=== PATIENT | male | born 1970 | race American Indian/Alaskan Native ===

== ENCOUNTER 2021-08-12 09:21 | Inpatient (IN) ==
[2021-08-12] MEDS ORDERED: IOPAMIDOL 100 ML BOTTLE IV ONE (09:22)
--- NOTE | 2021-08-12 09:48 | Emergency Department Note ---
HPI General Chief complaint: Skin/Abscess/Rash Stated complaint: skin Time Seen by Provider: 08/12/21 09:47 Source: patient and EMS Mode of arrival: EMS Limitations: no limitations History of Present Illness HPI Narrative: 51-year-old male with past medical history of type 2 diabetes on insulin presenting with left buttock pain and chills. Patient states he was told he had cellulitis at [facility] and was prescribed antibiotics which he finished today. Patient states he does not feel improved and the pain and swelling in his left buttock area is worsening. He also endorses chills and decreased appetite. No fever, vomiting, chest pain, shortness of breath, blood in stool, melena, dysuria, or hematuria. States he had a CT scan at [facility] 10 days ago but does not know the exact results. He has been compliant with his antibiotics but has not been taking his insulin. Point-of- care blood glucose on arrival just read "high". No numbness, weakness, paresthesias, or bowel or bladder incontinence. Related Data Home Medications Medication Instructions Recorded Confirmed No Known Home Meds 08/12/21 08/12/21 Allergies Allergy/AdvReac Type Severity Reaction Status Date / Time No Known Drug Allergies Allergy Unverified 08/12/21 10:24 Review of Systems ROS ROS Narrative: Narrative: Constitutional: Reports chills; Denies fever ENT ED: Denies throat pain Cardiovascular: Denies chest pain or palpitations Respiratory: Denies shortness of breath or cough Gastrointestinal: Denies abdominal pain, nausea or vomiting Genitourinary: Denies dysuria or frequency Musculoskeletal: Denies back pain or joint swelling Integumentary: Denies rash Neurological: Denies headache, weakness or dizziness Psychiatric: Denies anxiety Endocrine: Denies fatigue Hematological/Lymphatic: Denies easy bleeding PFSH Narrative Patient History Narrative: Narrative: Medical/Surgical/Family History All Active Problems (Updated 08/12/21 @ 16:01 by Shey Erazo MD) Diabetes mellitus (Acute) Perirectal abscess (Acute) Abscess of left buttock (Acute) Social History Smoking Status: Never smoker Exam Narrative Narrative: Narrative: General Limitations: no limitations General appearance: Present alert and other (Tremulous and in mild distress) Head Head: Present atraumatic and normocephalic Eye Eye: Present normal appearance, PERRL and EOMI; Absent scleral icterus or conjunctival injection ENT ENT: Present mucous membranes moist Neck Neck: Present normal inspection, full ROM and trachea midline; Absent meningism us or lymphadenopathy Chest Chest: Present symmetric chest wall rise Respiratory Respiratory: Present normal lung sounds bilaterally; Absent respiratory distress, wheezes, stridor, accessory muscle use or prolonged expiratory phase Cardiovascular Cardiovascular: Present regular rate and normal rhythm; Absent systolic murmur or diastolic murmur Adbominal Abdominal: Present soft; Absent distention, tenderness, guarding, rebound, rigidity, organomegaly or mass Rectal Rectal: Present other (Entire left gluteal area is firm and tender to touch without erythema or warmth) Extremities Extremities: Present normal inspection; Absent pretibial edema Back Back: Absent CVA tenderness (R) or CVA tenderness (L) Neurological Neurological: Present alert and oriented X3; Absent motor sensory deficit Psychiatric Psychiatric: Present normal affect and normal mood Skin Skin: Present warm (WNL) and dry Course Consultations Consultation #1: Dr. Erazo, general surgery Time: 14:05 Consultation #2: Dr. Kelly, hospitalist Time: 14:32 Vital Signs Vital signs: Vital Signs Temperature 100.8 F H 08/12/21 09:27 Respiratory Rate 20 08/12/21 09:27 Blood Pressure 164/121 08/12/21 09:27 Pulse Oximetry (%) 99 08/12/21 09:27 Temperature 100.8 F H 08/12/21 10:16 Pulse Rate 116 H 08/12/21 18:49 Respiratory Rate 29 H 08/12/21 18:49 Blood Pressure 98/65 08/12/21 18:46 Pulse Oximetry (%) 95 08/12/21 18:49 [facility] MDM Narrative Medical decision making narrative: 51-year-old male presenting with left buttock pain and chills. He is febrile, tachycardic, and hypertensive in the ED. Normal saline bolus and IV Tylenol given. Concern for deep gluteal abscess, will obtain labs and CT imaging to evaluate. Labs notable for leukocytosis to 15.3, hyperglycemia to 386 and elevated beta hydroxybutyrate, but no anion gap which is not consistent with DKA. Lactate is 3.8 and procalcitonin is 25.06. IV vancomycin and Zosyn given. Patient was also given 4 L of normal saline given his hypotension and tachycardia, likely from sepsis. CT shows a 15cm multiloculated abscess of the entire left gluteal delma muscle belly with overlying cellulitis. I discussed these findings with Dr. Erazo of surgery who recommends admission and will evaluate the patient. I discussed the patient with hospitalist, Dr. Kelly, who will admit. Lab Data Lab results reviewed: Yes I reviewed the patient's lab results. Result diagrams: 08/12/21 09:56 08/12/21 09:56 Labs: Lab Results 08/12/21 08/12/21 08/12/21 Range/Units 09:43 09:56 09:56 WBC 15.3 H (4.5-11.0) K/mcL RBC 3.28 L (4.63-6.08) M/mcL Hgb 8.9 L (13.7-17.5) g/dL Hct 27.3 L (40.1-51.0) % MCV 83.2 (80.0-100.0) fL MCH 27.1 (26.0-34.0) pg MCHC 32.6 (31.0-36.0) g/dL RDW 14.8 H (11.5-14.5) % Plt Count 411 (140-440) K/mcL MPV 10.4 (7.4-10.4) fL Neut % (Auto) 88.3 H (38.0-78.0) % Lymph % (Auto) 6.4 L (15.5-49.0) % Richardson % (Auto) 4.8 (1.0-12.0) % Eos % (Auto) 0.2 (0.0-7.0) % Baso % (Auto) 0.3 (0.0-2.0) % Lymph # (Auto) 0.98 L (1.50-4.80) K/mcL Richardson # (Auto) 0.73 (0.10-0.90) K/mcL Eos # (Auto) 0.03 (0.00-0.70) K/mcL Baso # (Auto) 0.04 (0.00-0.30) K/mcL Absolute Neutrophils 13.54 H (1.80-8.00) K/mcL VBG Lactic Acid (0.5-2.0) mmol/L Sodium 124 L (133-145) mmol/L Potassium 4.2 (3.3-5.1) mmol/L Chloride 88 L (96-108) mmol/L Carbon Dioxide 20 L (22-30) mmol/L Anion Gap 16.0 (8.0-16.0) BUN 9 (6-20) mg/dL Creatinine 0.6 L (0.7-1.2) mg/dL GFR Calculation 118 Glucose 386 H (70-105) mg/dL Hemoglobin A1c 11.4 H (4.0-6.0) % Hgb Estim Average Glucose 280 mg/dL Calcium 7.8 L (8.6-10.4) mg/dL Total Bilirubin 1.3 H (0.1-1.0) mg/dL AST 59 H (<40) U/L ALT 38 (<40) U/L Alkaline Phosphatase 520 H (39-117) U/L Total Protein 7.0 (5.9-8.4) gm/dL Albumin 1.8 L (3.2-5.2) gm/dL Globulin 5.2 H (2.2-3.7) gm/dL Albumin/Globulin Ratio 0.3 L (1.0-2.3) Beta-Hydroxybutyrate (<0.27) mmol/L Procalcitonin (<0.10) ng/mL 08/12/21 08/12/21 08/12/21 Range/Units 09:56 09:56 09:56 WBC (4.5-11.0) K/mcL RBC (4.63-6.08) M/mcL Hgb (13.7-17.5) g/dL Hct (40.1-51.0) % MCV (80.0-100.0) fL MCH (26.0-34.0) pg MCHC (31.0-36.0) g/dL RDW (11.5-14.5) % Plt Count (140-440) K/mcL MPV (7.4-10.4) fL Neut % (Auto) (38.0-78.0) % Lymph % (Auto) (15.5-49.0) % Richardson % (Auto) (1.0-12.0) % Eos % (Auto) (0.0-7.0) % Baso % (Auto) (0.0-2.0) % Lymph # (Auto) (1.50-4.80) K/mcL Richardson # (Auto) (0.10-0.90) K/mcL Eos # (Auto) (0.00-0.70) K/mcL Baso # (Auto) (0.00-0.30) K/mcL Absolute Neutrophils (1.80-8.00) K/mcL VBG Lactic Acid 3.8 H (0.5-2.0) mmol/L Sodium (133-145) mmol/L Potassium (3.3-5.1) mmol/L Chloride (96-108) mmol/L Carbon Dioxide (22-30) mmol/L Anion Gap (8.0-16.0) BUN (6-20) mg/dL Creatinine (0.7-1.2) mg/dL GFR Calculation Glucose (70-105) mg/dL Hemoglobin A1c (4.0-6.0) % Hgb Estim Average Glucose mg/dL Calcium (8.6-10.4) mg/dL Total Bilirubin (0.1-1.0) mg/dL AST (<40) U/L ALT (<40) U/L Alkaline Phosphatase (39-117) U/L Total Protein (5.9-8.4) gm/dL Albumin (3.2-5.2) gm/dL Globulin (2.2-3.7) gm/dL Albumin/Globulin Ratio (1.0-2.3) Beta-Hydroxybutyrate 2.49 H (<0.27) mmol/L Procalcitonin 25.06 H (<0.10) ng/mL 08/12/21 Range/Units 14:27 WBC (4.5-11.0) K/mcL RBC (4.63-6.08) M/mcL Hgb (13.7-17.5) g/dL Hct (40.1-51.0) % MCV (80.0-100.0) fL MCH (26.0-34.0) pg MCHC (31.0-36.0) g/dL RDW (11.5-14.5) % Plt Count (140-440) K/mcL MPV (7.4-10.4) fL Neut % (Auto) (38.0-78.0) % Lymph % (Auto) (15.5-49.0) % Richardson % (Auto) (1.0-12.0) % Eos % (Auto) (0.0-7.0) % Baso % (Auto) (0.0-2.0) % Lymph # (Auto) (1.50-4.80) K/mcL Richardson # (Auto) (0.10-0.90) K/mcL Eos # (Auto) (0.00-0.70) K/mcL Baso # (Auto) (0.00-0.30) K/mcL Absolute Neutrophils (1.80-8.00) K/mcL VBG Lactic Acid 2.0 (0.5-2.0) mmol/L Sodium (133-145) mmol/L Potassium (3.3-5.1) mmol/L Chloride (96-108) mmol/L Carbon Dioxide (22-30) mmol/L Anion Gap (8.0-16.0) BUN (6-20) mg/dL Creatinine (0.7-1.2) mg/dL GFR Calculation Glucose (70-105) mg/dL Hemoglobin A1c (4.0-6.0) % Hgb Estim Average Glucose mg/dL Calcium (8.6-10.4) mg/dL Total Bilirubin (0.1-1.0) mg/dL AST (<40) U/L ALT (<40) U/L Alkaline Phosphatase (39-117) U/L Total Protein (5.9-8.4) gm/dL Albumin (3.2-5.2) gm/dL Globulin (2.2-3.7) gm/dL Albumin/Globulin Ratio (1.0-2.3) Beta-Hydroxybutyrate (<0.27) mmol/L Procalcitonin (<0.10) ng/mL ED POC Tests ED POC Tests: LILLI - SARS Antigen Negative Radiology Data Radiology results reviewed: Yes I reviewed the patient's radiology results. Radiology results narrative: Ordering Physician:Rainer Paredes M.D. Date of Service:08/12/21 Procedure(s):CT pelvis w con CLINICAL INFORMATION: Left buttock pain COMPARISON: None. TECHNIQUE: 0.625 mm helical slices were obtained from the mid L4 through the subtrochanteric regions. Following reconstruction, 2.5 mm sagittal, coronal and axial reformations were processed. The exam was reviewed in bone and soft tissue windows. The exam was performed using radiation dose optimization techniques including, but not limited to, automated exposure control, adjustment of mA and/or kV according to patient size and use of iterative reconstruction technique. FINDINGS: A massive multiloculated abscess dominates the left gluteus delma muscle belly spanning 15 x 14 x 5 cm. There is marked cellulitis with scattered fluid in the overlying subcutaneous fat. There is also cellulitis in the subcutaneous fat overlying the erector spinae at midline at L5-S1 and the subcutaneous fat in the right gluteal region. Osseous structures are normal-no evidence of osteomyelitis. Both hip and SI joints are normal in width and alignment. Prostate, seminal vesicles, urinary bladder, visualized small /large bowel and the inferior pole kidneys all unremarkable. Vascular structures are normal. IMPRESSION: 1. Large (15 cm) multiloculated abscess dominating the entire left gluteal delma muscle belly with severe overlying cellulitis in the subcutaneous fat. Subcutaneous fat cellulitis is also seen at midline overlying the erector spinae muscles at L5-S1 and the right gluteal region region. Interpreted and Authenticated by: Reji Acosta 08/12/21 EKG Data EKG #1: EKG attestation: Yes I reviewed and interpreted this EKG. and Yes There are no EKG findings of acute coronary syndrome EKG results narrative: Sinus tachycardia at 137 bpm. Artifact present but no significant ST elevation or depression noted. Discharge Plan Patient/Caregiver Discharge Instructions Pt seen by UNIT SECY/PA only: No Clinical Impression: Abscess of left buttock Patient Disposition: Xfer As Inpt ([facility]) Condition: Fair Discharge Date/Time: 08/12/21 16:44 Discharge Location: [facility]
[2021-08-12] MEDS ORDERED: VANCOMYCIN 1,500 MG in 0.9 % SODIUM CHLORIDE 500 ML IV ONE (10:01)
[2021-08-12] MEDS ORDERED: 0.9 % SODIUM CHLORIDE 1,000 ML IV ONE ×2 (10:01→11:10)
[2021-08-12] MEDS ORDERED: ACETAMINOPHEN 1,000 MG/100 ML BAG IV ONE (10:02)
[2021-08-12 11:01] LABS: Basophils # (Auto) 0.04 K/mcL (0.00-0.30); Basophils % (Auto) 0.3 % (0.0-2.0); Eosinophils # (Auto) 0.03 K/mcL (0.00-0.70); Eosinophils % (Auto) 0.2 % (0.0-7.0); Hematocrit 27.3 % (40.1-51.0); Hemoglobin 8.9 g/dL (13.7-17.5); Lymphocytes # (Auto) 0.98 K/mcL (1.50-4.80); Lymphocytes % (Auto) 6.4 % (15.5-49.0); Mean Cell Volume 83.2 fL (80.0-100.0); Mean Corpuscular HGB Conc 32.6 g/dL (31.0-36.0); Mean Platelet Volume 10.4 fL (7.4-10.4); Monocytes # (Auto) 0.73 K/mcL (0.10-0.90); Monocytes % (Auto) 4.8 % (1.0-12.0); Neutrophils % (Auto) 88.3 % (38.0-78.0); Platelet Count 411 K/mcL (140-440); RBC 3.28 M/mcL (4.63-6.08); Red Cell Distribution Width 14.8 % (11.5-14.5); WBC 15.3 K/mcL (4.5-11.0)
[2021-08-12 11:06] LABS: ALT/SGPT 38 U/L (<40); AST/SGOT 59 U/L (<40); Albumin 1.8 gm/dL (3.2-5.2); Albumin/Globulin Ratio 0.3 (1.0-2.3); Alkaline Phosphatase 520 U/L (39-117); Bilirubin,Total 1.3 mg/dL (0.1-1.0); Blood Urea Nitrogen 9 mg/dL (6-20); Calcium 7.8 mg/dL (8.6-10.4); Carbon Dioxide 20 mmol/L (22-30); Chloride 88 mmol/L (96-108); Globulin 5.2 gm/dL (2.2-3.7); Glomerular Filtration Rate 118; Glucose 386 mg/dL (70-105)
--- NOTE | 2021-08-12 12:19 | Cat Scan Report ---
CLINICAL INFORMATION: Left buttock pain COMPARISON: None. TECHNIQUE: 0.625 mm helical slices were obtained from the mid L4 through the subtrochanteric regions. Following reconstruction, 2.5 mm sagittal, coronal and axial reformations were processed. The exam was reviewed in bone and soft tissue windows. The exam was performed using radiation dose optimization techniques including, but not limited to, automated exposure control, adjustment of mA and/or kV according to patient size and use of iterative reconstruction technique. FINDINGS: A massive multiloculated abscess dominates the left gluteus delma muscle belly spanning 15 x 14 x 5 cm. There is marked cellulitis with scattered fluid in the overlying subcutaneous fat. There is also cellulitis in the subcutaneous fat overlying the erector spinae at midline at L5-S1 and the subcutaneous fat in the right gluteal region. Osseous structures are normal-no evidence of osteomyelitis. Both hip and SI joints are normal in width and alignment. Prostate, seminal vesicles, urinary bladder, visualized small /large bowel and the inferior pole kidneys all unremarkable. Vascular structures are normal. IMPRESSION: 1. Large (15 cm) multiloculated abscess dominating the entire left gluteal delma muscle belly with severe overlying cellulitis in the subcutaneous fat. Subcutaneous fat cellulitis is also seen at midline overlying the erector spinae muscles at L5-S1 and the right gluteal region region. Interpreted and Authenticated by: Reji Acsota 08/12/21
[2021-08-12] MEDS ORDERED: PIPERACILLIN SODIUM/TAZOBACTAM 4.5 GM in DEXTROSE 5% IN WATER 50 ML IV ONE (14:32)
[2021-08-12] MEDS ORDERED: fentaNYL 100 MCG/2 ML VIAL IV ONE (14:35)
[2021-08-12 15:27] LABS: Hemoglobin A1C 11.4 % Hgb (4.0-6.0)
--- NOTE | 2021-08-12 16:02 | General Surg History&Physical ---
HPI History of Present Illness Patient information: Note initiated : 08/12/21 at 3:43 pm Service Date, if different from initiated Date: [] Patient: Frankie Rhoades 51 y/o M admitted on for skin. Chief Complaint: [] History of present illness: Mr. Rhoades is a 51 year old M admitted from the emergency room with a very large perirectal and gluteal abscess with acute septicemia. The patient has a history of developing an abscess in the gluteal cleft and late May. He was seen in the emergency room but it was not addressed because he left AGAINST MEDICAL ADVICE. He was seen again on 31 July with worsening pain which extended into his lower back. He was felt to have worsening abscess but was only treated with oral clindamycin for 7 days. He continued to have severe discomfort and finally presented to our emergency room with severe swelling of his left buttock extending into the presacral area and up in the lumbar sacral area. CT confirms a 16 cm abscess with air pockets, necrotic tissue with extension into the subcutaneous plane up to the lower lumbar sacral area. Patient has been hypotensive and tachycardic. He is demonstrating significant signs of sepsis and will be taken emergently to the operating room for incision and drainage of the area. He probably will need to have a takeback evaluation in 2days for further debridement and placement of a wound VAC. Patient has uncontrolled diabetes and he has not been taking his insulin during this time because his p.o. intake has been poor. His serum glucose is 386 and his hemoglobin A1c is 11.4. Beta hydroxybutyrate was 2.49 and procalcitonin is 25. Review of Systems All systems: reviewed and no additional remarkable complaints except as stated Constitutional Constitutional: Present chills, excessive sweating, malaise, night sweats and w eakness Respiratory Respiratory: Present dyspnea on exertion Gastrointestinal Gastrointestinal: Present abdominal pain, early satiety and nausea PFSH PFSH All Active Problems (Updated 08/12/21 @ 16:01 by Shey Erazo MD) Diabetes mellitus (Acute) Perirectal abscess (Acute) Abscess of left buttock (Acute) MEDS/ALLERGIES Home Medications and Allergies Home Medications Medication Instructions Recorded Confirmed Type No Known Home Meds 08/12/21 08/12/21 History Allergies Allergy/AdvReac Type Severity Reaction Status Date / Time No Known Drug Allergies Allergy Unverified 08/12/21 10:24 Physical Examination Vital Signs Vital signs: Temp Pulse Resp BP Pulse Ox 100.8 F H 124 H 39 H 99/59 100 08/12/21 10:16 08/12/21 15:05 08/12/21 15:05 08/12/21 15:01 08/12/21 15:05 General physical appearance General physical exam: well developed, moderate distress and severe pain Eyes Eye exam: PERRL and normal ocular movement ENT ENT exam: normal pinna and normal mucosa Head Head exam IM: Present atraumatic, normal inspection and normocephalic Neck Neck exam: no masses, no bruits, trachea midline, no lymphadenopathy and no venous distension Cardiovascular Cardiovascular exam IM: Present +S1, +S2 and tachycardia; Absent JVD Respiratory Respiratory exam: normal expansion, normal respiratory effort, clear to auscultation and other Abdomen Abdomen: Present soft, non tender and distended (Mild diffuse distention without tenderness) Rectum Rectum: Present other (Very large abscess involving the entire left buttock extending up to the lumbosacral area on the left side; also involves left perirectal space) Neurologic Neurologic: Present normal coordination and normal sensation Musculoskeletal Musculoskeletal: Present normal gait and normal posture Psychiatric Psychiatric: Present oriented to time, oriented to person, oriented to place, speech is normal and memory intact Results Labs Result diagrams: 08/12/21 09:56 08/12/21 09:56 Labs: Abnormal lab results 08/12/21 08/12/21 08/12/21 Range/Units 09:43 09:56 09:56 WBC 15.3 H (4.5-11.0) K/mcL RBC 3.28 L (4.63-6.08) M/mcL Hgb 8.9 L (13.7-17.5) g/dL Hct 27.3 L (40.1-51.0) % RDW 14.8 H (11.5-14.5) % Neut % (Auto) 88.3 H (38.0-78.0) % Lymph % (Auto) 6.4 L (15.5-49.0) % Lymph # (Auto) 0.98 L (1.50-4.80) K/mcL Absolute Neutrophils 13.54 H (1.80-8.00) K/mcL VBG Lactic Acid (0.5-2.0) mmol/L Sodium 124 L (133-145) mmol/L Chloride 88 L (96-108) mmol/L Carbon Dioxide 20 L (22-30) mmol/L Creatinine 0.6 L (0.7-1.2) mg/dL Glucose 386 H (70-105) mg/dL Hemoglobin A1c 11.4 H (4.0-6.0) % Hgb Calcium 7.8 L (8.6-10.4) mg/dL Total Bilirubin 1.3 H (0.1-1.0) mg/dL AST 59 H (<40) U/L Alkaline Phosphatase 520 H (39-117) U/L Albumin 1.8 L (3.2-5.2) gm/dL Globulin 5.2 H (2.2-3.7) gm/dL Albumin/Globulin Ratio 0.3 L (1.0-2.3) Beta-Hydroxybutyrate (<0.27) mmol/L Procalcitonin (<0.10) ng/mL 08/12/21 08/12/21 08/12/21 Range/Units 09:56 09:56 09:56 WBC (4.5-11.0) K/mcL RBC (4.63-6.08) M/mcL Hgb (13.7-17.5) g/dL Hct (40.1-51.0) % RDW (11.5-14.5) % Neut % (Auto) (38.0-78.0) % Lymph % (Auto) (15.5-49.0) % Lymph # (Auto) (1.50-4.80) K/mcL Absolute Neutrophils (1.80-8.00) K/mcL VBG Lactic Acid 3.8 H (0.5-2.0) mmol/L Sodium (133-145) mmol/L Chloride (96-108) mmol/L Carbon Dioxide (22-30) mmol/L Creatinine (0.7-1.2) mg/dL Glucose (70-105) mg/dL Hemoglobin A1c (4.0-6.0) % Hgb Calcium (8.6-10.4) mg/dL Total Bilirubin (0.1-1.0) mg/dL AST (<40) U/L Alkaline Phosphatase (39-117) U/L Albumin (3.2-5.2) gm/dL Globulin (2.2-3.7) gm/dL Albumin/Globulin Ratio (1.0-2.3) Beta-Hydroxybutyrate 2.49 H (<0.27) mmol/L Procalcitonin 25.06 H (<0.10) ng/mL Diabetes panel 08/12/21 08/12/21 Range/Units 09:43 09:56 Sodium 124 L (133-145) mmol/L Potassium 4.2 (3.3-5.1) mmol/L Chloride 88 L (96-108) mmol/L Carbon Dioxide 20 L (22-30) mmol/L BUN 9 (6-20) mg/dL Creatinine 0.6 L (0.7-1.2) mg/dL Glucose 386 H (70-105) mg/dL Hemoglobin A1c 11.4 H (4.0-6.0) % Hgb Calcium 7.8 L (8.6-10.4) mg/dL AST 59 H (<40) U/L ALT 38 (<40) U/L Alkaline Phosphatase 520 H (39-117) U/L Total Protein 7.0 (5.9-8.4) gm/dL Albumin 1.8 L (3.2-5.2) gm/dL Calcium panel 08/12/21 Range/Units 09:56 Calcium 7.8 L (8.6-10.4) mg/dL Albumin 1.8 L (3.2-5.2) gm/dL Pituitary panel 08/12/21 Range/Units 09:56 Sodium 124 L (133-145) mmol/L Potassium 4.2 (3.3-5.1) mmol/L Chloride 88 L (96-108) mmol/L Carbon Dioxide 20 L (22-30) mmol/L BUN 9 (6-20) mg/dL Creatinine 0.6 L (0.7-1.2) mg/dL Glucose 386 H (70-105) mg/dL Calcium 7.8 L (8.6-10.4) mg/dL Adrenal panel 08/12/21 Range/Units 09:56 Sodium 124 L (133-145) mmol/L Potassium 4.2 (3.3-5.1) mmol/L Chloride 88 L (96-108) mmol/L Carbon Dioxide 20 L (22-30) mmol/L BUN 9 (6-20) mg/dL Creatinine 0.6 L (0.7-1.2) mg/dL Glucose 386 H (70-105) mg/dL Calcium 7.8 L (8.6-10.4) mg/dL Total Bilirubin 1.3 H (0.1-1.0) mg/dL AST 59 H (<40) U/L ALT 38 (<40) U/L Alkaline Phosphatase 520 H (39-117) U/L Total Protein 7.0 (5.9-8.4) gm/dL Albumin 1.8 L (3.2-5.2) gm/dL All other labs normal. A/P Assessment and plan (1) Abscess of left buttock: Status: Acute (2) Perirectal abscess: Status: Acute (3) Diabetes mellitus: Status: Acute Narrative A/P Narrative: Patient is counseled for incision and drainage of the major abscess acutely. He will then be stabilized and have follow-up evaluation under anesthesia with probable placement of wound VAC on Tuesday. Patient is severely ill with major sepsis and hypotension Time Spent With Patient Time: Total time spent is greater than 50% in coordination of care (as documented) at patient's floor/unit and/or counseling patient:
--- NOTE | 2021-08-12 16:14 | Internal Med History&Physical ---
HPI History of Present Illness Patient information: Note initiated : 08/12/21 at 3:57 pm Service Date, if different from initiated Date: [] Patient: Frankie Rhoades 51 y/o M admitted on for skin. Chief Complaint: [] Chief complaint: Left buttock pain and chills History of present illness: Mr. Rhoades is a 51 year old male with a history of type 2 diabetes presented to the emergency department for left buttock pain and chills. The patient had recently presented to [facility] for the same complaints and was discharged from the emergency department with a prescription of Keflex for 10 days. The patient took the Keflex however his symptoms worsened. In the emergency department at [facility] the patient had a fever of 100.8, tachycardia and elevated respiratory rate. Routine blood work showed a leukocytosis with left shift. Lactic acid was elevated at 3.8. Patient had a CT pelvis with contrast that showed a large left gluteal multiloculated abscess measuring 15 cm. The patient received broad-spectrum antibiotics with vancomycin and Zosyn as well as IV fluids. Repeat lactic acid was 2.0. The patient's blood pressures were low in the emergency department however he says that he usually has low blood pressures at baseline. Hospital medicine was asked to admit the patient for further management. Review of systems Constitutional: Positive for chills and fever. Eyes: no vision changes or pain Cardiovascular: no chest pain, no palpitations Respiratory: no cough or dyspnea Gastrointestinal: Positive for right upper quadrant abdominal pain, no nausea, vomiting, or diarrhea Genitourinary: no dysuria or difficulty voiding Musculoskeletal: Positive for left buttock pain. Integumentary: no skin lesion or wound Neurological: Positive for left posterior thigh pain. Psychiatric: no anxiety or depression Physical exam General: 51-year-old chronically ill-appearing male. Head: Atraumatic, normal inspection. Eyes: normal appearance, no scleral icterus. Neck: full ROM Respiratory: Respiratory rate in the mid 20s, clear lung sounds bilaterally. Cardiovascular: Regular tachycardia, S1, S2. GI/Abdominal: soft, nontender, no guarding. Extremities: Warm, firm left buttocks area, full range of motion, 2 noninfected toe wounds. Neurological: CN II-XII intact, intact motor, intact sensation. Psychiatric: normal mood. Skin: Warmth and redness over left buttocks PFSH PFSH All Active Problems (Updated 08/12/21 @ 16:01 by Shey Erazo MD) Diabetes mellitus (Acute) Perirectal abscess (Acute) Abscess of left buttock (Acute) MEDS/ALLERGIES Home Medications and Allergies Home Medications Medication Instructions Recorded Confirmed Type No Known Home Meds 08/12/21 08/12/21 History Allergies Allergy/AdvReac Type Severity Reaction Status Date / Time No Known Drug Allergies Allergy Unverified 08/12/21 10:24 EXAM Constitutional Vitals: Temp Pulse Resp BP Pulse Ox 100.8 F H 125 H 24 H 79/57 100 08/12/21 10:16 08/12/21 15:44 08/12/21 15:44 08/12/21 15:41 08/12/21 15:44 DATA Data Completed and Pending Labs: Labs from last 24 hours 08/12/21 08/12/21 08/12/21 14:27 09:56 09:56 WBC RBC Hgb Hct MCV MCH MCHC RDW Plt Count MPV Neut % (Auto) Lymph % (Auto) Curry % (Auto) Eos % (Auto) Baso % (Auto) Lymph # (Auto) Curry # (Auto) Eos # (Auto) Baso # (Auto) Absolute Neutrophils VBG Lactic Acid 2.0 Sodium Potassium Chloride Carbon Dioxide Anion Gap BUN Creatinine GFR Calculation Glucose Hemoglobin A1c Estim Average Glucose Calcium Total Bilirubin AST ALT Alkaline Phosphatase Total Protein Albumin Globulin Albumin/Globulin Ratio Beta-Hydroxybutyrate 2.49 H Procalcitonin 25.06 H 08/12/21 08/12/21 08/12/21 09:56 09:56 09:56 WBC 15.3 H RBC 3.28 L Hgb 8.9 L Hct 27.3 L MCV 83.2 MCH 27.1 MCHC 32.6 RDW 14.8 H Plt Count 411 MPV 10.4 Neut % (Auto) 88.3 H Lymph % (Auto) 6.4 L Curry % (Auto) 4.8 Eos % (Auto) 0.2 Baso % (Auto) 0.3 Lymph # (Auto) 0.98 L Curry # (Auto) 0.73 Eos # (Auto) 0.03 Baso # (Auto) 0.04 Absolute Neutrophils 13.54 H VBG Lactic Acid 3.8 H Sodium 124 L Potassium 4.2 Chloride 88 L Carbon Dioxide 20 L Anion Gap 16.0 BUN 9 Creatinine 0.6 L GFR Calculation 118 Glucose 386 H Hemoglobin A1c Estim Average Glucose Calcium 7.8 L Total Bilirubin 1.3 H AST 59 H ALT 38 Alkaline Phosphatase 520 H Total Protein 7.0 Albumin 1.8 L Globulin 5.2 H Albumin/Globulin Ratio 0.3 L Beta-Hydroxybutyrate Procalcitonin 08/12/21 09:43 WBC RBC Hgb Hct MCV MCH MCHC RDW Plt Count MPV Neut % (Auto) Lymph % (Auto) Curry % (Auto) Eos % (Auto) Baso % (Auto) Lymph # (Auto) Curry # (Auto) Eos # (Auto) Baso # (Auto) Absolute Neutrophils VBG Lactic Acid Sodium Potassium Chloride Carbon Dioxide Anion Gap BUN Creatinine GFR Calculation Glucose Hemoglobin A1c 11.4 H Estim Average Glucose 280 Calcium Total Bilirubin AST ALT Alkaline Phosphatase Total Protein Albumin Globulin Albumin/Globulin Ratio Beta-Hydroxybutyrate Procalcitonin A/P Narrative A/P Narrative: Assessment: 51 year old male with a history of type 2 diabetes admitted for sepsis secondary to a large left gluteal abscess. #Sepsis secondary to gluteal abscess #Large multiloculated gluteal abscess #Type 2 diabetes mellitus, poorly controlled #Hyponatremia #Anemia, unspecified chronicity #Right #1 and #2 toe wounds present on admission #Obesity BMI Plan -Vancomycin IV and Zosyn for now. -IV fluid with LR. -Levophed as needed to keep MAP greater than 65. -Follow blood cultures. -General surgery consulted for I&D of gluteal abscess. -Lantus 10 units at bedtime and SSImedium, will likely need higher insulin doses. -Follow CBC, inpatient panel. -Hemoglobin A1c. -Iron studies. -Hold home Metformin and lisinopril. -N.p.o. for surgery. -DVT prophylaxis: Holding for surgery. -CODE STATUS: Full -Disposition: TBD Time Spent With Patient Time: Total time spent is greater than 50% in coordination of care (as documented) at patient's floor/unit and/or counseling patient:
[2021-08-12] MEDS ORDERED: PROPOFOL 200 MG/20 ML VIAL IV ONE (17:09)
[2021-08-12] MEDS ORDERED: PHENYLephrine 1 MG/10 ML SYRINGE (ANEST) ONE (17:09)
[2021-08-12] MEDS ORDERED: LIDOCAINE HCL/PF 100 MG/5 ML SYRINGE IV ONE (17:09)
[2021-08-12] MEDS ORDERED: DEXAMETHASONE 10 MG/ML VIAL ONE (17:09)
[2021-08-12] MEDS ORDERED: KETAMINE 50 MG/ML Syringe (ANEST) IV ONE (17:09)
[2021-08-12] MEDS ORDERED: ALBUMIN HUMAN 25 GM/100 ML BAG IV ONE ×2 (17:09→17:25)
[2021-08-12] MEDS ORDERED: fentaNYL 250 MCG/5 ML VIAL IV ONE (17:09)
[2021-08-12] MEDS ORDERED: HYDROmorphone 1 MG/ML SYRINGE ONE (17:09)
[2021-08-12] MEDS ORDERED: ONDANSETRON 4 MG/2 ML VIAL ONE (17:09)
[2021-08-12] MEDS ORDERED: fentaNYL 100 MCG/2 ML VIAL IV PRN (17:34)
[2021-08-12] MEDS ORDERED: HYDROmorphone 0.5 MG/0.5 ML SYRINGE IV PRN (17:34)
[2021-08-12] MEDS ORDERED: PROMETHAZINE 25 MG/ML VIAL IV PRN (17:34)
[2021-08-12] MEDS ORDERED: MEPERIDINE 25 MG/ML VIAL IV PRN (17:34)
[2021-08-12] MEDS ORDERED: NALOXONE HCL 0.4 MG/ML VIAL IV PRN (17:34)
[2021-08-12] MEDS ORDERED: ONDANSETRON 4 MG/2 ML VIAL IV PRN ×2 (17:34→19:04)
[2021-08-12] MEDS ORDERED: LACTATED RINGERS 250 ML IV PRN (17:34)
[2021-08-12] MEDS ORDERED: IPRATROPIUM/ALBUTEROL 3 ML AMPUL.NEB NEB PRN (17:34)
[2021-08-12] MEDS ORDERED: diphenhydrAMINE 50 MG/ML VIAL IV PRN (17:34)
[2021-08-12] MEDS ORDERED: LACTATED RINGERS 1,000 ML IV SCH (17:45)
--- NOTE | 2021-08-12 18:13 | Brief Operative Note ---
Brief Operative Note Date of procedure: 08/12/21 Pre-op diagnosis: major loculated abscesses of left buttock;perianal space and lower lumbarsa Post-op diagnosis: other (loculated abscesses of left buttock;perianal and lumbarsacral areas) Procedure: INCISION DRAINAGE AND DEBRIDEMENT OF MULTIPLE ABSCESSES OF LEFT BUTTOCK;PERIANAL SPACE AND LOWER LUMBAR SACRAL AREA Grafts/Implants: No Anesthesia: GETA Findings: EXTENSIVE DEEP SUBCUTANEOUS AND DEEP GLUTEAL DANYELLE LOCULATED ABSCESSES EXTENDING TO PERIANAL SPACE AND LOWER LUMBAR REGION Complications: none Surgeon: Shey Erazo Estimated blood loss (cc): 50 Specimens Removed/Pathology: other (WOUND CULTURES) Condition: critical Disposition: ICU
[2021-08-12] MEDS ORDERED: GENTAMICIN SULFATE 800 MG/20 ML VIAL IR ONE (18:20)
[2021-08-12] MEDS ORDERED: VANCOMYCIN 1 GM VIAL TOPICAL SCH (18:30)
[2021-08-12] MEDS ORDERED: 0.9 % SODIUM CHLORIDE 250 ML IV SCH ×2 (18:30→22:15)
[2021-08-12] MEDS ORDERED: VANCOMYCIN PER PHARMACY IV ONE ×2 (18:45→19:04)
[2021-08-12] MEDS ORDERED: DEXTROSE 31 GM ORAL.SUSP PO PRN (19:04)
[2021-08-12] MEDS ORDERED: LACTULOSE 20 GM/30 ML ORAL.SOL PO PRN (19:04)
[2021-08-12] MEDS ORDERED: NOREPINEPHRINE BITARTRATE 8 MG in 0.9 % SODIUM CHLORIDE 242 ML IV PRN (19:04)
[2021-08-12] MEDS ORDERED: DEXTROSE 50% 50 ML VIAL IV PRN (19:04)
[2021-08-12] MEDS: LACTATED RINGERS 1,000 ML IV SCH (19:29)
[2021-08-12] MEDS: INSULIN LISPRO 1 UNIT/0.01 ML UNIT SQ SCH ×2 (19:39→22:48)
[2021-08-12] MEDS ORDERED: INSULIN LISPRO 1 UNIT/0.01 ML UNIT SQ ONE ×2 (19:41→22:51)
[2021-08-12] MEDS ORDERED: INSULIN GLARGINE, HUMAN 1 UNIT/0.01 ML SQ ONE (19:42)
[2021-08-12 19:45] LABS: Blood Urea Nitrogen 12 mg/dL (6-20); Calcium 7.3 mg/dL (8.6-10.4); Carbon Dioxide 17 mmol/L (22-30); Chloride 92 mmol/L (96-108); Glomerular Filtration Rate 118; Glucose 382 mg/dL (70-105)
[2021-08-12 20:09] LABS: Basophils # (Auto) 0.03 K/mcL (0.00-0.30); Basophils % (Auto) 0.2 % (0.0-2.0); Eosinophils # (Auto) 0.02 K/mcL (0.00-0.70); Eosinophils % (Auto) 0.1 % (0.0-7.0); Hematocrit 21.9 % (40.1-51.0); Hemoglobin 6.9 g/dL (13.7-17.5); Lymphocytes # (Auto) 0.86 K/mcL (1.50-4.80); Mean Cell Volume 85.2 fL (80.0-100.0); Mean Corpuscular HGB Conc 31.5 g/dL (31.0-36.0); Mean Platelet Volume 10.6 fL (7.4-10.4); Monocytes # (Auto) 0.65 K/mcL (0.10-0.90); Monocytes % (Auto) 4.5 % (1.0-12.0); Neutrophils % (Auto) 89.2 % (38.0-78.0); Platelet Count 256 K/mcL (140-440); RBC 2.57 M/mcL (4.63-6.08); Red Cell Distribution Width 15.2 % (11.5-14.5); WBC 14.4 K/mcL (4.5-11.0)
[2021-08-12] MEDS ORDERED: ACETAMINOPHEN 650 MG/65 ML BAG IV PRN (20:22)
[2021-08-12 20:33] LABS: ALT/SGPT 34 U/L (<40); AST/SGOT 49 U/L (<40); Albumin 1.9 gm/dL (3.2-5.2); Albumin/Globulin Ratio 0.5 (1.0-2.3); Alkaline Phosphatase 378 U/L (39-117); Bilirubin,Direct 0.9 mg/dL (<0.3); Bilirubin,Total 1.2 mg/dL (0.1-1.0); Blood Urea Nitrogen 12 mg/dL (6-20); Calcium 7.3 mg/dL (8.6-10.4); Carbon Dioxide 16 mmol/L (22-30); Chloride 92 mmol/L (96-108); Glomerular Filtration Rate 110; Glucose 384 mg/dL (70-105); Lactate Dehydrogenase 209 U/L (135-225); Phosphorous 3.5 mg/dL (2.5-4.5); Triglycerides 88 mg/dL (<150); Uric Acid 4.2 mg/dL (2.5-8.0)
[2021-08-12] MEDS ORDERED: INSULIN GLARGINE, HUMAN 1 UNIT/0.01 ML SQ SCH (21:00)
[2021-08-12] MEDS: 0.9 % SODIUM CHLORIDE 10 ML SYRINGE IV SCH (22:49)
[2021-08-12] MEDS: SENNOSIDES 1 TABLET PO SCH (22:49)
[2021-08-12] MEDS: PIPERACILLIN SODIUM/TAZOBACTAM 4.5 GM in DEXTROSE 5% IN WATER 50 ML IV SCH (22:53)
[2021-08-12] MEDS: 0.9 % SODIUM CHLORIDE 1,000 ML IV SCH (23:00)
[2021-08-12] MEDS: 0.9 % SODIUM CHLORIDE 250 ML IV SCH (23:03)
[2021-08-13] MEDS: HYDROmorphone 0.5 MG/0.5 ML SYRINGE IV PRN ×3 (00:10→07:19)
[2021-08-13] MEDS: 0.9 % SODIUM CHLORIDE 1,000 ML IV SCH ×2 (02:46→10:39)
[2021-08-13] MEDS: LACTATED RINGERS 1,000 ML IV SCH ×2 (02:46→09:20)
[2021-08-13] MEDS: PIPERACILLIN SODIUM/TAZOBACTAM 4.5 GM in DEXTROSE 5% IN WATER 50 ML IV SCH ×4 (03:04→23:00)
[2021-08-13] MEDS: 0.9 % SODIUM CHLORIDE 10 ML SYRINGE IV SCH ×3 (05:50→21:49)
[2021-08-13] MEDS ORDERED: VANCOMYCIN PER PHARMACY IV SCH (06:00)
[2021-08-13 07:03] LABS: Hematocrit 26.8 % (40.1-51.0); Hemoglobin 8.6 g/dL (13.7-17.5); Mean Cell Volume 85.1 fL (80.0-100.0); Mean Corpuscular HGB Conc 32.1 g/dL (31.0-36.0); Mean Platelet Volume 10.8 fL (7.4-10.4); Platelet Count 239 K/mcL (140-440); RBC 3.15 M/mcL (4.63-6.08); Red Cell Distribution Width 14.8 % (11.5-14.5); WBC 9.5 K/mcL (4.5-11.0)
[2021-08-13 07:18] LABS: Iron 10 ug/dL (61-157); TIBC Calculation 94 ug/dl (228-428); Transferrin % Saturation 11 % (20-50)
[2021-08-13] MEDS: INSULIN LISPRO 1 UNIT/0.01 ML UNIT SQ SCH ×7 (07:19→20:41)
[2021-08-13 07:21] LABS: ALT/SGPT 34 U/L (<40); AST/SGOT 41 U/L (<40); Albumin 1.8 gm/dL (3.2-5.2); Albumin/Globulin Ratio 0.4 (1.0-2.3); Alkaline Phosphatase 360 U/L (39-117); Bilirubin,Direct 0.7 mg/dL (<0.3); Bilirubin,Total 1.1 mg/dL (0.1-1.0); Blood Urea Nitrogen 12 mg/dL (6-20); Calcium 7.6 mg/dL (8.6-10.4); Carbon Dioxide 21 mmol/L (22-30); Chloride 95 mmol/L (96-108); Globulin 4.6 gm/dL (2.2-3.7); Glomerular Filtration Rate 127; Glucose 420 mg/dL (70-105); Lactate Dehydrogenase 218 U/L (135-225); Phosphorous 2.7 mg/dL (2.5-4.5); Triglycerides 67 mg/dL (<150); Uric Acid 3.3 mg/dL (2.5-8.0)
[2021-08-13] MEDS: 0.9 % SODIUM CHLORIDE 250 ML IV SCH (08:10)
[2021-08-13] MEDS: SENNOSIDES 1 TABLET PO SCH ×2 (08:36→20:40)
[2021-08-13] MEDS: VANCOMYCIN 1,500 MG in 0.9 % SODIUM CHLORIDE 500 ML IV SCH ×2 (08:36→20:42)
--- NOTE | 2021-08-13 09:18 | EKG ---
[facility] Test Date: 2021-08-12 Pat Name: Frankie Rhoades Department: ED Room: Gender: Male [employer]: SB : 1970 Requested By: Rainer Paredes Order Number: [id number] Reading MD: Shaan Carcamo Measurements Intervals Kathleen Rate: 137 P: 0 OH: 96 QRS: 98 QRSD: 135 T: -22 QT: 327 QTc: 494 Interpretive Statements Sinus tachycardia RBBB Artifact in lead(s) I,II,III,aVR,aVL,aVF,V1,V2 Electronically Signed On 08-13-2021 9:18:00 PST by Shaan Carcamo /store/M0/[id number].pdf
[2021-08-13] MEDS: oxyCODONE/APAP 5/325MG TABLET PO PRN ×3 (10:06→20:08)
[2021-08-13 11:10] LABS: Hypochromasia 1+ (None Seen); Nucleated Red Blood Cells 2 % (0-0); RBC Morphology ABNORMAL (Normal)
[2021-08-13 11:18] LABS: Anisocytosis 1+ (None Seen); Band Neutrophils % 24 % (0-10); Lymphocytes % 9 % (15-49); Monocytes % (Manual) 6 % (1-12); Platelet Estimate NORMAL (Normal); Segmented Neutrophils % 61 % (38-78)
[2021-08-13] MEDS ORDERED: INSULIN LISPRO 1 UNIT/0.01 ML UNIT SQ SCH ×3 (11:30→17:00)
--- NOTE | 2021-08-13 14:07 | Internal Med Progress Note ---
SUBJECTIVE Subjective Patient information: Note initiated : 08/13/21 at 2:07 pm Service Date, if different from initiated Date: [] Patient: Frankie Rhoades 51 y/o M admitted on 08/12/21 for skin. Chief Complaint: [] Interval history: Mr. Rhoades is a 51 year old male with a history of type 2 diabetes presented to the emergency department for left buttock pain and chills. The patient had recently presented to [facility] for the same complaints and was discharged from the emergency department with a prescription of Keflex for 10 days. The patient took the Keflex however his symptoms worsened. In the emergency department at [facility] the patient had a fever of 100.8, tachycardia and elevated respiratory rate. Routine blood work showed a leukocytosis with left shift. Lactic acid was elevated at 3.8. Patient had a CT pelvis with contrast that showed a large left gluteal multiloculated abscess measuring 15 cm. The patient received broad-spectrum antibiotics with vancomycin and Zosyn as well as IV fluids. Repeat lactic acid was 2.0. The patient's blood pressures were low in the emergency department however he says that he usually has low blood pressures at baseline. Hospital medicine was asked to admit the patient for further management. 08/13 Had an I&D of the abscess yesterday evening, multiple drains in place. Anticipate the patient will require another washout and possibly a wound VAC. 2/2 blood cultures growing gram negative bacillus, surgical cultures pending. Increased Lantus and sliding scale insulin, added prandial Humalog. Sepsis physiology has improved. Physical exam General: 51-year-old chronically ill-appearing male. Head: Atraumatic, normal inspection. Eyes: normal appearance, no scleral icterus. Neck: full ROM Respiratory: Respiratory rate in the mid 20s, clear lung sounds bilaterally. Cardiovascular: Regular tachycardia, S1, S2. GI/Abdominal: soft, nontender, no guarding. Extremities: Left buttock surgical incision covered with saturated bandage. Neurological: CN II-XII intact, intact motor, intact sensation. Psychiatric: normal mood. Skin: Warmth and redness over left buttocks Constitutional Vitals: Vital Signs Temp Pulse Resp BP Pulse Ox 98.8 F 100 H 25 H 109/75 100 08/13/21 13:00 08/13/21 13:00 08/13/21 13:00 08/13/21 13:00 08/13/21 13:00 Period Temp Pulse Resp BP Sys/Vivas Pulse Ox Last 24 Hr 97.3 F-99.3 F 86-129 0-40 55-140/37-117 81-100 Intake and Output 08/13/21 08/13/21 08/13/21 05:59 13:59 21:59 Intake Total 3306 1550 Output Total 775 650 Balance 2531 900 Intake & Output: Intake & Output 08/13/21 08/13/21 08/13/21 05:59 13:59 21:59 Intake Total 3306 1550 Output Total 775 650 Balance 2531 900 Intake: IV 1506 1550 Sodium Chloride 0.9% 250 ml @ 6 20 mls/hr IV .[id number] [facility] Rx#: [id number] Lactated Ringers 1,000 ml @ [phone] mls/hr IV .Q6H40M [facility] Rx#: [id number] Zosyn 4.5 gm In Dextrose 5% in 100 50 Water 50 ml @ 100 mls/hr IV Q8H [facility] Rx#:[id number] Vancomycin 1,500 mg In Sodium 500 500 Chloride 0.9% 500 ml @ 333.3 mls/hr IV Q12H [facility] Rx#: [id number] Oral 1200 0 Blood Product 600 Output: Void Amount 775 650 Other: Urine Appearance Clear Clear Urine Color Light Betty Light Betty Urine Odor Strong OBJ DATA Labs CBC & Chem 7: 08/13/21 05:01 08/13/21 05:00 Labs: Abnormal Lab Results 08/13/21 08/13/21 08/13/21 05:01 05:00 05:00 WBC RBC 3.15 L Hgb 8.6 L Hct 26.8 L RDW 14.8 H MPV 10.8 H Neut % (Auto) Lymph % (Auto) Lymph # (Auto) Band Neutrophils % 24 H Lymphocytes % 9 L Absolute Neutrophils Nucleated RBCs 2 H RBC Morphology Abnormal A Hypochromasia 1+ A Anisocytosis 1+ A VBG Lactic Acid Sodium 128 L Chloride 95 L Carbon Dioxide 21 L Anion Gap Creatinine 0.5 L Glucose 420 H Hemoglobin A1c Calcium 7.6 L Iron 10 L TIBC 94 L Unsat Iron Binding 84 L Transferrin % Sat 11 L Total Bilirubin 1.1 H Direct Bilirubin 0.7 H GGT 530 H AST 41 H Alkaline Phosphatase 360 H Albumin 1.8 L Globulin 4.6 H Albumin/Globulin Ratio 0.4 L Beta-Hydroxybutyrate Procalcitonin 08/12/21 08/12/21 08/12/21 19:04 18:42 18:42 WBC 14.4 H RBC 2.57 L Hgb 6.9 L* Hct 21.9 L RDW 15.2 H MPV 10.6 H Neut % (Auto) 89.2 H Lymph % (Auto) 6.0 L Lymph # (Auto) 0.86 L Band Neutrophils % Lymphocytes % Absolute Neutrophils 12.80 H Nucleated RBCs RBC Morphology Hypochromasia Anisocytosis VBG Lactic Acid Sodium 127 L 125 L Chloride 92 L 92 L Carbon Dioxide 16 L 17 L Anion Gap 19.0 H Creatinine 0.6 L Glucose 384 H 382 H Hemoglobin A1c Calcium 7.3 L 7.3 L Iron TIBC Unsat Iron Binding Transferrin % Sat Total Bilirubin 1.2 H Direct Bilirubin 0.9 H GGT 554 H AST 49 H Alkaline Phosphatase 378 H Albumin 1.9 L Globulin 4.0 H Albumin/Globulin Ratio 0.5 L Beta-Hydroxybutyrate Procalcitonin 08/12/21 08/12/21 08/12/21 09:56 09:56 09:56 WBC RBC Hgb Hct RDW MPV Neut % (Auto) Lymph % (Auto) Lymph # (Auto) Band Neutrophils % Lymphocytes % Absolute Neutrophils Nucleated RBCs RBC Morphology Hypochromasia Anisocytosis VBG Lactic Acid 3.8 H Sodium Chloride Carbon Dioxide Anion Gap Creatinine Glucose Hemoglobin A1c Calcium Iron TIBC Unsat Iron Binding Transferrin % Sat Total Bilirubin Direct Bilirubin GGT AST Alkaline Phosphatase Albumin Globulin Albumin/Globulin Ratio Beta-Hydroxybutyrate 2.49 H Procalcitonin 25.06 H 08/12/21 08/12/21 08/12/21 09:56 09:56 09:43 WBC 15.3 H RBC 3.28 L Hgb 8.9 L Hct 27.3 L RDW 14.8 H MPV Neut % (Auto) 88.3 H Lymph % (Auto) 6.4 L Lymph # (Auto) 0.98 L Band Neutrophils % Lymphocytes % Absolute Neutrophils 13.54 H Nucleated RBCs RBC Morphology Hypochromasia Anisocytosis VBG Lactic Acid Sodium 124 L Chloride 88 L Carbon Dioxide 20 L Anion Gap Creatinine 0.6 L Glucose 386 H Hemoglobin A1c 11.4 H Calcium 7.8 L Iron TIBC Unsat Iron Binding Transferrin % Sat Total Bilirubin 1.3 H Direct Bilirubin GGT AST 59 H Alkaline Phosphatase 520 H Albumin 1.8 L Globulin 5.2 H Albumin/Globulin Ratio 0.3 L Beta-Hydroxybutyrate Procalcitonin Meds: Medications Acetaminophen (Acetaminophen 325 Mg Tablet) 650 mg PO Q6HP PRN; Protocol PRN Reason: Per Pain Protocol/Fever > 101 Dextrose (Dextrose 50% 50 Ml Vial) 0 ml IV UD PRN PRN Reason: Hypoglycemia Diagnostic Test (Pha) (Accu-Chek 1 Each Strip) 1 each FS ACHS [facility] Last Admin: 08/13/21 13:42 Dose: 1 each Documented by: Glucose (Dextrose 31 Gm Oral.Susp) 15 gm PO PRN PRN PRN Reason: Hypoglycemia Hydromorphone HCl (Hydromorphone 0.5 Mg/0.5 Ml Syringe) 0.5 mg IV Q2HP PRN; Protocol PRN Reason: Per Pain Protocol Last Admin: 08/13/21 07:19 Dose: 0.5 mg Documented by: Piperacillin Sod/Tazobactam (Sod 4.5 gm/ Dextrose) 50 mls @ 100 mls/hr IV Q8H [facility]; Protocol Last Infusion: 08/13/21 07:20 Dose: Infused Documented by: Norepinephrine Bitartrate 8 mg (/ Sodium Chloride) 250 mls @ 18.75 mls/hr IV Q14H PRN; Protocol PRN Reason: Blood Pressure - Low Acetaminophen (Ofirmev) 650 mg in 65 mls @ 130 mls/hr IV Q6HP PRN; Protocol PRN Reason: PAIN/FEVER > 101 Vancomycin HCl 1,500 mg/ (Sodium Chloride) 500 mls @ 333.3 mls/hr IV Q12H [facility] Last Infusion: 08/13/21 10:39 Dose: Infused Documented by: Sodium Chloride (Sodium Chloride 0.9%) 1,000 mls @ 75 mls/hr IV .[id number] [facility] Last Admin: 08/13/21 10:39 Dose: 75 mls/hr Documented by: Insulin Glargine (Insulin Glargine, Human 1 Unit/0.01 Ml) 20 unit SQ [facility] Insulin Human Lispro (Insulin Lispro 1 Unit/0.01 Ml Unit) 0 unit SQ ACHS [facility]; Protocol Last Admin: 08/13/21 13:42 Dose: 18 units Documented by: Insulin Human Lispro (Insulin Lispro 1 Unit/0.01 Ml Unit) 10 unit SQ AC [facility] Last Admin: 08/13/21 11:26 Dose: 10 units Documented by: Lactulose (Lactulose 20 Gm/30 Ml Oral.Carmen) 10 gm PO DAILYP PRN PRN Reason: Constipation Ondansetron HCl (Ondansetron 4 Mg/2 Ml Vial) 4 mg IV Q4HP PRN; Protocol PRN Reason: Nausea And Vomiting Oxycodone/Acetaminophen (Oxycodone/Apap 5/325mg Tablet) 1 tab PO Q4HP PRN; Protocol PRN Reason: Per Pain Protocol Last Admin: 08/13/21 10:06 Dose: 1 tab Documented by: Senna (Sennosides 1 Tablet) 2 tab PO BID [facility] Last Admin: 08/13/21 08:36 Dose: 2 tab Documented by: Sodium Chloride (0.9 % Sodium Chloride 10 Ml Syringe) 10 ml IV Q8 [facility] Last Admin: 08/13/21 13:45 Dose: 10 ml Documented by: Vancomycin HCl (Vancomycin Per Pharmacy) 1 order IV UD [facility]; Protocol A/P Narrative A/P Narrative: Assessment: 51 year old male with a history of type 2 diabetes admitted for sepsis secondary to a large left gluteal abscess. #Sepsis secondary to gluteal abscess #Large multiloculated gluteal abscess s/p I&D 08/12/21 #Gram negative bacteremia #Type 2 diabetes mellitus, poorly controlled #Hyponatremia #Anemia, unspecified chronicity #Right #1 and #2 toe wounds present on admission #Obesity BMI Plan -Vancomycin IV and Zosyn for now. -IV fluid. -Levophed as needed to keep MAP greater than 65. -Follow blood cultures. -General surgery following for gluteal abscess. -If surgical cultures do now grow gram negative organisms consider additional workup for source. -Lantus 30 units at bedtime, prandial Humalog 10 units AC and SSI-high. -Follow CBC, inpatient panel. -Hold home Metformin and lisinopril. -Diabetic diet. -DVT prophylaxis: Holding for surgery. -CODE STATUS: Full -Disposition: TBD Time Spent With Patient Time: Total time spent is greater than 50% in coordination of care (as documented) at patient's floor/unit and/or counseling patient: QUALITY VTE Deep Vein Thrombosis/Pulmonary Embolism Present on Admission: No
--- NOTE | 2021-08-13 17:19 | General Surgery Progress Note ---
SUBJECTIVE Subjective Patient information: Note initiated : 08/13/21 at 5:13 pm Service Date, if different from initiated Date: [] Patient: Frankie Rhoades 51 y/o M admitted on 08/12/21 for skin. Chief Complaint: [] Interval history: Patient is clinically improved. Afebrile since surgery. His tachycardia is improved and his blood pressure has remained relatively stable. White blood count has decreased to 9.5, hemoglobin 26.8 blood cultures are growing out gram- negative bacillus. Patient has significant purulent drainage still and may need to have repeat washout tomorrow. He will be made n.p.o. after midnight and incision concerning for reexploration will be made tomorrow. Constitutional Vitals: Vital Signs Temp Pulse Resp BP Pulse Ox 98.1 F 88 20 101/77 98 08/13/21 17:00 08/13/21 17:00 08/13/21 17:00 08/13/21 17:00 08/13/21 17:00 Period Temp Pulse Resp BP Sys/Vivas Pulse Ox Last 24 Hr 97.3 F-99.3 F 86-117 0-32 82-124/47-83 81-100 Intake and Output 08/13/21 08/13/21 08/13/21 05:59 13:59 21:59 Intake Total 3306 1550 850 Output Total 775 650 600 Balance 2531 900 250 Weight 223 lb 2 oz Patient Weight 08/14/21 05:59 Weight 223 lb 2 oz Intake & Output: Intake & Output 08/13/21 08/13/21 08/13/21 05:59 13:59 21:59 Intake Total 3306 1550 850 Output Total 775 650 600 Balance 2531 900 250 Weight 223 lb 2 oz Intake: IV 1506 1550 50 Sodium Chloride 0.9% 250 ml @ 6 20 mls/hr IV .[id number] [facility] Rx#: [id number] Lactated Ringers 1,000 ml @ 102 990 6669 mls/hr IV .Q6H40M [facility] Rx#: [id number] Zosyn 4.5 gm In Dextrose 5% in 100 50 50 Water 50 ml @ 100 mls/hr IV Q8H [facility] Rx#:[id number] Vancomycin 1,500 mg In Sodium 500 500 Chloride 0.9% 500 ml @ 333.3 mls/hr IV Q12H [facility] Rx#: [id number] Oral 1200 0 800 Blood Product 600 Output: Void Amount 775 650 600 Other: Meal Lunch Percent of Meal Consumed 75% Feeding Ability Independent Urine Appearance Clear Clear Clear Urine Color Light Betty Light Ebtty Dark Yellow Urine Odor Strong Strong Head Head exam: Present atraumatic, normal inspection and normocephalic Eye Eye exam: Present EOMI Pupils: Present normal accommodation and PERRL ENT ENT exam: Present mucous membranes moist and normal exam Neck Neck exam: Present full ROM and normal inspection; Absent lymphadenopathy Respiratory Respiratory exam: Present normal respiratory exam and CTAB; Absent rales, respiratory distress or rhonchi Cardiovascular Cardiovascular exam: Present normal rate and rhythm, RRR, +S1 and +S2; Absent JVD GI/Abdominal GI/Abdominal exam: Present soft; Absent distended, guarding or hernia Rectal Additional comments: Extensive induration with purulent drainage of the entire left buttock and lower lumbar region; improved from yesterday Extremities Exam Extremities exam: Present full ROM, normal inspection and neurovascular intact; Absent pedal edema Back Exam Additional comments: Moderate induration without cellulitis of lower lumbar region Neurological Exam Neurological exam: Present alert; Absent motor sensory deficit Psychiatric Psychiatric exam: Present normal affect and normal mood A/P Assessment and plan (1) Abscess of left buttock: Status: Acute (2) Diabetes mellitus: Status: Acute (3) Perirectal abscess: Status: Acute Narrative A/P Narrative: Continue on present therapy Follow-up: Culture of abscess drainage tomorrow May need to have reexploration and irrigation of wound under anesthesia Time Spent With Patient Time: Total time spent is greater than 50% in coordination of care (as documented) at patient's floor/unit and/or counseling patient:
[2021-08-13] MEDS ORDERED: INSULIN GLARGINE, HUMAN 1 UNIT/0.01 ML SQ SCH ×2 (21:00)
[2021-08-14] MEDS: 0.9 % SODIUM CHLORIDE 1,000 ML IV SCH ×3 (00:33→21:05)
[2021-08-14] MEDS: oxyCODONE/APAP 5/325MG TABLET PO PRN ×6 (01:38→23:31)
[2021-08-14] MEDS: PIPERACILLIN SODIUM/TAZOBACTAM 4.5 GM in DEXTROSE 5% IN WATER 50 ML IV SCH ×3 (05:49→21:22)
[2021-08-14] MEDS: 0.9 % SODIUM CHLORIDE 10 ML SYRINGE IV SCH ×3 (05:53→22:41)
[2021-08-14 07:24] LABS: Hematocrit 25.4 % (40.1-51.0); Hemoglobin 8.1 g/dL (13.7-17.5); Mean Corpuscular HGB Conc 31.9 g/dL (31.0-36.0); Mean Platelet Volume 11.3 fL (7.4-10.4); Platelet Count 239 K/mcL (140-440); RBC 3.06 M/mcL (4.63-6.08); Red Cell Distribution Width 14.9 % (11.5-14.5); WBC 7.6 K/mcL (4.5-11.0)
[2021-08-14] MEDS: INSULIN LISPRO 1 UNIT/0.01 ML UNIT SQ SCH ×7 (07:35→21:05)
[2021-08-14 08:09] LABS: ALT/SGPT 117 U/L (<40); AST/SGOT 191 U/L (<40); Albumin 1.8 gm/dL (3.2-5.2); Albumin/Globulin Ratio 0.4 (1.0-2.3); Alkaline Phosphatase 394 U/L (39-117); Bilirubin,Direct 0.4 mg/dL (<0.3); Bilirubin,Total 0.7 mg/dL (0.1-1.0); Blood Urea Nitrogen 12 mg/dL (6-20); Calcium 7.5 mg/dL (8.6-10.4); Carbon Dioxide 23 mmol/L (22-30); Chloride 97 mmol/L (96-108); Globulin 4.2 gm/dL (2.2-3.7); Glomerular Filtration Rate 139; Glucose 335 mg/dL (70-105); Lactate Dehydrogenase 199 U/L (135-225); Phosphorous 2.7 mg/dL (2.5-4.5); Triglycerides 91 mg/dL (<150); Uric Acid 2.4 mg/dL (2.5-8.0)
[2021-08-14] MEDS: VANCOMYCIN 1,500 MG in 0.9 % SODIUM CHLORIDE 500 ML IV SCH (11:00)
[2021-08-14 11:34] LABS: Anisocytosis 1+ (None Seen); Band Neutrophils % 5 % (0-10); Lymphocytes % 5 % (15-49); Monocytes % (Manual) 6 % (1-12); Platelet Estimate NORMAL (Normal); RBC Morphology ABNORMAL (Normal); Segmented Neutrophils % 84 % (38-78)
[2021-08-14] MEDS: SENNOSIDES 1 TABLET PO SCH ×2 (12:12→21:05)
--- NOTE | 2021-08-14 14:43 | Internal Med Progress Note ---
SUBJECTIVE Subjective Patient information: Note initiated : 08/14/21 at 2:40 pm Service Date, if different from initiated Date: [] Patient: Frankie Rhoades 51 y/o M admitted on 08/12/21 for skin. Chief Complaint: [] Interval history: Mr. Rhoades is a 51 year old male with a history of type 2 diabetes presented to the emergency department for left buttock pain and chills. The patient had recently presented to [facility] for the same complaints and was discharged from the emergency department with a prescription of Keflex for 10 days. The patient took the Keflex however his symptoms worsened. In the emergency department at [facility] the patient had a fever of 100.8, tachycardia and elevated respiratory rate. Routine blood work showed a leukocytosis with left shift. Lactic acid was elevated at 3.8. Patient had a CT pelvis with contrast that showed a large left gluteal multiloculated abscess measuring 15 cm. The patient received broad-spectrum antibiotics with vancomycin and Zosyn as well as IV fluids. Repeat lactic acid was 2.0. The patient's blood pressures were low in the emergency department however he says that he usually has low blood pressures at baseline. Hospital medicine was asked to admit the patient for further management. 08/13 Had an I&D of the abscess yesterday evening, multiple drains in place. Anticipate the patient will require another washout and possibly a wound VAC. 2 blood cultures growing gram negative bacillus, surgical cultures pending. Increased Lantus and sliding scale insulin, added prandial Humalog. Sepsis physiology has improved. 08/14 Blood cultures grew bacteroides fragilis, awaiting final surgical cultures. Discontinues Vancomycin, continued Zosyn. Glucose continues to be elevated, increased Lantus to 40 units HS, prandial Humalog to 15 units AC TID and continued high dose sliding scale insulin. Surgery planning for reexploration. Constitutional Vitals: Vital Signs Temp Pulse Resp BP Pulse Ox 96.9 F L 84 20 95/70 99 08/14/21 08:02 08/14/21 12:01 08/13/21 17:00 08/14/21 12:01 08/14/21 12:01 Period Temp Pulse Resp BP Sys/Vivas Pulse Ox Last 24 Hr 96.8 F-98.8 F 73-92 95-119/70-88 95-100 Intake and Output 08/14/21 08/14/21 08/14/21 05:59 13:59 21:59 Intake Total 1910 550 420 Output Total 950 1425 Balance 960 -875 420 Intake & Output: Intake & Output 08/14/21 08/14/21 08/14/21 05:59 13:59 21:59 Intake Total 1910 550 420 Output Total 950 1425 Balance 960 -875 420 Intake: IV 1550 550 Sodium Chloride 0.9% 1,000 ml @ 1000 75 mls/hr IV .[id number] [facility] Rx#: [id number] Zosyn 4.5 gm In Dextrose 5% in 50 50 Water 50 ml @ 100 mls/hr IV Q8H [facility] Rx#:[id number] Vancomycin 1,500 mg In Sodium 500 500 Chloride 0.9% 500 ml @ 333.3 mls/hr IV Q12H [facility] Rx#: [id number] Oral 360 420 Output: Void Amount 950 1425 Other: Meal Lunch Percent of Meal Consumed 100% Feeding Ability Independent Urine Appearance Clear Clear Urine Color Light Betty Light Betty Urine Odor Normal OBJ DATA Labs CBC & Chem 7: 08/14/21 04:00 08/14/21 07:13 Labs: Abnormal Lab Results 08/14/21 08/14/21 08/13/21 07:13 04:00 05:01 WBC RBC 3.06 L 3.15 L Hgb 8.1 L 8.6 L Hct 25.4 L 26.8 L RDW 14.9 H 14.8 H MPV 11.3 H 10.8 H Neut % (Auto) Lymph % (Auto) Lymph # (Auto) Seg Neutrophils % 84 H Band Neutrophils % 24 H Lymphocytes % 5 L 9 L Absolute Neutrophils Nucleated RBCs 2 H RBC Morphology Abnormal A Abnormal A Hypochromasia 1+ A Anisocytosis 1+ A 1+ A VBG Lactic Acid Sodium 129 L Chloride Carbon Dioxide Anion Gap Creatinine 0.4 L Glucose 335 H Hemoglobin A1c Uric Acid 2.4 L Calcium 7.5 L Iron TIBC Unsat Iron Binding Transferrin % Sat Total Bilirubin Direct Bilirubin 0.4 H GGT 499 H AST 191 H ALT 117 H Alkaline Phosphatase 394 H Albumin 1.8 L Globulin 4.2 H Albumin/Globulin Ratio 0.4 L Beta-Hydroxybutyrate Procalcitonin 08/13/21 08/13/21 08/12/21 05:00 05:00 19:04 WBC RBC Hgb Hct RDW MPV Neut % (Auto) Lymph % (Auto) Lymph # (Auto) Seg Neutrophils % Band Neutrophils % Lymphocytes % Absolute Neutrophils Nucleated RBCs RBC Morphology Hypochromasia Anisocytosis VBG Lactic Acid Sodium 128 L 127 L Chloride 95 L 92 L Carbon Dioxide 21 L 16 L Anion Gap 19.0 H Creatinine 0.5 L Glucose 420 H 384 H Hemoglobin A1c Uric Acid Calcium 7.6 L 7.3 L Iron 10 L TIBC 94 L Unsat Iron Binding 84 L Transferrin % Sat 11 L Total Bilirubin 1.1 H 1.2 H Direct Bilirubin 0.7 H 0.9 H GGT 530 H 554 H AST 41 H 49 H ALT Alkaline Phosphatase 360 H 378 H Albumin 1.8 L 1.9 L Globulin 4.6 H 4.0 H Albumin/Globulin Ratio 0.4 L 0.5 L Beta-Hydroxybutyrate Procalcitonin 08/12/21 08/12/21 08/12/21 18:42 18:42 09:56 WBC 14.4 H RBC 2.57 L Hgb 6.9 L* Hct 21.9 L RDW 15.2 H MPV 10.6 H Neut % (Auto) 89.2 H Lymph % (Auto) 6.0 L Lymph # (Auto) 0.86 L Seg Neutrophils % Band Neutrophils % Lymphocytes % Absolute Neutrophils 12.80 H Nucleated RBCs RBC Morphology Hypochromasia Anisocytosis VBG Lactic Acid Sodium 125 L Chloride 92 L Carbon Dioxide 17 L Anion Gap Creatinine 0.6 L Glucose 382 H Hemoglobin A1c Uric Acid Calcium 7.3 L Iron TIBC Unsat Iron Binding Transferrin % Sat Total Bilirubin Direct Bilirubin GGT AST ALT Alkaline Phosphatase Albumin Globulin Albumin/Globulin Ratio Beta-Hydroxybutyrate 2.49 H Procalcitonin 08/12/21 08/12/21 08/12/21 09:56 09:56 09:56 WBC RBC Hgb Hct RDW MPV Neut % (Auto) Lymph % (Auto) Lymph # (Auto) Seg Neutrophils % Band Neutrophils % Lymphocytes % Absolute Neutrophils Nucleated RBCs RBC Morphology Hypochromasia Anisocytosis VBG Lactic Acid 3.8 H Sodium 124 L Chloride 88 L Carbon Dioxide 20 L Anion Gap Creatinine 0.6 L Glucose 386 H Hemoglobin A1c Uric Acid Calcium 7.8 L Iron TIBC Unsat Iron Binding Transferrin % Sat Total Bilirubin 1.3 H Direct Bilirubin GGT AST 59 H ALT Alkaline Phosphatase 520 H Albumin 1.8 L Globulin 5.2 H Albumin/Globulin Ratio 0.3 L Beta-Hydroxybutyrate Procalcitonin 25.06 H 08/12/21 08/12/21 09:56 09:43 WBC 15.3 H RBC 3.28 L Hgb 8.9 L Hct 27.3 L RDW 14.8 H MPV Neut % (Auto) 88.3 H Lymph % (Auto) 6.4 L Lymph # (Auto) 0.98 L Seg Neutrophils % Band Neutrophils % Lymphocytes % Absolute Neutrophils 13.54 H Nucleated RBCs RBC Morphology Hypochromasia Anisocytosis VBG Lactic Acid Sodium Chloride Carbon Dioxide Anion Gap Creatinine Glucose Hemoglobin A1c 11.4 H Uric Acid Calcium Iron TIBC Unsat Iron Binding Transferrin % Sat Total Bilirubin Direct Bilirubin GGT AST ALT Alkaline Phosphatase Albumin Globulin Albumin/Globulin Ratio Beta-Hydroxybutyrate Procalcitonin Meds: Medications Acetaminophen (Acetaminophen 325 Mg Tablet) 650 mg PO Q6HP PRN; Protocol PRN Reason: Per Pain Protocol/Fever > 101 Dextrose (Dextrose 50% 50 Ml Vial) 0 ml IV UD PRN PRN Reason: Hypoglycemia Diagnostic Test (Pha) (Accu-Chek 1 Each Strip) 1 each FS ACHS [facility] Last Admin: 08/14/21 12:11 Dose: 1 each Documented by: Glucose (Dextrose 31 Gm Oral.Susp) 15 gm PO PRN PRN PRN Reason: Hypoglycemia Hydromorphone HCl (Hydromorphone 0.5 Mg/0.5 Ml Syringe) 0.5 mg IV Q2HP PRN; Protocol PRN Reason: Per Pain Protocol Last Admin: 08/13/21 07:19 Dose: 0.5 mg Documented by: Piperacillin Sod/Tazobactam (Sod 4.5 gm/ Dextrose) 50 mls @ 100 mls/hr IV Q8H [facility]; Protocol Last Admin: 08/14/21 14:16 Dose: 100 mls/hr Documented by: Acetaminophen (Ofirmev) 650 mg in 65 mls @ 130 mls/hr IV Q6HP PRN; Protocol PRN Reason: PAIN/FEVER > 101 Vancomycin HCl 1,500 mg/ (Sodium Chloride) 500 mls @ 333.3 mls/hr IV Q12H [facility] Last Infusion: 08/14/21 12:52 Dose: Infused Documented by: Sodium Chloride (Sodium Chloride 0.9%) 1,000 mls @ 75 mls/hr IV .[id number] [facility] Last Admin: 08/14/21 03:52 Dose: 75 mls/hr Documented by: Insulin Glargine (Insulin Glargine, Human 1 Unit/0.01 Ml) 40 unit SQ HS [facility] Insulin Human Lispro (Insulin Lispro 1 Unit/0.01 Ml Unit) 0 unit SQ ACHS [facility]; Protocol Last Admin: 08/14/21 12:11 Dose: 9 units Documented by: Insulin Human Lispro (Insulin Lispro 1 Unit/0.01 Ml Unit) 15 unit SQ AC [facility] Last Admin: 08/14/21 12:11 Dose: 15 units Documented by: Lactulose (Lactulose 20 Gm/30 Ml Oral.Carmen) 10 gm PO DAILYP PRN PRN Reason: Constipation Methocarbamol (Methocarbamol 750 Mg Tablet) 750 mg PO Q6HP PRN PRN Reason: Muscle Spasm Ondansetron HCl (Ondansetron 4 Mg/2 Ml Vial) 4 mg IV Q4HP PRN; Protocol PRN Reason: Nausea And Vomiting Oxycodone/Acetaminophen (Oxycodone/Apap 5/325mg Tablet) 1 tab PO Q4HP PRN; Protocol PRN Reason: Per Pain Protocol Last Admin: 08/14/21 11:20 Dose: 1 tab Documented by: Senna (Sennosides 1 Tablet) 2 tab PO BID [facility] Last Admin: 08/14/21 12:12 Dose: 2 tab Documented by: Sodium Chloride (0.9 % Sodium Chloride 10 Ml Syringe) 10 ml IV Q8 [facility] Last Admin: 08/14/21 05:53 Dose: 10 ml Documented by: Vancomycin HCl (Vancomycin Per Pharmacy) 1 order IV UD [facility]; Protocol A/P Narrative A/P Narrative: Assessment: 51 year old male with a history of type 2 diabetes admitted for sepsis secondary to a large left gluteal abscess complicated by Bacteroides fragilis bacteremia. #Sepsis secondary to gluteal abscess #Large multiloculated gluteal abscess s/p I&D 08/12/21 #Bacteroides fragilis bacteremia #Type 2 diabetes mellitus, poorly controlled #Hyponatremia #Anemia, unspecified chronicity #Right #1 and #2 toe wounds present on admission Plan -Continue Zosyn for now. -Discontinued Vancomycin. -IV fluid. -Follow pending surgical cultures. -TTE ordered to evaluate for endocarditis. -Analgesics prn. -Wound care. -General surgery following for gluteal abscess. -Lantus 40 units at bedtime, prandial Humalog 15 units AC and SSI-high. -Follow CBC, inpatient panel. -Hold home Metformin and lisinopril. -Diabetic diet. -DVT prophylaxis: Holding for surgery. -CODE STATUS: Full -Disposition: Probably SNF vs LTAC depending on care needs. Time Spent With Patient Time: Total time spent is greater than 50% in coordination of care (as documented) at patient's floor/unit and/or counseling patient: QUALITY VTE Deep Vein Thrombosis/Pulmonary Embolism Present on Admission: No
[2021-08-14] MEDS: METHOCARBAMOL 750 MG TABLET PO PRN ×2 (14:50→21:05)
--- NOTE | 2021-08-14 14:55 | Internal Med Progress Note ---
SUBJECTIVE Subjective Patient information: Note initiated : 08/14/21 at 2:47 pm Service Date, if different from initiated Date: Patient: Frankie Rhoades 51 y/o M admitted on 08/12/21 for skin. Chief Complaint: Perirectal abscess, uncontrolled diabetes Interval history: Blood cultures speciated Bacteroides fragilis General surgery has seen the patient and does not feel he needs reexploration today. Continue to monitor. Patient's pain is well managed with Dilaudid Patient's blood sugars still remain greater than 300 with up titration of his Lantus and short acting insulin over the last 24 hours. Pertinent ROS: No N/V/D Good appetite Constitutional Vitals: Vital Signs Temp Pulse Resp BP Pulse Ox 96.9 F L 84 20 95/70 99 08/14/21 08:02 08/14/21 12:01 08/13/21 17:00 08/14/21 12:01 08/14/21 12:01 Period Temp Pulse Resp BP Sys/Vivas Pulse Ox Last 24 Hr 96.8 F-98.8 F 73-92 - 95-119/70-88 95-100 Intake and Output 08/14/21 08/14/21 08/14/21 05:59 13:59 21:59 Intake Total 1910 550 420 Output Total 950 1425 Balance 960 -875 420 Intake & Output: Intake & Output 08/14/21 08/14/21 08/14/21 05:59 13:59 21:59 Intake Total 1910 550 420 Output Total 950 1425 Balance 960 -875 420 Intake: IV 1550 550 Sodium Chloride 0.9% 1,000 ml @ 1000 75 mls/hr IV .[id number] [facility] Rx#: [id number] Zosyn 4.5 gm In Dextrose 5% in 50 50 Water 50 ml @ 100 mls/hr IV Q8H [facility] Rx#:[id number] Vancomycin 1,500 mg In Sodium 500 500 Chloride 0.9% 500 ml @ 333.3 mls/hr IV Q12H [facility] Rx#: [id number] Oral 360 420 Output: Void Amount 950 1425 Other: Meal Lunch Percent of Meal Consumed 100% Feeding Ability Independent Urine Appearance Clear Clear Urine Color Light Betty Light Betty Urine Odor Normal General appearance: cooperative, disheveled, no acute distress and thin Head Head exam: Present atraumatic and normal inspection Eye Eye exam: Present EOMI and PERRL; Absent conjunctival injection ENT ENT exam: Present mucous membranes moist Respiratory Respiratory exam: Present normal respiratory exam and CTAB Cardiovascular Cardiovascular exam: Present normal rate and rhythm and RRR; Absent clicks, diastolic murmur, rubs or systolic murmur GI/Abdominal GI/Abdominal exam: Present soft; Absent tenderness Expanded Lower Extremity Exam Hip exam: Present swelling and tenderness (Left lower extremity with open wounds x3 and [place] drains in place. Purulent drainage from each open wound. Induration extending just below the gluteal fold up to the level of L3-L4 left side) Neurological Exam Neurological exam: Present alert, CN II-XII intact, motor sensory deficit and o riented X3 Psychiatric Psychiatric exam: Present normal affect and normal mood Skin Skin exam: Present dry, normal color and warm; Absent rash OBJ DATA Labs CBC & Chem 7: 08/14/21 04:00 08/14/21 07:13 Labs: Abnormal Lab Results 08/14/21 08/14/21 08/13/21 07:13 04:00 05:01 WBC RBC 3.06 L 3.15 L Hgb 8.1 L 8.6 L Hct 25.4 L 26.8 L RDW 14.9 H 14.8 H MPV 11.3 H 10.8 H Neut % (Auto) Lymph % (Auto) Lymph # (Auto) Seg Neutrophils % 84 H Band Neutrophils % 24 H Lymphocytes % 5 L 9 L Absolute Neutrophils Nucleated RBCs 2 H RBC Morphology Abnormal A Abnormal A Hypochromasia 1+ A Anisocytosis 1+ A 1+ A VBG Lactic Acid Sodium 129 L Chloride Carbon Dioxide Anion Gap Creatinine 0.4 L Glucose 335 H Hemoglobin A1c Uric Acid 2.4 L Calcium 7.5 L Iron TIBC Unsat Iron Binding Transferrin % Sat Total Bilirubin Direct Bilirubin 0.4 H GGT 499 H AST 191 H ALT 117 H Alkaline Phosphatase 394 H Albumin 1.8 L Globulin 4.2 H Albumin/Globulin Ratio 0.4 L Beta-Hydroxybutyrate Procalcitonin 08/13/21 08/13/21 08/12/21 05:00 05:00 19:04 WBC RBC Hgb Hct RDW MPV Neut % (Auto) Lymph % (Auto) Lymph # (Auto) Seg Neutrophils % Band Neutrophils % Lymphocytes % Absolute Neutrophils Nucleated RBCs RBC Morphology Hypochromasia Anisocytosis VBG Lactic Acid Sodium 128 L 127 L Chloride 95 L 92 L Carbon Dioxide 21 L 16 L Anion Gap 19.0 H Creatinine 0.5 L Glucose 420 H 384 H Hemoglobin A1c Uric Acid Calcium 7.6 L 7.3 L Iron 10 L TIBC 94 L Unsat Iron Binding 84 L Transferrin % Sat 11 L Total Bilirubin 1.1 H 1.2 H Direct Bilirubin 0.7 H 0.9 H GGT 530 H 554 H AST 41 H 49 H ALT Alkaline Phosphatase 360 H 378 H Albumin 1.8 L 1.9 L Globulin 4.6 H 4.0 H Albumin/Globulin Ratio 0.4 L 0.5 L Beta-Hydroxybutyrate Procalcitonin 08/12/21 08/12/21 08/12/21 18:42 18:42 09:56 WBC 14.4 H RBC 2.57 L Hgb 6.9 L* Hct 21.9 L RDW 15.2 H MPV 10.6 H Neut % (Auto) 89.2 H Lymph % (Auto) 6.0 L Lymph # (Auto) 0.86 L Seg Neutrophils % Band Neutrophils % Lymphocytes % Absolute Neutrophils 12.80 H Nucleated RBCs RBC Morphology Hypochromasia Anisocytosis VBG Lactic Acid Sodium 125 L Chloride 92 L Carbon Dioxide 17 L Anion Gap Creatinine 0.6 L Glucose 382 H Hemoglobin A1c Uric Acid Calcium 7.3 L Iron TIBC Unsat Iron Binding Transferrin % Sat Total Bilirubin Direct Bilirubin GGT AST ALT Alkaline Phosphatase Albumin Globulin Albumin/Globulin Ratio Beta-Hydroxybutyrate 2.49 H Procalcitonin 08/12/21 08/12/21 08/12/21 09:56 09:56 09:56 WBC RBC Hgb Hct RDW MPV Neut % (Auto) Lymph % (Auto) Lymph # (Auto) Seg Neutrophils % Band Neutrophils % Lymphocytes % Absolute Neutrophils Nucleated RBCs RBC Morphology Hypochromasia Anisocytosis VBG Lactic Acid 3.8 H Sodium 124 L Chloride 88 L Carbon Dioxide 20 L Anion Gap Creatinine 0.6 L Glucose 386 H Hemoglobin A1c Uric Acid Calcium 7.8 L Iron TIBC Unsat Iron Binding Transferrin % Sat Total Bilirubin 1.3 H Direct Bilirubin GGT AST 59 H ALT Alkaline Phosphatase 520 H Albumin 1.8 L Globulin 5.2 H Albumin/Globulin Ratio 0.3 L Beta-Hydroxybutyrate Procalcitonin 25.06 H 08/12/21 08/12/21 09:56 09:43 WBC 15.3 H RBC 3.28 L Hgb 8.9 L Hct 27.3 L RDW 14.8 H MPV Neut % (Auto) 88.3 H Lymph % (Auto) 6.4 L Lymph # (Auto) 0.98 L Seg Neutrophils % Band Neutrophils % Lymphocytes % Absolute Neutrophils 13.54 H Nucleated RBCs RBC Morphology Hypochromasia Anisocytosis VBG Lactic Acid Sodium Chloride Carbon Dioxide Anion Gap Creatinine Glucose Hemoglobin A1c 11.4 H Uric Acid Calcium Iron TIBC Unsat Iron Binding Transferrin % Sat Total Bilirubin Direct Bilirubin GGT AST ALT Alkaline Phosphatase Albumin Globulin Albumin/Globulin Ratio Beta-Hydroxybutyrate Procalcitonin Meds: Medications Acetaminophen (Acetaminophen 325 Mg Tablet) 650 mg PO Q6HP PRN; Protocol PRN Reason: Per Pain Protocol/Fever > 101 Dextrose (Dextrose 50% 50 Ml Vial) 0 ml IV UD PRN PRN Reason: Hypoglycemia Diagnostic Test (Pha) (Accu-Chek 1 Each Strip) 1 each FS ACHS [facility] Last Admin: 08/14/21 12:11 Dose: 1 each Documented by: Glucose (Dextrose 31 Gm Oral.Susp) 15 gm PO PRN PRN PRN Reason: Hypoglycemia Hydromorphone HCl (Hydromorphone 0.5 Mg/0.5 Ml Syringe) 0.5 mg IV Q2HP PRN; Protocol PRN Reason: Per Pain Protocol Last Admin: 08/13/21 07:19 Dose: 0.5 mg Documented by: Piperacillin Sod/Tazobactam (Sod 4.5 gm/ Dextrose) 50 mls @ 100 mls/hr IV Q8H [facility]; Protocol Last Admin: 08/14/21 14:16 Dose: 100 mls/hr Documented by: Acetaminophen (Ofirmev) 650 mg in 65 mls @ 130 mls/hr IV Q6HP PRN; Protocol PRN Reason: PAIN/FEVER > 101 Vancomycin HCl 1,500 mg/ (Sodium Chloride) 500 mls @ 333.3 mls/hr IV Q12H [facility] Last Infusion: 08/14/21 12:52 Dose: Infused Documented by: Sodium Chloride (Sodium Chloride 0.9%) 1,000 mls @ 75 mls/hr IV .[id number] [facility] Last Admin: 08/14/21 03:52 Dose: 75 mls/hr Documented by: Insulin Glargine (Insulin Glargine, Human 1 Unit/0.01 Ml) 40 unit SQ HS [facility] Insulin Human Lispro (Insulin Lispro 1 Unit/0.01 Ml Unit) 0 unit SQ ACHS [facility]; Protocol Last Admin: 08/14/21 12:11 Dose: 9 units Documented by: Insulin Human Lispro (Insulin Lispro 1 Unit/0.01 Ml Unit) 15 unit SQ AC [facility] Last Admin: 08/14/21 12:11 Dose: 15 units Documented by: Lactulose (Lactulose 20 Gm/30 Ml Oral.Carmen) 10 gm PO DAILYP PRN PRN Reason: Constipation Methocarbamol (Methocarbamol 750 Mg Tablet) 750 mg PO Q6HP PRN PRN Reason: Muscle Spasm Ondansetron HCl (Ondansetron 4 Mg/2 Ml Vial) 4 mg IV Q4HP PRN; Protocol PRN Reason: Nausea And Vomiting Oxycodone/Acetaminophen (Oxycodone/Apap 5/325mg Tablet) 1 tab PO Q4HP PRN; Protocol PRN Reason: Per Pain Protocol Last Admin: 08/14/21 11:20 Dose: 1 tab Documented by: Senna (Sennosides 1 Tablet) 2 tab PO BID [facility] Last Admin: 08/14/21 12:12 Dose: 2 tab Documented by: Sodium Chloride (0.9 % Sodium Chloride 10 Ml Syringe) 10 ml IV Q8 [facility] Last Admin: 08/14/21 05:53 Dose: 10 ml Documented by: Vancomycin HCl (Vancomycin Per Pharmacy) 1 order IV UD [facility]; Protocol A/P Narrative A/P Narrative: Perirectal abscess complicated by uncontrolled diabetes Uncontrolled DM2 Bacteroides fragilis bacteremia General surgery is following. No further I&D today. Stop vancomycin and continue Zosyn only as blood cultures resulted Bacteroides fragilis. Cultures from his abscess are still pending. Consider insulin drip if his blood sugars remain elevated Patient was discussed with Dr. Kelly via telephone. Please see his note for further details and plan of care. Time Spent With Patient Time: Total time spent is greater than 50% in coordination of care (as documented) at patient's floor/unit and/or counseling patient: QUALITY VTE Deep Vein Thrombosis/Pulmonary Embolism Present on Admission: No
--- NOTE | 2021-08-14 15:25 | General Surgery Progress Note ---
SUBJECTIVE Subjective Patient information: Note initiated : 08/14/21 at 3:23 pm Service Date, if different from initiated Date: [] Patient: Frankie Rhoades 51 y/o M admitted on 08/12/21 for skin. Chief Complaint: [] Principal diagnosis: perirectal and buttock abscesses Interval history: Patient continues to do well. His pain is improved. He still has moderate amount of purulent drainage with induration of the medial buttocks bilaterally. There appears to be some extension into the presacral area. White blood count 7.6, hemoglobin 8.1, hematocrit 25.4, potassium 4.1, BUN 12, creatinine 0.4, glucose 335, liver panel shows elevated transaminases and bilirubin. He does not have any biliary symptoms. Constitutional Vitals: Vital Signs Temp Pulse Resp BP Pulse Ox 96.9 F L 84 20 95/70 99 08/14/21 08:02 08/14/21 12:01 08/13/21 17:00 08/14/21 12:01 08/14/21 12:01 Period Temp Pulse Resp BP Sys/Vivas Pulse Ox Last 24 Hr 96.8 F-98.8 F 73-92 - 95-119/70-88 95-100 Intake and Output 08/14/21 08/14/21 08/14/21 05:59 13:59 21:59 Intake Total 1910 550 420 Output Total 950 1425 Balance 960 -875 420 Intake & Output: Intake & Output 08/14/21 08/14/21 08/14/21 05:59 13:59 21:59 Intake Total 1910 550 420 Output Total 950 1425 Balance 960 -875 420 Intake: IV 1550 550 Sodium Chloride 0.9% 1,000 ml @ 1000 75 mls/hr IV .[id number] [facility] Rx#: [id number] Zosyn 4.5 gm In Dextrose 5% in 50 50 Water 50 ml @ 100 mls/hr IV Q8H [facility] Rx#:[id number] Vancomycin 1,500 mg In Sodium 500 500 Chloride 0.9% 500 ml @ 333.3 mls/hr IV Q12H [facility] Rx#: [id number] Oral 360 420 Output: Void Amount 950 1425 Other: Meal Lunch Percent of Meal Consumed 100% Feeding Ability Independent Urine Appearance Clear Clear Urine Color Light Betty Light Betty Urine Odor Normal Head Head exam: Present atraumatic, normal inspection and normocephalic Eye Eye exam: Present EOMI Pupils: Present normal accommodation and PERRL ENT ENT exam: Present mucous membranes moist, normal exam, normal external ear exam and normal oropharynx Neck Neck exam: Present full ROM and normal inspection; Absent lymphadenopathy or tenderness Respiratory Respiratory exam: Present normal respiratory exam and CTAB; Absent wheezes Cardiovascular Cardiovascular exam: Present normal rate and rhythm, RRR, +S1 and +S2; Absent gallop or JVD GI/Abdominal GI/Abdominal exam: Present normal bowel sounds and soft; Absent distended, guarding or tenderness Rectal Additional comments: Extensive inflammation of both buttocks with purulent drainage; inflammation appears to have drifted upward in the presacral area Extremities Exam Extremities exam: Present full ROM, normal capillary refill, normal inspection and neurovascular intact Back Exam Additional comments: Moderate tenderness in the presacral area and over the right ischial area into the right flank A/P Assessment and plan (1) Right lower quadrant abdominal abscess: Status: Acute (2) Abscess of lower back: Status: Acute (3) Perirectal abscess: Status: Acute (4) Diabetes mellitus: Status: Acute (5) Abscess of left buttock: Status: Acute Narrative A/P Narrative: Will continue antibiotics Dressing changes will be carried out daily discussed with case reviewer that he will need to have reoperation and decision cannot be made at this time as to transfer or discharge Time Spent With Patient Time: Total time spent is greater than 50% in coordination of care (as documented) at patient's floor/unit and/or counseling patient:
[2021-08-14] MEDS: INSULIN GLARGINE, HUMAN 1 UNIT/0.01 ML SQ SCH (21:06)
[2021-08-15] MEDS: 0.9 % SODIUM CHLORIDE 1,000 ML IV SCH ×4 (03:35→18:06)
[2021-08-15] MEDS: oxyCODONE/APAP 5/325MG TABLET PO PRN ×5 (03:36→20:14)
[2021-08-15] MEDS: METHOCARBAMOL 750 MG TABLET PO PRN (03:37)
[2021-08-15] MEDS: PIPERACILLIN SODIUM/TAZOBACTAM 4.5 GM in DEXTROSE 5% IN WATER 50 ML IV SCH ×3 (05:16→21:07)
[2021-08-15] MEDS: 0.9 % SODIUM CHLORIDE 10 ML SYRINGE IV SCH ×3 (05:17→22:54)
[2021-08-15] MEDS: INSULIN LISPRO 1 UNIT/0.01 ML UNIT SQ SCH ×7 (07:53→21:07)
[2021-08-15 08:04] LABS: Hematocrit 29.9 % (40.1-51.0); Mean Cell Volume 88.5 fL (80.0-100.0); Mean Corpuscular HGB Conc 30.1 g/dL (31.0-36.0); Mean Platelet Volume 11.6 fL (7.4-10.4); Platelet Count 185 K/mcL (140-440); RBC 3.38 M/mcL (4.63-6.08); Red Cell Distribution Width 15.3 % (11.5-14.5); WBC 6.2 K/mcL (4.5-11.0)
[2021-08-15 09:06] LABS: Lymphocytes % 10 % (15-49); Monocytes % (Manual) 4 % (1-12); Platelet Estimate NORMAL (Normal); RBC Morphology NORMAL (Normal); Segmented Neutrophils % 86 % (38-78)
--- NOTE | 2021-08-15 11:43 | Internal Med Progress Note ---
SUBJECTIVE Subjective Patient information: Note initiated : 08/15/21 at 11:40 am Service Date, if different from initiated Date: [] Patient: Frankie Rhoades 51 y/o M admitted on 08/12/21 for skin. Chief Complaint: [] Interval history: Mr. Rhoades is a 51 year old male with a history of type 2 diabetes presented to the emergency department for left buttock pain and chills. The patient had recently presented to [facility] for the same complaints and was discharged from the emergency department with a prescription of Keflex for 10 days. The patient took the Keflex however his symptoms worsened. In the emergency department at [facility] the patient had a fever of 100.8, tachycardia and elevated respiratory rate. Routine blood work showed a leukocytosis with left shift. Lactic acid was elevated at 3.8. Patient had a CT pelvis with contrast that showed a large left gluteal multiloculated abscess measuring 15 cm. The patient received broad-spectrum antibiotics with vancomycin and Zosyn as well as IV fluids. Repeat lactic acid was 2.0. The patient's blood pressures were low in the emergency department however he says that he usually has low blood pressures at baseline. Hospital medicine was asked to admit the patient for further management. 08/13 Had an I&D of the abscess yesterday evening, multiple drains in place. Anticipate the patient will require another washout and possibly a wound VAC. 08/19 blood cultures growing gram negative bacillus, surgical cultures pending. Increased Lantus and sliding scale insulin, added prandial Humalog. Sepsis physiology has improved. 08/14 Blood cultures grew bacteroides fragilis, awaiting final surgical cultures. Discontinues Vancomycin, continued Zosyn. Glucose continues to be elevated, increased Lantus to 40 units HS, prandial Humalog to 15 units AC TID and continued high dose sliding scale insulin. Surgery planning for reexploration. 08/15 Patient seen examined, still has pain but managable Blood culutres are growing bacteroides and stre p agalactiae , pt remains on zosy Glucose level in 90's today, cut down on prandial humalog to 10 TID Await surgery evaluation with regards to plan for reexploration. Pertinent ROS: Denies headache, dizziness Denies chest pain, palpitations Denies cough or shortness of breath Denies abdominal pain, nausea or vomiting. Constitutional Vitals: Vital Signs Temp Pulse Resp BP Pulse Ox 98 F 102 H 16 94/61 98 08/15/21 08:00 08/15/21 07:56 08/15/21 08:00 08/15/21 08:00 08/15/21 08:00 Period Temp Pulse Resp BP Sys/Vivas Pulse Ox Last 24 Hr 97.1 F-98.9 F 78-104 16-20 87-115/57-82 95-100 Intake and Output 08/14/21 08/15/21 08/15/21 21:59 05:59 13:59 Intake Total 2470 1900 800 Output Total 700 1170 550 Balance 1770 730 250 Weight 100.868 kg Intake & Output: Intake & Output 08/14/21 08/15/21 08/15/21 21:59 05:59 13:59 Intake Total 2470 1900 800 Output Total 700 1170 550 Balance 1770 730 250 Weight 100.868 kg Intake: IV 1050 100 Sodium Chloride 0.9% 1,000 ml @ 1000 75 mls/hr IV .[id number] [facility] Rx#: [id number] Zosyn 4.5 gm In Dextrose 5% in 50 100 Water 50 ml @ 100 mls/hr IV Q8H [facility] Rx#:[id number] Oral 1420 1800 800 Output: Void Amount 700 1170 550 Other: Meal Dinner Breakfast Percent of Meal Consumed 100% 75% Feeding Ability Assist with Tray Set Up Independent Urine Appearance Clear Clear Clear Urine Color Light Betty Dark Yellow Bright Yellow Additional findings Additional findings: Physicial Exam Constitutional; Afebrile, cooperative, alert, not in distress. Eyes- No icterus, , No periorbital swelling Ears- Ext ear normal, hearing normal to conversation. Neck- Midline trachea, supple Respiratory system: Air Entry equal on both sides, No crackles or wheezing, no rhonchi. CVS- Rate rhythm regular, S1,S2 heard, no gallop, no rub. Abdomen- Soft nontender abdomen, no organomegaly, no tenderness, no guarding or rigidity, Buttock has multiple drains, dressing soaked in purulent fluids [employer]- AOOx3, moving all extremities, no gross focal deficit noted. OBJ DATA Labs CBC & Chem 7: 08/15/21 04:00 08/14/21 07:13 Labs: Abnormal Lab Results 08/15/21 08/14/21 08/14/21 04:00 07:13 04:00 WBC RBC 3.38 L 3.06 L Hgb 9.0 L 8.1 L Hct 29.9 L 25.4 L MCHC 30.1 L RDW 15.3 H 14.9 H MPV 11.6 H 11.3 H Neut % (Auto) Lymph % (Auto) Lymph # (Auto) Seg Neutrophils % 86 H 84 H Band Neutrophils % Lymphocytes % 10 L 5 L Absolute Neutrophils Nucleated RBCs RBC Morphology Abnormal A Hypochromasia Anisocytosis 1+ A Sodium 129 L Chloride Carbon Dioxide Anion Gap Creatinine 0.4 L Glucose 335 H Hemoglobin A1c Uric Acid 2.4 L Calcium 7.5 L Iron TIBC Unsat Iron Binding Transferrin % Sat Total Bilirubin Direct Bilirubin 0.4 H GGT 499 H AST 191 H ALT 117 H Alkaline Phosphatase 394 H Albumin 1.8 L Globulin 4.2 H Albumin/Globulin Ratio 0.4 L 08/13/21 08/13/21 08/13/21 05:01 05:00 05:00 WBC RBC 3.15 L Hgb 8.6 L Hct 26.8 L MCHC RDW 14.8 H MPV 10.8 H Neut % (Auto) Lymph % (Auto) Lymph # (Auto) Seg Neutrophils % Band Neutrophils % 24 H Lymphocytes % 9 L Absolute Neutrophils Nucleated RBCs 2 H RBC Morphology Abnormal A Hypochromasia 1+ A Anisocytosis 1+ A Sodium 128 L Chloride 95 L Carbon Dioxide 21 L Anion Gap Creatinine 0.5 L Glucose 420 H Hemoglobin A1c Uric Acid Calcium 7.6 L Iron 10 L TIBC 94 L Unsat Iron Binding 84 L Transferrin % Sat 11 L Total Bilirubin 1.1 H Direct Bilirubin 0.7 H GGT 530 H AST 41 H ALT Alkaline Phosphatase 360 H Albumin 1.8 L Globulin 4.6 H Albumin/Globulin Ratio 0.4 L 08/12/21 08/12/21 08/12/21 19:04 18:42 18:42 WBC 14.4 H RBC 2.57 L Hgb 6.9 L* Hct 21.9 L MCHC RDW 15.2 H MPV 10.6 H Neut % (Auto) 89.2 H Lymph % (Auto) 6.0 L Lymph # (Auto) 0.86 L Seg Neutrophils % Band Neutrophils % Lymphocytes % Absolute Neutrophils 12.80 H Nucleated RBCs RBC Morphology Hypochromasia Anisocytosis Sodium 127 L 125 L Chloride 92 L 92 L Carbon Dioxide 16 L 17 L Anion Gap 19.0 H Creatinine 0.6 L Glucose 384 H 382 H Hemoglobin A1c Uric Acid Calcium 7.3 L 7.3 L Iron TIBC Unsat Iron Binding Transferrin % Sat Total Bilirubin 1.2 H Direct Bilirubin 0.9 H GGT 554 H AST 49 H ALT Alkaline Phosphatase 378 H Albumin 1.9 L Globulin 4.0 H Albumin/Globulin Ratio 0.5 L 08/12/21 09:43 WBC RBC Hgb Hct MCHC RDW MPV Neut % (Auto) Lymph % (Auto) Lymph # (Auto) Seg Neutrophils % Band Neutrophils % Lymphocytes % Absolute Neutrophils Nucleated RBCs RBC Morphology Hypochromasia Anisocytosis Sodium Chloride Carbon Dioxide Anion Gap Creatinine Glucose Hemoglobin A1c 11.4 H Uric Acid Calcium Iron TIBC Unsat Iron Binding Transferrin % Sat Total Bilirubin Direct Bilirubin GGT AST ALT Alkaline Phosphatase Albumin Globulin Albumin/Globulin Ratio Meds: Medications Acetaminophen (Acetaminophen 325 Mg Tablet) 650 mg PO Q6HP PRN; Protocol PRN Reason: Per Pain Protocol/Fever > 101 Dextrose (Dextrose 50% 50 Ml Vial) 0 ml IV UD PRN PRN Reason: Hypoglycemia Diagnostic Test (Pha) (Accu-Chek 1 Each Strip) 1 each FS ACHS [facility] Last Admin: 08/15/21 11:04 Dose: 1 each Documented by: Glucose (Dextrose 31 Gm Oral.Susp) 15 gm PO PRN PRN PRN Reason: Hypoglycemia Hydromorphone HCl (Hydromorphone 0.5 Mg/0.5 Ml Syringe) 0.5 mg IV Q2HP PRN; Protocol PRN Reason: Per Pain Protocol Last Admin: 08/13/21 07:19 Dose: 0.5 mg Documented by: Piperacillin Sod/Tazobactam (Sod 4.5 gm/ Dextrose) 50 mls @ 100 mls/hr IV Q8H [facility]; Protocol Last Infusion: 08/15/21 05:46 Dose: Infused Documented by: Acetaminophen (Ofirmev) 650 mg in 65 mls @ 130 mls/hr IV Q6HP PRN; Protocol PRN Reason: PAIN/FEVER > 101 Sodium Chloride (Sodium Chloride 0.9%) 1,000 mls @ 75 mls/hr IV .[id number] [facility] Last Admin: 08/15/21 03:35 Dose: Not Given Documented by: Insulin Glargine (Insulin Glargine, Human 1 Unit/0.01 Ml) 40 unit SQ HS [facility] Last Admin: 08/14/21 21:06 Dose: 40 unit Documented by: Insulin Human Lispro (Insulin Lispro 1 Unit/0.01 Ml Unit) 0 unit SQ ACHS [facility]; Protocol Last Admin: 08/15/21 07:53 Dose: 3 units Documented by: Insulin Human Lispro (Insulin Lispro 1 Unit/0.01 Ml Unit) 10 unit SQ AC [facility] Lactulose (Lactulose 20 Gm/30 Ml Oral.Carmen) 10 gm PO DAILYP PRN PRN Reason: Constipation Methocarbamol (Methocarbamol 750 Mg Tablet) 750 mg PO Q6HP PRN PRN Reason: Muscle Spasm Last Admin: 08/15/21 03:37 Dose: 750 mg Documented by: Ondansetron HCl (Ondansetron 4 Mg/2 Ml Vial) 4 mg IV Q4HP PRN; Protocol PRN Reason: Nausea And Vomiting Oxycodone/Acetaminophen (Oxycodone/Apap 5/325mg Tablet) 1 tab PO Q4HP PRN; Protocol PRN Reason: Per Pain Protocol Last Admin: 08/15/21 07:19 Dose: 1 tab Documented by: Senna (Sennosides 1 Tablet) 2 tab PO BID [facility] Last Admin: 08/14/21 21:05 Dose: 2 tab Documented by: Sodium Chloride (0.9 % Sodium Chloride 10 Ml Syringe) 10 ml IV Q8 [facility] Last Admin: 08/15/21 05:17 Dose: 10 ml Documented by: A/P Narrative A/P Narrative: Assessment: 51 year old male with a history of type 2 diabetes admitted for sepsis secondary to a large left gluteal abscess complicated by Bacteroides fragilis bacteremia. #Sepsis secondary to gluteal abscess #Large multiloculated gluteal abscess s/p I&D 08/12/21 #Bacteroides fragilis bacteremia #STrep agalactiae bactermia #Type 2 diabetes mellitus, poorly controlled, with hyperglycemia #Hyponatremia #Anemia, unspecified chronicity #Right #1 and #2 toe wounds present on admission #Hypotension (asymptomatic, likely from patient bp being mearued in lateral decub) Plan -Continue Zosyn for now. 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 -Discontinued Vancomycin. -IV fluids to continue -Follow pending surgical cultures. -TTE ordered to evaluate for endocarditis, results pending -Analgesics prn. -Wound care. -General surgery following for gluteal abscess. -Lantus 40 units at bedtime, prandial Humalog 10 units AC and SSI-high. -Follow CBC, inpatient panel. -Hold home Metformin and lisinopril. -Diabetic diet. -DVT prophylaxis: Holding for surgery. -CODE STATUS: Full -Disposition: Probably SNF vs LTAC depending on care needs. Time Spent With Patient Time: Total time spent is greater than 50% in coordination of care (as documented) at patient's floor/unit and/or counseling patient: Total time spent with greater than 50% in coordination of care (as documented) at patient's floor/unit and/or counseling patient:: Greater than 35 minutes QUALITY VTE Deep Vein Thrombosis/Pulmonary Embolism Present on Admission: No
[2021-08-15] MEDS ORDERED: 0.9 % SODIUM CHLORIDE 1,000 ML IV ONE (11:58)
[2021-08-15] MEDS: SENNOSIDES 1 TABLET PO SCH ×2 (12:13→20:15)
--- NOTE | 2021-08-15 14:19 | General Surgery Progress Note ---
SUBJECTIVE Subjective Patient information: Note initiated : 08/15/21 at 2:11 pm Service Date, if different from initiated Date: [] Patient: Frankie Rhoades 51 y/o M admitted on 08/12/21 for skin. Chief Complaint: [] Principal diagnosis: Buttock and lower back abscesses Interval history: Patient has had mild drop in blood pressure though he does not have significant tachycardia. He has had temperatures in the 99 degree range. His white blood count is 6.2 and hemoglobin is 9. He noted some swelling extending from his right flank into the right lower quadrant of his lower abdomen. There is slight induration and redness in that area. Findings are suspicious for expanding infection. Urine output is good. Patient is counseled for follow-up CT of the abdomen and pelvis for evaluation of the abscess. He is informed that he may need to have reoperation for drainage of more developing abscesses. He has not had any fever chills Constitutional Vitals: Vital Signs Temp Pulse Resp BP Pulse Ox 99.1 F H 104 H 16 89/42 97 08/15/21 12:02 08/15/21 12:02 08/15/21 08:00 08/15/21 12:02 08/15/21 12:02 Period Temp Pulse Resp BP Sys/Vivas Pulse Ox Last 24 Hr 97.1 F-99.1 F 78-104 16-20 87-115/42-82 93-100 Intake and Output 08/15/21 08/15/21 08/15/21 05:59 13:59 21:59 Intake Total 1900 1907 Output Total 1170 1200 Balance 730 707 Intake & Output: Intake & Output 08/15/21 08/15/21 08/15/21 05:59 13:59 21:59 Intake Total 1900 1907 Output Total 1170 1200 Balance 730 707 Intake: IV 100 1107 Sodium Chloride 0.9% 1,000 ml @ 1107 75 mls/hr IV .[id number] [facility] Rx#: [id number] Zosyn 4.5 gm In Dextrose 5% in 100 Water 50 ml @ 100 mls/hr IV Q8H [facility] Rx#:[id number] Oral 1800 800 Output: Void Amount 1170 1200 Other: Meal Breakfast Percent of Meal Consumed 75% Feeding Ability Independent Urine Appearance Clear Clear Urine Color Dark Yellow Bright Yellow Eye Eye exam: Present EOMI Pupils: Present normal accommodation and PERRL ENT ENT exam: Present normal exam and normal oropharynx Neck Neck exam: Present full ROM; Absent lymphadenopathy or tenderness Respiratory Respiratory exam: Present normal respiratory exam and CTAB Cardiovascular Cardiovascular exam: Present normal rate and rhythm, RRR, +S1 and +S2; Absent gallop or JVD GI/Abdominal GI/Abdominal exam: Present normal bowel sounds, soft and tenderness (Moderate superficial tenderness along the lower abdominal stripe on the right side extending from the right lower quadrant over the iliac crest posteriorly) Rectal Additional comments: Significant decrease in induration of the left buttock and perirectal space Extremities Exam Extremities exam: Present full ROM, normal inspection and neurovascular intact Back Exam Additional comments: Moderate tenderness of the lower lumbar region extending anteriorly on the right side Neurological Exam Neurological exam: Present alert and normal gait; Absent motor sensory deficit Psychiatric Psychiatric exam: Present normal affect and normal mood A/P Assessment and plan (1) Abscess of left buttock: Status: Acute (2) Perirectal abscess: Status: Acute (3) Diabetes mellitus: Status: Acute Narrative A/P Narrative: Patient will have CT of abdomen pelvis to evaluate for extension of infection. He is informed that he may need to have further operation either today or tomorrow Time Spent With Patient Time: Total time spent is greater than 50% in coordination of care (as documented) at patient's floor/unit and/or counseling patient:
[2021-08-15] MEDS: ALBUMIN HUMAN 25 GM/100 ML BAG IV SCH ×2 (14:48→19:41)
[2021-08-15] MEDS ORDERED: IOPAMIDOL 100 ML BOTTLE IV ONE (16:36)
--- NOTE | 2021-08-15 16:58 | Cat Scan Report ---
CLINICAL INFORMATION: Abdomen pain. Follow-up gluteal and lower lumbar abscess surgical drainage COMPARISON: Preoperative pelvic CT 08/12/2021 TECHNIQUE: Following enteric contrast, 80 cc of Isovue-[id number] were injected intravenously, and 60 seconds later, 0.625 mm helical slices were obtained from the mid heart through the subtrochanteric regions. Following reconstruction, 2.5 mm sagittal, coronal and axial reformatted images were processed and reviewed at bone, lung and soft tissue windows. Five minutes later, 0.625 mm helical slices were obtained from the mid heart through the kidneys and viewed at soft tissue windows.The exam was performed using radiation dose optimization techniques including, but not limited to, automated exposure control, adjustment of the mA and/or kV according to patient size and use of iterative reconstruction technique. FINDINGS: The lung bases shows scattered atelectasis. No effusions. The visualized heart is grossly normal. Abdominal images show 21 mm cholesterol stone in the gallbladder neck. The gallbladder and bile ducts are, otherwise, normal: CBD is 5 mm. The liver, both kidneys, adrenal glands, spleen, pancreas and aorta, including aortic branches, are normal in size, configuration and attenuation without focal lesion. Small/moderate simple ascites is seen in the perihepatic, perisplenic and the pelvic region. There is no free air or adenopathy. Pelvic images show normal urinary bladder, prostate and seminal vesicles.. The stomach, small bowel, appendix and large bowel are grossly normal. Bone windows show no osseous abnormality. The left gluteal abscess is almost completely resolved: there is now mild phlegmon and very small amount of scattered fluid and gas within the gluteal muscle. A drain is seen in the cutaneous fat overlying the gluteal region. There is a small amount of fluid and gas is seen in the deep subcutaneous fat adjacent to the lower erector spinae muscle. This is decreased. A 9.2 cm gas containing developing abscess is seen in the subcutaneous fat of the right supragluteal region. This region was not included on the previous exam. There is moderate phlegmon seen throughout the remainder of the subcutaneous fat in the right gluteal region. IMPRESSION: 1. Developing 9.2 cm abscess in the subcutaneous fat in the right supragluteal region with moderate surrounding phlegmon. 2. Following surgical debridement of left gluteal abscess, there is only minimal residual scattered fluid and gas. In addition, multiple smaller abscesses, in the subcutaneous fat overlying this region also been successfully drained. 3. Small/moderate simple ascites-etiology uncertain. 4. Solitary 2 cm cholesterol noted in the gallbladder neck. Gallbladder and bile ducts are, otherwise, normal. Interpreted and Authenticated by: Reji Acosta 08/15/21
[2021-08-15] MEDS: INSULIN GLARGINE, HUMAN 1 UNIT/0.01 ML SQ SCH (21:07)
[2021-08-16] MEDS: oxyCODONE/APAP 5/325MG TABLET PO PRN (01:01)
[2021-08-16] MEDS: ALBUMIN HUMAN 25 GM/100 ML BAG IV SCH ×4 (01:36→20:13)
[2021-08-16] MEDS: 0.9 % SODIUM CHLORIDE 1,000 ML IV SCH ×2 (05:42→10:48)
[2021-08-16] MEDS: PIPERACILLIN SODIUM/TAZOBACTAM 4.5 GM in DEXTROSE 5% IN WATER 50 ML IV SCH ×3 (06:00→21:27)
[2021-08-16] MEDS: 0.9 % SODIUM CHLORIDE 10 ML SYRINGE IV SCH ×3 (06:00→21:28)
[2021-08-16] MEDS ORDERED: oxyCODONE/APAP 5/325MG TABLET PO PRN (06:47)
--- NOTE | 2021-08-16 06:50 | Internal Med Progress Note ---
SUBJECTIVE Subjective Patient information: Note initiated : 08/16/21 at 6:47 am Service Date, if different from initiated Date: [] Patient: Frankie Rhoades 51 y/o M admitted on 08/12/21 for skin. Chief Complaint: [] Principal diagnosis: Buttock and lower back abscesses Interval history: Interval history: Mr. Rhoades is a 51 year old male with a history of type 2 diabetes presented to the emergency department for left buttock pain and chills. The patient had recently presented to [facility] for the same complaints and was discharged from the emergency department with a prescription of Keflex for 10 days. The patient took the Keflex however his symptoms worsened. In the emergency department at [facility] the patient had a fever of 100.8, tachycardia and elevated respiratory rate. Routine blood work showed a leukocytosis with left shift. Lactic acid was elevated at 3.8. Patient had a CT pelvis with contrast that showed a large left gluteal multiloculated abscess measuring 15 cm. The patient received broad-spectrum antibiotics with vancomycin and Zosyn as well as IV fluids. Repeat lactic acid was 2.0. The patient's blood pressures were low in the emergency department however he says that he usually has low blood pressures at baseline. Hospital medicine was asked to admit the patient for further management. 08/13 Had an I&D of the abscess yesterday evening, multiple drains in place. Anticipate the patient will require another washout and possibly a wound VAC. 2/2 blood cultures growing gram negative bacillus, surgical cultures pending. Increased Lantus and sliding scale insulin, added prandial Humalog. Sepsis physiology has improved. 08/14 Blood cultures grew bacteroides fragilis, awaiting final surgical cultures. Discontinues Vancomycin, continued Zosyn. Glucose continues to be elevated, increased Lantus to 40 units HS, prandial Humalog to 15 units AC TID and continued high dose sliding scale insulin. Surgery planning for reexploration. 08/15 Patient seen examined, still has pain but managable Blood culutres are growing bacteroides and stre p agalactiae , pt remains on zosy Glucose level in 90's today, cut down on prandial humalog to 10 TID Await surgery evaluation with regards to plan for reexploration. 08/16 Patient seen examined, had low bp yesterday, elevated lactic acid, IV fluids given, IV albumin given Repeat CT done which shows nrew developing abscees on the [facility] buttoc Surgery planning to take patient to OR this AM Patient notes of significant pain, Will increase dose of dilaudid and oxycocond (d/c percoset as would limit the amount of apap given) keep shani apap now Pertinent ROS: Denies headache, dizziness Denies chest pain, palpitations Denies cough or shortness of breath Denies abdominal pain, nausea or vomiting. Has significant pain in back, buttock region. Constitutional Vitals: Vital Signs Temp Pulse Resp BP Pulse Ox 97.9 F 95 H 18 100/54 90 08/16/21 04:51 08/16/21 04:51 08/16/21 04:51 08/16/21 04:51 08/16/21 04:51 Period Temp Pulse Resp BP Sys/Vivas Pulse Ox Last 24 Hr 97.1 F-99.1 F 87-104 16-33 83-104/42-70 89-99 Intake and Output 08/15/21 08/16/21 08/16/21 21:59 05:59 13:59 Intake Total 850 2446 50 Output Total 2045 1600 Balance -1195 846 50 Weight 100.868 kg Intake & Output: Intake & Output 08/15/21 08/16/21 08/16/21 21:59 05:59 13:59 Intake Total 850 2446 50 Output Total 2045 1600 Balance -1195 846 50 Weight 100.868 kg Intake: IV 250 1209 50 Sodium Chloride 0.9% 1,000 ml @ 994 75 mls/hr IV .[id number] [facility] Rx#: [id number] Zosyn 4.5 gm In Dextrose 5% in 50 50 50 Water 50 ml @ 100 mls/hr IV Q8H [facility] Rx#:[id number] Oral 600 1237 Output: Void Amount 2045 1600 Other: Meal Dinner Percent of Meal Consumed 75% Urine Appearance Clear Urine Color Bright Yellow Bright Yellow Urine Odor Normal Normal Additional findings Additional findings: Physical Exam Constitutional; Afebrile, cooperative, alert, not in distress. Eyes- No icterus, No periorbital swelling Ears- Ext ear normal, hearing normal to conversation. Neck- Midline trachea, supple Respiratory system: Air Entry equal on both sides, No crackles or wheezing, no rhonchi. CVS- Rate rhythm regular, S1,S2 heard, no gallop, no rub. Abdomen- Soft nontender abdomen, no organomegaly, no tenderness, no guarding or rigidity, TRACK OILER- AOOx3, moving all extremities, no gross focal deficit noted. Back in dressing, did not open as patient will go to ER. OBJ DATA Labs CBC & Chem 7: 08/15/21 04:00 08/14/21 07:13 Labs: Abnormal Lab Results 08/15/21 08/15/21 08/14/21 12:10 04:00 07:13 RBC 3.38 L Hgb 9.0 L Hct 29.9 L MCHC 30.1 L RDW 15.3 H MPV 11.6 H Seg Neutrophils % 86 H Band Neutrophils % Lymphocytes % 10 L Nucleated RBCs RBC Morphology Hypochromasia Anisocytosis VBG Lactic Acid 2.5 H Sodium 129 L Chloride Carbon Dioxide Creatinine 0.4 L Glucose 335 H Uric Acid 2.4 L Calcium 7.5 L Iron TIBC Unsat Iron Binding Transferrin % Sat Total Bilirubin Direct Bilirubin 0.4 H GGT 499 H AST 191 H ALT 117 H Alkaline Phosphatase 394 H Albumin 1.8 L Globulin 4.2 H Albumin/Globulin Ratio 0.4 L 08/14/21 08/13/21 08/13/21 04:00 05:01 05:00 RBC 3.06 L 3.15 L Hgb 8.1 L 8.6 L Hct 25.4 L 26.8 L MCHC RDW 14.9 H 14.8 H MPV 11.3 H 10.8 H Seg Neutrophils % 84 H Band Neutrophils % 24 H Lymphocytes % 5 L 9 L Nucleated RBCs 2 H RBC Morphology Abnormal A Abnormal A Hypochromasia 1+ A Anisocytosis 1+ A 1+ A VBG Lactic Acid Sodium 128 L Chloride 95 L Carbon Dioxide 21 L Creatinine 0.5 L Glucose 420 H Uric Acid Calcium 7.6 L Iron TIBC Unsat Iron Binding Transferrin % Sat Total Bilirubin 1.1 H Direct Bilirubin 0.7 H GGT 530 H AST 41 H ALT Alkaline Phosphatase 360 H Albumin 1.8 L Globulin 4.6 H Albumin/Globulin Ratio 0.4 L 08/13/21 05:00 RBC Hgb Hct MCHC RDW MPV Seg Neutrophils % Band Neutrophils % Lymphocytes % Nucleated RBCs RBC Morphology Hypochromasia Anisocytosis VBG Lactic Acid Sodium Chloride Carbon Dioxide Creatinine Glucose Uric Acid Calcium Iron 10 L TIBC 94 L Unsat Iron Binding 84 L Transferrin % Sat 11 L Total Bilirubin Direct Bilirubin GGT AST ALT Alkaline Phosphatase Albumin Globulin Albumin/Globulin Ratio Meds: Medications Acetaminophen (Acetaminophen 325 Mg Tablet) 650 mg PO Q6HP PRN; Protocol PRN Reason: Per Pain Protocol/Fever > 101 Dextrose (Dextrose 50% 50 Ml Vial) 0 ml IV UD PRN PRN Reason: Hypoglycemia Diagnostic Test (Pha) (Accu-Chek 1 Each Strip) 1 each FS [facility] Last Admin: 08/16/21 06:46 Dose: 1 each Documented by: Glucose (Dextrose 31 Gm Oral.Susp) 15 gm PO PRN PRN PRN Reason: Hypoglycemia Hydromorphone HCl (Hydromorphone 0.5 Mg/0.5 Ml Syringe) 1 mg IV Q2HP PRN; Protocol PRN Reason: Per Pain Protocol Piperacillin Sod/Tazobactam (Sod 4.5 gm/ Dextrose) 50 mls @ 100 mls/hr IV Q8H [facility]; Protocol Last Infusion: 08/16/21 06:31 Dose: Infused Documented by: Sodium Chloride (Sodium Chloride 0.9%) 1,000 mls @ 75 mls/hr IV .[id number] [facility] Last Admin: 08/16/21 05:42 Dose: 75 mls/hr Documented by: Albumin Human (Buminate) 25 gm in 100 mls @ 200 mls/hr IV Q6H [facility] Stop: 08/16/21 20:59 Last Infusion: 08/16/21 02:15 Dose: Infused Documented by: Acetaminophen (Ofirmev) 650 mg in 65 mls @ 130 mls/hr IV Q8 [facility]; Protocol Insulin Glargine (Insulin Glargine, Human 1 Unit/0.01 Ml) 40 unit SQ [facility] Last Admin: 08/15/21 21:07 Dose: 40 unit Documented by: Insulin Human Lispro (Insulin Lispro 1 Unit/0.01 Ml Unit) 0 unit SQ [facility]; Protocol Last Admin: 08/15/21 21:07 Dose: Not Given Documented by: Insulin Human Lispro (Insulin Lispro 1 Unit/0.01 Ml Unit) 10 unit SQ [facility] Last Admin: 08/15/21 17:21 Dose: 10 units Documented by: Lactulose (Lactulose 20 Gm/30 Ml Oral.Carmen) 10 gm PO DAILYP PRN PRN Reason: Constipation Methocarbamol (Methocarbamol 750 Mg Tablet) 750 mg PO Q6HP PRN PRN Reason: Muscle Spasm Last Admin: 08/15/21 03:37 Dose: 750 mg Documented by: Ondansetron HCl (Ondansetron 4 Mg/2 Ml Vial) 4 mg IV Q4HP PRN; Protocol PRN Reason: Nausea And Vomiting Oxycodone/Acetaminophen (Oxycodone/Apap 5/325mg Tablet) 2 tab PO Q4HP PRN; Protocol PRN Reason: Per Pain Protocol Senna (Sennosides 1 Tablet) 2 tab PO BID [facility] Last Admin: 08/15/21 20:15 Dose: 2 tab Documented by: Sodium Chloride (0.9 % Sodium Chloride 10 Ml Syringe) 10 ml IV Q8 [facility] Last Admin: 08/16/21 06:00 Dose: 10 ml Documented by: A/P Narrative A/P Narrative: A/P Narrative: Assessment: 51 year old male with a history of type 2 diabetes admitted for sepsis secondary to a large left, and now right gluteal abscess complicated by Bacteroides fragilis and strep agalactae bacteremia. #Sepsis secondary to gluteal abscess #Large multiloculated gluteal abscess s/p I&D 08/12/21 #Bacteroides fragilis bacteremia #STrep agalactiae bactermia #Type 2 diabetes mellitus, poorly controlled, with hyperglycemia #Hyponatremia #Anemia, unspecified chronicity #Right #1 and #2 toe wounds present on admission #Severe Sepsis Plan -Continue Zosyn for now.care home can consider rocephin with flagyl -IV fluids to continue, IV albumi givne for bp support -Plan for OR today for Right gluteal abscess debridement -Follow pending surgical cultures. -TTE ordered to evaluate for endocarditis, normal lvef, no endocardis reporrted -Analgesics prn, increase dilaudid to 1mg q2, oxycodone now at 10 q4, and shani apap IV -Wound care. -General surgery following for gluteal abscess,. or today -Lantus 40 units at bedtime, prandial Humalog 10 units AC and SSI-high. -Follow CBC, inpatient panel. -Hold home Metformin and lisinopril. -Diabetic diet. -DVT prophylaxis: Holding for surgery. -CODE STATUS: Full -Disposition: Probably SNF vs LTAC depending on care needs. Time Spent With Patient Time: Total time spent is greater than 50% in coordination of care (as documented) at patient's floor/unit and/or counseling patient: Total time spent with greater than 50% in coordination of care (as documented) at patient's floor/unit and/or counseling patient:: Greater than 35 minutes QUALITY VTE Deep Vein Thrombosis/Pulmonary Embolism Present on Admission: No
[2021-08-16 07:14] LABS: Hematocrit 26.2 % (40.1-51.0); Hemoglobin 8.1 g/dL (13.7-17.5); Mean Cell Volume 87.9 fL (80.0-100.0); Mean Corpuscular HGB Conc 30.9 g/dL (31.0-36.0); Mean Platelet Volume 11.7 fL (7.4-10.4); Platelet Count 176 K/mcL (140-440); RBC 2.98 M/mcL (4.63-6.08); Red Cell Distribution Width 15.4 % (11.5-14.5); WBC 6.3 K/mcL (4.5-11.0)
[2021-08-16] MEDS: oxyCODONE HCL 5 MG TABLET PO PRN ×3 (07:17→17:16)
[2021-08-16] MEDS ORDERED: oxyCODONE HCL 5 MG TABLET PO ONE (07:19)
[2021-08-16 07:43] LABS: ALT/SGPT 59 U/L (<40); AST/SGOT 44 U/L (<40); Albumin 2.4 gm/dL (3.2-5.2); Albumin/Globulin Ratio 0.7 (1.0-2.3); Alkaline Phosphatase 320 U/L (39-117); Bilirubin,Direct 0.4 mg/dL (<0.3); Bilirubin,Total 0.8 mg/dL (0.1-1.0); Blood Urea Nitrogen 9 mg/dL (6-20); Calcium 7.6 mg/dL (8.6-10.4); Carbon Dioxide 23 mmol/L (22-30); Chloride 102 mmol/L (96-108); Globulin 3.3 gm/dL (2.2-3.7); Glomerular Filtration Rate 118; Glucose 147 mg/dL (70-105); Lactate Dehydrogenase 156 U/L (135-225); Phosphorous 2.5 mg/dL (2.5-4.5); Triglycerides 116 mg/dL (<150); Uric Acid 2.1 mg/dL (2.5-8.0)
[2021-08-16] MEDS ORDERED: MIDAZOLAM 2 MG/2 ML VIAL ONE (09:00)
[2021-08-16] MEDS ORDERED: MAGNESIUM SULFATE 2 GM/50 ML BAG IV ONE (09:00)
[2021-08-16] MEDS ORDERED: fentaNYL 100 MCG/2 ML VIAL IV ONE (09:00)
[2021-08-16] MEDS ORDERED: KETAMINE 50 MG/ML Syringe (ANEST) IV ONE (09:00)
[2021-08-16] MEDS ORDERED: HYDROmorphone 1 MG/ML SYRINGE ONE (09:00)
[2021-08-16] MEDS ORDERED: LIDOCAINE HCL/PF 100 MG/5 ML SYRINGE IV ONE (09:00)
[2021-08-16] MEDS ORDERED: DEXAMETHASONE 10 MG/ML VIAL ONE (09:00)
[2021-08-16] MEDS ORDERED: PROPOFOL 200 MG/20 ML VIAL IV ONE (09:00)
[2021-08-16] MEDS ORDERED: ONDANSETRON 4 MG/2 ML VIAL ONE (09:00)
[2021-08-16] MEDS ORDERED: GLYCOPYRROLATE 0.2 MG/ML VIAL IV ONE (09:00)
[2021-08-16] MEDS ORDERED: PHENYLephrine 1 MG/10 ML SYRINGE (ANEST) ONE (09:00)
[2021-08-16] MEDS ORDERED: ALBUMIN HUMAN 25 GM/100 ML BAG IV ONE ×3 (09:00→09:32)
[2021-08-16 09:15] LABS: Anisocytosis 1+ (None Seen); Band Neutrophils % 5 % (0-10); Hypochromasia 1+ (None Seen); Lymphocytes % 11 % (15-49); Monocytes % (Manual) 4 % (1-12); Platelet Estimate NORMAL (Normal); RBC Morphology ABNORMAL (Normal); Segmented Neutrophils % 80 % (38-78)
[2021-08-16] MEDS: INSULIN LISPRO 1 UNIT/0.01 ML UNIT SQ SCH ×7 (09:35→21:02)
[2021-08-16] MEDS ORDERED: FLUMAZENIL 0.1 MG/ML ML IV PRN (09:44)
[2021-08-16] MEDS ORDERED: LACTATED RINGERS 250 ML IV PRN (09:44)
[2021-08-16] MEDS ORDERED: fentaNYL 100 MCG/2 ML VIAL IV PRN (09:44)
[2021-08-16] MEDS ORDERED: ACETAMINOPHEN 1,000 MG/100 ML BAG IV ONE (09:44)
[2021-08-16] MEDS ORDERED: BENZOCAINE/MENTHOL 1 LOZENGE PO PRN (09:44)
[2021-08-16] MEDS ORDERED: METOPROLOL TARTRATE 5 MG/5 ML VIAL IV PRN (09:44)
[2021-08-16] MEDS ORDERED: IPRATROPIUM/ALBUTEROL 3 ML AMPUL.NEB NEB PRN (09:44)
[2021-08-16] MEDS ORDERED: NALOXONE HCL 0.4 MG/ML VIAL IV PRN (09:44)
[2021-08-16] MEDS ORDERED: METHOCARBAMOL 1,000 MG/10 ML VIAL IV PRN (09:44)
[2021-08-16] MEDS ORDERED: LABETALOL 5 MG/ML ML IV PRN (09:44)
[2021-08-16] MEDS ORDERED: LACTATED RINGERS 1,000 ML IV SCH (09:45)
[2021-08-16] MEDS: ACETAMINOPHEN 650 MG/65 ML BAG IV SCH ×3 (10:30→21:39)
--- NOTE | 2021-08-16 10:34 | Brief Operative Note ---
Brief Operative Note Date of procedure: 08/16/21 Pre-op diagnosis: right flank ,buttock and rlq abscess;progressive Post-op diagnosis: other (right flank,buttock and RLQ ABSCESSEXTENDING 53CM) Procedure: 1NCISISION ,DRAINAGE AND DEBRIDEMENT OF EXTENSIVE ABSCESS OF RIGHT BUTTOCK,FLANK AND RLQ LOWER ABDOMINAL WALL--53CM X 5-7CM THROUGHOUT TRACTS Grafts/Implants: No (1" PATRICIA X 7) Anesthesia: GLMA Findings: NOTED ABOVE Complications: none Surgeon: Shey Erazo Estimated blood loss (cc): 0 Specimens Removed/Pathology: none sent Condition: stable Disposition: PACU
[2021-08-16] MEDS: SENNOSIDES 1 TABLET PO SCH ×2 (12:05→21:03)
--- NOTE | 2021-08-16 12:41 | Internal Med Progress Note ---
SUBJECTIVE Subjective Patient information: Note initiated : 08/16/21 at 12:35 pm Service Date, if different from initiated Date: [] Patient: Frankie Rhoades 51 y/o M admitted on 08/12/21 for skin. Chief Complaint: [] Principal diagnosis: Buttock and lower back abscesses Interval history: Interval history: Mr. Rhoades is a 51 year old male with a history of type 2 diabetes presented to the emergency department for left buttock pain and chills. The patient had recently presented to [facility] for the same complaints and was discharged from the emergency department with a prescription of Keflex for 10 days. The patient took the Keflex however his symptoms worsened. In the emergency department at [facility] the patient had a fever of 100.8, tachycardia and elevated respiratory rate. Routine blood work showed a leukocytosis with left shift. Lactic acid was elevated at 3.8. Patient had a CT pelvis with contrast that showed a large left gluteal multiloculated abscess measuring 15 cm. The patient received broad-spectrum antibiotics with vancomycin and Zosyn as well as IV fluids. Repeat lactic acid was 2.0. The patient's blood pressures were low in the emergency department however he says that he usually has low blood pressures at baseline. Hospital medicine was asked to admit the patient for further management. 08/13 Had an I&D of the abscess yesterday evening, multiple drains in place. Anticipate the patient will require another washout and possibly a wound VAC. 2/2 blood cultures growing gram negative bacillus, surgical cultures pending. Increased Lantus and sliding scale insulin, added prandial Humalog. Sepsis physiology has improved. 08/14 Blood cultures grew bacteroides fragilis, awaiting final surgical cultures. Discontinues Vancomycin, continued Zosyn. Glucose continues to be elevated, increased Lantus to 40 units HS, prandial Humalog to 15 units AC TID and continued high dose sliding scale insulin. Surgery planning for reexploration. 08/15 Patient seen examined, still has pain but managable Blood culutres are growing bacteroides and stre p agalactiae , pt remains on zosy Glucose level in 90's today, cut down on prandial humalog to 10 TID Await surgery evaluation with regards to plan for reexploration. 08/16 Patient seen examined, had low bp yesterday, elevated lactic acid, IV fluids given, IV albumin given Repeat CT done which shows nrew developing abscees on the [facility] buttoc Surgery planning to take patient to OR this AM Patient notes of significant pain, Will increase dose of dilaudid and oxycocond (d/c percoset as would limit the amount of apap given) keep shani apap now Constitutional Vitals: Vital Signs Temp Pulse Resp BP Pulse Ox 97.9 F 98 H 16 109/65 92 08/16/21 11:13 08/16/21 11:13 08/16/21 11:13 08/16/21 11:10 08/16/21 11:13 Period Temp Pulse Resp BP Sys/Vivas Pulse Ox Last 24 Hr 97.1 F-98.6 F 87-104 13-33 83-119/42-74 85-100 Intake and Output 08/15/21 08/16/21 08/16/21 21:59 05:59 13:59 Intake Total 850 2446 2633 Output Total 5 1600 625 Balance -8245 615 1330 Weight 100.868 kg Intake & Output: Intake & Output 08/15/21 08/16/21 08/16/21 21:59 05:59 13:59 Intake Total 850 2446 2633 Output Total 2045 1600 625 Balance -4955 975 9435 Weight 100.868 kg Intake: IV 250 1209 733 Sodium Chloride 0.9% 1,000 ml @ 994 383 75 mls/hr IV .[id number] [facility] Rx#: [id number] Zosyn 4.5 gm In Dextrose 5% in 50 50 50 Water 50 ml @ 100 mls/hr IV Q8H [facility] Rx#:[id number] Oral 600 1237 IV - Manual Only 1900 Output: Void Amount 2044 1600 575 Estimated Blood Loss 50 Other: Meal Dinner Percent of Meal Consumed 75% Urine Appearance Clear Clear Urine Color Bright Yellow Bright Yellow Bright Yellow Urine Odor Normal Normal Exam: General: Alert, Awake, No acute Distress Eyes/N/T: EOMI, Head/Neck: neck supple, CV: RRR, No murmurs, Pulm: Clear b/l, no wheezing/rhonchi/rales Abd: soft, nontender, +BS x4 Ext: no clubbing/cyanosis/edema Neuro: Alert, no focal deficits, moves all extremities, Skin: warm/dry OBJ DATA Labs CBC & Chem 7: 08/16/21 04:00 08/16/21 04:00 Labs: Abnormal Lab Results 08/16/21 08/16/21 08/15/21 04:00 04:00 12:10 RBC 2.98 L Hgb 8.1 L Hct 26.2 L MCHC 30.9 L RDW 15.4 H MPV 11.7 H Seg Neutrophils % 80 H Lymphocytes % 11 L RBC Morphology Abnormal A Hypochromasia 1+ A Anisocytosis 1+ A VBG Lactic Acid 2.5 H Sodium Creatinine 0.6 L Glucose 147 H Uric Acid 2.1 L Calcium 7.6 L Direct Bilirubin 0.4 H GGT 407 H AST 44 H ALT 59 H Alkaline Phosphatase 320 H Total Protein 5.7 L Albumin 2.4 L Globulin Albumin/Globulin Ratio 0.7 L 08/15/21 08/14/21 08/14/21 04:00 07:13 04:00 RBC 3.38 L 3.06 L Hgb 9.0 L 8.1 L Hct 29.9 L 25.4 L MCHC 30.1 L RDW 15.3 H 14.9 H MPV 11.6 H 11.3 H Seg Neutrophils % 86 H 84 H Lymphocytes % 10 L 5 L RBC Morphology Abnormal A Hypochromasia Anisocytosis 1+ A VBG Lactic Acid Sodium 129 L Creatinine 0.4 L Glucose 335 H Uric Acid 2.4 L Calcium 7.5 L Direct Bilirubin 0.4 H GGT 499 H AST 191 H ALT 117 H Alkaline Phosphatase 394 H Total Protein Albumin 1.8 L Globulin 4.2 H Albumin/Globulin Ratio 0.4 L Meds: Medications Acetaminophen (Acetaminophen 325 Mg Tablet) 650 mg PO Q6HP PRN; Protocol PRN Reason: Per Pain Protocol/Fever > 101 Dextrose (Dextrose 50% 50 Ml Vial) 0 ml IV UD PRN PRN Reason: Hypoglycemia Diagnostic Test (Pha) (Accu-Chek 1 Each Strip) 1 each FS [facility] Last Admin: 08/16/21 12:13 Dose: 1 each Documented by: Glucose (Dextrose 31 Gm Oral.Susp) 15 gm PO PRN PRN PRN Reason: Hypoglycemia Hydromorphone HCl (Hydromorphone 1 Mg/Ml Syringe) 1 mg IV Q2HP PRN; Protocol PRN Reason: Per Pain Protocol Piperacillin Sod/Tazobactam (Sod 4.5 gm/ Dextrose) 50 mls @ 100 mls/hr IV Q8H [facility]; Protocol Last Infusion: 08/16/21 06:31 Dose: Infused Documented by: Sodium Chloride (Sodium Chloride 0.9%) 1,000 mls @ 75 mls/hr IV .[id number] [facility] Last Admin: 08/16/21 10:48 Dose: 75 mls/hr Documented by: Albumin Human (Buminate) 25 gm in 100 mls @ 200 mls/hr IV Q6H [facility] Stop: 08/16/21 20:59 Last Admin: 08/16/21 12:02 Dose: Not Given Documented by: Acetaminophen (Ofirmev) 650 mg in 65 mls @ 130 mls/hr IV Q8 [facility]; Protocol Last Admin: 08/16/21 10:30 Dose: Not Given Documented by: Insulin Glargine (Insulin Glargine, Human 1 Unit/0.01 Ml) 40 unit SQ HS [facility] Last Admin: 08/15/21 21:07 Dose: 40 unit Documented by: Insulin Human Lispro (Insulin Lispro 1 Unit/0.01 Ml Unit) 0 unit SQ [facility]; Protocol Last Admin: 08/16/21 12:16 Dose: 9 units Documented by: Insulin Human Lispro (Insulin Lispro 1 Unit/0.01 Ml Unit) 10 unit SQ AC [facility] Last Admin: 08/16/21 12:16 Dose: 10 units Documented by: Lactulose (Lactulose 20 Gm/30 Ml Oral.Carmen) 10 gm PO DAILYP PRN PRN Reason: Constipation Methocarbamol (Methocarbamol 750 Mg Tablet) 750 mg PO Q6HP PRN PRN Reason: Muscle Spasm Last Admin: 08/15/21 03:37 Dose: 750 mg Documented by: Ondansetron HCl (Ondansetron 4 Mg/2 Ml Vial) 4 mg IV Q4HP PRN; Protocol PRN Reason: Nausea And Vomiting Oxycodone HCl (Oxycodone Hcl 5 Mg Tablet) 10 mg PO Q4HP PRN; Protocol PRN Reason: Per Pain Protocol Last Admin: 08/16/21 07:17 Dose: 10 mg Documented by: Senna (Sennosides 1 Tablet) 2 tab PO BID [facility] Last Admin: 08/16/21 12:05 Dose: Not Given Documented by: Sodium Chloride (0.9 % Sodium Chloride 10 Ml Syringe) 10 ml IV Q8 [facility] Last Admin: 08/16/21 06:00 Dose: 10 ml Documented by: A/P Narrative A/P Narrative: A: #Severe Sepsis: 2/2 gluteal abscess #Large multiloculated gluteal abscess s/p I&D (08/12 & 08/16) #Bacteremia(Bacteroides fragilis/Strep agalactiae): #DM2: poorly controlled, with hyperglycemia #Hyponatremia: #Anemia, unspecified chronicity: #Right #1 and #2 toe wounds present on admission Plan: -Continue Zosyn for now, wine consultant can consider rocephin with flagyl -IV albumi givne for bp support -Gen Surg following -Plan for OR today for Right gluteal abscess debridement -Follow pending surgical cultures -TTE ordered to evaluate for endocarditis, normal lvef, no endocardis reporrted -Analgesics prn, increase dilaudid to 1mg q2, oxycodone now at 10 q4, and shani apap IV -Wound care -Lantus 40 units at bedtime, prandial Humalog 10 units AC and SSI-high. 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
[2021-08-16] MEDS: HYDROmorphone 1 MG/ML SYRINGE IV PRN (15:14)
[2021-08-16] MEDS: INSULIN GLARGINE, HUMAN 1 UNIT/0.01 ML SQ SCH (21:02)
[2021-08-17] MEDS: oxyCODONE HCL 5 MG TABLET PO PRN ×4 (02:10→21:47)
[2021-08-17] MEDS: ACETAMINOPHEN 650 MG/65 ML BAG IV SCH ×3 (05:45→21:48)
[2021-08-17] MEDS: 0.9 % SODIUM CHLORIDE 10 ML SYRINGE IV SCH ×3 (05:45→21:48)
[2021-08-17] MEDS: PIPERACILLIN SODIUM/TAZOBACTAM 4.5 GM in DEXTROSE 5% IN WATER 50 ML IV SCH ×3 (05:47→21:46)
[2021-08-17 07:12] LABS: Hematocrit 24.9 % (40.1-51.0); Hemoglobin 7.6 g/dL (13.7-17.5); Mean Cell Volume 88.6 fL (80.0-100.0); Mean Corpuscular HGB Conc 30.5 g/dL (31.0-36.0); Platelet Count 146 K/mcL (140-440); RBC 2.81 M/mcL (4.63-6.08); Red Cell Distribution Width 15.4 % (11.5-14.5); WBC 5.5 K/mcL (4.5-11.0)
--- NOTE | 2021-08-17 07:20 | Internal Med Progress Note ---
SUBJECTIVE Subjective Patient information: Note initiated : 08/17/21 at 7:20 am Service Date, if different from initiated Date: [] Patient: Frankie Rhoades 51 y/o M admitted on 08/12/21 for skin. Chief Complaint: [] Principal diagnosis: Buttock and lower back abscesses Interval history: Interval history: Mr. Rhoades is a 51 year old male with a history of type 2 diabetes presented to the emergency department for left buttock pain and chills. The patient had recently presented to [facility] for the same complaints and was discharged from the emergency department with a prescription of Keflex for 10 days. The patient took the Keflex however his symptoms worsened. In the emergency department at [facility] the patient had a fever of 100.8, tachycardia and elevated respiratory rate. Routine blood work showed a leukocytosis with left shift. Lactic acid was elevated at 3.8. Patient had a CT pelvis with contrast that showed a large left gluteal multiloculated abscess measuring 15 cm. The patient received broad-spectrum antibiotics with vancomycin and Zosyn as well as IV fluids. Repeat lactic acid was 2.0. The patient's blood pressures were low in the emergency department however he says that he usually has low blood pressures at baseline. Hospital medicine was asked to admit the patient for further management. 08/13 Had an I&D of the abscess yesterday evening, multiple drains in place. Anticipate the patient will require another washout and possibly a wound VAC. 2/2 blood cultures growing gram negative bacillus, surgical cultures pending. Increased Lantus and sliding scale insulin, added prandial Humalog. Sepsis physiology has improved. 08/14 Blood cultures grew bacteroides fragilis, awaiting final surgical cultures. Discontinues Vancomycin, continued Zosyn. Glucose continues to be elevated, increased Lantus to 40 units HS, prandial Humalog to 15 units AC TID and continued high dose sliding scale insulin. Surgery planning for reexploration. 08/15 Patient seen examined, still has pain but managable Blood culutres are growing bacteroides and stre p agalactiae , pt remains on zosy Glucose level in 90's today, cut down on prandial humalog to 10 TID Await surgery evaluation with regards to plan for reexploration. 08/16 Patient seen examined, had low bp yesterday, elevated lactic acid, IV fluids given, IV albumin given Repeat CT done which shows nrew developing abscees on the [facility] buttoc Surgery planning to take patient to OR this AM Patient notes of significant pain, Will increase dose of dilaudid and oxycocond (d/c percoset as would limit the amount of apap given) keep shani apap now 08/17 Patient feeling better after I&D of right gluteal abscess yesterday. No overnight event or new complaints. Review of Systems: denies headache/fever/chills/nausea/vomiting/chest or abdominal pain/cough/dyspnea/diarrhea. Otherwise see above. Constitutional Vitals: Vital Signs Temp Pulse Resp BP Pulse Ox 97.0 F 83 16 113/53 94 08/17/21 04:01 08/17/21 06:38 08/17/21 06:38 08/17/21 06:01 08/17/21 06:38 Period Temp Pulse Resp BP Sys/Vivas Pulse Ox Last 24 Hr 97.0 F-98.6 F 69-102 11-28 86-124/42-77 85-100 Intake and Output 08/16/21 08/17/21 08/17/21 21:59 05:59 13:59 Intake Total 2371 1115 215 Output Total 950 1650 Balance 1421 -535 215 Intake & Output: Intake & Output 08/16/21 08/17/21 08/17/21 21:59 05:59 13:59 Intake Total 2371 1115 215 Output Total 950 1650 Balance 1421 -535 215 Intake: IV 471 115 215 Sodium Chloride 0.9% 1,000 ml @ 321 75 mls/hr IV .[id number] [facility] Rx#: [id number] Zosyn 4.5 gm In Dextrose 5% in 50 50 50 Water 50 ml @ 100 mls/hr IV Q8H [facility] Rx#:[id number] Oral 1900 1000 Output: Void Amount 950 1650 Other: Meal Dinner Percent of Meal Consumed 100% Feeding Ability Independent Urine Appearance Clear Clear Urine Color Dark Yellow Dark Yellow Urine Odor Normal Strong Exam: General: Alert, Awake, No acute Distress, obese Eyes/N/T: EOMI, Head/Neck: neck supple, CV: RRR, No murmurs, Pulm: Clear b/l, no wheezing/rhonchi/rales Abd: soft, nontender, +BS x4 Ext: no clubbing/cyanosis/edema Neuro: Alert, no focal deficits, moves all extremities, Skin: warm/dry OBJ DATA Labs CBC & Chem 7: 08/17/21 04:54 08/16/21 04:00 Labs: Abnormal Lab Results 08/17/21 08/16/21 08/16/21 04:54 04:00 04:00 RBC 2.81 L 2.98 L Hgb 7.6 L 8.1 L Hct 24.9 L 26.2 L MCHC 30.5 L 30.9 L RDW 15.4 H 15.4 H MPV 11.0 H 11.7 H Seg Neutrophils % 80 H Lymphocytes % 11 L RBC Morphology Abnormal A Hypochromasia 1+ A Anisocytosis 1+ A VBG Lactic Acid Sodium Creatinine 0.6 L Glucose 147 H Uric Acid 2.1 L Calcium 7.6 L Direct Bilirubin 0.4 H GGT 407 H AST 44 H ALT 59 H Alkaline Phosphatase 320 H Total Protein 5.7 L Albumin 2.4 L Globulin Albumin/Globulin Ratio 0.7 L 08/15/21 08/15/21 08/14/21 12:10 04:00 07:13 RBC 3.38 L Hgb 9.0 L Hct 29.9 L MCHC 30.1 L RDW 15.3 H MPV 11.6 H Seg Neutrophils % 86 H Lymphocytes % 10 L RBC Morphology Hypochromasia Anisocytosis VBG Lactic Acid 2.5 H Sodium 129 L Creatinine 0.4 L Glucose 335 H Uric Acid 2.4 L Calcium 7.5 L Direct Bilirubin 0.4 H GGT 499 H AST 191 H ALT 117 H Alkaline Phosphatase 394 H Total Protein Albumin 1.8 L Globulin 4.2 H Albumin/Globulin Ratio 0.4 L 08/14/21 04:00 RBC 3.06 L Hgb 8.1 L Hct 25.4 L MCHC RDW 14.9 H MPV 11.3 H Seg Neutrophils % 84 H Lymphocytes % 5 L RBC Morphology Abnormal A Hypochromasia Anisocytosis 1+ A VBG Lactic Acid Sodium Creatinine Glucose Uric Acid Calcium Direct Bilirubin GGT AST ALT Alkaline Phosphatase Total Protein Albumin Globulin Albumin/Globulin Ratio Meds: Medications Acetaminophen (Acetaminophen 325 Mg Tablet) 650 mg PO Q6HP PRN; Protocol PRN Reason: Per Pain Protocol/Fever > 101 Dextrose (Dextrose 50% 50 Ml Vial) 0 ml IV UD PRN PRN Reason: Hypoglycemia Diagnostic Test (Pha) (Accu-Chek 1 Each Strip) 1 each FS [facility] Last Admin: 08/16/21 21:01 Dose: 1 each Documented by: Glucose (Dextrose 31 Gm Oral.Susp) 15 gm PO PRN PRN PRN Reason: Hypoglycemia Hydromorphone HCl (Hydromorphone 1 Mg/Ml Syringe) 1 mg IV Q2HP PRN; Protocol PRN Reason: Per Pain Protocol Last Admin: 08/16/21 15:14 Dose: 1 mg Documented by: Piperacillin Sod/Tazobactam (Sod 4.5 gm/ Dextrose) 50 mls @ 100 mls/hr IV Q8H [facility]; Protocol Last Infusion: 08/17/21 06:40 Dose: Infused Documented by: Acetaminophen (irmev) 650 mg in 65 mls @ 130 mls/hr IV Q8 [facility]; Protocol Last Infusion: 08/17/21 06:40 Dose: Infused Documented by: Insulin Glargine (Insulin Glargine, Human 1 Unit/0.01 Ml) 40 unit SQ [facility] Last Admin: 08/16/21 21:02 Dose: 40 unit Documented by: Insulin Human Lispro (Insulin Lispro 1 Unit/0.01 Ml Unit) 0 unit SQ [facility]; Protocol Last Admin: 08/16/21 21:02 Dose: 12 units Documented by: Insulin Human Lispro (Insulin Lispro 1 Unit/0.01 Ml Unit) 10 unit SQ [facility] Last Admin: 08/16/21 17:00 Dose: 10 units Documented by: Lactulose (Lactulose 20 Gm/30 Ml Oral.Carmen) 10 gm PO DAILYP PRN PRN Reason: Constipation Methocarbamol (Methocarbamol 750 Mg Tablet) 750 mg PO Q6HP PRN PRN Reason: Muscle Spasm Last Admin: 08/15/21 03:37 Dose: 750 mg Documented by: Ondansetron HCl (Ondansetron 4 Mg/2 Ml Vial) 4 mg IV Q4HP PRN; Protocol PRN Reason: Nausea And Vomiting Oxycodone HCl (Oxycodone Hcl 5 Mg Tablet) 10 mg PO Q4HP PRN; Protocol PRN Reason: Per Pain Protocol Last Admin: 08/17/21 02:10 Dose: 10 mg Documented by: Senna (Sennosides 1 Tablet) 2 tab PO BID [facility] Last Admin: 08/16/21 21:03 Dose: Not Given Documented by: Sodium Chloride (0.9 % Sodium Chloride 10 Ml Syringe) 10 ml IV Q8 [facility] Last Admin: 08/17/21 05:45 Dose: 10 ml Documented by: A/P Frankie A/P Narrative: A: #Severe Sepsis: 2/2 gluteal abscess. Improved #Large multiloculated gluteal abscess s/p I&D (08/12 on Left & 08/16 on Right) #Bacteremia(Bacteroides fragilis/Strep agalactiae): -TTE ordered to evaluate for endocarditis, normal lvef, no endocardis r eporrted #DM2: poorly controlled, with hyperglycemia. A1c 11.4 #Hyponatremia: improved #Anemia, unspecified chronicity: #Right #1 and #2 toe wounds present on admission #Obese: Plan: -Continue Zosyn for now, senior care can consider rocephin with flagyl -Gen Surg following -Follow pending surgical cultures -Analgesics prn, dilaudid to 1mg q2, oxycodone now at 10 q4, and shani apap IV -Wound care -Lantus 40 units at bedtime, prandial Humalog 10 units AC and SSI-high. 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
[2021-08-17] MEDS: INSULIN LISPRO 1 UNIT/0.01 ML UNIT SQ SCH ×7 (08:08→21:47)
[2021-08-17] MEDS: SENNOSIDES 1 TABLET PO SCH ×3 (08:08→21:47)
[2021-08-17 09:05] LABS: Anisocytosis 1+ (None Seen); Band Neutrophils % 4 % (0-10); Lymphocytes % 11 % (15-49); Monocytes % (Manual) 6 % (1-12); Platelet Estimate NORMAL (Normal); RBC Morphology ABNORMAL (Normal); Segmented Neutrophils % 79 % (38-78)
[2021-08-17] MEDS: HYDROmorphone 1 MG/ML SYRINGE IV PRN (11:30)
--- NOTE | 2021-08-17 14:22 | General Surgery Progress Note ---
SUBJECTIVE Subjective Patient information: Note initiated : 08/17/21 at 2:16 pm Service Date, if different from initiated Date: [] Patient: Frankie Rhoades 51 y/o M admitted on 08/12/21 for skin. Chief Complaint: [] Principal diagnosis: Buttock and lower back abscesses Interval history: Patient is doing well. He is afebrile and his blood pressure has been stable with systolic in the 110-1 15 range. He is not tachycardic. The area of drainage from yesterday is softer with significant decrease in induration. There is no visible cellulitis. Cultures shows beta strep. White blood count 5.5, hemoglobin 7.6, hematocrit 24.9. Constitutional Vitals: Vital Signs Temp Pulse Resp BP Pulse Ox 98.2 F 84 23 H 113/91 98 08/17/21 12:08 08/17/21 14:10 08/17/21 14:10 08/17/21 14:01 08/17/21 14:10 Period Temp Pulse Resp BP Sys/Vivas Pulse Ox Last 24 Hr 97 F-98.2 F 69-90 11-23 94-124/53-104 91-100 Intake and Output 08/17/21 08/17/21 08/17/21 05:59 13:59 21:59 Intake Total 1115 520 Output Total 1650 400 Balance -535 120 Intake & Output: Intake & Output 08/17/21 08/17/21 08/17/21 05:59 13:59 21:59 Intake Total 1115 520 Output Total 1650 400 Balance -535 120 Intake: IV 115 280 Zosyn 4.5 gm In Dextrose 5% in 50 50 Water 50 ml @ 100 mls/hr IV Q8H [facility] Rx#:[id number] Oral 1000 240 Output: Void Amount 1650 400 Other: Meal Breakfast Percent of Meal Consumed 100% Urine Appearance Clear Urine Color Dark Yellow Urine Odor Strong Stool Size Large Stool Color Brown Stool Consistency Dry and Hard Formed # Bowel Movements 1 Eye Eye exam: Present PERRL Pupils: Present normal accommodation and PERRL ENT ENT exam: Present normal exam and normal oropharynx Neck Neck exam: Present full ROM; Absent tenderness Respiratory Respiratory exam: Present normal respiratory exam and CTAB; Absent wheezes Cardiovascular Cardiovascular exam: Present normal rate and rhythm, RRR, +S1 and +S2; Absent gallop or JVD GI/Abdominal GI/Abdominal exam: Present normal bowel sounds, soft and tenderness (Mild tenderness around I&D sites;); Absent distended Rectal Rectal exam: Present tenderness (Left buttock tissue is soft without induration; there is less drainage) Extremities Exam Extremities exam: Present full ROM, normal inspection and neurovascular intact Back Exam Back exam: Present tenderness (Mild tenderness in the lower lumbar region but no induration noted) Neurological Exam Neurological exam: Present oriented X3; Absent motor sensory deficit Psychiatric Psychiatric exam: Present normal affect and normal mood A/P Assessment and plan (1) Perirectal abscess: Status: Acute (2) Abscess of left buttock: Status: Acute (3) Left lower quadrant abdominal abscess: Status: Acute (4) Diabetes mellitus: Status: Acute Narrative A/P Narrative: Continue on present therapy; follow-up cultures from incision and drainage on yesterday Time Spent With Patient Time: Total time spent is greater than 50% in coordination of care (as documented) at patient's floor/unit and/or counseling patient:
[2021-08-17] MEDS: INSULIN GLARGINE, HUMAN 1 UNIT/0.01 ML SQ SCH (21:46)
[2021-08-17] MEDS: HEPARIN 5,000 UNIT/ML VIAL SQ SCH (21:46)
[2021-08-18] MEDS: oxyCODONE HCL 5 MG TABLET PO PRN ×4 (04:21→20:25)
[2021-08-18] MEDS: METHOCARBAMOL 750 MG TABLET PO PRN (04:30)
[2021-08-18] MEDS: ACETAMINOPHEN 650 MG/65 ML BAG IV SCH (06:12)
[2021-08-18] MEDS: PIPERACILLIN SODIUM/TAZOBACTAM 4.5 GM in DEXTROSE 5% IN WATER 50 ML IV SCH ×3 (06:12→21:33)
[2021-08-18] MEDS: 0.9 % SODIUM CHLORIDE 10 ML SYRINGE IV SCH ×3 (06:13→21:34)
[2021-08-18 06:50] LABS: Hematocrit 27.2 % (40.1-51.0); Hemoglobin 8.4 g/dL (13.7-17.5)
[2021-08-18 07:09] LABS: ALT/SGPT 34 U/L (<40); AST/SGOT 28 U/L (<40); Albumin 2.8 gm/dL (3.2-5.2); Albumin/Globulin Ratio 0.8 (1.0-2.3); Alkaline Phosphatase 339 U/L (39-117); Bilirubin,Direct 0.2 mg/dL (<0.3); Bilirubin,Total 0.4 mg/dL (0.1-1.0); Blood Urea Nitrogen 12 mg/dL (6-20); Calcium 8.1 mg/dL (8.6-10.4); Carbon Dioxide 25 mmol/L (22-30); Chloride 99 mmol/L (96-108); Globulin 3.5 gm/dL (2.2-3.7); Glomerular Filtration Rate 127; Glucose 232 mg/dL (70-105); Lactate Dehydrogenase 204 U/L (135-225); Phosphorous 2.6 mg/dL (2.5-4.5); Triglycerides 143 mg/dL (<150); Uric Acid 2.2 mg/dL (2.5-8.0)
--- NOTE | 2021-08-18 07:50 | Internal Med Progress Note ---
SUBJECTIVE Subjective Patient information: Note initiated : 08/18/21 at 7:44 am Service Date, if different from initiated Date: [] Patient: Frankie Rhoades 51 y/o M admitted on 08/12/21 for skin. Chief Complaint: [] Principal diagnosis: Buttock and lower back abscesses Interval history: Interval history: Mr. Rhoades is a 51 year old male with a history of type 2 diabetes presented to the emergency department for left buttock pain and chills. The patient had recently presented to [facility] for the same complaints and was discharged from the emergency department with a prescription of Keflex for 10 days. The patient took the Keflex however his symptoms worsened. In the emergency department at [facility] the patient had a fever of 100.8, tachycardia and elevated respiratory rate. Routine blood work showed a leukocytosis with left shift. Lactic acid was elevated at 3.8. Patient had a CT pelvis with contrast that showed a large left gluteal multiloculated abscess measuring 15 cm. The patient received broad-spectrum antibiotics with vancomycin and Zosyn as well as IV fluids. Repeat lactic acid was 2.0. The patient's blood pressures were low in the emergency department however he says that he usually has low blood pressures at baseline. Hospital medicine was asked to admit the patient for further management. 08/13 Had an I&D of the abscess yesterday evening, multiple drains in place. Anticipate the patient will require another washout and possibly a wound VAC. 2/2 blood cultures growing gram negative bacillus, surgical cultures pending. Increased Lantus and sliding scale insulin, added prandial Humalog. Sepsis physiology has improved. 08/14 Blood cultures grew bacteroides fragilis, awaiting final surgical cultures. Discontinues Vancomycin, continued Zosyn. Glucose continues to be elevated, increased Lantus to 40 units HS, prandial Humalog to 15 units AC TID and continued high dose sliding scale insulin. Surgery planning for reexploration. 08/15 Patient seen examined, still has pain but managable Blood culutres are growing bacteroides and stre p agalactiae , pt remains on zosy Glucose level in 90's today, cut down on prandial humalog to 10 TID Await surgery evaluation with regards to plan for reexploration. 08/16 Patient seen examined, had low bp yesterday, elevated lactic acid, IV fluids given, IV albumin given Repeat CT done which shows nrew developing abscees on the [facility] buttoc Surgery planning to take patient to OR this AM Patient notes of significant pain, Will increase dose of dilaudid and oxycocond (d/c percoset as would limit the amount of apap given) keep shani apap now 08/17 Patient feeling better after I&D of right gluteal abscess yesterday. No overnight event or new complaints. 08/18 Feeling well. No overnight event or new complaints. Good appetite. Awaiting final cultures. Possible wound VAC per surgery. Review of Systems: denies headache/fever/chills/nausea/vomiting/chest or abdominal pain/cough/dyspnea/diarrhea. Otherwise see above. Constitutional Vitals: Vital Signs Temp Pulse Resp BP Pulse Ox 98.8 F 79 17 121/102 99 08/18/21 04:00 08/18/21 07:35 08/18/21 07:35 08/18/21 07:35 08/18/21 07:35 Period Temp Pulse Resp BP Sys/Vivas Pulse Ox Last 24 Hr 97 F-98.8 F 67-86 7-26 89-121/39-102 91-100 Intake and Output 08/17/21 08/18/21 08/18/21 21:59 05:59 13:59 Intake Total 1600 1405 Output Total 1550 1999 Balance 50 -595 Weight 111.669 kg Intake & Output: Intake & Output 08/17/21 08/18/21 08/18/21 21:59 05:59 13:59 Intake Total 1600 1405 Output Total 1550 1999 Balance 50 -595 Weight 111.669 kg Intake: IV 50 115 Zosyn 4.5 gm In Dextrose 5% in 50 50 Water 50 ml @ 100 mls/hr IV Q8H [facility] Rx#:[id number] Oral 1550 1290 Output: Void Amount 1550 1999 Other: Meal Dinner Percent of Meal Consumed 100% Feeding Ability Independent Urine Appearance Clear Clear Urine Color Dark Yellow Straw Exam: General: Alert, Awake, No acute Distress, obese Eyes/N/T: EOMI, Head/Neck: neck supple, CV: RRR, No murmurs, Pulm: Clear b/l, no wheezing/rhonchi/rales Abd: soft, nontender, +BS x4 Ext: no clubbing/cyanosis/edema Neuro: Alert, no focal deficits, moves all extremities, Skin: warm/dry OBJ DATA Labs CBC & Chem 7: 08/18/21 05:10 08/18/21 05:10 Labs: Abnormal Lab Results 08/18/21 08/18/21 08/17/21 05:10 05:10 04:54 RBC 2.81 L Hgb 8.4 L 7.6 L Hct 27.2 L 24.9 L MCHC 30.5 L RDW 15.4 H MPV 11.0 H Seg Neutrophils % 79 H Lymphocytes % 11 L RBC Morphology Abnormal A Hypochromasia Anisocytosis 1+ A VBG Lactic Acid Creatinine 0.5 L Glucose 232 H Uric Acid 2.2 L Calcium 8.1 L Direct Bilirubin GGT 343 H AST ALT Alkaline Phosphatase 339 H Total Protein Albumin 2.8 L Albumin/Globulin Ratio 0.8 L 08/16/21 08/16/21 08/15/21 04:00 04:00 12:10 RBC 2.98 L Hgb 8.1 L Hct 26.2 L MCHC 30.9 L RDW 15.4 H MPV 11.7 H Seg Neutrophils % 80 H Lymphocytes % 11 L RBC Morphology Abnormal A Hypochromasia 1+ A Anisocytosis 1+ A VBG Lactic Acid 2.5 H Creatinine 0.6 L Glucose 147 H Uric Acid 2.1 L Calcium 7.6 L Direct Bilirubin 0.4 H GGT 407 H AST 44 H ALT 59 H Alkaline Phosphatase 320 H Total Protein 5.7 L Albumin 2.4 L Albumin/Globulin Ratio 0.7 L 08/15/21 04:00 RBC 3.38 L Hgb 9.0 L Hct 29.9 L MCHC 30.1 L RDW 15.3 H MPV 11.6 H Seg Neutrophils % 86 H Lymphocytes % 10 L RBC Morphology Hypochromasia Anisocytosis VBG Lactic Acid Creatinine Glucose Uric Acid Calcium Direct Bilirubin GGT AST ALT Alkaline Phosphatase Total Protein Albumin Albumin/Globulin Ratio Meds: Medications Acetaminophen (Acetaminophen 325 Mg Tablet) 650 mg PO Q6HP PRN; Protocol PRN Reason: Per Pain Protocol/Fever > 101 Dextrose (Dextrose 50% 50 Ml Vial) 0 ml IV UD PRN PRN Reason: Hypoglycemia Diagnostic Test (Pha) (Accu-Chek 1 Each Strip) 1 each FS [facility] Last Admin: 08/17/21 21:47 Dose: 1 each Documented by: Glucose (Dextrose 31 Gm Oral.Susp) 15 gm PO PRN PRN PRN Reason: Hypoglycemia Heparin Sodium (Porcine) (Heparin 5,000 Unit/Ml Vial) 5,000 unit SQ Q12 [facility] Last Admin: 08/17/21 21:46 Dose: 5,000 unit Documented by: Hydromorphone HCl (Hydromorphone 1 Mg/Ml Syringe) 1 mg IV Q2HP PRN; Protocol PRN Reason: Per Pain Protocol Last Admin: 08/17/21 11:30 Dose: 1 mg Documented by: Piperacillin Sod/Tazobactam (Sod 4.5 gm/ Dextrose) 50 mls @ 100 mls/hr IV Q8H [facility]; Protocol Last Admin: 08/18/21 06:12 Dose: 100 mls/hr Documented by: Acetaminophen (Ofirmev) 650 mg in 65 mls @ 130 mls/hr IV Q8 [facility]; Protocol Last Admin: 08/18/21 06:12 Dose: 130 mls/hr Documented by: Insulin Glargine (Insulin Glargine, Human 1 Unit/0.01 Ml) 40 unit SQ [facility] Last Admin: 08/17/21 21:46 Dose: 40 unit Documented by: Insulin Human Lispro (Insulin Lispro 1 Unit/0.01 Ml Unit) 0 unit SQ [facility]; Protocol Last Admin: 08/17/21 21:47 Dose: 12 units Documented by: Insulin Human Lispro (Insulin Lispro 1 Unit/0.01 Ml Unit) 10 unit SQ [facility] Last Admin: 08/17/21 17:43 Dose: 10 units Documented by: Lactulose (Lactulose 20 Gm/30 Ml Oral.Carmen) 10 gm PO DAILYP PRN PRN Reason: Constipation Methocarbamol (Methocarbamol 750 Mg Tablet) 750 mg PO Q6HP PRN PRN Reason: Muscle Spasm Last Admin: 08/18/21 04:30 Dose: 750 mg Documented by: Ondansetron HCl (Ondansetron 4 Mg/2 Ml Vial) 4 mg IV Q4HP PRN; Protocol PRN Reason: Nausea And Vomiting Oxycodone HCl (Oxycodone Hcl 5 Mg Tablet) 10 mg PO Q4HP PRN; Protocol PRN Reason: Per Pain Protocol Last Admin: 08/18/21 04:21 Dose: 10 mg Documented by: Senna (Sennosides 1 Tablet) 2 tab PO BID [facility] Last Admin: 08/17/21 21:47 Dose: 2 tab Documented by: Sodium Chloride (0.9 % Sodium Chloride 10 Ml Syringe) 10 ml IV Q8 [facility] Last Admin: 08/18/21 06:13 Dose: 10 ml Documented by: A/P Narrative A/P Narrative: A: #Severe Sepsis: 2/2 gluteal abscess. Improved #Large multiloculated gluteal abscess s/p I&D Left side (08/12) & Right side (08/16) -cx with bacteroides/Strep #Bacteremia(Bacteroides fragilis): #DM2: poorly controlled, with hyperglycemia. A1c 11.4 #Hyponatremia: improved #Anemia, unspecified chronicity: #Right #1 and #2 toe wounds present on admission #Obese: Plan: -Continue Zosyn for now, Likely Augmentin outpt -Gen Surg following -Follow pending final surgical cultures -Wound care -Analgesics prn -Lantus 40 units at bedtime, prandial Humalog 10 units AC and SSI-high. 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
[2021-08-18] MEDS: INSULIN LISPRO 1 UNIT/0.01 ML UNIT SQ SCH ×7 (08:41→20:23)
[2021-08-18] MEDS: INSULIN GLARGINE, HUMAN 1 UNIT/0.01 ML SQ SCH ×2 (08:42→20:24)
[2021-08-18] MEDS: HEPARIN 5,000 UNIT/ML VIAL SQ SCH ×2 (08:45→20:23)
[2021-08-18] MEDS: SENNOSIDES 1 TABLET PO SCH ×2 (08:45→20:24)
--- NOTE | 2021-08-18 15:03 | General Surgery Progress Note ---
SUBJECTIVE Subjective Patient information: Note initiated : 08/18/21 at 3:03 pm Service Date, if different from initiated Date: [] Patient: Frankie Rhoades 51 y/o M admitted on 08/12/21 for skin. Chief Complaint: [] Principal diagnosis: Buttock and lower back abscesses Interval history: Patient is continuing to improve. He still has more drainage than would be anticipated. Discussed situation with radiology and they will localized the deeper pockets of purulence by CT and I will do a more extensive drainage and debridement under anesthesia tomorrow. White blood count 6.5, hemoglobin 8.6, hematocrit 20. Constitutional Vitals: Vital Signs Temp Pulse Resp BP Pulse Ox 98 F 77 16 102/74 100 08/18/21 12:51 08/18/21 12:51 08/18/21 12:51 08/18/21 12:51 08/18/21 12:51 Period Temp Pulse Resp BP Sys/Vivas Pulse Ox Last 24 Hr 97.0 F-98.8 F 67-86 7-26 93-121/39-102 97-100 Intake and Output 08/18/21 08/18/21 08/18/21 05:59 13:59 21:59 Intake Total 1405 1195 Output Total 1999 Balance -595 1195 Intake & Output: Intake & Output 08/18/21 08/18/21 08/18/21 05:59 13:59 21:59 Intake Total 1405 1195 Output Total 1999 Balance -595 1195 Intake: IV 115 115 Zosyn 4.5 gm In Dextrose 5% in 50 50 Water 50 ml @ 100 mls/hr IV Q8H [facility] Rx#:[id number] Oral 1290 1080 Output: Void Amount 1999 Other: Meal Breakfast Percent of Meal Consumed 100% Feeding Ability Independent Urine Appearance Clear Urine Color Straw ENT ENT exam: Present mucous membranes moist, normal external ear exam and normal oropharynx Neck Neck exam: Present full ROM and normal inspection Respiratory Respiratory exam: Present normal respiratory exam and CTAB; Absent rales or wheezes Cardiovascular Cardiovascular exam: Present normal rate and rhythm, RRR, +S1 and +S2; Absent gallop or JVD GI/Abdominal GI/Abdominal exam: Present normal bowel sounds, soft and tenderness (Moderate tenderness around drains in the right lower quadrant with significant swelling of the right lower flank region); Absent distended Extremities Exam Extremities exam: Present full ROM, normal capillary refill, normal inspection and neurovascular intact Back Exam Additional comments: Major tenderness in the mid lower lumbosacral region which is more prominent than was noted on yesterday Neurological Exam Neurological exam: Present alert, CN II-XII intact and oriented X3; Absent motor sensory deficit Psychiatric Psychiatric exam: Present normal affect and normal mood A/P Assessment and plan (1) Right lower quadrant abdominal abscess: Status: Acute (2) Left lower quadrant abdominal abscess: Status: Acute (3) Diabetes mellitus: Status: Acute (4) Perirectal abscess: Status: Acute (5) Abscess of left buttock: Status: Acute Narrative A/P Narrative: Patient is counseled for repeat exploration and debridement of his wounds under anesthesia. This will be performed after radiology has given the more definitive position of the abscess pockets after confirmed by CT. Surgery is anticipated to be performed tomorrow. Time Spent With Patient Time: Total time spent is greater than 50% in coordination of care (as documented) at patient's floor/unit and/or counseling patient:
[2021-08-18] MEDS: ACETAMINOPHEN 650 MG/65 ML BAG IV PRN (22:11)
[2021-08-19] MEDS: oxyCODONE HCL 5 MG TABLET PO PRN ×5 (04:08→20:07)
[2021-08-19] MEDS: 0.9 % SODIUM CHLORIDE 10 ML SYRINGE IV SCH ×3 (05:26→22:32)
[2021-08-19] MEDS: PIPERACILLIN SODIUM/TAZOBACTAM 4.5 GM in DEXTROSE 5% IN WATER 50 ML IV SCH ×3 (05:26→22:32)
[2021-08-19 06:39] LABS: Basophils # (Auto) 0.01 K/mcL (0.00-0.30); Basophils % (Auto) 0.2 % (0.0-2.0); Eosinophils % (Auto) 1.7 % (0.0-7.0); Hematocrit 29.8 % (40.1-51.0); Hemoglobin 9.3 g/dL (13.7-17.5); Lymphocytes # (Auto) 0.78 K/mcL (1.50-4.80); Lymphocytes % (Auto) 13.5 % (15.5-49.0); Mean Cell Volume 86.6 fL (80.0-100.0); Mean Corpuscular HGB Conc 31.2 g/dL (31.0-36.0); Mean Platelet Volume 10.7 fL (7.4-10.4); Monocytes # (Auto) 0.38 K/mcL (0.10-0.90); Monocytes % (Auto) 6.6 % (1.0-12.0); Platelet Count 178 K/mcL (140-440); RBC 3.44 M/mcL (4.63-6.08); Red Cell Distribution Width 15.8 % (11.5-14.5); WBC 5.8 K/mcL (4.5-11.0)
[2021-08-19] MEDS: ACETAMINOPHEN 650 MG/65 ML BAG IV PRN ×2 (07:04→13:37)
[2021-08-19] MEDS: INSULIN LISPRO 1 UNIT/0.01 ML UNIT SQ SCH ×7 (07:06→20:44)
--- NOTE | 2021-08-19 07:25 | Internal Med Progress Note ---
SUBJECTIVE Subjective Patient information: Note initiated : 08/19/21 at 7:23 am Service Date, if different from initiated Date: [] Patient: Frankie Rhoades 51 y/o M admitted on 08/12/21 for skin. Chief Complaint: [] Principal diagnosis: Buttock and lower back abscesses Interval history: Interval history: Mr. Rhoades is a 51 year old male with a history of type 2 diabetes presented to the emergency department for left buttock pain and chills. The patient had recently presented to [facility] for the same complaints and was discharged from the emergency department with a prescription of Keflex for 10 days. The patient took the Keflex however his symptoms worsened. In the emergency department at [facility] the patient had a fever of 100.8, tachycardia and elevated respiratory rate. Routine blood work showed a leukocytosis with left shift. Lactic acid was elevated at 3.8. Patient had a CT pelvis with contrast that showed a large left gluteal multiloculated abscess measuring 15 cm. The patient received broad-spectrum antibiotics with vancomycin and Zosyn as well as IV fluids. Repeat lactic acid was 2.0. The patient's blood pressures were low in the emergency department however he says that he usually has low blood pressures at baseline. Hospital medicine was asked to admit the patient for further management. 08/13 Had an I&D of the abscess yesterday evening, multiple drains in place. Anticipate the patient will require another washout and possibly a wound VAC. 2/2 blood cultures growing gram negative bacillus, surgical cultures pending. Increased Lantus and sliding scale insulin, added prandial Humalog. Sepsis physiology has improved. 08/14 Blood cultures grew bacteroides fragilis, awaiting final surgical cultures. Discontinues Vancomycin, continued Zosyn. Glucose continues to be elevated, increased Lantus to 40 units HS, prandial Humalog to 15 units AC TID and continued high dose sliding scale insulin. Surgery planning for reexploration. 08/15 Patient seen examined, still has pain but managable Blood culutres are growing bacteroides and stre p agalactiae , pt remains on zosy Glucose level in 90's today, cut down on prandial humalog to 10 TID Await surgery evaluation with regards to plan for reexploration. 08/16 Patient seen examined, had low bp yesterday, elevated lactic acid, IV fluids given, IV albumin given Repeat CT done which shows nrew developing abscees on the [facility] Surgery planning to take patient to [place] this AM Patient notes of significant pain, Will increase dose of dilaudid and oxycocond (d/c percoset as would limit the amount of apap given) keep shani apap now 08/17 Patient feeling better after I&D of right gluteal abscess yesterday. No overnight event or new complaints. 08/18 Feeling well. No overnight event or new complaints. Good appetite. Awaiting final cultures. Possible wound VAC per surgery. 08/19 No changes overnight. Final cultures completed. Await final surgical rec commendations. Review of Systems: denies headache/fever/chills/nausea/vomiting/chest or abdominal pain/cough/dyspnea/diarrhea. Otherwise see above. Constitutional Vitals: Vital Signs Temp Pulse Resp BP Pulse Ox 97.4 F 88 16 123/80 98 08/19/21 02:00 08/19/21 02:00 08/19/21 02:00 08/19/21 02:00 08/19/21 02:00 Period Temp Pulse Resp BP Sys/Vivas Pulse Ox Last 24 Hr 97.1 F-98 F 67-88 11-18 92-123/52-102 95-100 Intake and Output 08/18/21 08/19/21 08/19/21 21:59 05:59 13:59 Intake Total 2715 50 Output Total 1974 4099 Balance -1045 -1385 50 Weight 110.365 kg Intake & Output: Intake & Output 08/18/21 08/19/21 08/19/21 21:59 05:59 13:59 Intake Total 930 2715 50 Output Total 19740 Balance -1045 -1385 50 Weight 110.365 kg Intake: IV 50 115 50 Zosyn 4.5 gm In Dextrose 5% in 50 50 50 Water 50 ml @ 100 mls/hr IV Q8H [facility] Rx#:[id number] Oral 880 2600 Output: Urine Catheter Amount 425 Void Amount 1550 4100 Other: Meal Dinner snack Percent of Meal Consumed 100% 100% Feeding Ability Independent Independent Urine Appearance Clear Clear Urine Color Bright Yellow Bright Yellow Urine Odor Normal Normal Stool Size Large Stool Color Brown Yellow Stool Consistency Soft # Bowel Movements 1 # of times incontinent of 0 Bowels Exam: General: Alert, Awake, No acute Distress, obese Eyes/N/T: EOMI, Head/Neck: neck supple, CV: RRR, No murmurs, Pulm: Clear b/l, no wheezing/rhonchi/rales Abd: soft, nontender, +BS x4 Ext: no clubbing/cyanosis/edema Neuro: Alert, no focal deficits, moves all extremities, Skin: warm/dry OBJ DATA Labs CBC & Chem 7: 08/19/21 05:18 08/18/21 05:10 Labs: Abnormal Lab Results 08/19/21 08/18/21 08/18/21 05:18 05:10 05:10 RBC 3.44 L Hgb 9.3 L 8.4 L Hct 29.8 L 27.2 L MCHC RDW 15.8 H MPV 10.7 H Lymph % (Auto) 13.5 L Lymph # (Auto) 0.78 L Seg Neutrophils % Lymphocytes % RBC Morphology Hypochromasia Anisocytosis Creatinine 0.5 L Glucose 232 H Uric Acid 2.2 L Calcium 8.1 L Direct Bilirubin GGT 343 H AST ALT Alkaline Phosphatase 339 H Total Protein Albumin 2.8 L Albumin/Globulin Ratio 0.8 L 08/17/21 08/16/21 08/16/21 04:54 04:00 04:00 RBC 2.81 L Hgb 7.6 L Hct 24.9 L MCHC 30.5 L RDW 15.4 H MPV 11.0 H Lymph % (Auto) Lymph # (Auto) Seg Neutrophils % 79 H 80 H Lymphocytes % 11 L 11 L RBC Morphology Abnormal A Abnormal A Hypochromasia 1+ A Anisocytosis 1+ A 1+ A Creatinine 0.6 L Glucose 147 H Uric Acid 2.1 L Calcium 7.6 L Direct Bilirubin 0.4 H GGT 407 H AST 44 H ALT 59 H Alkaline Phosphatase 320 H Total Protein 5.7 L Albumin 2.4 L Albumin/Globulin Ratio 0.7 L Meds: Medications Acetaminophen (Acetaminophen 325 Mg Tablet) 650 mg PO Q6HP PRN; Protocol PRN Reason: Per Pain Protocol/Fever > 101 Dextrose (Dextrose 50% 50 Ml Vial) 0 ml IV UD PRN PRN Reason: Hypoglycemia Diagnostic Test (Pha) (Accu-Chek 1 Each Strip) 1 each FS ACHS SHANI Last Admin: 08/19/21 07:05 Dose: 1 each Documented by: Glucose (Dextrose 31 Gm Oral.Susp) 15 gm PO PRN PRN PRN Reason: Hypoglycemia Heparin Sodium (Porcine) (Heparin 5,000 Unit/Ml Vial) 5,000 unit SQ Q12 [facility] Last Admin: 08/18/21 20:23 Dose: 5,000 unit Documented by: Hydromorphone HCl (Hydromorphone 1 Mg/Ml Syringe) 1 mg IV Q2HP PRN; Protocol PRN Reason: Per Pain Protocol Last Admin: 08/17/21 11:30 Dose: 1 mg Documented by: Piperacillin Sod/Tazobactam (Sod 4.5 gm/ Dextrose) 50 mls @ 100 mls/hr IV Q8H [facility]; Protocol Last Infusion: 08/19/21 06:48 Dose: Infused Documented by: Acetaminophen ([facility]) 650 mg in 65 mls @ 130 mls/hr IV Q8 PRN; Protocol PRN Reason: pain Last Admin: 08/19/21 07:04 Dose: 130 mls/hr Documented by: Insulin Glargine (Insulin Glargine, Human 1 Unit/0.01 Ml) 40 unit SQ [facility] Last Admin: 08/18/21 20:24 Dose: 40 unit Documented by: Insulin Glargine (Insulin Glargine, Human 1 Unit/0.01 Ml) 10 unit SQ DAILY [facility] Last Admin: 08/18/21 08:42 Dose: 10 unit Documented by: Insulin Human Lispro (Insulin Lispro 1 Unit/0.01 Ml Unit) 0 unit SQ [facility]; Protocol Last Admin: 08/19/21 07:06 Dose: Not Given Documented by: Insulin Human Lispro (Insulin Lispro 1 Unit/0.01 Ml Unit) 10 unit SQ [facility] Last Admin: 08/18/21 17:19 Dose: Not Given Documented by: Lactulose (Lactulose 20 Gm/30 Ml Oral.Carmen) 10 gm PO DAILYP PRN PRN Reason: Constipation Methocarbamol (Methocarbamol 750 Mg Tablet) 750 mg PO Q6HP PRN PRN Reason: Muscle Spasm Last Admin: 08/18/21 04:30 Dose: 750 mg Documented by: Ondansetron HCl (Ondansetron 4 Mg/2 Ml Vial) 4 mg IV Q4HP PRN; Protocol PRN Reason: Nausea And Vomiting Oxycodone HCl (Oxycodone Hcl 5 Mg Tablet) 10 mg PO Q4HP PRN; Protocol PRN Reason: Per Pain Protocol Last Admin: 08/19/21 04:08 Dose: 10 mg Documented by: Senna (Sennosides 1 Tablet) 2 tab PO BID [facility] Last Admin: 08/18/21 20:24 Dose: 2 tab Documented by: Sodium Chloride (0.9 % Sodium Chloride 10 Ml Syringe) 10 ml IV Q8 [facility] Last Admin: 08/19/21 05:26 Dose: 10 ml Documented by: A/P Narrative A/P Narrative: A: #Severe Sepsis: 2/2 gluteal abscess. Improved #Large multiloculated gluteal abscess s/p I&D Left side (08/12) & Right side (08/16) -cx with bacteroides/Strep #Bacteremia(Bacteroides fragilis): #DM2: poorly controlled, with hyperglycemia. A1c 11.4 #Hyponatremia: improved #Anemia, unspecified chronicity: #Right #1 and #2 toe wounds present on admission #Obese: Plan: -IV abx, transition to Augmentin outpt to finish up 2 wk course -Gen Surg following -Wound care -Analgesics prn -Lantus 40 units at bedtime, prandial Humalog 10 units AC and SSI-high. -Hold home Metformin and lisinopril -DVT prophylaxis: heparin CODE STATUS: Equipment Service Lead Spent With Patient Time: Total time spent is greater than 50% in coordination of care (as documented) at patient's floor/unit and/or counseling patient: QUALITY VTE Deep Vein Thrombosis/Pulmonary Embolism Present on Admission: No
[2021-08-19] MEDS: HEPARIN 5,000 UNIT/ML VIAL SQ SCH ×2 (08:11→20:43)
[2021-08-19] MEDS: SENNOSIDES 1 TABLET PO SCH ×2 (08:12→20:27)
[2021-08-19] MEDS: INSULIN GLARGINE, HUMAN 1 UNIT/0.01 ML SQ SCH ×3 (08:12→20:43)
--- NOTE | 2021-08-19 10:16 | Discharge Summary ---
Discharge Provider Provider Patient information: Note initiated : 08/19/21 at 10:13 am Service Date, if different from initiated Date: [] Patient: Frankie Rhoades 51 y/o M admitted on 08/12/21 for skin. Chief Complaint: [] Date of admission: 08/12/21 19:00 Primary care physician: Gunjan Martin Consults: 08/12/21 Consult to Physician [CONS] Stat Comment: Consulting Provider: Adrian Kelly Reason For Exam: Physician to Consult Consult to Physician [CONS] Stat Comment: Consulting Provider: Shey Erazo Reason For Exam: Physician to Consult 08/12/21 19:04 Consult to Physician [CONS] Stat Comment: Consulting Provider: Shey Erazo Reason For Exam: Physician to Consult Discharge Meds Discharge Medications Home Medications Humalog U-100 Insulin See Rx Instructions .ROUTE .COMPLEX 08/14/21 [History Confirmed 08/17/21 Last Taken Unknown] insulin lispro 18 units SUBCUT HS 08/14/21 [History Confirmed 08/14/21 Last Taken Unknown] lisinopril 2.5 mg tablet 0.25 mg PO DAILY 08/14/21 [History Confirmed 08/14/21 Last Taken Unknown] metformin 500 mg tablet 500 mg PO BID 08/14/21 [History Confirmed 08/14/21 Last Taken Unknown] blood sugar diagnostic #100 each 08/19/21 [Rx Last Taken Unknown] insulin aspart U-100 100 unit/mL (3 mL) subcutaneous pen (Novolog Flexpen U-100 Insulin aspart) 10 unit SUBCUT AC #3 ml 08/19/21 [Rx Last Taken Unknown] insulin glargine 100 unit/mL (3 mL) subcutaneous pen (Lantus Solostar U-100 Insulin) 40 unit (0.4 mL) SUB-Q QHS #15 ml 08/19/21 [Rx Last Taken Unknown] lancets #100 each 08/19/21 [Rx Last Taken Unknown] COURSE Hospital Course Hospital course: Interval history: Mr. Rhoades is a 51 year old male with a history of type 2 diabetes presented to the emergency department for left buttock pain and chills. The patient had recently presented to [facility] for the same complaints and was discharged from the emergency department with a prescription of Keflex for 10 days. The patient took the Keflex however his symptoms worsened. In the emergency department at [facility] the patient had a fever of 100.8, tachycardia and elevated respiratory rate. Routine blood work showed a leukocytosis with left shift. Lactic acid was elevated at 3.8. Patient had a CT pelvis with contrast that showed a large left gluteal multiloculated abscess measuring 15 cm. The patient received broad-spectrum antibiotics with vancomycin and Zosyn as well as IV fluids. Repeat lactic acid was 2.0. The patient's blood pressures were low in the emergency department however he says that he usually has low blood pressures at baseline. Hospital medicine was asked to admit the patient for further management. 08/13 Had an I&D of the abscess yesterday evening, multiple drains in place. Anticipate the patient will require another washout and possibly a wound VAC. 08/19 blood cultures growing gram negative bacillus, surgical cultures pending. Increased Lantus and sliding scale insulin, added prandial Humalog. Sepsis physiology has improved. 08/14 Blood cultures grew bacteroides fragilis, awaiting final surgical cultures. Discontinues Vancomycin, continued Zosyn. Glucose continues to be elevated, increased Lantus to 40 units HS, prandial Humalog to 15 units AC TID and continued high dose sliding scale insulin. Surgery planning for reexploration. 08/15 Patient seen examined, still has pain but managable Blood culutres are growing bacteroides and stre p agalactiae , pt remains on zosy Glucose level in 90's today, cut down on prandial humalog to 10 TID Await surgery evaluation with regards to plan for reexploration. 08/16 Patient seen examined, had low bp yesterday, elevated lactic acid, IV fluids given, IV albumin given Repeat CT done which shows nrew developing abscees on the [facility] Surgery planning to take patient to [place] this AM Patient notes of significant pain, Will increase dose of dilaudid and oxycocond (d/c percoset as would limit the amount of apap given) keep shani apap now 08/17 Patient feeling better after I&D of right gluteal abscess yesterday. No overnight event or new complaints. 2/ Feeling well. No overnight event or new complaints. Good appetite. Awaiting final cultures. Possible wound VAC per surgery. 2 No changes overnight. Final cultures completed. Await final surgical rec commendations. A: #Severe Sepsis: 2/2 gluteal abscess. Improved #Large multiloculated gluteal abscess s/p I&D Left side (08/12) & Right side (08/16) -cx with bacteroides/Strep #Bacteremia(Bacteroides fragilis): #DM2: poorly controlled, with hyperglycemia. A1c 11.4 #Hyponatremia: improved #Anemia, unspecified chronicity: #Right #1 and #2 toe wounds present on admission #Obese: Plan: -IV abx, transition to Augmentin outpt to finish up 2 wk course from last I&D -Gen Surg following -Wound care -Analgesics prn -Lantus 40 units at bedtime, prandial Humalog 10 units AC and SSI-high. -Hold home Metformin and lisinopril -DVT prophylaxis: heparin Discharge diagnosis: Multiloculated gluteal abscess sepsis severe bacteremia Secondary discharge diagnosis: Diabetes obesity anemia chronic toe wounds Time Spent with Patient Time attestation: Total time spent providing and/or coordinating discharge services: Time spent: Greater than 30 minutes EXAM Constitutional Vitals: Temp Pulse Resp BP Pulse Ox 98.1 F 94 H 18 110/24 95 08/19/21 08:00 08/19/21 08:00 08/19/21 08:00 08/19/21 08:00 08/19/21 08:00 Discharge Data Data Completed and Pending Labs on day of discharge: Labs from last 24 hours 08/19/21 05:18 WBC 5.8 RBC 3.44 L Hgb 9.3 L Hct 29.8 L MCV 86.6 MCH 27.0 MCHC 31.2 RDW 15.8 H Plt Count 178 MPV 10.7 H Neut % (Auto) 78.0 Lymph % (Auto) 13.5 L [place] % (Auto) 6.6 Eos % (Auto) 1.7 Baso % (Auto) 0.2 Lymph # (Auto) 0.78 L [place] # (Auto) 0.38 Eos # (Auto) 0.10 Baso # (Auto) 0.01 Absolute Neutrophils 4.51 Preliminary micro results at discharge 08/16/21 10:46 Gram Stain - Preliminary Abscess - Other Anaerobic Culture - Preliminary Bacteroides fragilis Discharge Plan Patient/Caregiver Discharge Instructions Activity: increase activity as tolerated Diet: Consistent Carbohydrate Prescriptions: New (DME) blood sugar diagnostic Strip See Rx Instructions .ROUTE .MEDSUPPLY Qty: 100 0RF Rx Instructions: As directed (DME) lancets Misc See Rx Instructions .ROUTE .MEDSUPPLY Qty: 100 0RF Rx Instructions: As directed Lantus Solostar U-100 Insulin 100 unit/mL (3 mL) insulin pen 40 unit SUB-Q QHS Qty: 15 0RF insulin aspart U-100 [Novolog Flexpen U-100 Insulin] 100 unit/mL (3 mL) insulin pen 10 unit subcut AC Qty: 3 0RF Protocol: Insulin Sliding Scale, Med Condition: HUMALOG/NOVALOG SC SLIDING Dose/Route: SCALE Condition: FSBS < 70 Dose/Route: Give 4 Oz juice, or 15gm oral Instruction: Glucose, or 25ml D50W IV if Dose/Route: unable to take PO. Recheck in Instruction: 15 min and repeat if FSBS < 70 Condition: FSBS 71-140 Dose/Route: NO COVERAGE Condition: FSBS 141-170 Dose/Route: 2 UNITS Condition: FSBS 171-200 Dose/Route: 4 UNITS Condition: FSBS 201-250 Dose/Route: 6 UNITS Condition: FSBS 251-300 Dose/Route: 8 UNITS Condition: FSBS 301-350 Dose/Route: 10 UNITS Condition: FSBS 351-400 Dose/Route: 12 UNITS Condition: FSBS > 400 Dose/Route: 14 UNITS; REPEAT Q2H X2 Instruction: CONTINUE FOLLOWING SLIDING Condition: SCALE; IF STILL > 400; CALL Dose/Route: PHYSICIAN Continued metformin 500 mg Tablet 500 mg PO BID 0RF lisinopril 2.5 mg Tablet 0.25 mg PO DAILY 0RF Humalog U-100 Insulin See Rx Instructions .ROUTE .COMPLEX 0RF Protocol: Insulin Sliding Scale, Med Condition: HUMALOG/NOVALOG SC SLIDING Dose/Route: SCALE Condition: FSBS < 70 Dose/Route: Give 4 Oz juice, or 15gm oral Instruction: Glucose, or 25ml D50W IV if Dose/Route: unable to take PO. Recheck in Instruction: 15 min and repeat if FSBS < 70 Condition: FSBS 71-140 Dose/Route: NO COVERAGE Condition: FSBS 141-170 Dose/Route: 2 UNITS Condition: FSBS 171-200 Dose/Route: 4 UNITS Condition: FSBS 201-250 Dose/Route: 6 UNITS Condition: FSBS 251-300 Dose/Route: 8 UNITS Condition: FSBS 301-350 Dose/Route: 10 UNITS Condition: FSBS 351-400 Dose/Route: 12 UNITS Condition: FSBS > 400 Dose/Route: 14 UNITS; REPEAT Q2H X2 Instruction: CONTINUE FOLLOWING SLIDING Condition: SCALE; IF STILL > 400; CALL Dose/Route: PHYSICIAN Rx Instructions: per ssi protocol insulin lispro 18 units subcut HS 0RF Follow Up Plan Follow up with: Gunjan Martin [Primary Care Provider] - Shey Erazo MD [Physician] - Patient Disposition: Xfer SNF Prognosis: Fair Rehab Potential: Fair I certify that the patient requires SNF services: Yes Overall status at discharge: patient is progressing back to baseline QUALITY VTE Deep Vein Thrombosis/Pulmonary Embolism Present on Admission: No
[2021-08-19] MEDS: METHOCARBAMOL 750 MG TABLET PO PRN ×2 (13:38→20:06)
--- NOTE | 2021-08-19 14:44 | General Surgery Progress Note ---
SUBJECTIVE Subjective Patient information: Note initiated : 08/19/21 at 2:41 pm Service Date, if different from initiated Date: [] Patient: Frankie Rhoades 51 y/o M admitted on 08/12/21 for skin. Chief Complaint: [] Principal diagnosis: Buttock and lower back abscesses Interval history: Patient continues to improve. His pain is less. He is afebrile. Blood sugars are improving daily and are now consistently less than 200. White blood count 5.8, hemoglobin 11.3, hematocrit 29.8 Constitutional Vitals: Vital Signs Temp Pulse Resp BP Pulse Ox 98.6 F 84 16 124/70 95 08/19/21 12:00 08/19/21 12:00 08/19/21 12:00 08/19/21 12:00 08/19/21 12:00 Period Temp Pulse Resp BP Sys/Vivas Pulse Ox Last 24 Hr 97.1 F-98.6 F 81-94 14-18 92-124/24-80 95-100 Intake and Output 08/19/21 08/19/21 08/19/21 05:59 13:59 21:59 Intake Total 2715 1795 115 Output Total 4100 1400 Balance -1385 395 115 Intake & Output: Intake & Output 08/19/21 08/19/21 08/19/21 05:59 13:59 21:59 Intake Total 2715 1795 115 Output Total 4100 1400 Balance -1385 395 115 Intake: IV 115 115 115 Zosyn 4.5 gm In Dextrose 5% in 50 50 50 Water 50 ml @ 100 mls/hr IV Q8H [facility] Rx#:[id number] Oral 2600 1680 Output: Void Amount 4100 1400 Other: Meal snack Lunch Percent of Meal Consumed 100% 100% Feeding Ability Independent Independent Urine Appearance Clear Urine Color Bright Yellow Urine Odor Normal Stool Size Large Moderate Stool Color Brown Brown Yellow Stool Consistency Soft Soft Formed # Bowel Movements 1 1 # of times incontinent of 0 Bowels Eye Eye exam: Present EOMI Pupils: Present normal accommodation and PERRL ENT ENT exam: Present mucous membranes moist and normal oropharynx Neck Neck exam: Present full ROM; Absent lymphadenopathy or tenderness Respiratory Respiratory exam: Present normal respiratory exam and CTAB; Absent rales or wheezes Cardiovascular Cardiovascular exam: Present normal rate and rhythm, RRR, +S1 and +S2; Absent JVD GI/Abdominal GI/Abdominal exam: Present normal bowel sounds; Absent distended, mass or tenderness Additional comments: Drainage (decreasing significantly; drainage from right lower quadrant abdominal is also decreasing but still copious Extremities Exam Extremities exam: Present full ROM, normal inspection and neurovascular intact; Absent calf tenderness Neurological Exam Neurological exam: Present oriented X3; Absent motor sensory deficit Psychiatric Psychiatric exam: Present depressed; Absent anxious A/P Assessment and plan (1) Right lower quadrant abdominal abscess: Status: Acute (2) Left lower quadrant abdominal abscess: Status: Acute (3) Abscess of left buttock: Status: Acute (4) Perirectal abscess: Status: Acute (5) Diabetes mellitus: Status: Acute Narrative A/P Narrative: Continue present therapy. Follow-up CT abdomen and pelvis tomorrow for evaluation of the abscess cavities Time Spent With Patient Time: Total time spent is greater than 50% in coordination of care (as documented) at patient's floor/unit and/or counseling patient:
[2021-08-20] MEDS: oxyCODONE HCL 5 MG TABLET PO PRN ×5 (01:18→23:25)
[2021-08-20] MEDS: ACETAMINOPHEN 650 MG/65 ML BAG IV PRN ×3 (04:03→18:08)
[2021-08-20] MEDS: PIPERACILLIN SODIUM/TAZOBACTAM 4.5 GM in DEXTROSE 5% IN WATER 50 ML IV SCH ×3 (05:15→22:09)
[2021-08-20] MEDS: 0.9 % SODIUM CHLORIDE 10 ML SYRINGE IV SCH ×3 (05:15→22:09)
[2021-08-20 07:10] LABS: Basophils # (Auto) 0.02 K/mcL (0.00-0.30); Basophils % (Auto) 0.2 % (0.0-2.0); Eosinophils # (Auto) 0.22 K/mcL (0.00-0.70); Eosinophils % (Auto) 2.3 % (0.0-7.0); Hemoglobin 8.7 g/dL (13.7-17.5); Lymphocytes # (Auto) 1.31 K/mcL (1.50-4.80); Lymphocytes % (Auto) 13.8 % (15.5-49.0); Mean Cell Volume 88.1 fL (80.0-100.0); Monocytes # (Auto) 0.56 K/mcL (0.10-0.90); Monocytes % (Auto) 5.9 % (1.0-12.0); Neutrophils % (Auto) 77.8 % (38.0-78.0); Platelet Count 182 K/mcL (140-440); RBC 3.29 M/mcL (4.63-6.08); Red Cell Distribution Width 16.1 % (11.5-14.5); WBC 9.5 K/mcL (4.5-11.0)
[2021-08-20] MEDS: INSULIN LISPRO 1 UNIT/0.01 ML UNIT SQ SCH ×7 (07:15→20:38)
--- NOTE | 2021-08-20 07:21 | Internal Med Progress Note ---
SUBJECTIVE Subjective Patient information: Note initiated : 08/20/21 at 7:19 am Service Date, if different from initiated Date: [] Patient: Frankie Rhoades 51 y/o M admitted on 08/12/21 for skin. Chief Complaint: [] Principal diagnosis: Buttock and lower back abscesses Interval history: Interval history: Mr. Rhoades is a 51 year old male with a history of type 2 diabetes presented to the emergency department for left buttock pain and chills. The patient had recently presented to [facility] for the same complaints and was discharged from the emergency department with a prescription of Keflex for 10 days. The patient took the Keflex however his symptoms worsened. In the emergency department at [facility] the patient had a fever of 100.8, tachycardia and elevated respiratory rate. Routine blood work showed a leukocytosis with left shift. Lactic acid was elevated at 3.8. Patient had a CT pelvis with contrast that showed a large left gluteal multiloculated abscess measuring 15 cm. The patient received broad-spectrum antibiotics with vancomycin and Zosyn as well as IV fluids. Repeat lactic acid was 2.0. The patient's blood pressures were low in the emergency department however he says that he usually has low blood pressures at baseline. Hospital medicine was asked to admit the patient for further management. 08/13 Had an I&D of the abscess yesterday evening, multiple drains in place. Anticipate the patient will require another washout and possibly a wound VAC. 2/2 blood cultures growing gram negative bacillus, surgical cultures pending. Increased Lantus and sliding scale insulin, added prandial Humalog. Sepsis physiology has improved. 08/14 Blood cultures grew bacteroides fragilis, awaiting final surgical cultures. Discontinues Vancomycin, continued Zosyn. Glucose continues to be elevated, increased Lantus to 40 units HS, prandial Humalog to 15 units AC TID and continued high dose sliding scale insulin. Surgery planning for reexploration. 08/15 Patient seen examined, still has pain but managable Blood culutres are growing bacteroides and stre p agalactiae , pt remains on zosy Glucose level in 90's today, cut down on prandial humalog to 10 TID Await surgery evaluation with regards to plan for reexploration. 08/16 Patient seen examined, had low bp yesterday, elevated lactic acid, IV fluids given, IV albumin given Repeat CT done which shows nrew developing abscees on the [facility] buttoc Surgery planning to take patient to OR this AM Patient notes of significant pain, Will increase dose of dilaudid and oxycocond (d/c percoset as would limit the amount of apap given) keep shani apap now 08/17 Patient feeling better after I&D of right gluteal abscess yesterday. No overnight event or new complaints. 08/18 Feeling well. No overnight event or new complaints. Good appetite. Awaiting final cultures. Possible wound VAC per surgery. 08/19 No changes overnight. Final cultures completed. Await final surgical rec commendations. 08/20 Feeling okay. No new complaints. Wound cultures with strep and Bacteroides. Review of Systems: denies headache/fever/chills/nausea/vomiting/chest or abdominal pain/cough/dyspnea/diarrhea. Otherwise see above. Constitutional Vitals: Vital Signs Temp Pulse Resp BP Pulse Ox 97.8 F 84 18 109/64 94 08/20/21 07:05 08/20/21 07:05 08/20/21 07:05 08/20/21 07:05 08/20/21 07:05 Period Temp Pulse Resp BP Sys/Vivas Pulse Ox Last 24 Hr 97.2 F-98.6 F 84-94 14-18 100-124/24-78 94-98 Intake and Output 08/19/21 08/20/21 08/20/21 21:59 05:59 13:59 Intake Total 2175 1065 360 Output Total 1625 2550 550 Balance 550 -1485 -190 Weight 111.754 kg Intake & Output: Intake & Output 08/19/21 08/20/21 08/20/21 21:59 05:59 13:59 Intake Total 2175 1065 360 Output Total 1625 2550 550 Balance 550 -1485 -190 Weight 111.754 kg Intake: IV 115 165 Zosyn 4.5 gm In Dextrose 5% in 50 100 Water 50 ml @ 100 mls/hr IV Q8H [facility] Rx#:[id number] Oral 2060 900 360 Output: Void Amount 1625 2550 550 Other: Meal Dinner Percent of Meal Consumed 100% Feeding Ability Independent Urine Appearance Clear Clear Urine Color Bright Yellow Dark Yellow Dark Yellow Urine Odor Normal Normal Exam: General: Alert, Awake, No acute Distress, obese Eyes/N/T: EOMI, Head/Neck: neck supple, CV: RRR, No murmurs, Pulm: Clear b/l, no wheezing/rhonchi/rales Abd: soft, nontender, +BS x4 Ext: no clubbing/cyanosis/edema Neuro: Alert, no focal deficits, moves all extremities, Skin: warm/dry OBJ DATA Labs CBC & Chem 7: 08/20/21 05:56 08/20/21 05:56 Labs: Abnormal Lab Results 08/20/21 08/19/21 08/18/21 05:56 05:18 05:10 RBC 3.29 L 3.44 L Hgb 8.7 L 9.3 L Hct 29.0 L 29.8 L MCHC 30.0 L RDW 16.1 H 15.8 H MPV 11.0 H 10.7 H Lymph % (Auto) 13.8 L 13.5 L Lymph # (Auto) 1.31 L 0.78 L Seg Neutrophils % Lymphocytes % RBC Morphology Anisocytosis Creatinine 0.5 L Glucose 232 H Uric Acid 2.2 L Calcium 8.1 L GGT 343 H Alkaline Phosphatase 339 H Albumin 2.8 L Albumin/Globulin Ratio 0.8 L 08/18/21 08/17/21 05:10 04:54 RBC Hgb 8.4 L Hct 27.2 L MCHC RDW MPV Lymph % (Auto) Lymph # (Auto) Seg Neutrophils % 79 H Lymphocytes % 11 L RBC Morphology Abnormal A Anisocytosis 1+ A Creatinine Glucose Uric Acid Calcium GGT Alkaline Phosphatase Albumin Albumin/Globulin Ratio Meds: Medications Acetaminophen (Acetaminophen 325 Mg Tablet) 650 mg PO Q6HP PRN; Protocol PRN Reason: Per Pain Protocol/Fever > 101 Dextrose (Dextrose 50% 50 Ml Vial) 0 ml IV UD PRN PRN Reason: Hypoglycemia Diagnostic Test (Pha) (Accu-Chek 1 Each Strip) 1 each FS ACHS [facility] Last Admin: 08/20/21 07:14 Dose: 1 each Documented by: Glucose (Dextrose 31 Gm Oral.Susp) 15 gm PO PRN PRN PRN Reason: Hypoglycemia Heparin Sodium (Porcine) (Heparin 5,000 Unit/Ml Vial) 5,000 unit SQ Q12 [facility] Last Admin: 08/19/21 20:43 Dose: 5,000 unit Documented by: Hydromorphone HCl (Hydromorphone 1 Mg/Ml Syringe) 1 mg IV Q2HP PRN; Protocol PRN Reason: Per Pain Protocol Last Admin: 08/17/21 11:30 Dose: 1 mg Documented by: Piperacillin Sod/Tazobactam (Sod 4.5 gm/ Dextrose) 50 mls @ 100 mls/hr IV Q8H [facility]; Protocol Last Infusion: 08/20/21 05:51 Dose: Infused Documented by: Acetaminophen (Ofirmev) 650 mg in 65 mls @ 130 mls/hr IV Q8 PRN; Protocol PRN Reason: pain Last Infusion: 08/20/21 05:14 Dose: Infused Documented by: Insulin Glargine (Insulin Glargine, Human 1 Unit/0.01 Ml) 40 unit SQ HS [facility] Last Admin: 08/19/21 20:43 Dose: 40 unit Documented by: Insulin Glargine (Insulin Glargine, Human 1 Unit/0.01 Ml) 5 unit SQ DAILY [facility] Last Admin: 08/19/21 11:49 Dose: Not Given Documented by: Insulin Human Lispro (Insulin Lispro 1 Unit/0.01 Ml Unit) 0 unit SQ [facility]; Protocol Last Admin: 08/20/21 07:15 Dose: Not Given Documented by: Insulin Human Lispro (Insulin Lispro 1 Unit/0.01 Ml Unit) 10 unit SQ AC [facility] Last Admin: 08/19/21 16:55 Dose: Not Given Documented by: Lactulose (Lactulose 20 Gm/30 Ml Oral.Carmen) 10 gm PO DAILYP PRN PRN Reason: Constipation Methocarbamol (Methocarbamol 750 Mg Tablet) 750 mg PO Q6HP PRN PRN Reason: Muscle Spasm Last Admin: 08/19/21 20:06 Dose: 750 mg Documented by: Ondansetron HCl (Ondansetron 4 Mg/2 Ml Vial) 4 mg IV Q4HP PRN; Protocol PRN Reason: Nausea And Vomiting Oxycodone HCl (Oxycodone Hcl 5 Mg Tablet) 10 mg PO Q4HP PRN; Protocol PRN Reason: Per Pain Protocol Last Admin: 08/20/21 01:18 Dose: 10 mg Documented by: Senna (Sennosides 1 Tablet) 2 tab PO BID [facility] Last Admin: 08/19/21 20:27 Dose: Not Given Documented by: Sodium Chloride (0.9 % Sodium Chloride 10 Ml Syringe) 10 ml IV Q8 [facility] Last Admin: 08/20/21 05:15 Dose: 10 ml Documented by: A/P Narrative A/P Narrative: A: #Severe Sepsis: 2/2 gluteal abscess. Improved #Large multiloculated gluteal abscess s/p I&D Left side (08/12) & Right side (08/16) -cx with bacteroides/Strep #Bacteremia(Bacteroides fragilis): #DM2: poorly controlled, with hyperglycemia. A1c 11.4 #Hyponatremia: improved #Anemia, unspecified chronicity: #Right #1 and #2 toe wounds present on admission #Obese: Plan: -Wound care, abscess s/p I&D per surgeon -IV abx, transition to Augmentin outpt to finish up 2 wk course from last I&D -Analgesics prn -Lantus 40 units at bedtime, prandial Humalog 10 units AC and SSI-high. 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
[2021-08-20 07:50] LABS: ALT/SGPT 23 U/L (<40); AST/SGOT 18 U/L (<40); Albumin 2.5 gm/dL (3.2-5.2); Albumin/Globulin Ratio 0.8 (1.0-2.3); Alkaline Phosphatase 282 U/L (39-117); Bilirubin,Direct 0.2 mg/dL (<0.3); Bilirubin,Total 0.5 mg/dL (0.1-1.0); Blood Urea Nitrogen 11 mg/dL (6-20); Calcium 8.1 mg/dL (8.6-10.4); Carbon Dioxide 26 mmol/L (22-30); Chloride 100 mmol/L (96-108); Globulin 3.3 gm/dL (2.2-3.7); Glomerular Filtration Rate 118; Glucose 122 mg/dL (70-105); Lactate Dehydrogenase 188 U/L (135-225); Triglycerides 126 mg/dL (<150); Uric Acid 2.2 mg/dL (2.5-8.0)
[2021-08-20] MEDS: HEPARIN 5,000 UNIT/ML VIAL SQ SCH ×2 (09:07→20:46)
[2021-08-20] MEDS: SENNOSIDES 1 TABLET PO SCH ×2 (09:07→20:30)
[2021-08-20] MEDS: INSULIN GLARGINE, HUMAN 1 UNIT/0.01 ML SQ SCH ×2 (09:08→20:46)
--- NOTE | 2021-08-20 11:48 | General Surgery Progress Note ---
SUBJECTIVE Subjective Patient information: Note initiated : 08/20/21 at 11:47 am Service Date, if different from initiated Date: [] Patient: Frankie Rhoades 51 y/o M admitted on 08/12/21 for skin. Chief Complaint: [] Principal diagnosis: Buttock and lower back abscesses Interval history: Patient is doing well. He has much less pain. Drainage in the buttock region is significantly resolved. He still has moderate drainage from the right flank to the right lower quadrant of his abdominal wall. There is there are no areas of major induration. White blood count 9.5, hemoglobin 8.7, hematocrit 29, potassium 3.9, BUN 11, creatinine 0.6, glucose 122. Constitutional Vitals: Vital Signs Temp Pulse Resp BP Pulse Ox 97.8 F 84 18 109/64 94 08/20/21 07:05 08/20/21 07:05 08/20/21 07:05 08/20/21 07:05 08/20/21 07:05 Period Temp Pulse Resp BP Sys/Vivas Pulse Ox Last 24 Hr 97.2 F-98.6 F 84-92 14-18 100-124/59-78 94-98 Intake and Output 08/19/21 08/20/21 08/20/21 21:59 05:59 13:59 Intake Total 2175 1065 360 Output Total 1625 2550 1000 Balance 550 -1485 -640 Weight 246 lb 6 oz Intake & Output: Intake & Output 08/19/21 08/20/21 08/20/21 21:59 05:59 13:59 Intake Total 2175 1065 360 Output Total 1625 2550 1000 Balance 550 -1485 -640 Weight 246 lb 6 oz Intake: IV 115 165 Zosyn 4.5 gm In Dextrose 5% in 50 100 Water 50 ml @ 100 mls/hr IV Q8H [facility] Rx#:[id number] Oral 2060 900 360 Output: Void Amount 1625 2550 1000 Other: Meal Dinner Breakfast Percent of Meal Consumed 100% 100% Feeding Ability Independent Urine Appearance Clear Clear Clear Urine Color Bright Yellow Dark Yellow Light Betty Urine Odor Normal Normal Normal ENT ENT exam: Present mucous membranes moist, normal exam and normal oropharynx Neck Neck exam: Present full ROM; Absent tenderness Respiratory Respiratory exam: Present normal respiratory exam and CTAB Cardiovascular Cardiovascular exam: Present normal rate and rhythm, RRR, +S1 and +S2; Absent JVD GI/Abdominal GI/Abdominal exam: Present normal bowel sounds and tenderness (Mild tenderness in right lower quadrant of abdominal wall with moderate drainage); Absent distended Extremities Exam Extremities exam: Present normal inspection and neurovascular intact Back Exam Additional comments: Midline sacral area and right iliac area with decreased induration moderate drainage Neurological Exam Neurological exam: Present oriented X3; Absent motor sensory deficit Psychiatric Psychiatric exam: Present normal affect and normal mood Skin Additional comments: Left buttock incisions are healing nicely with minimal drainage A/P Assessment and plan (1) Right lower quadrant abdominal abscess: Status: Acute (2) Left lower quadrant abdominal abscess: Status: Acute (3) Diabetes mellitus: Status: Acute (4) Perirectal abscess: Status: Acute (5) Abscess of left buttock: Status: Acute Narrative A/P Narrative: Continue present therapy and antibiotics Continue to control blood sugars Downgrade to MedSurg Time Spent With Patient Time: Total time spent is greater than 50% in coordination of care (as documented) at patient's floor/unit and/or counseling patient:
[2021-08-20] MEDS: METHOCARBAMOL 750 MG TABLET PO PRN ×3 (11:53→23:25)
[2021-08-21] MEDS: oxyCODONE HCL 5 MG TABLET PO PRN ×3 (03:54→19:00)
[2021-08-21] MEDS: PIPERACILLIN SODIUM/TAZOBACTAM 4.5 GM in DEXTROSE 5% IN WATER 50 ML IV SCH ×3 (05:30→22:12)
[2021-08-21] MEDS: ACETAMINOPHEN 325 MG TABLET PO PRN ×3 (05:30→22:10)
[2021-08-21] MEDS: METHOCARBAMOL 750 MG TABLET PO PRN ×3 (05:30→22:10)
[2021-08-21] MEDS: INSULIN LISPRO 1 UNIT/0.01 ML UNIT SQ SCH ×6 (06:59→22:11)
[2021-08-21] MEDS: 0.9 % SODIUM CHLORIDE 10 ML SYRINGE IV SCH ×3 (06:59→22:13)
--- NOTE | 2021-08-21 07:21 | Internal Med Progress Note ---
SUBJECTIVE Subjective Patient information: Note initiated : 08/21/21 at 7:21 am Service Date, if different from initiated Date: [] Patient: Frankie Rhoades 51 y/o M admitted on 08/12/21 for skin. Chief Complaint: [] Principal diagnosis: Buttock and lower back abscesses Interval history: Interval history: Mr. Rhoades is a 51 year old male with a history of type 2 diabetes presented to the emergency department for left buttock pain and chills. The patient had recently presented to [facility] for the same complaints and was discharged from the emergency department with a prescription of Keflex for 10 days. The patient took the Keflex however his symptoms worsened. In the emergency department at [facility] the patient had a fever of 100.8, tachycardia and elevated respiratory rate. Routine blood work showed a leukocytosis with left shift. Lactic acid was elevated at 3.8. Patient had a CT pelvis with contrast that showed a large left gluteal multiloculated abscess measuring 15 cm. The patient received broad-spectrum antibiotics with vancomycin and Zosyn as well as IV fluids. Repeat lactic acid was 2.0. The patient's blood pressures were low in the emergency department however he says that he usually has low blood pressures at baseline. Hospital medicine was asked to admit the patient for further management. 08/13 Had an I&D of the abscess yesterday evening, multiple drains in place. Anticipate the patient will require another washout and possibly a wound VAC. 2/2 blood cultures growing gram negative bacillus, surgical cultures pending. Increased Lantus and sliding scale insulin, added prandial Humalog. Sepsis physiology has improved. 08/14 Blood cultures grew bacteroides fragilis, awaiting final surgical cultures. Discontinues Vancomycin, continued Zosyn. Glucose continues to be elevated, increased Lantus to 40 units HS, prandial Humalog to 15 units AC TID and continued high dose sliding scale insulin. Surgery planning for reexploration. 08/15 Patient seen examined, still has pain but managable Blood culutres are growing bacteroides and stre p agalactiae , pt remains on zosy Glucose level in 90's today, cut down on prandial humalog to 10 TID Await surgery evaluation with regards to plan for reexploration. 08/16 Patient seen examined, had low bp yesterday, elevated lactic acid, IV fluids given, IV albumin given Repeat CT done which shows nrew developing abscees on the [facility] buttoc Surgery planning to take patient to [place] this AM Patient notes of significant pain, Will increase dose of dilaudid and oxycocond (d/c percoset as would limit the amount of apap given) keep shani apap now 08/17 Patient feeling better after I&D of right gluteal abscess yesterday. No overnight event or new complaints. 08/18 Feeling well. No overnight event or new complaints. Good appetite. Awaiting final cultures. Possible wound VAC per surgery. 08/19 No changes overnight. Final cultures completed. Await final surgical rec commendations. 08/20 Feeling okay. No new complaints. Wound cultures with strep and Bacteroides. 08/21 No changes overnight. No new complaints. Encouraged ambulation. Continue per surgery. Review of Systems: denies headache/fever/chills/nausea/vomiting/chest or abdominal pain/cough/dyspnea/diarrhea. Otherwise see above. Constitutional Vitals: Vital Signs Temp Pulse Resp BP Pulse Ox 97.9 F 83 20 110/68 96 08/21/21 04:02 08/20/21 23:30 08/21/21 04:02 08/21/21 04:02 08/21/21 04:02 Period Temp Pulse Resp BP Sys/Vivas Pulse Ox Last 24 Hr 97.1 F-97.9 F 83-94 16-20 92-111/45-68 93-96 Intake and Output 08/20/21 08/21/21 08/21/21 21:59 05:59 13:59 Intake Total 2405 2320 350 Output Total 2350 2300 575 Balance 55 20 -225 Weight 113.081 kg Intake & Output: Intake & Output 08/20/21 08/21/21 08/21/21 21:59 05:59 13:59 Intake Total 2405 2320 350 Output Total 2350 2300 575 Balance 55 20 -225 Weight 113.081 kg Intake: IV 115 50 50 Zosyn 4.5 gm In Dextrose 5% in 50 50 50 Water 50 ml @ 100 mls/hr IV Q8H [facility] Rx#:[id number] Oral 2290 2270 300 Output: Void Amount 2350 2300 575 Other: Meal Dinner Nourishment/Supplement Percent of Meal Consumed 100% 100% Feeding Ability Independent Independent Nourishment/Supplement name Jackson 240 Urine Appearance Clear Clear Clear Urine Color Bright Yellow Pale Bright Yellow Urine Odor Normal Stool Size Large Stool Color Brown Stool Consistency Soft # Bowel Movements 2 Exam: General: Alert, Awake, No acute Distress, obese Eyes/N/T: EOMI, Head/Neck: neck supple, CV: RRR, No murmurs, Pulm: Clear b/l, no wheezing/rhonchi/rales Abd: soft, nontender, +BS x4 Ext: no clubbing/cyanosis/edema Neuro: Alert, no focal deficits, moves all extremities, Skin: warm/dry OBJ DATA Labs CBC & Chem 7: 08/21/21 06:27 08/21/21 06:27 Labs: Abnormal Lab Results 08/20/21 08/20/21 08/19/21 05:56 05:56 05:18 RBC 3.29 L 3.44 L Hgb 8.7 L 9.3 L Hct 29.0 L 29.8 L MCHC 30.0 L RDW 16.1 H 15.8 H MPV 11.0 H 10.7 H Lymph % (Auto) 13.8 L 13.5 L Lymph # (Auto) 1.31 L 0.78 L Creatinine 0.6 L Glucose 122 H Uric Acid 2.2 L Calcium 8.1 L GGT 308 H Alkaline Phosphatase 282 H Total Protein 5.8 L Albumin 2.5 L Albumin/Globulin Ratio 0.8 L Meds: Medications Acetaminophen (Acetaminophen 325 Mg Tablet) 650 mg PO Q6HP PRN; Protocol PRN Reason: Per Pain Protocol/Fever > 101 Last Admin: 08/21/21 05:30 Dose: 650 mg Documented by: Dextrose (Dextrose 50% 50 Ml Vial) 0 ml IV UD PRN PRN Reason: Hypoglycemia Diagnostic Test (Pha) (Accu-Chek 1 Each Strip) 1 each FS ACHS [facility] Last Admin: 08/21/21 06:58 Dose: 1 each Documented by: Glucose (Dextrose 31 Gm Oral.Susp) 15 gm PO PRN PRN PRN Reason: Hypoglycemia Heparin Sodium (Porcine) (Heparin 5,000 Unit/Ml Vial) 5,000 unit SQ Q12 [facility] Last Admin: 08/20/21 20:46 Dose: 5,000 unit Documented by: Hydromorphone HCl (Hydromorphone 1 Mg/Ml Syringe) 1 mg IV Q2HP PRN; Protocol PRN Reason: Per Pain Protocol Last Admin: 08/17/21 11:30 Dose: 1 mg Documented by: Piperacillin Sod/Tazobactam (Sod 4.5 gm/ Dextrose) 50 mls @ 100 mls/hr IV Q8H [facility]; Protocol Last Infusion: 08/21/21 06:00 Dose: Infused Documented by: Acetaminophen (Ofirmev) 650 mg in 65 mls @ 130 mls/hr IV Q8 PRN; Protocol PRN Reason: pain Last Infusion: 08/20/21 18:40 Dose: Infused Documented by: Insulin Glargine (Insulin Glargine, Human 1 Unit/0.01 Ml) 40 unit SQ HS [facility] Last Admin: 08/20/21 20:46 Dose: 40 unit Documented by: Insulin Glargine (Insulin Glargine, Human 1 Unit/0.01 Ml) 5 unit SQ DAILY [facility] Last Admin: 08/20/21 09:08 Dose: 5 units Documented by: Insulin Human Lispro (Insulin Lispro 1 Unit/0.01 Ml Unit) 0 unit SQ ACHS [facility]; Protocol Last Admin: 08/21/21 06:59 Dose: Not Given Documented by: Insulin Human Lispro (Insulin Lispro 1 Unit/0.01 Ml Unit) 10 unit SQ AC [facility] Last Admin: 08/20/21 17:38 Dose: 10 units Documented by: Lactulose (Lactulose 20 Gm/30 Ml Oral.Carmen) 10 gm PO DAILYP PRN PRN Reason: Constipation Methocarbamol (Methocarbamol 750 Mg Tablet) 750 mg PO Q6HP PRN PRN Reason: Muscle Spasm Last Admin: 08/21/21 05:30 Dose: 750 mg Documented by: Ondansetron HCl (Ondansetron 4 Mg/2 Ml Vial) 4 mg IV Q4HP PRN; Protocol PRN Reason: Nausea And Vomiting Oxycodone HCl (Oxycodone Hcl 5 Mg Tablet) 10 mg PO Q4HP PRN; Protocol PRN Reason: Per Pain Protocol Last Admin: 08/21/21 03:54 Dose: 10 mg Documented by: Senna (Sennosides 1 Tablet) 2 tab PO BID [facility] Last Admin: 08/20/21 20:30 Dose: Not Given Documented by: Sodium Chloride (0.9 % Sodium Chloride 10 Ml Syringe) 10 ml IV Q8 [facility] Last Admin: 08/21/21 06:59 Dose: 10 ml Documented by: A/P Narrative A/P Narrative: A: #Severe Sepsis: 2/2 gluteal abscess. Resolved #Large multiloculated gluteal abscess s/p I&D Left side (08/12) & Right side (08/16) -cx with bacteroides/Strep #Bacteremia(Bacteroides fragilis): #DM2: poorly controlled, with hyperglycemia on admit. A1c 11.4 #Hyponatremia: resolved #Anemia, unspecified chronicity: #Right #1 and #2 toe wounds present on admission #Obese: Plan: -Wound care, abscess s/p I&D per surgeon -IV abx, transition to Augmentin outpt to finish up 2 wk course from last I&D -Analgesics prn -Lantus 40 units at bedtime, prandial Humalog 10 units AC and SSI-high. 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
[2021-08-21 07:39] LABS: Basophils # (Auto) 0.02 K/mcL (0.00-0.30); Basophils % (Auto) 0.2 % (0.0-2.0); Eosinophils # (Auto) 0.24 K/mcL (0.00-0.70); Eosinophils % (Auto) 2.4 % (0.0-7.0); Hematocrit 27.9 % (40.1-51.0); Hemoglobin 8.6 g/dL (13.7-17.5); Lymphocytes # (Auto) 1.18 K/mcL (1.50-4.80); Lymphocytes % (Auto) 11.8 % (15.5-49.0); Mean Cell Volume 87.2 fL (80.0-100.0); Mean Corpuscular HGB Conc 30.8 g/dL (31.0-36.0); Monocytes # (Auto) 0.44 K/mcL (0.10-0.90); Monocytes % (Auto) 4.4 % (1.0-12.0); Neutrophils % (Auto) 81.2 % (38.0-78.0); Platelet Count 183 K/mcL (140-440); Red Cell Distribution Width 15.9 % (11.5-14.5)
[2021-08-21 08:20] LABS: ALT/SGPT 20 U/L (<40); AST/SGOT 17 U/L (<40); Albumin 2.5 gm/dL (3.2-5.2); Albumin/Globulin Ratio 0.8 (1.0-2.3); Alkaline Phosphatase 282 U/L (39-117); Bilirubin,Direct < 0.2 mg/dL (0-0.3); Bilirubin,Total 0.5 mg/dL (0.1-1.0); Blood Urea Nitrogen 11 mg/dL (6-20); Calcium 7.8 mg/dL (8.6-10.4); Carbon Dioxide 27 mmol/L (22-30); Chloride 98 mmol/L (96-108); Globulin 3.3 gm/dL (2.2-3.7); Glomerular Filtration Rate 127; Glucose 142 mg/dL (70-105); Lactate Dehydrogenase 167 U/L (135-225); Phosphorous 3.3 mg/dL (2.5-4.5); Triglycerides 132 mg/dL (<150)
[2021-08-21] MEDS: INSULIN GLARGINE, HUMAN 1 UNIT/0.01 ML SQ SCH ×2 (08:40→22:11)
[2021-08-21] MEDS: HEPARIN 5,000 UNIT/ML VIAL SQ SCH ×2 (08:41→22:12)
[2021-08-21] MEDS: SENNOSIDES 1 TABLET PO SCH ×2 (08:44→19:01)
--- NOTE | 2021-08-21 11:33 | General Surgery Progress Note ---
SUBJECTIVE Subjective Patient information: Note initiated : 08/21/21 at 11:25 am Service Date, if different from initiated Date: [] Patient: Frankie Rhoades 51 y/o M admitted on 08/12/21 for skin. Chief Complaint: [] Principal diagnosis: Buttock and lower back abscesses Interval history: Patient is stable and gradually improving. He is afebrile. His pain is improved. There are still moderate amount of purulent drainage on all of his drains. The drainage is less from the left buttock. There are no new areas of induration or cellulitis noted Constitutional Vitals: Vital Signs Temp Pulse Resp BP Pulse Ox 98.1 F 83 20 101/61 94 08/21/21 07:00 08/20/21 23:30 08/21/21 07:00 08/21/21 07:00 08/21/21 07:00 Period Temp Pulse Resp BP Sys/Vivas Pulse Ox Last 24 Hr 97.1 F-98.1 F 83-94 16-20 92-111/45-68 93-96 Intake and Output 08/20/21 08/21/21 08/21/21 21:59 05:59 13:59 Intake Total 2405 2320 350 Output Total 2350 2300 975 Balance 55 20 -625 Weight 249 lb 4.8 oz Intake & Output: Intake & Output 08/20/21 08/21/21 08/21/21 21:59 05:59 13:59 Intake Total 2405 2320 350 Output Total 2350 2300 975 Balance 55 20 -625 Weight 249 lb 4.8 oz Intake: IV 115 50 50 Zosyn 4.5 gm In Dextrose 5% in 50 50 50 Water 50 ml @ 100 mls/hr IV Q8H [facility] Rx#:[id number] Oral 2290 2270 300 Output: Void Amount 2350 2300 975 Other: Meal Dinner Nourishment/Supplement Percent of Meal Consumed 100% 100% Feeding Ability Independent Independent Nourishment/Supplement name Jackson 240 Urine Appearance Clear Clear Clear Urine Color Bright Yellow Pale Light Betty Urine Odor Normal Stool Size Large Stool Color Brown Stool Consistency Soft # Bowel Movements 2 ENT ENT exam: Present normal exam, normal external ear exam and normal oropharynx Neck Neck exam: Present full ROM and normal inspection; Absent tenderness or thyromegaly Respiratory Respiratory exam: Present normal respiratory exam and CTAB; Absent rales, rhonchi or wheezes Cardiovascular Cardiovascular exam: Present normal rate and rhythm, RRR, +S1 and +S2; Absent JVD GI/Abdominal GI/Abdominal exam: Present normal bowel sounds, soft and tenderness (Moderate tenderness around drain sites right lower quadrant); Absent distended Extremities Exam Extremities exam: Present normal inspection and neurovascular intact Back Exam Additional comments: Areas of induration lower lumbar area and right postero- lateral flank is improved Neurological Exam Neurological exam: Present normal gait and oriented X3; Absent motor sensory deficit Psychiatric Psychiatric exam: Present flat affect and normal mood Skin Additional comments: All areas of drainage of subcutaneous abscess are improved. There is no induration or cellulitis. A/P Assessment and plan (1) Right lower quadrant abdominal abscess: Status: Acute (2) Left lower quadrant abdominal abscess: Status: Acute (3) Diabetes mellitus: Status: Acute (4) Perirectal abscess: Status: Acute (5) Abscess of left buttock: Status: Acute Narrative A/P Narrative: Continue present medications Schedule for CT abdomen, pelvis, bilateral buttocks with IV contrast in a.m. CBC and IP to be performed in the morning Time Spent With Patient Time: Total time spent is greater than 50% in coordination of care (as documented) at patient's floor/unit and/or counseling patient:
[2021-08-22] MEDS: oxyCODONE HCL 5 MG TABLET PO PRN ×5 (02:15→22:52)
[2021-08-22] MEDS: 0.9 % SODIUM CHLORIDE 10 ML SYRINGE IV SCH ×4 (04:23→21:09)
[2021-08-22] MEDS: PIPERACILLIN SODIUM/TAZOBACTAM 4.5 GM in DEXTROSE 5% IN WATER 50 ML IV SCH ×3 (05:43→21:09)
[2021-08-22 06:46] LABS: Basophils # (Auto) 0.01 K/mcL (0.00-0.30); Basophils % (Auto) 0.2 % (0.0-2.0); Eosinophils # (Auto) 0.21 K/mcL (0.00-0.70); Eosinophils % (Auto) 3.4 % (0.0-7.0); Hematocrit 28.6 % (40.1-51.0); Hemoglobin 8.7 g/dL (13.7-17.5); Lymphocytes # (Auto) 0.92 K/mcL (1.50-4.80); Lymphocytes % (Auto) 15.1 % (15.5-49.0); Mean Cell Volume 87.2 fL (80.0-100.0); Mean Corpuscular HGB Conc 30.4 g/dL (31.0-36.0); Mean Platelet Volume 10.8 fL (7.4-10.4); Monocytes # (Auto) 0.33 K/mcL (0.10-0.90); Monocytes % (Auto) 5.4 % (1.0-12.0); Neutrophils % (Auto) 75.9 % (38.0-78.0); Platelet Count 170 K/mcL (140-440); RBC 3.28 M/mcL (4.63-6.08); Red Cell Distribution Width 15.9 % (11.5-14.5); WBC 6.1 K/mcL (4.5-11.0)
[2021-08-22] MEDS: INSULIN LISPRO 1 UNIT/0.01 ML UNIT SQ SCH ×4 (07:08→20:16)
[2021-08-22 07:12] LABS: ALT/SGPT 17 U/L (<40); AST/SGOT 16 U/L (<40); Albumin 2.5 gm/dL (3.2-5.2); Albumin/Globulin Ratio 0.7 (1.0-2.3); Alkaline Phosphatase 285 U/L (39-117); Bilirubin,Direct < 0.2 mg/dL (0-0.3); Bilirubin,Total 0.5 mg/dL (0.1-1.0); Blood Urea Nitrogen 10 mg/dL (6-20); Calcium 8.1 mg/dL (8.6-10.4); Carbon Dioxide 26 mmol/L (22-30); Chloride 101 mmol/L (96-108); Globulin 3.7 gm/dL (2.2-3.7); Glomerular Filtration Rate 127; Glucose 109 mg/dL (70-105); Lactate Dehydrogenase 175 U/L (135-225); Phosphorous 3.6 mg/dL (2.5-4.5); Triglycerides 104 mg/dL (<150); Uric Acid 2.4 mg/dL (2.5-8.0)
--- NOTE | 2021-08-22 08:34 | Internal Med Progress Note ---
SUBJECTIVE Subjective Patient information: Note initiated : 08/22/21 at 8:33 am Service Date, if different from initiated Date: [] Patient: Frankie Rhoades 51 y/o M admitted on 08/12/21 for skin. Chief Complaint: [] Principal diagnosis: Buttock and lower back abscesses Interval history: Interval history: Mr. Rhoades is a 51 year old male with a history of type 2 diabetes presented to the emergency department for left buttock pain and chills. The patient had recently presented to [facility] for the same complaints and was discharged from the emergency department with a prescription of Keflex for 10 days. The patient took the Keflex however his symptoms worsened. In the emergency department at [facility] the patient had a fever of 100.8, tachycardia and elevated respiratory rate. Routine blood work showed a leukocytosis with left shift. Lactic acid was elevated at 3.8. Patient had a CT pelvis with contrast that showed a large left gluteal multiloculated abscess measuring 15 cm. The patient received broad-spectrum antibiotics with vancomycin and Zosyn as well as IV fluids. Repeat lactic acid was 2.0. The patient's blood pressures were low in the emergency department however he says that he usually has low blood pressures at baseline. Hospital medicine was asked to admit the patient for further management. 08/13 Had an I&D of the abscess yesterday evening, multiple drains in place. Anticipate the patient will require another washout and possibly a wound VAC. 2/2 blood cultures growing gram negative bacillus, surgical cultures pending. Increased Lantus and sliding scale insulin, added prandial Humalog. Sepsis physiology has improved. 08/14 Blood cultures grew bacteroides fragilis, awaiting final surgical cultures. Discontinues Vancomycin, continued Zosyn. Glucose continues to be elevated, increased Lantus to 40 units HS, prandial Humalog to 15 units AC TID and continued high dose sliding scale insulin. Surgery planning for reexploration. 08/15 Patient seen examined, still has pain but managable Blood culutres are growing bacteroides and stre p agalactiae , pt remains on zosy Glucose level in 90's today, cut down on prandial humalog to 10 TID Await surgery evaluation with regards to plan for reexploration. 08/16 Patient seen examined, had low bp yesterday, elevated lactic acid, IV fluids given, IV albumin given Repeat CT done which shows nrew developing abscees on the [facility] buttoc Surgery planning to take patient to OR this AM Patient notes of significant pain, Will increase dose of dilaudid and oxycocond (d/c percoset as would limit the amount of apap given) keep shani apap now 08/17 Patient feeling better after I&D of right gluteal abscess yesterday. No overnight event or new complaints. 08/18 Feeling well. No overnight event or new complaints. Good appetite. Awaiting final cultures. Possible wound VAC per surgery. 08/19 No changes overnight. Final cultures completed. Await final surgical rec commendations. 08/20 Feeling okay. No new complaints. Wound cultures with strep and Bacteroides. 08/21 No changes overnight. No new complaints. Encouraged ambulation. Continue per surgery. 08/22 No new complaints or changes overnight. To need to encourage ambulation. Wound care per surgery. Review of Systems: denies headache/fever/chills/nausea/vomiting/chest or abdominal pain/cough/dyspnea/diarrhea. Otherwise see above. Constitutional Vitals: Vital Signs Temp Pulse Resp BP Pulse Ox 97.8 F 75 16 116/71 95 08/22/21 07:25 08/22/21 07:25 08/22/21 07:25 08/22/21 07:25 08/22/21 07:25 Period Temp Pulse Resp BP Sys/Vivas Pulse Ox Last 24 Hr 97.8 F-99 F 69-89 14-18 105-127/65-79 94-97 Intake and Output 08/21/21 08/22/21 08/22/21 21:59 05:59 13:59 Intake Total 1610 1010 50 Output Total 1425 2100 Balance 185 -1090 50 Intake & Output: Intake & Output 08/21/21 08/22/21 08/22/21 21:59 05:59 13:59 Intake Total 1610 1010 50 Output Total 1425 2100 Balance 185 -1090 50 Intake: IV 50 50 50 Zosyn 4.5 gm In Dextrose 5% in 50 50 50 Water 50 ml @ 100 mls/hr IV Q8H [facility] Rx#:[id number] Oral 1560 960 Output: Void Amount 1425 2100 Other: Meal Dinner Percent of Meal Consumed 100% Urine Appearance Clear Clear Clear Urine Color Pale Pale Pale Straw Straw Urine Odor Normal Normal Exam: General: Alert, Awake, No acute Distress, obese Eyes/N/T: EOMI, Head/Neck: neck supple, CV: RRR, No murmurs, Pulm: Clear b/l, no wheezing/rhonchi/rales Abd: soft, nontender, +BS x4 Ext: no clubbing/cyanosis/edema Neuro: Alert, no focal deficits, moves all extremities, Skin: warm/dry OBJ DATA Labs CBC & Chem 7: 08/22/21 05:17 08/22/21 05:17 Labs: Abnormal Lab Results 08/22/21 08/22/21 08/21/21 05:17 05:17 06:27 RBC 3.28 L Hgb 8.7 L Hct 28.6 L MCHC 30.4 L RDW 15.9 H MPV 10.8 H Neut % (Auto) Lymph % (Auto) 15.1 L Lymph # (Auto) 0.92 L Absolute Neutrophils Creatinine 0.5 L 0.5 L Glucose 109 H 142 H Uric Acid 2.4 L 2.0 L Calcium 8.1 L 7.8 L GGT 255 H 273 H Alkaline Phosphatase 285 H 282 H Total Protein 5.8 L Albumin 2.5 L 2.5 L Albumin/Globulin Ratio 0.7 L 0.8 L 08/21/21 08/20/21 08/20/21 06:27 05:56 05:56 RBC 3.20 L 3.29 L Hgb 8.6 L 8.7 L Hct 27.9 L 29.0 L MCHC 30.8 L 30.0 L RDW 15.9 H 16.1 H MPV 11.0 H 11.0 H Neut % (Auto) 81.2 H Lymph % (Auto) 11.8 L 13.8 L Lymph # (Auto) 1.18 L 1.31 L Absolute Neutrophils 8.09 H Creatinine 0.6 L Glucose 122 H Uric Acid 2.2 L Calcium 8.1 L GGT 308 H Alkaline Phosphatase 282 H Total Protein 5.8 L Albumin 2.5 L Albumin/Globulin Ratio 0.8 L Meds: Medications Acetaminophen (Acetaminophen 325 Mg Tablet) 650 mg PO Q6HP PRN; Protocol PRN Reason: Per Pain Protocol/Fever > 101 Last Admin: 08/21/21 22:10 Dose: 650 mg Documented by: Dextrose (Dextrose 50% 50 Ml Vial) 0 ml IV UD PRN PRN Reason: Hypoglycemia Diagnostic Test (Pha) (Accu-Chek 1 Each Strip) 1 each FS [facility] Last Admin: 08/22/21 07:08 Dose: 1 each Documented by: Glucose (Dextrose 31 Gm Oral.Susp) 15 gm PO PRN PRN PRN Reason: Hypoglycemia Heparin Sodium (Porcine) (Heparin 5,000 Unit/Ml Vial) 5,000 unit SQ Q12 [facility] Last Admin: 08/21/21 22:12 Dose: 5,000 unit Documented by: Hydromorphone HCl (Hydromorphone 1 Mg/Ml Syringe) 1 mg IV Q2HP PRN; Protocol PRN Reason: Per Pain Protocol Last Admin: 08/17/21 11:30 Dose: 1 mg Documented by: Piperacillin Sod/Tazobactam (Sod 4.5 gm/ Dextrose) 50 mls @ 100 mls/hr IV Q8H [facility]; Protocol Last Infusion: 08/22/21 06:27 Dose: Infused Documented by: Acetaminophen (Ofirmev) 650 mg in 65 mls @ 130 mls/hr IV Q8 PRN; Protocol PRN Reason: pain Last Infusion: 08/20/21 18:40 Dose: Infused Documented by: Insulin Glargine (Insulin Glargine, Human 1 Unit/0.01 Ml) 40 unit SQ [facility] Last Admin: 08/21/21 22:11 Dose: 40 unit Documented by: Insulin Glargine (Insulin Glargine, Human 1 Unit/0.01 Ml) 5 unit SQ DAILY [facility] Last Admin: 08/21/21 08:40 Dose: 5 units Documented by: Insulin Human Lispro (Insulin Lispro 1 Unit/0.01 Ml Unit) 0 unit SQ [facility]; Protocol Last Admin: 08/22/21 07:08 Dose: Not Given Documented by: Lactulose (Lactulose 20 Gm/30 Ml Oral.Carmen) 10 gm PO DAILYP PRN PRN Reason: Constipation Methocarbamol (Methocarbamol 750 Mg Tablet) 750 mg PO Q6HP PRN PRN Reason: Muscle Spasm Last Admin: 08/21/21 22:10 Dose: 750 mg Documented by: Ondansetron HCl (Ondansetron 4 Mg/2 Ml Vial) 4 mg IV Q4HP PRN; Protocol PRN Reason: Nausea And Vomiting Oxycodone HCl (Oxycodone Hcl 5 Mg Tablet) 10 mg PO Q4HP PRN; Protocol PRN Reason: Per Pain Protocol Last Admin: 08/22/21 06:31 Dose: 10 mg Documented by: Senna (Sennosides 1 Tablet) 2 tab PO BID [facility] Last Admin: 08/21/21 19:01 Dose: Not Given Documented by: Sodium Chloride (0.9 % Sodium Chloride 10 Ml Syringe) 10 ml IV Q8 [facility] Last Admin: 08/22/21 05:43 Dose: 10 ml Documented by: A/P Narrative A/P Narrative: A: #Severe Sepsis: 2/2 gluteal abscess. Resolved #Large multiloculated gluteal abscess s/p I&D Left side (08/12) & Right side (08/16) -cx with bacteroides/Strep #Bacteremia(Bacteroides fragilis): #DM2: poorly controlled, with hyperglycemia on admit. A1c 11.4 #Hyponatremia: resolved #Anemia, unspecified chronicity: #Right #1 and #2 toe wounds present on admission #Obese: Plan: -Wound care, abscess s/p I&D per surgeon -IV abx, transition to Augmentin outpt to finish up 2 wk course from last I&D -Analgesics prn -Lantus 40 units at bedtime, prandial Humalog 10 units AC and SSI-high. 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
[2021-08-22] MEDS: SENNOSIDES 1 TABLET PO SCH ×2 (08:38→20:17)
[2021-08-22] MEDS: INSULIN GLARGINE, HUMAN 1 UNIT/0.01 ML SQ SCH ×2 (08:38→20:16)
[2021-08-22] MEDS: HEPARIN 5,000 UNIT/ML VIAL SQ SCH ×2 (08:38→20:16)
[2021-08-22] MEDS ORDERED: IOPAMIDOL 100 ML BOTTLE IV ONE (09:10)
[2021-08-22] MEDS: METHOCARBAMOL 750 MG TABLET PO PRN ×2 (11:14→22:52)
--- NOTE | 2021-08-22 12:41 | General Surgery Progress Note ---
SUBJECTIVE Subjective Patient information: Note initiated : 08/22/21 at 12:37 pm Service Date, if different from initiated Date: [] Patient: Frankie Rhoades 51 y/o M admitted on 08/12/21 for skin. Chief Complaint: [] Principal diagnosis: Buttock and lower back abscesses Interval history: Patient had been complaining of pain in the lower lumbar area as well as in his. Right flank repeat CT shows some progression of the penetration beneath the level of the drains. He is counseled for excision and debridement of the areas under anesthesia. This will be scheduled for Tuesday. He needs to have more days of acute care to get better control of the progression of the infectious process. I will discuss this with the corrections caseworker on Tuesday. Constitutional Vitals: Vital Signs Temp Pulse Resp BP Pulse Ox 97.1 F 74 18 124/75 95 08/22/21 11:59 08/22/21 11:59 08/22/21 11:59 08/22/21 11:59 08/22/21 11:59 Period Temp Pulse Resp BP Sys/Vivas Pulse Ox Last 24 Hr 97.1 F-99 F 69-85 14-18 105-127/65-75 94-97 Intake and Output 08/21/21 08/22/21 08/22/21 21:59 05:59 13:59 Intake Total 1610 1010 50 Output Total 1425 2100 Balance 185 -1090 50 Intake & Output: Intake & Output 08/21/21 08/22/21 08/22/21 21:59 05:59 13:59 Intake Total 1610 1010 50 Output Total 1425 2100 Balance 185 -1090 50 Intake: IV 50 50 50 Zosyn 4.5 gm In Dextrose 5% in 50 50 50 Water 50 ml @ 100 mls/hr IV Q8H [facility] Rx#:[id number] Oral 1560 960 0 Output: Void Amount 1425 2100 Other: Meal Dinner Percent of Meal Consumed 100% Urine Appearance Clear Clear Clear Urine Color Pale Pale Pale Straw Straw Urine Odor Normal Normal Eye Eye exam: Present EOMI and PERRL Pupils: Present normal accommodation and PERRL ENT ENT exam: Present mucous membranes moist and normal oropharynx Neck Neck exam: Present full ROM; Absent tenderness Respiratory Respiratory exam: Present normal respiratory exam and CTAB; Absent rales, rhonchi or wheezes Cardiovascular Cardiovascular exam: Present normal rate and rhythm, RRR, +S1 and +S2; Absent JVD GI/Abdominal GI/Abdominal exam: Present normal bowel sounds and tenderness; Absent distended Additional comments: Prominent tenderness over right flank and right lower quadrant of anterior abdominal wall Extremities Exam Extremities exam: Present normal capillary refill and neurovascular intact Neurological Exam Neurological exam: Present alert, normal gait and oriented X3; Absent motor sensory deficit Psychiatric Psychiatric exam: Present normal affect and normal mood A/P Assessment and plan (1) Right lower quadrant abdominal abscess: Status: Acute (2) Left lower quadrant abdominal abscess: Status: Acute (3) Diabetes mellitus: Status: Acute (4) Perirectal abscess: Status: Acute (5) Abscess of left buttock: Status: Acute Narrative A/P Narrative: Schedule for exploration and repeat drainage of lumbosacral pocket and right flank pocket of purulence under anesthesia after confirmation of depth and position by radiology using CT or ultrasound. This will be performed tomorrow. Time Spent With Patient Time: Total time spent is greater than 50% in coordination of care (as documented) at patient's floor/unit and/or counseling patient:
--- NOTE | 2021-08-22 14:17 | Cat Scan Report ---
CLINICAL INFORMATION: Abdomen pain. Follow-up gluteal and lower lumbar abscess surgical drainage COMPARISON: Preoperative pelvic CT 08/12/2021 and 08/15/2021 TECHNIQUE: Following enteric contrast, 80 cc of Isovue-370 were injected intravenously, and 60 seconds later, 0.625 mm helical slices were obtained from the mid heart through the subtrochanteric regions. Following reconstruction, 2.5 mm sagittal, coronal and axial reformatted images were processed and reviewed at bone, lung and soft tissue windows. Five minutes later, 0.625 mm helical slices were obtained from the mid heart through the kidneys and viewed at soft tissue windows.The exam was performed using radiation dose optimization techniques including, but not limited to, automated exposure control, adjustment of the mA and/or kV according to patient size and use of iterative reconstruction technique. FINDINGS: The lung bases shows scattered atelectasis. No effusions. The visualized heart is grossly normal. Abdominal images show 21 mm cholesterol stone in the gallbladder neck. The gallbladder and bile ducts are, otherwise, normal: CBD is 5 mm. The liver, both kidneys, adrenal glands, spleen, pancreas and aorta, including aortic branches, are normal in size, configuration and attenuation without focal lesion. Mild simple ascites has decreased from previous exam. There is no free air or adenopathy. Pelvic images show normal urinary bladder, prostate and seminal vesicles.. The stomach, small bowel, appendix and large bowel are grossly normal. Bone windows show no osseous abnormality. The left gluteal abscess continues to decrease with less fluid and inflammation in the gluteal muscle. Drain in the subcutaneous fat and gluteal muscles may in stable position. Inflammation of the overlying subcutaneous fat is also decreased. Very small amounts of aspiration inflammation overlying the lower erector spinae muscle continues to decrease. The abscess within the subcutaneous fat of the right gluteal region has been surgically debrided and there are drains in this region. The amount of inflammation as diminished considerably from the previous study with only patchy regions of of phlegmon and gas. IMPRESSION: 1. Following surgical debridement, the abscess in the subcutaneous fat over the the right supragluteal region has decreased considerably with modest residual phlegmon and inflammation. 2. The left gluteal muscle abscess with inflammation in the overlying fat is also improved with only modest residual inflammation. Drain remains in satisfactory stable position. 3. Mild simple ascites-improving 4. Solitary 2 cm cholesterol noted in the gallbladder neck. Gallbladder and bile ducts are, otherwise, normal. Interpreted and Authenticated by: Reji Acosta 08/22/21
[2021-08-23] MEDS: 0.9 % SODIUM CHLORIDE 10 ML SYRINGE IV SCH ×3 (06:34→21:21)
[2021-08-23] MEDS: METHOCARBAMOL 750 MG TABLET PO PRN ×2 (06:34→21:33)
[2021-08-23] MEDS: oxyCODONE HCL 5 MG TABLET PO PRN ×3 (06:34→21:18)
[2021-08-23] MEDS: PIPERACILLIN SODIUM/TAZOBACTAM 4.5 GM in DEXTROSE 5% IN WATER 50 ML IV SCH ×3 (06:34→21:33)
[2021-08-23] MEDS: INSULIN LISPRO 1 UNIT/0.01 ML UNIT SQ SCH ×4 (07:06→21:32)
[2021-08-23 07:56] LABS: Basophils # (Auto) 0.02 K/mcL (0.00-0.30); Basophils % (Auto) 0.3 % (0.0-2.0); Eosinophils # (Auto) 0.23 K/mcL (0.00-0.70); Eosinophils % (Auto) 3.5 % (0.0-7.0); Hemoglobin 8.6 g/dL (13.7-17.5); Lymphocytes # (Auto) 1.11 K/mcL (1.50-4.80); Mean Cell Volume 86.4 fL (80.0-100.0); Mean Corpuscular HGB Conc 30.7 g/dL (31.0-36.0); Mean Platelet Volume 10.5 fL (7.4-10.4); Monocytes # (Auto) 0.39 K/mcL (0.10-0.90); Neutrophils % (Auto) 73.2 % (38.0-78.0); Platelet Count 173 K/mcL (140-440); RBC 3.24 M/mcL (4.63-6.08); Red Cell Distribution Width 16.1 % (11.5-14.5); WBC 6.5 K/mcL (4.5-11.0)
--- NOTE | 2021-08-23 08:32 | Internal Med Progress Note ---
SUBJECTIVE Subjective Patient information: Note initiated : 08/23/21 at 8:29 am Service Date, if different from initiated Date: [] Patient: Frankie Rhoades 51 y/o M admitted on 08/12/21 for skin. Chief Complaint: [] Principal diagnosis: Buttock and lower back abscesses Interval history: Interval history: Mr. Rhoades is a 51 year old male with a history of type 2 diabetes presented to the emergency department for left buttock pain and chills. The patient had recently presented to [facility] for the same complaints and was discharged from the emergency department with a prescription of Keflex for 10 days. The patient took the Keflex however his symptoms worsened. In the emergency department at [facility] the patient had a fever of 100.8, tachycardia and elevated respiratory rate. Routine blood work showed a leukocytosis with left shift. Lactic acid was elevated at 3.8. Patient had a CT pelvis with contrast that showed a large left gluteal multiloculated abscess measuring 15 cm. The patient received broad-spectrum antibiotics with vancomycin and Zosyn as well as IV fluids. Repeat lactic acid was 2.0. The patient's blood pressures were low in the emergency department however he says that he usually has low blood pressures at baseline. Hospital medicine was asked to admit the patient for further management. 08/13 Had an I&D of the abscess yesterday evening, multiple drains in place. Anticipate the patient will require another washout and possibly a wound VAC. 2/2 blood cultures growing gram negative bacillus, surgical cultures pending. Increased Lantus and sliding scale insulin, added prandial Humalog. Sepsis physiology has improved. 08/14 Blood cultures grew bacteroides fragilis, awaiting final surgical cultures. Discontinues Vancomycin, continued Zosyn. Glucose continues to be elevated, increased Lantus to 40 units HS, prandial Humalog to 15 units AC TID and continued high dose sliding scale insulin. Surgery planning for reexploration. 08/15 Patient seen examined, still has pain but managable Blood culutres are growing bacteroides and stre p agalactiae , pt remains on zosy Glucose level in 90's today, cut down on prandial humalog to 10 TID Await surgery evaluation with regards to plan for reexploration. 08/16 Patient seen examined, had low bp yesterday, elevated lactic acid, IV fluids given, IV albumin given Repeat CT done which shows nrew developing abscees on the [facility] buttoc Surgery planning to take patient to [place] this AM Patient notes of significant pain, Will increase dose of dilaudid and oxycocond (d/c percoset as would limit the amount of apap given) keep shani apap now 08/17 Patient feeling better after I&D of right gluteal abscess yesterday. No overnight event or new complaints. 08/18 Feeling well. No overnight event or new complaints. Good appetite. Awaiting final cultures. Possible wound VAC per surgery. 08/19 No changes overnight. Final cultures completed. Await final surgical rec commendations. 08/20 Feeling okay. No new complaints. Wound cultures with strep and Bacteroides. 08/21 No changes overnight. No new complaints. Encouraged ambulation. Continue per surgery. 08/22 No new complaints or changes overnight. To need to encourage ambulation. Wound care per surgery. 08/23 Doing well. No new complaints overnight events. Likely discharge to [facility] facility tomorrow. Review of Systems: denies headache/fever/chills/nausea/vomiting/chest or abdominal pain/cough/dyspnea/diarrhea. Otherwise see above. Constitutional Vitals: Vital Signs Temp Pulse Resp BP Pulse Ox 97.4 F 80 16 130/81 95 08/23/21 07:20 08/23/21 07:20 08/23/21 07:20 08/23/21 07:20 08/23/21 07:20 Period Temp Pulse Resp BP Sys/Vivas Pulse Ox Last 24 Hr 97.1 F-98.2 F 74-88 16-20 105-130/68-87 95-98 Intake and Output 08/22/21 08/23/21 08/23/21 21:59 05:59 13:59 Intake Total 450 50 50 Output Total 2575 1000 1100 Balance -6 -950 1050 Weight 106.095 kg Intake & Output: Intake & Output 08/22/21 08/23/21 08/23/21 21:59 05:59 13:59 Intake Total 450 50 50 Output Total 2575 1000 1100 Balance -2125 950 -1050 Weight 106.095 kg Intake: IV 50 50 50 Zosyn 4.5 gm In Dextrose 5% in 50 50 50 Water 50 ml @ 100 mls/hr IV Q8H [facility] Rx#:[id number] Oral 400 Output: Void Amount 2575 1000 1100 Other: Urine Appearance Clear Clear Urine Color Pale Straw Straw Urine Odor Normal Normal Exam: General: Alert, Awake, No acute Distress, obese Eyes/N/T: EOMI, Head/Neck: neck supple, CV: RRR, No murmurs, Pulm: Clear b/l, no wheezing/rhonchi/rales Abd: soft, nontender, +BS x4 Ext: no clubbing/cyanosis/edema Neuro: Alert, no focal deficits, moves all extremities, Skin: warm/dry OBJ DATA Labs CBC & Chem 7: 08/23/21 05:34 08/22/21 05:17 Labs: Abnormal Lab Results 08/23/21 08/22/21 08/22/21 05:34 05:17 05:17 RBC 3.24 L 3.28 L Hgb 8.6 L 8.7 L Hct 28.0 L 28.6 L MCHC 30.7 L 30.4 L RDW 16.1 H 15.9 H MPV 10.5 H 10.8 H Neut % (Auto) Lymph % (Auto) 15.1 L Lymph # (Auto) 1.11 L 0.92 L Absolute Neutrophils Creatinine 0.5 L Glucose 109 H Uric Acid 2.4 L Calcium 8.1 L GGT 255 H Alkaline Phosphatase 285 H Total Protein Albumin 2.5 L Albumin/Globulin Ratio 0.7 L 08/21/21 08/21/21 06:27 06:27 RBC 3.20 L Hgb 8.6 L Hct 27.9 L MCHC 30.8 L RDW 15.9 H MPV 11.0 H Neut % (Auto) 81.2 H Lymph % (Auto) 11.8 L Lymph # (Auto) 1.18 L Absolute Neutrophils 8.09 H Creatinine 0.5 L Glucose 142 H Uric Acid 2.0 L Calcium 7.8 L GGT 273 H Alkaline Phosphatase 282 H Total Protein 5.8 L Albumin 2.5 L Albumin/Globulin Ratio 0.8 L Meds: Medications Acetaminophen (Acetaminophen 325 Mg Tablet) 650 mg PO Q6HP PRN; Protocol PRN Reason: Per Pain Protocol/Fever > 101 Last Admin: 08/21/21 22:10 Dose: 650 mg Documented by: Dextrose (Dextrose 50% 50 Ml Vial) 0 ml IV UD PRN PRN Reason: Hypoglycemia Diagnostic Test (Pha) (Accu-Chek 1 Each Strip) 1 each FS [facility] Last Admin: 08/23/21 07:06 Dose: 1 each Documented by: Glucose (Dextrose 31 Gm Oral.Susp) 15 gm PO PRN PRN PRN Reason: Hypoglycemia Heparin Sodium (Porcine) (Heparin 5,000 Unit/Ml Vial) 5,000 unit SQ Q12 [facility] Last Admin: 08/22/21 20:16 Dose: 5,000 unit Documented by: Hydromorphone HCl (Hydromorphone 1 Mg/Ml Syringe) 1 mg IV Q2HP PRN; Protocol PRN Reason: Per Pain Protocol Last Admin: 08/17/21 11:30 Dose: 1 mg Documented by: Piperacillin Sod/Tazobactam (Sod 4.5 gm/ Dextrose) 50 mls @ 100 mls/hr IV Q8H [facility]; Protocol Last Infusion: 08/23/21 07:05 Dose: Infused Documented by: Acetaminophen (Ofirmev) 650 mg in 65 mls @ 130 mls/hr IV Q8 PRN; Protocol PRN Reason: pain Last Infusion: 08/20/21 18:40 Dose: Infused Documented by: Insulin Glargine (Insulin Glargine, Human 1 Unit/0.01 Ml) 40 unit SQ [facility] Last Admin: 08/22/21 20:16 Dose: 40 unit Documented by: Insulin Glargine (Insulin Glargine, Human 1 Unit/0.01 Ml) 5 unit SQ DAILY [facility] Last Admin: 08/22/21 08:38 Dose: 5 units Documented by: Insulin Human Lispro (Insulin Lispro 1 Unit/0.01 Ml Unit) 0 unit SQ [facility]; Protocol Last Admin: 08/23/21 07:06 Dose: 3 units Documented by: Lactulose (Lactulose 20 Gm/30 Ml Oral.Carmen) 10 gm PO DAILYP PRN PRN Reason: Constipation Methocarbamol (Methocarbamol 750 Mg Tablet) 750 mg PO Q6HP PRN PRN Reason: Muscle Spasm Last Admin: 08/23/21 06:34 Dose: 750 mg Documented by: Ondansetron HCl (Ondansetron 4 Mg/2 Ml Vial) 4 mg IV Q4HP PRN; Protocol PRN Reason: Nausea And Vomiting Oxycodone HCl (Oxycodone Hcl 5 Mg Tablet) 10 mg PO Q4HP PRN; Protocol PRN Reason: Per Pain Protocol Last Admin: 08/23/21 06:34 Dose: 10 mg Documented by: Senna (Sennosides 1 Tablet) 2 tab PO BID [facility] Last Admin: 08/22/21 20:17 Dose: Not Given Documented by: Sodium Chloride (0.9 % Sodium Chloride 10 Ml Syringe) 10 ml IV Q8 [facility] Last Admin: 08/23/21 06:34 Dose: 10 ml Documented by: A/P Narrative A/P Narrative: A: #Severe Sepsis: 2/2 gluteal abscess. Resolved #Large multiloculated gluteal abscess s/p I&D Left side (08/12) & Right side (08/16) -cx with bacteroides/Strep #Bacteremia(Bacteroides fragilis): #DM2: poorly controlled, with hyperglycemia on admit. A1c 11.4 #Hyponatremia: resolved #Anemia, unspecified chronicity: #Right #1 and #2 toe wounds present on admission #Obese: Plan: -Wound care, abscess s/p I&D per surgeon -IV abx, transition to Augmentin outpt to finish up 2 wk course from last I&D -Analgesics prn -Lantus 40 units at bedtime, SSI-high. 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
[2021-08-23] MEDS: HEPARIN 5,000 UNIT/ML VIAL SQ SCH ×2 (09:24→21:33)
[2021-08-23] MEDS: SENNOSIDES 1 TABLET PO SCH ×2 (09:24→21:21)
[2021-08-23] MEDS: INSULIN GLARGINE, HUMAN 1 UNIT/0.01 ML SQ SCH ×2 (09:24→21:32)
--- NOTE | 2021-08-23 11:31 | Discharge Summary ---
Discharge Provider Provider Patient information: Note initiated : 08/23/21 at 11:28 am Service Date, if different from initiated Date: [] Patient: Frankie Rhoades 51 y/o M admitted on 08/12/21 for skin. Chief Complaint: [] Date of admission: 08/12/21 19:00 Primary care physician: Gunjan Martin Consults: 08/12/21 Consult to Physician [CONS] Stat Comment: Consulting Provider: Adrian Kelly Reason For Exam: Physician to Consult Consult to Physician [CONS] Stat Comment: Consulting Provider: Shey Erazo Reason For Exam: Physician to Consult 08/12/21 19:04 Consult to Physician [CONS] Stat Comment: Consulting Provider: Shey Erazo Reason For Exam: Physician to Consult Discharge Meds Discharge Medications Home Medications Humalog U-100 Insulin See Rx Instructions .ROUTE .COMPLEX 08/14/21 [History Confirmed 08/17/21 Last Taken Unknown] lisinopril 2.5 mg tablet 0.25 mg PO DAILY 08/14/21 [History Confirmed 08/14/21 Last Taken Unknown] metformin 500 mg tablet 500 mg PO BID 08/14/21 [History Confirmed 08/14/21 Last Taken Unknown] blood sugar diagnostic #100 each 08/19/21 [Rx Last Taken Unknown] insulin glargine 100 unit/mL (3 mL) subcutaneous pen (Lantus Solostar U-100 Insulin) 40 unit (0.4 mL) SUB-Q QHS #15 ml 08/19/21 [Rx Last Taken Unknown] lancets #100 each 08/19/21 [Rx Last Taken Unknown] COURSE Hospital Course Hospital course: Interval history: Mr. Rhoades is a 51 year old male with a history of type 2 diabetes presented to the emergency department for left buttock pain and chills. The patient had recently presented to [facility] for the same complaints and was discharged from the emergency department with a prescription of Keflex for 10 days. The patient took the Keflex however his symptoms worsened. In the emergency department at [facility] the patient had a fever of 100.8, tachycardia and elevated respiratory rate. Routine blood work showed a leukocytosis with left shift. Lactic acid was elevated at 3.8. Patient had a CT pelvis with contrast that showed a large left gluteal multiloculated abscess measuring 15 cm. The patient received broad-spectrum antibiotics with vancomycin and Zosyn as well as IV fluids. Repeat lactic acid was 2.0. The patient's blood pressures were low in the emergency department however he says that he usually has low blood pressures at baseline. Hospital medicine was asked to admit the patient for further management. 08/13 Had an I&D of the abscess yesterday evening, multiple drains in place. Anticipate the patient will require another washout and possibly a wound VAC. / blood cultures growing gram negative bacillus, surgical cultures pending. Increased Lantus and sliding scale insulin, added prandial Humalog. Sepsis physiology has improved. 08/14 Blood cultures grew bacteroides fragilis, awaiting final surgical cultures. Discontinues Vancomycin, continued Zosyn. Glucose continues to be elevated, increased Lantus to 40 units HS, prandial Humalog to 15 units AC TID and continued high dose sliding scale insulin. Surgery planning for reexploration. 08/15 Patient seen examined, still has pain but managable Blood culutres are growing bacteroides and stre p agalactiae , pt remains on zosy Glucose level in 90's today, cut down on prandial humalog to 10 TID Await surgery evaluation with regards to plan for reexploration. 08/16 Patient seen examined, had low bp yesterday, elevated lactic acid, IV fluids given, IV albumin given Repeat CT done which shows nrew developing abscees on the [facility] buttoc Surgery planning to take patient to OR this AM Patient notes of significant pain, Will increase dose of dilaudid and oxycocond (d/c percoset as would limit the amount of apap given) keep shani apap now 08/17 Patient feeling better after I&D of right gluteal abscess yesterday. No overnight event or new complaints. 2 Feeling well. No overnight event or new complaints. Good appetite. Awaiting final cultures. Possible wound VAC per surgery. 2 No changes overnight. Final cultures completed. Await final surgical rec commendations. 08/20 Feeling okay. No new complaints. Wound cultures with strep and Bacteroides. 08/21 No changes overnight. No new complaints. Encouraged ambulation. Continue per surgery. 08/22 No new complaints or changes overnight. To need to encourage ambulation. Wound care per surgery. 08/23 Doing well. No new complaints overnight events. Likely discharge to [facility] facility tomorrow. A: #Severe Sepsis: 2/2 gluteal abscess. Resolved #Large multiloculated gluteal abscess s/p I&D Left side (08/12) & Right side (08/16) -cx withbacteroides/Strep #Bacteremia(Bacteroides fragilis): #DM2: poorly controlled, with hyperglycemia on admit. A1c 11.4 #Hyponatremia: resolved #Anemia, unspecified chronicity: #Right #1 and #2 toe wounds present on admission #Obese: Plan: -Wound care, abscess s/p I&D per surgeon -IV abx, transition to Augmentin outpt to finish up 2 wk course from last I&D -Analgesics prn -Lantus 40 units at bedtime, Discharge diagnosis: Severe sepsis multiloculated gluteal abscess bacteremia poorly controlled d Secondary discharge diagnosis: Poorly controlled diabetes anemia foot wounds obesity Time Spent with Patient Time attestation: Total time spent providing and/or coordinating discharge services: Time spent: Greater than 30 minutes EXAM Constitutional Vitals: Temp Pulse Resp BP Pulse Ox 97.4 F 80 16 130/81 95 08/23/21 07:20 08/23/21 07:20 08/23/21 07:20 08/23/21 07:20 08/23/21 07:20 Discharge Data Data Completed and Pending Labs on day of discharge: Labs from last 24 hours 08/23/21 05:34 WBC 6.5 RBC 3.24 L Hgb 8.6 L Hct 28.0 L MCV 86.4 MCH 26.5 MCHC 30.7 L RDW 16.1 H Plt Count 173 MPV 10.5 H Neut % (Auto) 73.2 Lymph % (Auto) 17.0 Divide % (Auto) 6.0 Eos % (Auto) 3.5 Baso % (Auto) 0.3 Lymph # (Auto) 1.11 L Divide # (Auto) 0.39 Eos # (Auto) 0.23 Baso # (Auto) 0.02 Absolute Neutrophils 4.79 Preliminary micro results at discharge 08/16/21 10:46 Gram Stain - Preliminary Abscess - Other Anaerobic Culture - Preliminary Bacteroides fragilis Discharge Plan Patient/Caregiver Discharge Instructions Activity: increase activity as tolerated Diet: Consistent Carbohydrate Activity Restrictions/Additional Instructions: Keep log of blood glucose and bring readings to PCP. Prescriptions: New (DME) blood sugar diagnostic Strip See Rx Instructions .ROUTE .MEDSUPPLY Qty: 100 0RF Rx Instructions: As directed (DME) lancets Misc See Rx Instructions .ROUTE .MEDSUPPLY Qty: 100 0RF Rx Instructions: As directed Lantus Solostar U-100 Insulin 100 unit/mL (3 mL) insulin pen 40 unit SUB-Q QHS Qty: 15 0RF Continued metformin 500 mg Tablet 500 mg PO BID 0RF lisinopril 2.5 mg Tablet 0.25 mg PO DAILY 0RF Humalog U-100 Insulin See Rx Instructions .ROUTE .COMPLEX 0RF Protocol: Insulin Sliding Scale, Med Condition: HUMALOG/NOVALOG SC SLIDING Dose/Route: SCALE Condition: FSBS < 70 Dose/Route: Give 4 Oz juice, or 15gm oral Instruction: Glucose, or 25ml D50W IV if Dose/Route: unable to take PO. Recheck in Instruction: 15 min and repeat if FSBS < 70 Condition: FSBS 71-140 Dose/Route: NO COVERAGE Condition: FSBS 141-170 Dose/Route: 2 UNITS Condition: FSBS 171-200 Dose/Route: 4 UNITS Condition: FSBS 201-250 Dose/Route: 6 UNITS Condition: FSBS 251-300 Dose/Route: 8 UNITS Condition: FSBS 301-350 Dose/Route: 10 UNITS Condition: FSBS 351-400 Dose/Route: 12 UNITS Condition: FSBS > 400 Dose/Route: 14 UNITS; REPEAT Q2H X2 Instruction: CONTINUE FOLLOWING SLIDING Condition: SCALE; IF STILL > 400; CALL Dose/Route: PHYSICIAN Rx Instructions: per ssi protocol Discontinued insulin lispro 18 units subcut HS 0RF Follow Up Plan Follow up with: Gunjan Martin [Primary Care Provider] - Shey Erazo MD [Physician] - Patient Disposition: Xfer SNF Prognosis: Fair Rehab Potential: Fair I certify that the patient requires SNF services: Yes Overall status at discharge: patient is progressing back to baseline QUALITY VTE Deep Vein Thrombosis/Pulmonary Embolism Present on Admission: No
[2021-08-23] MEDS: HYDROmorphone 1 MG/ML SYRINGE IV PRN (14:00)
[2021-08-24] MEDS: oxyCODONE HCL 5 MG TABLET PO PRN ×5 (02:41→22:49)
[2021-08-24] MEDS: 0.9 % SODIUM CHLORIDE 10 ML SYRINGE IV SCH ×3 (05:29→22:59)
--- NOTE | 2021-08-24 08:06 | Internal Med Progress Note ---
SUBJECTIVE Subjective Patient information: Note initiated : 08/24/21 at 8:04 am Service Date, if different from initiated Date: [] Patient: Frankie Rhoades 51 y/o M admitted on 08/12/21 for skin. Chief Complaint: [] Principal diagnosis: Buttock and lower back abscesses Interval history: Interval history: Mr. Rhoades is a 51 year old male with a history of type 2 diabetes presented to the emergency department for left buttock pain and chills. The patient had recently presented to [facility] for the same complaints and was discharged from the emergency department with a prescription of Keflex for 10 days. The patient took the Keflex however his symptoms worsened. In the emergency department at [facility] the patient had a fever of 100.8, tachycardia and elevated respiratory rate. Routine blood work showed a leukocytosis with left shift. Lactic acid was elevated at 3.8. Patient had a CT pelvis with contrast that showed a large left gluteal multiloculated abscess measuring 15 cm. The patient received broad-spectrum antibiotics with vancomycin and Zosyn as well as IV fluids. Repeat lactic acid was 2.0. The patient's blood pressures were low in the emergency department however he says that he usually has low blood pressures at baseline. Hospital medicine was asked to admit the patient for further management. 08/13 Had an I&D of the abscess yesterday evening, multiple drains in place. Anticipate the patient will require another washout and possibly a wound VAC. 2/2 blood cultures growing gram negative bacillus, surgical cultures pending. Increased Lantus and sliding scale insulin, added prandial Humalog. Sepsis physiology has improved. 08/14 Blood cultures grew bacteroides fragilis, awaiting final surgical cultures. Discontinues Vancomycin, continued Zosyn. Glucose continues to be elevated, increased Lantus to 40 units HS, prandial Humalog to 15 units AC TID and continued high dose sliding scale insulin. Surgery planning for reexploration. 08/15 Patient seen examined, still has pain but managable Blood culutres are growing bacteroides and stre p agalactiae , pt remains on zosy Glucose level in 90's today, cut down on prandial humalog to 10 TID Await surgery evaluation with regards to plan for reexploration. 08/16 Patient seen examined, had low bp yesterday, elevated lactic acid, IV fluids given, IV albumin given Repeat CT done which shows nrew developing abscees on the [facility] buttoc Surgery planning to take patient to OR this AM Patient notes of significant pain, Will increase dose of dilaudid and oxycocond (d/c percoset as would limit the amount of apap given) keep shani apap now 08/17 Patient feeling better after I&D of right gluteal abscess yesterday. No overnight event or new complaints. 08/18 Feeling well. No overnight event or new complaints. Good appetite. Awaiting final cultures. Possible wound VAC per surgery. 08/19 No changes overnight. Final cultures completed. Await final surgical rec commendations. 08/20 Feeling okay. No new complaints. Wound cultures with strep and Bacteroides. 08/21 No changes overnight. No new complaints. Encouraged ambulation. Continue per surgery. 08/22 No new complaints or changes overnight. To need to encourage ambulation. Wound care per surgery. 08/23 Doing well. No new complaints overnight events. Likely discharge [facility] tomorrow. 08/24 Doing well. No new changes overnight. Going back to the OR for further washout. Review of Systems: denies headache/fever/chills/nausea/vomiting/chest or abdominal pain/cough/dyspnea/diarrhea. Otherwise see above. Constitutional Vitals: Vital Signs Temp Pulse Resp BP Pulse Ox 99.4 F H 80 12 92/55 96 08/24/21 06:55 08/24/21 06:55 08/24/21 06:55 08/24/21 06:55 08/24/21 06:55 Period Temp Pulse Resp BP Sys/Vivas Pulse Ox Last 24 Hr 97.0 F-99.4 F 73-88 12-18 92-110/55-68 95-98 Intake and Output 08/23/21 08/24/21 08/24/21 21:59 05:59 13:59 Intake Total 530 1250 Output Total 900 1750 450 Balance -370 -500 -450 Weight 106.095 kg Intake & Output: Intake & Output 08/23/21 08/24/21 08/24/21 21:59 05:59 13:59 Intake Total 530 1250 Output Total 900 1750 450 Balance -370 -500 -450 Weight 106.095 kg Intake: IV 50 50 Zosyn 4.5 gm In Dextrose 5% in 50 50 Water 50 ml @ 100 mls/hr IV Q8H [facility] Rx#:[id number] Oral 480 1200 Output: Void Amount 900 1750 450 Other: Urine Appearance Clear Clear Urine Color Bright Yellow Bright Yellow Urine Odor Normal Exam: General: Alert, Awake, No acute Distress, obese Eyes/N/T: EOMI, Head/Neck: neck supple, CV: RRR, No murmurs, Pulm: Clear b/l, no wheezing/rhonchi/rales Abd: soft, nontender, +BS x4 Ext: no clubbing/cyanosis/edema Neuro: Alert, no focal deficits, moves all extremities, Skin: warm/dry OBJ DATA Labs CBC & Chem 7: 08/23/21 05:34 08/22/21 05:17 Labs: Abnormal Lab Results 08/23/21 08/22/21 08/22/21 05:34 05:17 05:17 RBC 3.24 L 3.28 L Hgb 8.6 L 8.7 L Hct 28.0 L 28.6 L MCHC 30.7 L 30.4 L RDW 16.1 H 15.9 H MPV 10.5 H 10.8 H Lymph % (Auto) 15.1 L Lymph # (Auto) 1.11 L 0.92 L Creatinine 0.5 L Glucose 109 H Uric Acid 2.4 L Calcium 8.1 L GGT 255 H Alkaline Phosphatase 285 H Total Protein Albumin 2.5 L Albumin/Globulin Ratio 0.7 L 08/21/21 06:27 RBC Hgb Hct MCHC RDW MPV Lymph % (Auto) Lymph # (Auto) Creatinine 0.5 L Glucose 142 H Uric Acid 2.0 L Calcium 7.8 L GGT 273 H Alkaline Phosphatase 282 H Total Protein 5.8 L Albumin 2.5 L Albumin/Globulin Ratio 0.8 L Meds: Medications Acetaminophen (Acetaminophen 325 Mg Tablet) 650 mg PO Q6HP PRN; Protocol PRN Reason: Per Pain Protocol/Fever > 101 Last Admin: 08/21/21 22:10 Dose: 650 mg Documented by: Dextrose (Dextrose 50% 50 Ml Vial) 0 ml IV UD PRN PRN Reason: Hypoglycemia Diagnostic Test (Pha) (Accu-Chek 1 Each Strip) 1 each FS ACHS [facility] Last Admin: 08/23/21 21:20 Dose: 1 each Documented by: Glucose (Dextrose 31 Gm Oral.Susp) 15 gm PO PRN PRN PRN Reason: Hypoglycemia Heparin Sodium (Porcine) (Heparin 5,000 Unit/Ml Vial) 5,000 unit SQ Q12 SHANI Last Admin: 08/23/21 21:33 Dose: 5,000 unit Documented by: Hydromorphone HCl (Hydromorphone 1 Mg/Ml Syringe) 1 mg IV Q2HP PRN; Protocol PRN Reason: Per Pain Protocol Last Admin: 08/23/21 14:00 Dose: 1 mg Documented by: Acetaminophen ([facility]) 650 mg in 65 mls @ 130 mls/hr IV Q8 PRN; Protocol PRN Reason: pain Last Infusion: 08/20/21 18:40 Dose: Infused Documented by: Ceftriaxone Sodium 2 gm/ (Dextrose) 50 mls @ 100 mls/hr IV Q24H [facility]; Protocol Insulin Glargine (Insulin Glargine, Human 1 Unit/0.01 Ml) 40 unit SQ HS [facility] Last Admin: 08/23/21 21:32 Dose: 40 unit Documented by: Insulin Glargine (Insulin Glargine, Human 1 Unit/0.01 Ml) 5 unit SQ DAILY [facility] Last Admin: 08/23/21 09:24 Dose: 5 units Documented by: Insulin Human Lispro (Insulin Lispro 1 Unit/0.01 Ml Unit) 0 unit SQ ACHS [facility]; Protocol Last Admin: 08/23/21 21:32 Dose: 9 units Documented by: Lactulose (Lactulose 20 Gm/30 Ml Oral.Carmen) 10 gm PO DAILYP PRN PRN Reason: Constipation Methocarbamol (Methocarbamol 750 Mg Tablet) 750 mg PO Q6HP PRN PRN Reason: Muscle Spasm Last Admin: 08/23/21 21:33 Dose: 750 mg Documented by: Metronidazole (Metronidazole 500 Mg Tablet) 500 mg PO Q8 [facility]ANI; Protocol Ondansetron HCl (Ondansetron 4 Mg/2 Ml Vial) 4 mg IV Q4HP PRN; Protocol PRN Reason: Nausea And Vomiting Oxycodone HCl (Oxycodone Hcl 5 Mg Tablet) 10 mg PO Q4HP PRN; Protocol PRN Reason: Per Pain Protocol Last Admin: 08/24/21 06:52 Dose: 10 mg Documented by: Senna (Sennosides 1 Tablet) 2 tab PO BID [facility] Last Admin: 08/23/21 21:21 Dose: Not Given Documented by: Sodium Chloride (0.9 % Sodium Chloride 10 Ml Syringe) 10 ml IV Q8 [facility] Last Admin: 08/24/21 05:29 Dose: Not Given Documented by: A/P Narrative A/P Narrative: A: #Severe Sepsis: 2/2 gluteal abscess. Resolved #Large multiloculated gluteal abscess s/p I&D Left side (08/12) & Right side (08/16) -cx with bacteroides/Strep #Bacteremia(Bacteroides fragilis): #DM2: poorly controlled, with hyperglycemia on admit. A1c 11.4 #Hyponatremia: resolved #Anemia, unspecified chronicity: #Right #1 and #2 toe wounds present on admission #Obese: Plan: -Wound care, abscess s/p I&D per surgeon, back to OR today for further washout -IV abx -Analgesics prn -Lantus 40 units at bedtime, SSI-high. -Hold home Metformin and lisinopril -DVT prophylaxis: heparin CODE STATUS: [employer] Spent With Patient Time: Total time spent is greater than 50% in coordination of care (as documented) at patient's floor/unit and/or counseling patient: QUALITY VTE Deep Vein Thrombosis/Pulmonary Embolism Present on Admission: No
[2021-08-24] MEDS: INSULIN LISPRO 1 UNIT/0.01 ML UNIT SQ SCH ×4 (08:12→22:58)
[2021-08-24] MEDS: INSULIN GLARGINE, HUMAN 1 UNIT/0.01 ML SQ SCH ×2 (08:13→22:57)
--- NOTE | 2021-08-24 08:13 | Ultrasound Report ---
INDICATION: US GUIDED LOC OF ABSCESS IN SACRAL /RT FLANK AREA TECHNIQUE: Portable ultrasound of the right gluteal and inguinal region is performed at the bedside COMPARISON: Previous CT scans dated 08/22/2021, 08/15/2021 FINDINGS: There is a surgical drain in the right gluteal and inguinal regions. There is irregular subcutaneous and muscular abnormality consistent with phlegmon or abscess. Attempted cutaneous delineation of this abnormality was performed prior to scheduled surgical debridement. IMPRESSION: 1. Right gluteal and inguinal abscess or phlegmon. 2. Preoperative percutaneous delineation of abnormality performed. Interpreted and Authenticated by: Reji Vallejo 08/24/21
[2021-08-24] MEDS: metroNIDAZOLE 500 MG TABLET PO SCH ×3 (08:15→22:50)
[2021-08-24] MEDS: SENNOSIDES 1 TABLET PO SCH ×2 (08:17→23:01)
[2021-08-24] MEDS: ACETAMINOPHEN 325 MG TABLET PO PRN (08:22)
[2021-08-24] MEDS: METHOCARBAMOL 750 MG TABLET PO PRN ×2 (08:22→18:55)
[2021-08-24] MEDS: HYDROmorphone 1 MG/ML SYRINGE IV PRN (08:23)
[2021-08-24] MEDS: cefTRIAXone 2 GM in DEXTROSE 5% IN WATER 50 ML IV SCH (08:25)
[2021-08-24] MEDS: HEPARIN 5,000 UNIT/ML VIAL SQ SCH ×2 (08:59→22:48)
[2021-08-24] MEDS ORDERED: SCOPOLAMINE 1 PATCH PATCH TOPICAL PRN (09:44)
--- NOTE | 2021-08-24 12:57 | Internal Med Progress Note ---
SUBJECTIVE Subjective Patient information: Note initiated : 08/25/21 at 12:53 pm Service Date, if different from initiated Date: [] Patient: Frankie Rhoades 51 y/o M admitted on 08/12/21 for skin. Chief Complaint: [] Principal diagnosis: Buttock and lower back abscesses Interval history: Interval history: Mr. Rhoades is a 51 year old male with a history of type 2 diabetes presented to the emergency department for left buttock pain and chills. The patient had recently presented to [facility] for the same complaints and was discharged from the emergency department with a prescription of Keflex for 10 days. The patient took the Keflex however his symptoms worsened. In the emergency department at [facility] the patient had a fever of 100.8, tachycardia and elevated respiratory rate. Routine blood work showed a leukocytosis with left shift. Lactic acid was elevated at 3.8. Patient had a CT pelvis with contrast that showed a large left gluteal multiloculated abscess measuring 15 cm. The patient received broad-spectrum antibiotics with vancomycin and Zosyn as well as IV fluids. Repeat lactic acid was 2.0. The patient's blood pressures were low in the emergency department however he says that he usually has low blood pressures at baseline. Hospital medicine was asked to admit the patient for further management. 08/13 Had an I&D of the abscess yesterday evening, multiple drains in place. Anticipate the patient will require another washout and possibly a wound VAC. 2/2 blood cultures growing gram negative bacillus, surgical cultures pending. Increased Lantus and sliding scale insulin, added prandial Humalog. Sepsis physiology has improved. 08/14 Blood cultures grew bacteroides fragilis, awaiting final surgical cultures. Discontinues Vancomycin, continued Zosyn. Glucose continues to be elevated, increased Lantus to 40 units HS, prandial Humalog to 15 units AC TID and continued high dose sliding scale insulin. Surgery planning for reexploration. 08/15 Patient seen examined, still has pain but managable Blood culutres are growing bacteroides and stre p agalactiae , pt remains on zosy Glucose level in 90's today, cut down on prandial humalog to 10 TID Await surgery evaluation with regards to plan for reexploration. 08/16 Patient seen examined, had low bp yesterday, elevated lactic acid, IV fluids given, IV albumin given Repeat CT done which shows nrew developing abscees on the [facility] buttoc Surgery planning to take patient to OR this AM Patient notes of significant pain, Will increase dose of dilaudid and oxycocond (d/c percoset as would limit the amount of apap given) keep shani apap now 08/17 Patient feeling better after I&D of right gluteal abscess yesterday. No overnight event or new complaints. 08/18 Feeling well. No overnight event or new complaints. Good appetite. Awaiting final cultures. Possible wound VAC per surgery. 08/19 No changes overnight. Final cultures completed. Await final surgical rec commendations. 08/20 Feeling okay. No new complaints. Wound cultures with strep and Bacteroides. 08/21 No changes overnight. No new complaints. Encouraged ambulation. Continue per surgery. 08/22 No new complaints or changes overnight. To need to encourage ambulation. Wound care per surgery. 08/23 Doing well. No new complaints overnight events. Likely discharge to shelter facility tomorrow. 08/24 Doing well. No new changes overnight. Going back to the OR for further washout. 08/25 Doing ok, reviewed case with surgery. Social work looking into option of possibly swing bed at [facility]. Physical exam Head: Atraumatic, normal inspection. Eyes: normal appearance, no scleral icterus. Neck: full ROM Respiratory: no respiratory distress. Cardiovascular: normal rate and rhythm, S1, S2. GI/Abdominal: soft, nontender, no guarding. Extremities: full range of motion, nontender. Neurological: CN II-XII intact, intact motor, intact sensation. Psychiatric: normal mood. Skin: warm, normal color Constitutional Vitals: Vital Signs Temp Pulse Resp BP Pulse Ox 98.4 F 77 16 88/54 94 08/24/21 11:38 08/24/21 11:38 08/24/21 11:38 08/24/21 11:38 08/24/21 11:38 Period Temp Pulse Resp BP Sys/Vivas Pulse Ox Last 24 Hr 97.0 F-99.4 F 73-86 12-18 88-110/54-68 94-98 Intake and Output 08/23/21 08/24/21 08/24/21 21:59 05:59 13:59 Intake Total 530 1250 50 Output Total 900 1750 930 Balance -370 500 -880 Weight 106.095 kg Intake & Output: Intake & Output 08/23/21 08/24/21 08/24/21 21:59 05:59 13:59 Intake Total 530 1250 50 Output Total 900 1750 930 Balance -370 500 880 Weight 106.095 kg Intake: IV 50 50 50 Zosyn 4.5 gm In Dextrose 5% in 50 50 Water 50 ml @ 100 mls/hr IV Q8H [facility] Rx#:[id number] Rocephin 2 gm In Dextrose 5% in 50 Water 50 ml @ 100 mls/hr IV Q24H [facility] Rx#:[id number] Oral 480 1200 Output: Void Amount 900 1750 930 Other: Urine Appearance Clear Clear Clear Urine Color Bright Yellow Bright Yellow Dark Yellow Urine Odor Normal Normal OBJ DATA Labs CBC & Chem 7: 08/23/21 05:34 08/22/21 05:17 Labs: Abnormal Lab Results 08/23/21 08/22/21 08/22/21 05:34 05:17 05:17 RBC 3.24 L 3.28 L Hgb 8.6 L 8.7 L Hct 28.0 L 28.6 L MCHC 30.7 L 30.4 L RDW 16.1 H 15.9 H MPV 10.5 H 10.8 H Lymph % (Auto) 15.1 L Lymph # (Auto) 1.11 L 0.92 L Creatinine 0.5 L Glucose 109 H Uric Acid 2.4 L Calcium 8.1 L GGT 255 H Alkaline Phosphatase 285 H Albumin 2.5 L Albumin/Globulin Ratio 0.7 L Meds: Medications Acetaminophen (Acetaminophen 325 Mg Tablet) 650 mg PO Q6HP PRN; Protocol PRN Reason: Per Pain Protocol/Fever > 101 Last Admin: 08/24/21 08:22 Dose: 650 mg Documented by: Dextrose (Dextrose 50% 50 Ml Vial) 0 ml IV UD PRN PRN Reason: Hypoglycemia Diagnostic Test (Pha) (Accu-Chek 1 Each Strip) 1 each FS ACHS [facility] Last Admin: 08/24/21 11:10 Dose: 1 each Documented by: Glucose (Dextrose 31 Gm Oral.Susp) 15 gm PO PRN PRN PRN Reason: Hypoglycemia Heparin Sodium (Porcine) (Heparin 5,000 Unit/Ml Vial) 5,000 unit SQ Q12 [facility] Last Admin: 08/24/21 08:59 Dose: Not Given Documented by: Hydromorphone HCl (Hydromorphone 1 Mg/Ml Syringe) 1 mg IV Q2HP PRN; Protocol PRN Reason: Per Pain Protocol Last Admin: 08/24/21 08:23 Dose: 1 mg Documented by: Acetaminophen (Ofirmev) 650 mg in 65 mls @ 130 mls/hr IV Q8 PRN; Protocol PRN Reason: pain Last Infusion: 08/20/21 18:40 Dose: Infused Documented by: Ceftriaxone Sodium 2 gm/ (Dextrose) 50 mls @ 100 mls/hr IV Q24H [facility]; Protocol Last Infusion: 08/24/21 09:00 Dose: Infused Documented by: Insulin Glargine (Insulin Glargine, Human 1 Unit/0.01 Ml) 40 unit SQ HS [facility] Last Admin: 08/23/21 21:32 Dose: 40 unit Documented by: Insulin Glargine (Insulin Glargine, Human 1 Unit/0.01 Ml) 5 unit SQ DAILY [facility] Last Admin: 08/24/21 08:13 Dose: 2 units Documented by: Insulin Human Lispro (Insulin Lispro 1 Unit/0.01 Ml Unit) 0 unit SQ ACHS [facility]; Protocol Last Admin: 08/24/21 11:08 Dose: Not Given Documented by: Lactulose (Lactulose 20 Gm/30 Ml Oral.Carmen) 10 gm PO DAILYP PRN PRN Reason: Constipation Methocarbamol (Methocarbamol 750 Mg Tablet) 750 mg PO Q6HP PRN PRN Reason: Muscle Spasm Last Admin: 08/24/21 08:22 Dose: 750 mg Documented by: Metronidazole (Metronidazole 500 Mg Tablet) 500 mg PO Q8 [facility]; Protocol Last Admin: 08/24/21 08:15 Dose: 500 mg Documented by: Ondansetron HCl (Ondansetron 4 Mg/2 Ml Vial) 4 mg IV Q4HP PRN; Protocol PRN Reason: Nausea And Vomiting Oxycodone HCl (Oxycodone Hcl 5 Mg Tablet) 10 mg PO Q4HP PRN; Protocol PRN Reason: Per Pain Protocol Last Admin: 08/24/21 11:08 Dose: 10 mg Documented by: Scopolamine (Scopolamine 1 Patch Patch) 1 patch TOPICAL PREOP PRN PRN Reason: Nausea And Vomiting Senna (Sennosides 1 Tablet) 2 tab PO BID [facility] Last Admin: 08/24/21 08:17 Dose: Not Given Documented by: Sodium Chloride (0.9 % Sodium Chloride 10 Ml Syringe) 10 ml IV Q8 [facility] Last Admin: 08/24/21 05:29 Dose: Not Given Documented by: A/P Narrative A/P Narrative: Assessment: 51 year old male with a history of type 2 diabetes admitted for sepsis secondary to a large multiloculated left gluteal abscess. Patient has had multiple I&D's, surgical cultures grew Streptococcus agalactiae and Bacteroides fragilis. Blood cultures grew Bacteroides fragilis. #Severe Sepsis: 2/2 gluteal abscess. Resolved #Large multiloculated gluteal abscess s/p I&D Left side (08/12) & Right side (08/16) -cx with bacteroides/Strep #Bacteremia(Bacteroides fragilis): #DM2: poorly controlled, with hyperglycemia on admit. A1c 11.4 #Hyponatremia: resolved #Anemia, unspecified chronicity: #Right #1 and #2 toe wounds present on admission #Obese: Plan: -Wound care, abscess s/p I&D per surgeon, back to OR today for further washout -IV abx -Analgesics prn -Lantus 40 units at bedtime, SSI-high. -Hold home Metformin and lisinopril -DVT prophylaxis: heparin CODE STATUS: Rag Sorter Spent With Patient Time: Total time spent is greater than 50% in coordination of care (as documented) at patient's floor/unit and/or counseling patient: QUALITY VTE Deep Vein Thrombosis/Pulmonary Embolism Present on Admission: No
[2021-08-24] MEDS ORDERED: DEXAMETHASONE 10 MG/ML VIAL ONE (13:34)
[2021-08-24] MEDS ORDERED: PROPOFOL 200 MG/20 ML VIAL IV ONE (13:34)
[2021-08-24] MEDS ORDERED: PHENYLephrine 1 MG/10 ML SYRINGE (ANEST) ONE (13:34)
[2021-08-24] MEDS ORDERED: MIDAZOLAM 2 MG/2 ML VIAL ONE (13:34)
[2021-08-24] MEDS ORDERED: ePHEDrine 50 MG/5 ML SYRINGE (ANEST) IV ONE (13:34)
[2021-08-24] MEDS ORDERED: ONDANSETRON 4 MG/2 ML VIAL ONE (13:34)
[2021-08-24] MEDS ORDERED: GLYCOPYRROLATE 0.2 MG/ML VIAL IV ONE (13:34)
[2021-08-24] MEDS ORDERED: LIDOCAINE HCL/PF 100 MG/5 ML SYRINGE IV ONE (13:34)
[2021-08-24] MEDS ORDERED: KETAMINE 50 MG/ML Syringe (ANEST) IV ONE (13:34)
[2021-08-24] MEDS ORDERED: fentaNYL 100 MCG/2 ML VIAL IV ONE (13:34)
[2021-08-24] MEDS ORDERED: METOCLOPRAMIDE 10 MG/2 ML VIAL IV PRN (15:24)
[2021-08-24] MEDS ORDERED: BENZOCAINE/MENTHOL 1 LOZENGE PO PRN (15:24)
[2021-08-24] MEDS ORDERED: MEPERIDINE 25 MG/ML VIAL IV PRN (15:24)
[2021-08-24] MEDS ORDERED: IPRATROPIUM/ALBUTEROL 3 ML AMPUL.NEB NEB PRN (15:24)
[2021-08-24] MEDS ORDERED: ePHEDrine 50 MG/ML AMPUL IV PRN (15:24)
--- NOTE | 2021-08-24 15:25 | Brief Operative Note ---
Brief Operative Note Date of procedure: 08/24/21 Pre-op diagnosis: necrotizing abscess of lower back (L2-3)EXTENDING TO RIGHT ANT ILIAC SPINE Procedure: DRAINAGE OF MULTIPLE ABSCESSES OF LOWER BACK AND RIGHT LATERAL FLANK AND RIGHT BUTTOCK 55CM X 20 CM ACROSS LOWER BACK TO RIGHT FLANK 40CM LOWER BACK TO RIGHT BUTTOCK 22CM ILIAC SPINE TO BASE OF RIGHT BUTTOCK Grafts/Implants: No (PATRICIA DRAINS X8) Anesthesia: GLMA Findings: PROGRESSIVE EXTENSUIN OF NECROSIS AND ABSCESS HIGHER UP LOWER BACK AND MORE LATERAL INTO RIGHT BUTTOCK Complications: none Surgeon: Shey Erazo Estimated blood loss (cc): 100 Condition: stable Disposition: PACU
[2021-08-24] MEDS: fentaNYL 100 MCG/2 ML VIAL IV PRN ×2 (15:45→15:50)
[2021-08-25] MEDS: METHOCARBAMOL 750 MG TABLET PO PRN ×3 (03:03→19:02)
[2021-08-25] MEDS: oxyCODONE HCL 5 MG TABLET PO PRN ×6 (03:03→23:27)
[2021-08-25] MEDS: metroNIDAZOLE 500 MG TABLET PO SCH ×3 (05:05→21:31)
[2021-08-25] MEDS: 0.9 % SODIUM CHLORIDE 10 ML SYRINGE IV SCH ×3 (05:06→21:31)
[2021-08-25] MEDS: ACETAMINOPHEN 325 MG TABLET PO PRN ×3 (05:11→19:01)
[2021-08-25] MEDS: cefTRIAXone 2 GM in DEXTROSE 5% IN WATER 50 ML IV SCH (07:24)
[2021-08-25] MEDS: SENNOSIDES 1 TABLET PO SCH ×2 (07:35→21:31)
[2021-08-25] MEDS: HEPARIN 5,000 UNIT/ML VIAL SQ SCH ×2 (08:26→21:30)
[2021-08-25] MEDS: INSULIN GLARGINE, HUMAN 1 UNIT/0.01 ML SQ SCH ×2 (08:26→21:31)
[2021-08-25] MEDS: INSULIN LISPRO 1 UNIT/0.01 ML UNIT SQ SCH ×4 (08:26→21:30)
--- NOTE | 2021-08-25 16:20 | General Surgery Progress Note ---
SUBJECTIVE Subjective Patient information: Note initiated : 08/25/21 at 4:15 pm Service Date, if different from initiated Date: [] Patient: Frankie Rhoades 51 y/o M admitted on 08/12/21 for skin. Chief Complaint: [] Principal diagnosis: Buttock and lower back abscesses Interval history: Patient is doing well. He feels much better today. There is still moderate drainage in the areas that were drained yesterday however there is only a small amount of drainage in the left buttock. Blood sugars are controlled. Labs will be checkED tomorro. W Constitutional Vitals: Vital Signs Temp Pulse Resp BP Pulse Ox 98.3 F 77 20 93/56 97 08/25/21 13:00 08/25/21 13:00 08/25/21 13:00 08/25/21 13:00 08/25/21 13:00 Period Temp Pulse Resp BP Sys/Vivas Pulse Ox Last 24 Hr 96.3 F-98.7 F 77-97 12-20 93-116/56-81 92-100 Intake and Output 08/25/21 08/25/21 08/25/21 05:59 13:59 21:59 Intake Total 800 850 Output Total 2150 1400 320 Balance -1350 -550 -320 Intake & Output: Intake & Output 08/25/21 08/25/21 08/25/21 05:59 13:59 21:59 Intake Total 800 850 Output Total 2150 1400 320 Balance -1350 -550 -320 Intake: IV 50 Rocephin 2 gm In Dextrose 5% in 50 Water 50 ml @ 100 mls/hr IV Q24H [facility] Rx#:[id number] Oral 800 800 Output: Void Amount 2150 1400 320 Other: Meal Jello (2) Percent of Meal Consumed 100% Feeding Ability Independent Urine Appearance Clear Clear Urine Color Bright Yellow Bright Yellow ENT ENT exam: Present mucous membranes moist and normal oropharynx Neck Neck exam: Present full ROM; Absent tenderness Respiratory Respiratory exam: Present normal respiratory exam and CTAB Cardiovascular Cardiovascular exam: Present normal rate and rhythm, RRR, +S1 and +S2; Absent JVD GI/Abdominal GI/Abdominal exam: Present normal bowel sounds; Absent distended or tenderness Extremities Exam Extremities exam: Present full ROM and neurovascular intact Back Exam Additional comments: Significant decrease in swelling in the areas of the lower lumbar region without evidence of cellulitis Neurological Exam Additional comments: No deficit except for neuropathy of the Psychiatric Additional comments: Patient is much more cooperative and peers to be willing to cooperate with his care A/P Assessment and plan (1) Left lower quadrant abdominal abscess: Status: Acute (2) Right lower quadrant abdominal abscess: Status: Acute (3) Diabetes mellitus: Status: Acute (4) Abscess of left buttock: Status: Acute Narrative A/P Narrative: Continue present therapy and acute care for about a week and then transition to [facility] weeks and then with home health Time Spent With Patient Time: Total time spent is greater than 50% in coordination of care (as documented) at patient's floor/unit and/or counseling patient:
[2021-08-26] MEDS: oxyCODONE HCL 5 MG TABLET PO PRN ×5 (04:02→21:14)
[2021-08-26] MEDS: METHOCARBAMOL 750 MG TABLET PO PRN ×4 (04:02→23:13)
[2021-08-26] MEDS: metroNIDAZOLE 500 MG TABLET PO SCH ×3 (05:08→23:13)
[2021-08-26] MEDS: 0.9 % SODIUM CHLORIDE 10 ML SYRINGE IV SCH ×3 (05:08→23:13)
[2021-08-26 07:15] LABS: Basophils # (Auto) 0.03 K/mcL (0.00-0.30); Basophils % (Auto) 0.4 % (0.0-2.0); Eosinophils # (Auto) 0.12 K/mcL (0.00-0.70); Eosinophils % (Auto) 1.7 % (0.0-7.0); Hematocrit 30.3 % (40.1-51.0); Hemoglobin 8.8 g/dL (13.7-17.5); Lymphocytes # (Auto) 1.13 K/mcL (1.50-4.80); Mean Cell Volume 93.2 fL (80.0-100.0); Mean Platelet Volume 10.4 fL (7.4-10.4); Monocytes # (Auto) 0.42 K/mcL (0.10-0.90); Monocytes % (Auto) 5.9 % (1.0-12.0); Platelet Count 171 K/mcL (140-440); RBC 3.25 M/mcL (4.63-6.08); Red Cell Distribution Width 16.6 % (11.5-14.5); WBC 7.1 K/mcL (4.5-11.0)
[2021-08-26] MEDS: INSULIN LISPRO 1 UNIT/0.01 ML UNIT SQ SCH ×4 (07:28→21:18)
[2021-08-26] MEDS: ACETAMINOPHEN 325 MG TABLET PO PRN ×2 (07:41→15:02)
[2021-08-26 07:53] LABS: ALT/SGPT 13 U/L (<40); AST/SGOT 16 U/L (<40); Albumin 2.6 gm/dL (3.2-5.2); Albumin/Globulin Ratio 0.7 (1.0-2.3); Alkaline Phosphatase 264 U/L (39-117); Bilirubin,Direct < 0.2 mg/dL (0-0.3); Bilirubin,Total 0.3 mg/dL (0.1-1.0); Blood Urea Nitrogen 14 mg/dL (6-20); Calcium 8.2 mg/dL (8.6-10.4); Carbon Dioxide 22 mmol/L (22-30); Chloride 106 mmol/L (96-108); Globulin 3.8 gm/dL (2.2-3.7); Glomerular Filtration Rate 127; Glucose 143 mg/dL (70-105); Lactate Dehydrogenase 185 U/L (135-225); Phosphorous 3.6 mg/dL (2.5-4.5); Triglycerides 92 mg/dL (<150); Uric Acid 4.1 mg/dL (2.5-8.0)
[2021-08-26] MEDS: SENNOSIDES 1 TABLET PO SCH ×2 (10:07→21:15)
[2021-08-26] MEDS: HEPARIN 5,000 UNIT/ML VIAL SQ SCH ×2 (10:09→21:14)
[2021-08-26] MEDS: INSULIN GLARGINE, HUMAN 1 UNIT/0.01 ML SQ SCH ×2 (10:09→21:18)
[2021-08-26] MEDS: cefTRIAXone 2 GM in DEXTROSE 5% IN WATER 50 ML IV SCH (10:10)
--- NOTE | 2021-08-26 13:12 | Internal Med Progress Note ---
SUBJECTIVE Subjective Patient information: Note initiated : 08/26/21 at 1:10 pm Service Date, if different from initiated Date: [] Patient: Frankie Rhoades 51 y/o M admitted on 08/12/21 for skin. Chief Complaint: [] Principal diagnosis: Buttock and lower back abscesses Interval history: Interval history: Mr. Rhoades is a 51 year old male with a history of type 2 diabetes presented to the emergency department for left buttock pain and chills. The patient had recently presented to [facility] for the same complaints and was discharged from the emergency department with a prescription of Keflex for 10 days. The patient took the Keflex however his symptoms worsened. In the emergency department at [facility] the patient had a fever of 100.8, tachycardia and elevated respiratory rate. Routine blood work showed a leukocytosis with left shift. Lactic acid was elevated at 3.8. Patient had a CT pelvis with contrast that showed a large left gluteal multiloculated abscess measuring 15 cm. The patient received broad-spectrum antibiotics with vancomycin and Zosyn as well as IV fluids. Repeat lactic acid was 2.0. The patient's blood pressures were low in the emergency department however he says that he usually has low blood pressures at baseline. Hospital medicine was asked to admit the patient for further management. 08/13 Had an I&D of the abscess yesterday evening, multiple drains in place. Anticipate the patient will require another washout and possibly a wound VAC. 2/2 blood cultures growing gram negative bacillus, surgical cultures pending. Increased Lantus and sliding scale insulin, added prandial Humalog. Sepsis physiology has improved. 08/14 Blood cultures grew bacteroides fragilis, awaiting final surgical cultures. Discontinues Vancomycin, continued Zosyn. Glucose continues to be elevated, increased Lantus to 40 units HS, prandial Humalog to 15 units AC TID and continued high dose sliding scale insulin. Surgery planning for reexploration. 08/15 Patient seen examined, still has pain but managable Blood culutres are growing bacteroides and stre p agalactiae , pt remains on zosy Glucose level in 90's today, cut down on prandial humalog to 10 TID Await surgery evaluation with regards to plan for reexploration. 08/16 Patient seen examined, had low bp yesterday, elevated lactic acid, IV fluids given, IV albumin given Repeat CT done which shows nrew developing abscees on the [facility] buttoc Surgery planning to take patient to OR this AM Patient notes of significant pain, Will increase dose of dilaudid and oxycocond (d/c percoset as would limit the amount of apap given) keep shani apap now 08/17 Patient feeling better after I&D of right gluteal abscess yesterday. No overnight event or new complaints. 08/18 Feeling well. No overnight event or new complaints. Good appetite. Awaiting final cultures. Possible wound VAC per surgery. 08/19 No changes overnight. Final cultures completed. Await final surgical rec commendations. 08/20 Feeling okay. No new complaints. Wound cultures with strep and Bacteroides. 08/21 No changes overnight. No new complaints. Encouraged ambulation. Continue per surgery. 08/22 No new complaints or changes overnight. To need to encourage ambulation. Wound care per surgery. 08/23 Doing well. No new complaints overnight events. Likely discharge to [facility] tomorrow. 08/24 Doing well. No new changes overnight. Going back to the OR for further washout. 08/25 Doing ok, reviewed case with surgery. Social work looking into option of possibly swing bed at [facility]. 08/26 Swing bed is not an options, most likely disposition from acute care will be [facility]. Discussed antibiotics with ID at [facility] in [place], ID agreed with Ceftriaxone and Flagyl for now and could discharge on oral Amoxicillin and oral Flagyl for about 10 days after last I&D. Physical exam Head: Atraumatic, normal inspection. Eyes: normal appearance, no scleral icterus. Neck: full ROM Respiratory: no respiratory distress. Cardiovascular: normal rate and rhythm, S1, S2. GI/Abdominal: soft, nontender, no guarding. Extremities: large surgical incisions for gluteal abscess, multiple surgical drains Neurological: CN II-XII intact, intact motor, intact sensation. Psychiatric: normal mood. Skin: warm, normal color Constitutional Vitals: Vital Signs Temp Pulse Resp BP Pulse Ox 97.1 F 89 18 92/57 97 08/26/21 12:42 08/26/21 12:42 08/26/21 12:42 08/26/21 12:42 08/26/21 12:42 Period Temp Pulse Resp BP Sys/Vivas Pulse Ox Last 24 Hr 97.1 F-97.9 F 77-100 16-20 90-102/55-67 96-99 Intake and Output 08/25/21 08/26/21 08/26/21 21:59 05:59 13:59 Intake Total 400 400 850 Output Total 2420 1350 1275 Balance -2019950 -137 Weight 104.417 kg Intake & Output: Intake & Output 08/25/21 08/26/21 08/26/21 21:59 05:59 13:59 Intake Total 400 400 850 Output Total 2420 1350 1275 Balance -2019950 -146 Weight 104.417 kg Intake: IV 50 Rocephin 2 gm In Dextrose 5% in 50 Water 50 ml @ 100 mls/hr IV Q24H [facility] Rx#:[id number] Oral 400 400 800 Output: Void Amount 2420 1350 1275 Other: Meal Dinner Breakfast Percent of Meal Consumed 100% 100% Feeding Ability Independent Independent Urine Appearance Clear Clear Clear Urine Color Bright Yellow Bright Yellow Bright Yellow Urine Odor Normal OBJ DATA Labs CBC & Chem 7: 08/26/21 05:33 08/26/21 05:33 Labs: Abnormal Lab Results 08/26/21 08/26/21 05:33 05:33 RBC 3.25 L Hgb 8.8 L Hct 30.3 L MCHC 29.0 L RDW 16.6 H Lymph # (Auto) 1.13 L Creatinine 0.5 L Glucose 143 H Calcium 8.2 L GGT 210 H Alkaline Phosphatase 264 H Albumin 2.6 L Globulin 3.8 H Albumin/Globulin Ratio 0.7 L Meds: Medications Acetaminophen (Acetaminophen 325 Mg Tablet) 650 mg PO Q6HP PRN; Protocol PRN Reason: Per Pain Protocol/Fever > 101 Last Admin: 08/26/21 07:41 Dose: 650 mg Documented by: Dextrose (Dextrose 50% 50 Ml Vial) 0 ml IV UD PRN PRN Reason: Hypoglycemia Diagnostic Test (Pha) (Accu-Chek 1 Each Strip) 1 each FS ACHS [facility] Last Admin: 08/26/21 11:47 Dose: 1 each Documented by: Glucose (Dextrose 31 Gm Oral.Susp) 15 gm PO PRN PRN PRN Reason: Hypoglycemia Heparin Sodium (Porcine) (Heparin 5,000 Unit/Ml Vial) 5,000 unit SQ Q12 [facility] Last Admin: 08/26/21 10:09 Dose: 5,000 unit Documented by: Hydromorphone HCl (Hydromorphone 1 Mg/Ml Syringe) 1 mg IV Q2HP PRN; Protocol PRN Reason: Per Pain Protocol Last Admin: 08/24/21 08:23 Dose: 1 mg Documented by: Acetaminophen (Ofirmev) 650 mg in 65 mls @ 130 mls/hr IV Q8 PRN; Protocol PRN Reason: pain Last Infusion: 08/20/21 18:40 Dose: Infused Documented by: Ceftriaxone Sodium 2 gm/ (Dextrose) 50 mls @ 100 mls/hr IV Q24H [facility]; Protocol Last Infusion: 08/26/21 10:40 Dose: Infused Documented by: Insulin Glargine (Insulin Glargine, Human 1 Unit/0.01 Ml) 40 unit SQ HS [facility] Last Admin: 08/25/21 21:31 Dose: 40 unit Documented by: Insulin Glargine (Insulin Glargine, Human 1 Unit/0.01 Ml) 5 unit SQ DAILY [facility] Last Admin: 08/26/21 10:09 Dose: 5 units Documented by: Insulin Human Lispro (Insulin Lispro 1 Unit/0.01 Ml Unit) 0 unit SQ ACHS [facility]; Protocol Last Admin: 08/26/21 11:57 Dose: 6 units Documented by: Lactulose (Lactulose 20 Gm/30 Ml Oral.Carmen) 10 gm PO DAILYP PRN PRN Reason: Constipation Methocarbamol (Methocarbamol 750 Mg Tablet) 750 mg PO Q6HP PRN PRN Reason: Muscle Spasm Last Admin: 08/26/21 10:07 Dose: 750 mg Documented by: Metronidazole (Metronidazole 500 Mg Tablet) 500 mg PO Q8 [facility]; Protocol Last Admin: 08/26/21 05:08 Dose: 500 mg Documented by: Ondansetron HCl (Ondansetron 4 Mg/2 Ml Vial) 4 mg IV Q4HP PRN; Protocol PRN Reason: Nausea And Vomiting Oxycodone HCl (Oxycodone Hcl 5 Mg Tablet) 10 mg PO Q4HP PRN; Protocol PRN Reason: Per Pain Protocol Last Admin: 08/26/21 11:45 Dose: 10 mg Documented by: Scopolamine (Scopolamine 1 Patch Patch) 1 patch TOPICAL PREOP PRN PRN Reason: Nausea And Vomiting Senna (Sennosides 1 Tablet) 2 tab PO BID [facility] Last Admin: 08/26/21 10:07 Dose: 2 tab Documented by: Sodium Chloride (0.9 % Sodium Chloride 10 Ml Syringe) 10 ml IV Q8 [facility] Last Admin: 08/26/21 05:08 Dose: 10 ml Documented by: A/P Narrative A/P Narrative: Assessment: 51 year old male with a history of type 2 diabetes admitted for sepsis secondary to a large multiloculated left gluteal abscess. Patient has had multiple I&D's, surgical cultures grew Streptococcus agalactiae and Bacteroides fragilis. Blood cultures grew Bacteroides fragilis. #Resolved severe sepsis: 2/2 gluteal abscess. #Large multiloculated gluteal abscess s/p multiple I&D -cx with bacteroides/Strep #Bacteremia(Bacteroides fragilis): #DM2: poorly controlled, with hyperglycemia on admit. A1c 11.4 #Hyponatremia: resolved #Anemia, unspecified chronicity: #Right #1 and #2 toe wounds present on admission #Obese: Plan: -Wound care, abscess s/p I&D per surgeon, back to OR today for further washout -Ceftriaxone and Flagyl for now, could discharge on Amoxicillin and Flagyl. -Analgesics prn -Lantus 40 units at bedtime, SSI-high. -Hold home Metformin and lisinopril -DVT prophylaxis: heparin -CODE STATUS: Full -Disposition: Possibly LTAC. Time Spent With Patient Time: Total time spent is greater than 50% in coordination of care (as documented) at patient's floor/unit and/or counseling patient: QUALITY VTE Deep Vein Thrombosis/Pulmonary Embolism Present on Admission: No
--- NOTE | 2021-08-26 14:54 | General Surgery Progress Note ---
SUBJECTIVE Subjective Patient information: Note initiated : 08/26/21 at 2:51 pm Service Date, if different from initiated Date: [] Patient: Frankie Rhoades 51 y/o M admitted on 08/12/21 for skin. Chief Complaint: [] Principal diagnosis: Buttock and lower back abscesses Interval history: Patient continues to improve daily. He is afebrile and his white blood count is normal. The volume of drainage is decreasing yesterday. He does not have any cellulitis. We will continue on present therapy for the time being. The best option for him would be [facility] with once daily dressing changes. This can be followed up with home health and I am willing to follow him in the office as needed Constitutional Vitals: Vital Signs Temp Pulse Resp BP Pulse Ox 97.1 F 89 18 92/57 97 08/26/21 12:42 08/26/21 12:42 08/26/21 12:42 08/26/21 12:42 08/26/21 12:42 Period Temp Pulse Resp BP Sys/Vivas Pulse Ox Last 24 Hr 97.1 F-97.9 F 77-100 16-20 90-102/55-67 96-99 Intake and Output 08/26/21 08/26/21 08/26/21 05:59 13:59 21:59 Intake Total 400 850 Output Total 1350 1275 Balance -950 -425 Weight 230 lb 3.2 oz Patient Weight 08/27/21 05:59 Weight 230 lb 3.2 oz Intake & Output: Intake & Output 08/26/21 08/26/21 08/26/21 05:59 13:59 21:59 Intake Total 400 850 Output Total 1350 1275 Balance -950 -425 Weight 230 lb 3.2 oz Intake: IV 50 Rocephin 2 gm In Dextrose 5% in 50 Water 50 ml @ 100 mls/hr IV Q24H [facility] Rx#:[id number] Oral 400 800 Output: Void Amount 1350 1275 Other: Meal Breakfast Percent of Meal Consumed 100% Feeding Ability Independent Urine Appearance Clear Clear Urine Color Bright Yellow Bright Yellow Urine Odor Normal A/P Assessment and plan (1) Right lower quadrant abdominal abscess: Status: Acute (2) Left lower quadrant abdominal abscess: Status: Acute (3) Diabetes mellitus: Status: Acute (4) Abscess of left buttock: Status: Acute Narrative A/P Narrative: Continue present therapy Time Spent With Patient Time: Total time spent is greater than 50% in coordination of care (as documented) at patient's floor/unit and/or counseling patient:
[2021-08-27] MEDS: oxyCODONE HCL 5 MG TABLET PO PRN ×5 (02:53→20:23)
[2021-08-27] MEDS: 0.9 % SODIUM CHLORIDE 10 ML SYRINGE IV SCH ×4 (05:08→22:46)
[2021-08-27] MEDS: metroNIDAZOLE 500 MG TABLET PO SCH ×3 (05:27→22:40)
[2021-08-27] MEDS: METHOCARBAMOL 750 MG TABLET PO PRN ×2 (05:30→18:45)
[2021-08-27] MEDS: ACETAMINOPHEN 325 MG TABLET PO PRN ×3 (05:30→18:45)
[2021-08-27] MEDS: INSULIN LISPRO 1 UNIT/0.01 ML UNIT SQ SCH ×4 (07:04→20:33)
[2021-08-27] MEDS: INSULIN GLARGINE, HUMAN 1 UNIT/0.01 ML SQ SCH ×2 (08:45→20:32)
[2021-08-27] MEDS: cefTRIAXone 2 GM in DEXTROSE 5% IN WATER 50 ML IV SCH ×2 (08:46→10:10)
[2021-08-27] MEDS: HEPARIN 5,000 UNIT/ML VIAL SQ SCH ×2 (08:46→20:31)
[2021-08-27] MEDS: SENNOSIDES 1 TABLET PO SCH ×2 (10:05→20:38)
[2021-08-27 10:06] LABS: Basophils # (Auto) 0.04 K/mcL (0.00-0.30); Basophils % (Auto) 0.5 % (0.0-2.0); Eosinophils # (Auto) 0.09 K/mcL (0.00-0.70); Hematocrit 29.1 % (40.1-51.0); Hemoglobin 8.8 g/dL (13.7-17.5); Lymphocytes # (Auto) 1.02 K/mcL (1.50-4.80); Lymphocytes % (Auto) 11.8 % (15.5-49.0); Mean Cell Volume 88.2 fL (80.0-100.0); Mean Corpuscular HGB Conc 30.2 g/dL (31.0-36.0); Monocytes # (Auto) 0.48 K/mcL (0.10-0.90); Monocytes % (Auto) 5.5 % (1.0-12.0); Neutrophils % (Auto) 81.2 % (38.0-78.0); Platelet Count 193 K/mcL (140-440); Red Cell Distribution Width 16.7 % (11.5-14.5); WBC 8.7 K/mcL (4.5-11.0)
[2021-08-27 10:38] LABS: ALT/SGPT 12 U/L (<40); AST/SGOT 14 U/L (<40); Albumin 2.8 gm/dL (3.2-5.2); Albumin/Globulin Ratio 0.7 (1.0-2.3); Alkaline Phosphatase 259 U/L (39-117); Bilirubin,Direct < 0.2 mg/dL (0-0.3); Bilirubin,Total 0.4 mg/dL (0.1-1.0); Blood Urea Nitrogen 12 mg/dL (6-20); Calcium 8.3 mg/dL (8.6-10.4); Carbon Dioxide 26 mmol/L (22-30); Chloride 99 mmol/L (96-108); Globulin 4.1 gm/dL (2.2-3.7); Glomerular Filtration Rate 127; Glucose 98 mg/dL (70-105); Lactate Dehydrogenase 198 U/L (135-225); Phosphorous 3.5 mg/dL (2.5-4.5); Triglycerides 87 mg/dL (<150); Uric Acid 3.8 mg/dL (2.5-8.0)
[2021-08-27] MEDS: HYDROmorphone 1 MG/ML SYRINGE IV PRN (12:02)
--- NOTE | 2021-08-27 15:04 | Internal Med Progress Note ---
SUBJECTIVE Subjective Patient information: Note initiated : 08/27/21 at 2:59 pm Service Date, if different from initiated Date: [] Patient: Frankie Rhoades 51 y/o M admitted on 08/12/21 for skin. Chief Complaint: [] Principal diagnosis: Buttock and lower back abscesses Interval history: Interval history: Mr. Rhoades is a 51 year old male with a history of type 2 diabetes presented to the emergency department for left buttock pain and chills. The patient had recently presented to [facility] for the same complaints and was discharged from the emergency department with a prescription of Keflex for 10 days. The patient took the Keflex however his symptoms worsened. In the emergency department at [facility] the patient had a fever of 100.8, tachycardia and elevated respiratory rate. Routine blood work showed a leukocytosis with left shift. Lactic acid was elevated at 3.8. Patient had a CT pelvis with contrast that showed a large left gluteal multiloculated abscess measuring 15 cm. The patient received broad-spectrum antibiotics with vancomycin and Zosyn as well as IV fluids. Repeat lactic acid was 2.0. The patient's blood pressures were low in the emergency department however he says that he usually has low blood pressures at baseline. Hospital medicine was asked to admit the patient for further management. 08/13 Had an I&D of the abscess yesterday evening, multiple drains in place. Anticipate the patient will require another washout and possibly a wound VAC. 2/2 blood cultures growing gram negative bacillus, surgical cultures pending. Increased Lantus and sliding scale insulin, added prandial Humalog. Sepsis physiology has improved. 08/14 Blood cultures grew bacteroides fragilis, awaiting final surgical cultures. Discontinues Vancomycin, continued Zosyn. Glucose continues to be elevated, increased Lantus to 40 units HS, prandial Humalog to 15 units AC TID and continued high dose sliding scale insulin. Surgery planning for reexploration. 08/15 Patient seen examined, still has pain but managable Blood culutres are growing bacteroides and stre p agalactiae , pt remains on zosy Glucose level in 90's today, cut down on prandial humalog to 10 TID Await surgery evaluation with regards to plan for reexploration. 08/16 Patient seen examined, had low bp yesterday, elevated lactic acid, IV fluids given, IV albumin given Repeat CT done which shows nrew developing abscees on the [facility] buttoc Surgery planning to take patient to OR this AM Patient notes of significant pain, Will increase dose of dilaudid and oxycocond (d/c percoset as would limit the amount of apap given) keep shani apap now 08/17 Patient feeling better after I&D of right gluteal abscess yesterday. No overnight event or new complaints. 08/18 Feeling well. No overnight event or new complaints. Good appetite. Awaiting final cultures. Possible wound VAC per surgery. 08/19 No changes overnight. Final cultures completed. Await final surgical rec commendations. 08/20 Feeling okay. No new complaints. Wound cultures with strep and Bacteroides. 08/21 No changes overnight. No new complaints. Encouraged ambulation. Continue per surgery. 08/22 No new complaints or changes overnight. To need to encourage ambulation. Wound care per surgery. 08/23 Doing well. No new complaints overnight events. Likely discharge to [facility] facility tomorrow. 08/24 Doing well. No new changes overnight. Going back to the OR for further washout. 08/25 Doing ok, reviewed case with surgery. Social work looking into option of possibly swing bed at [facility]. 08/26 Swing bed is not an option, most likely disposition from acute care will be NIA. Discussed antibiotics with ID at [facility] in [place], ID agreed with Ceftriaxone and Flagyl for now and could discharge on oral Amoxicillin and oral Flagyl for about 10 days after last I&D. 08/27 Afebrile, continues to have significant saturation of wound dressings. Awaiting general surgery's final recommendations. Best discharge option appears to be [facility], SNF and Swing Bed not an options at this time. Physical exam Head: Atraumatic, normal inspection. Eyes: normal appearance, no scleral icterus. Neck: full ROM Respiratory: no respiratory distress. Cardiovascular: normal rate and rhythm, S1, S2. GI/Abdominal: soft, nontender, no guarding. Extremities: large surgical incisions for gluteal abscess, multiple Durga zaheer ins Neurological: CN II-XII intact, intact motor, intact sensation. Psychiatric: normal mood. Skin: warm, normal color Constitutional Vitals: Vital Signs Temp Pulse Resp BP Pulse Ox 97.3 F 85 20 97/62 97 02/10/22 13:00 08/27/21 13:00 08/27/21 13:00 08/27/21 13:00 08/27/21 13:00 Period Temp Pulse Resp BP Sys/Vivas Pulse Ox Last 24 Hr 97.1 F-98.3 F 85-97 96-107/59-65 96-98 Intake and Output 08/27/21 08/27/21 08/27/21 05:59 13:59 21:59 Intake Total 750 410 Output Total 1100 450 Balance -350 -40 Intake & Output: Intake & Output 08/27/21 08/27/21 08/27/21 05:59 13:59 21:59 Intake Total 750 410 Output Total 1100 450 Balance -350 -40 Intake: IV 50 Rocephin 2 gm In Dextrose 5% in 50 Water 50 ml @ 100 mls/hr IV Q24H [facility] Rx#:[id number] Oral 750 360 Output: Urine Catheter Amount 450 Void Amount 1100 Other: Meal Breakfast Percent of Meal Consumed 100% Urine Appearance Clear Urine Color Dark Yellow OBJ DATA Labs CBC & Chem 7: 08/27/21 05:36 08/27/21 05:36 Labs: Abnormal Lab Results 08/27/21 08/27/21 08/26/21 05:36 05:36 05:33 RBC 3.30 L Hgb 8.8 L Hct 29.1 L MCHC 30.2 L RDW 16.7 H MPV 11.0 H Neut % (Auto) 81.2 H Lymph % (Auto) 11.8 L Lymph # (Auto) 1.02 L Creatinine 0.5 L 0.5 L Glucose 143 H Calcium 8.3 L 8.2 L GGT 279 H 210 H Alkaline Phosphatase 259 H 264 H Albumin 2.8 L 2.6 L Globulin 4.1 H 3.8 H Albumin/Globulin Ratio 0.7 L 0.7 L 08/26/21 05:33 RBC 3.25 L Hgb 8.8 L Hct 30.3 L MCHC 29.0 L RDW 16.6 H MPV Neut % (Auto) Lymph % (Auto) Lymph # (Auto) 1.13 L Creatinine Glucose Calcium GGT Alkaline Phosphatase Albumin Globulin Albumin/Globulin Ratio Meds: Medications Acetaminophen (Acetaminophen 325 Mg Tablet) 650 mg PO Q6HP PRN; Protocol PRN Reason: Per Pain Protocol/Fever > 101 Last Admin: 08/27/21 10:57 Dose: 650 mg Documented by: Dextrose (Dextrose 50% 50 Ml Vial) 0 ml IV UD PRN PRN Reason: Hypoglycemia Diagnostic Test (Pha) (Accu-Chek 1 Each Strip) 1 each FS ACHS [facility] Last Admin: 08/27/21 12:55 Dose: 1 each Documented by: Glucose (Dextrose 31 Gm Oral.Susp) 15 gm PO PRN PRN PRN Reason: Hypoglycemia Heparin Sodium (Porcine) (Heparin 5,000 Unit/Ml Vial) 5,000 unit SQ Q12 [facility] Last Admin: 08/27/21 08:46 Dose: 5,000 unit Documented by: Hydromorphone HCl (Hydromorphone 1 Mg/Ml Syringe) 1 mg IV Q2HP PRN; Protocol PRN Reason: Per Pain Protocol Last Admin: 08/27/21 12:02 Dose: 1 mg Documented by: Acetaminophen (Ofirmev) 650 mg in 65 mls @ 130 mls/hr IV Q8 PRN; Protocol PRN Reason: pain Last Infusion: 08/20/21 18:40 Dose: Infused Documented by: Ceftriaxone Sodium 2 gm/ (Dextrose) 50 mls @ 100 mls/hr IV Q24H [facility]; Protocol Last Infusion: 08/27/21 11:00 Dose: Infused Documented by: Insulin Glargine (Insulin Glargine, Human 1 Unit/0.01 Ml) 40 unit SQ [facility] Last Admin: 08/26/21 21:18 Dose: 40 unit Documented by: Insulin Glargine (Insulin Glargine, Human 1 Unit/0.01 Ml) 5 unit SQ DAILY [facility] Last Admin: 08/27/21 08:45 Dose: 5 units Documented by: Insulin Human Lispro (Insulin Lispro 1 Unit/0.01 Ml Unit) 0 unit SQ [facility]; Protocol Last Admin: 08/27/21 12:54 Dose: Not Given Documented by: Lactulose (Lactulose 20 Gm/30 Ml Oral.Carmen) 10 gm PO DAILYP PRN PRN Reason: Constipation Methocarbamol (Methocarbamol 750 Mg Tablet) 750 mg PO Q6HP PRN PRN Reason: Muscle Spasm Last Admin: 08/27/21 05:30 Dose: 750 mg Documented by: Metronidazole (Metronidazole 500 Mg Tablet) 500 mg PO Q8 [facility]; Protocol Last Admin: 08/27/21 14:01 Dose: 500 mg Documented by: Ondansetron HCl (Ondansetron 4 Mg/2 Ml Vial) 4 mg IV Q4HP PRN; Protocol PRN Reason: Nausea And Vomiting Oxycodone HCl (Oxycodone Hcl 5 Mg Tablet) 10 mg PO Q4HP PRN; Protocol PRN Reason: Per Pain Protocol Last Admin: 08/27/21 11:49 Dose: 10 mg Documented by: Scopolamine (Scopolamine 1 Patch Patch) 1 patch TOPICAL PREOP PRN PRN Reason: Nausea And Vomiting Senna (Sennosides 1 Tablet) 2 tab PO BID [facility] Last Admin: 08/27/21 10:05 Dose: Not Given Documented by: Sodium Chloride (0.9 % Sodium Chloride 10 Ml Syringe) 10 ml IV Q8 [facility] Last Admin: 08/27/21 14:01 Dose: 10 ml Documented by: A/P Narrative A/P Narrative: Assessment: 51 year old male with a history of type 2 diabetes admitted for sepsis secondary to a large multiloculated left gluteal abscess. Patient has had multiple I&D's, surgical cultures grew Streptococcus agalactiae and Ba cteroides fragilis. Blood cultures grew Bacteroides fragilis. #Resolved severe sepsis: 2/2 gluteal abscess. #Large multiloculated gluteal abscess s/p multiple I&D -cx with bacteroides/Strep #Bacteremia(Bacteroides fragilis): #DM2: poorly controlled, with hyperglycemia on admit. A1c 11.4 #Hyponatremia: resolved #Anemia, unspecified chronicity: #Right #1 and #2 toe wounds present on admission #Obese: Plan: -Wound care, abscess s/p I&D per surgeon -Ceftriaxone and Flagyl for now, could discharge on Amoxicillin and Flagyl. -Analgesics prn -Lantus 40 units at bedtime, SSI-high. -Hold home Metformin and lisinopril -DVT prophylaxis: heparin -CODE STATUS: Full -Disposition: Likely [facility] when general surgery feels the patient is ready to discharge. Time Spent With Patient Time: Total time spent is greater than 50% in coordination of care (as documented) at patient's floor/unit and/or counseling patient: QUALITY VTE Deep Vein Thrombosis/Pulmonary Embolism Present on Admission: No
--- NOTE | 2021-08-27 16:47 | General Surgery Progress Note ---
SUBJECTIVE Subjective Patient information: Note initiated : 08/27/21 at 4:46 pm Service Date, if different from initiated Date: [] Patient: Frankie Rhoades 51 y/o M admitted on 08/12/21 for skin. Chief Complaint: [] Principal diagnosis: Buttock and lower back abscesses Interval history: Patient is showing gradual improvement. He appears to be mentally more agreeable to handle the extensive work that is going to take to get him healed. He cooperates better with his wound care. He still has a major amount of purulent drainage. White count 8.7, 8.8, hematocrit 29.1, potassium 3.4, BUN 12, creatinine 0.5, glucose 98, LFTs are much improved. Constitutional Vitals: Vital Signs Temp Pulse Resp BP Pulse Ox 97.3 F 85 20 97/62 97 08/27/21 13:00 08/27/21 13:00 08/27/21 13:00 08/27/21 13:00 08/27/21 13:00 Period Temp Pulse Resp BP Sys/Vivas Pulse Ox Last 24 Hr 97.1 F-98.3 F 85-97 96-107/59-65 96-98 Intake and Output 08/27/21 08/27/21 08/27/21 05:59 13:59 21:59 Intake Total 750 410 Output Total 1100 450 Balance -350 -40 Intake & Output: Intake & Output 08/27/21 08/27/21 08/27/21 05:59 13:59 21:59 Intake Total 750 410 Output Total 1100 450 Balance -350 -40 Intake: IV 50 Rocephin 2 gm In Dextrose 5% in 50 Water 50 ml @ 100 mls/hr IV Q24H [facility] Rx#:[id number] Oral 750 360 Output: Urine Catheter Amount 450 Void Amount 1100 Other: Meal Breakfast Percent of Meal Consumed 100% Urine Appearance Clear Urine Color Dark Yellow Head Head exam: Present atraumatic, normal inspection and normocephalic Eye Eye exam: Present EOMI Pupils: Present normal accommodation and PERRL ENT ENT exam: Present mucous membranes moist, normal exam and normal oropharynx Neck Neck exam: Present full ROM and normal inspection; Absent tenderness Respiratory Respiratory exam: Present normal respiratory exam and CTAB; Absent wheezes Cardiovascular Cardiovascular exam: Present normal rate and rhythm, RRR, +S1 and +S2; Absent JVD GI/Abdominal GI/Abdominal exam: Present normal bowel sounds, soft, distended and tenderness (Moderate tenderness in areas of drains in right lower quadrant) Extremities Exam Extremities exam: Present full ROM, normal inspection and neurovascular intact Back Exam Back exam: Present tenderness (Edema of the lower back is significantly decreased; drainage in the lower lumbar region is decreasing) Neurological Exam Neurological exam: Present alert, normal gait and oriented X3 Psychiatric Psychiatric exam: Present depressed and flat affect A/P Assessment and plan (1) Abscess of lower back: Status: Acute (2) Right lower quadrant abdominal abscess: Status: Acute (3) Diabetes mellitus: Status: Acute (4) Abscess of left buttock: Status: Acute (5) Perirectal abscess: Status: Acute Narrative A/P Narrative: Patient continues to do well. He has made good progress and may be stable for transfer to long-term care facility in 1 to 2 days. Time Spent With Patient Time: Total time spent is greater than 50% in coordination of care (as documented) at patient's floor/unit and/or counseling patient:
[2021-08-28] MEDS: oxyCODONE HCL 5 MG TABLET PO PRN ×6 (00:37→22:39)
[2021-08-28] MEDS: HYDROmorphone 1 MG/ML SYRINGE IV PRN ×2 (00:50→16:02)
[2021-08-28] MEDS: 0.9 % SODIUM CHLORIDE 10 ML SYRINGE IV SCH ×3 (04:48→22:40)
[2021-08-28] MEDS: metroNIDAZOLE 500 MG TABLET PO SCH ×3 (06:02→22:20)
[2021-08-28] MEDS: INSULIN LISPRO 1 UNIT/0.01 ML UNIT SQ SCH ×4 (07:22→22:07)
[2021-08-28] MEDS: INSULIN GLARGINE, HUMAN 1 UNIT/0.01 ML SQ SCH ×2 (08:14→22:27)
[2021-08-28] MEDS: HEPARIN 5,000 UNIT/ML VIAL SQ SCH ×2 (08:14→22:06)
[2021-08-28] MEDS: SENNOSIDES 1 TABLET PO SCH ×2 (08:15→22:28)
[2021-08-28] MEDS: ACETAMINOPHEN 325 MG TABLET PO PRN ×2 (08:19→16:02)
[2021-08-28 08:31] LABS: Basophils # (Auto) 0.06 K/mcL (0.00-0.30); Basophils % (Auto) 0.9 % (0.0-2.0); Eosinophils # (Auto) 0.18 K/mcL (0.00-0.70); Eosinophils % (Auto) 2.7 % (0.0-7.0); Hemoglobin 8.7 g/dL (13.7-17.5); Lymphocytes # (Auto) 1.23 K/mcL (1.50-4.80); Lymphocytes % (Auto) 18.8 % (15.5-49.0); Mean Cell Volume 88.1 fL (80.0-100.0); Mean Corpuscular HGB Conc 31.1 g/dL (31.0-36.0); Mean Platelet Volume 10.9 fL (7.4-10.4); Monocytes # (Auto) 0.45 K/mcL (0.10-0.90); Monocytes % (Auto) 6.9 % (1.0-12.0); Neutrophils % (Auto) 70.7 % (38.0-78.0); Platelet Count 183 K/mcL (140-440); RBC 3.18 M/mcL (4.63-6.08); Red Cell Distribution Width 16.7 % (11.5-14.5); WBC 6.6 K/mcL (4.5-11.0)
[2021-08-28 08:42] LABS: ALT/SGPT 10 U/L (<40); AST/SGOT 15 U/L (<40); Albumin 2.6 gm/dL (3.2-5.2); Albumin/Globulin Ratio 0.6 (1.0-2.3); Alkaline Phosphatase 242 U/L (39-117); Bilirubin,Direct < 0.2 mg/dL (0-0.3); Bilirubin,Total 0.4 mg/dL (0.1-1.0); Blood Urea Nitrogen 12 mg/dL (6-20); Calcium 8.3 mg/dL (8.6-10.4); Carbon Dioxide 23 mmol/L (22-30); Chloride 102 mmol/L (96-108); Globulin 4.2 gm/dL (2.2-3.7); Glomerular Filtration Rate 127; Glucose 98 mg/dL (70-105); Lactate Dehydrogenase 198 U/L (135-225); Phosphorous 3.7 mg/dL (2.5-4.5); Triglycerides 110 mg/dL (<150); Uric Acid 4.4 mg/dL (2.5-8.0)
[2021-08-28] MEDS: cefTRIAXone 2 GM in DEXTROSE 5% IN WATER 50 ML IV SCH (09:29)
--- NOTE | 2021-08-28 14:25 | General Surgery Progress Note ---
SUBJECTIVE Subjective Patient information: Note initiated : 08/28/21 at 2:24 pm Service Date, if different from initiated Date: [] Patient: Frankie Rhoades 51 y/o M admitted on 08/12/21 for skin. Chief Complaint: [] Principal diagnosis: Buttock and lower back abscesses Interval history: Patient is doing well. He has no complaints of pain except in his joints. He is afebrile. Drainage from his multiple Durga drains significantly decreased from yesterday. White blood count 6.6, hemoglobin 8.7, hematocrit 28, potassium 4, BUN 12, creatinine 0.5 serum glucose is less than 100. Constitutional Vitals: Vital Signs Temp Pulse Resp BP Pulse Ox 99.1 F H 85 17 105/64 100 08/28/21 08:00 08/28/21 08:00 08/28/21 08:00 08/28/21 08:00 08/28/21 08:00 Period Temp Pulse Resp BP Sys/Vivas Pulse Ox Last 24 Hr 97.3 F-99.1 F 80-88 14-20 92-105/54-64 99-100 Intake and Output 08/28/21 08/28/21 08/28/21 05:59 13:59 21:59 Intake Total 700 660 Output Total 600 920 Balance 100 -260 Intake & Output: Intake & Output 08/28/21 08/28/21 08/28/21 05:59 13:59 21:59 Intake Total 700 660 Output Total 600 920 Balance 100 -260 Intake: Oral 700 660 Output: Void Amount 600 920 Other: Meal Breakfast Percent of Meal Consumed 100% Urine Appearance Clear Clear Urine Color Bright Yellow Bright Yellow Stool Size Moderate Stool Color Brown Stool Consistency Formed Eye Eye exam: Present EOMI Pupils: Present normal accommodation and PERRL ENT ENT exam: Present normal exam and normal oropharynx Neck Neck exam: Present normal inspection Respiratory Respiratory exam: Present normal respiratory exam and CTAB; Absent wheezes Cardiovascular Cardiovascular exam: Present normal rate and rhythm, RRR and +S1; Absent JVD GI/Abdominal GI/Abdominal exam: Present normal bowel sounds and soft; Absent distended Additional comments: Tenderness around Durga drains in right lower quadrant. No significant cellulitis or ecchymosis. Extremities Exam Extremities exam: Present full ROM and neurovascular intact; Absent pedal edema Back Exam Additional comments: Drainage from the Durga drains in his lower back is decreasing daily. Neurological Exam Neurological exam: Present alert, normal gait, oriented X3 and reflexes normal; Absent motor sensory deficit Psychiatric Psychiatric exam: Present normal affect and normal mood A/P Assessment and plan (1) Right lower quadrant abdominal abscess: Status: Acute (2) Left lower quadrant abdominal abscess: Status: Acute (3) Diabetes mellitus: Status: Acute (4) Perirectal abscess: Status: Acute (5) Abscess of left buttock: Status: Acute Narrative A/P Narrative: Patient will be continued on present therapy. He is stable for transfer to [facility] when a bed is available Time Spent With Patient Time: Total time spent is greater than 50% in coordination of care (as documented) at patient's floor/unit and/or counseling patient:
--- NOTE | 2021-08-28 16:41 | Internal Med Progress Note ---
SUBJECTIVE Subjective Patient information: Note initiated : 08/28/21 at 4:39 pm Service Date, if different from initiated Date: [] Patient: Frankie Rhoades 51 y/o M admitted on 08/12/21 for skin. Chief Complaint: [] Principal diagnosis: Buttock and lower back abscesses Interval history: Interval history: Mr. Rhoades is a 51 year old male with a history of type 2 diabetes presented to the emergency department for left buttock pain and chills. The patient had recently presented to [facility] for the same complaints and was discharged from the emergency department with a prescription of Keflex for 10 days. The patient took the Keflex however his symptoms worsened. In the emergency department at [facility] the patient had a fever of 100.8, tachycardia and elevated respiratory rate. Routine blood work showed a leukocytosis with left shift. Lactic acid was elevated at 3.8. Patient had a CT pelvis with contrast that showed a large left gluteal multiloculated abscess measuring 15 cm. The patient received broad-spectrum antibiotics with vancomycin and Zosyn as well as IV fluids. Repeat lactic acid was 2.0. The patient's blood pressures were low in the emergency department however he says that he usually has low blood pressures at baseline. Hospital medicine was asked to admit the patient for further management. 08/13 Had an I&D of the abscess yesterday evening, multiple drains in place. Anticipate the patient will require another washout and possibly a wound VAC. 2/2 blood cultures growing gram negative bacillus, surgical cultures pending. Increased Lantus and sliding scale insulin, added prandial Humalog. Sepsis physiology has improved. 08/14 Blood cultures grew bacteroides fragilis, awaiting final surgical cultures. Discontinues Vancomycin, continued Zosyn. Glucose continues to be elevated, increased Lantus to 40 units HS, prandial Humalog to 15 units AC TID and continued high dose sliding scale insulin. Surgery planning for reexploration. 08/15 Patient seen examined, still has pain but managable Blood culutres are growing bacteroides and stre p agalactiae , pt remains on zosy Glucose level in 90's today, cut down on prandial humalog to 10 TID Await surgery evaluation with regards to plan for reexploration. 08/16 Patient seen examined, had low bp yesterday, elevated lactic acid, IV fluids given, IV albumin given Repeat CT done which shows nrew developing abscees on the [facility] buttoc Surgery planning to take patient to OR this AM Patient notes of significant pain, Will increase dose of dilaudid and oxycocond (d/c percoset as would limit the amount of apap given) keep shani apap now 08/17 Patient feeling better after I&D of right gluteal abscess yesterday. No overnight event or new complaints. 08/18 Feeling well. No overnight event or new complaints. Good appetite. Awaiting final cultures. Possible wound VAC per surgery. 08/19 No changes overnight. Final cultures completed. Await final surgical rec commendations. 08/20 Feeling okay. No new complaints. Wound cultures with strep and Bacteroides. 08/21 No changes overnight. No new complaints. Encouraged ambulation. Continue per surgery. 08/22 No new complaints or changes overnight. To need to encourage ambulation. Wound care per surgery. 08/23 Doing well. No new complaints overnight events. Likely discharge to [facility] facility tomorrow. 08/24 Doing well. No new changes overnight. Going back to the OR for further washout. 08/25 Doing ok, reviewed case with surgery. Social work looking into option of possibly swing bed at [facility]. 08/26 Swing bed is not an option, most likely disposition from acute care will be [facility]. Discussed antibiotics with ID at [facility] in [place], ID agreed with Ceftriaxone and Flagyl for now and could discharge on oral Amoxicillin and oral Flagyl for about 10 days after last I&D. 08/27 Afebrile, continues to have significant saturation of wound dressings. Awaiting general surgery's final recommendations. Best discharge option appears to be [facility], SNF and Swing Bed not an options at this time. 08/28 Had a temperature of 99.1, procalcitonin .21. Looking into possible discharge to [facility] for complex wound cares. Physical exam Head: Atraumatic, normal inspection. Eyes: normal appearance, no scleral icterus. Neck: full ROM Respiratory: no respiratory distress. Cardiovascular: normal rate and rhythm, S1, S2. GI/Abdominal: soft, nontender, no guarding. Extremities: large surgical incisions for gluteal abscess, multiple Durga drains Neurological: CN II-XII intact, intact motor, intact sensation. Psychiatric: normal mood. Skin: warm, normal color Constitutional Vitals: Vital Signs Temp Pulse Resp BP Pulse Ox 98.0 F 87 17 111/60 99 08/28/21 12:00 08/28/21 12:00 08/28/21 12:00 08/28/21 12:00 08/28/21 12:00 Period Temp Pulse Resp BP Sys/Vivas Pulse Ox Last 24 Hr 97.3 F-99.1 F 80-88 14-20 92-111/54-64 99-100 Intake and Output 08/28/21 08/28/21 08/28/21 05:59 13:59 21:59 Intake Total 700 660 Output Total 600 920 800 Balance 100 -260 -800 Intake & Output: Intake & Output 08/28/21 08/28/21 08/28/21 05:59 13:59 21:59 Intake Total 700 660 Output Total 600 920 800 Balance 100 -260 -800 Intake: Oral 700 660 Output: Void Amount 600 920 800 Other: Meal Breakfast Lunch Percent of Meal Consumed 100% 100% Urine Appearance Clear Clear Clear Urine Color Bright Yellow Bright Yellow Bright Yellow Stool Size Moderate Stool Color Brown Stool Consistency Formed OBJ DATA Labs CBC & Chem 7: 08/28/21 05:50 08/28/21 05:50 Labs: Abnormal Lab Results 08/28/21 08/28/21 08/28/21 05:50 05:50 05:50 RBC 3.18 L Hgb 8.7 L Hct 28.0 L MCHC RDW 16.7 H MPV 10.9 H Neut % (Auto) Lymph % (Auto) Lymph # (Auto) 1.23 L Creatinine 0.5 L Glucose Calcium 8.3 L GGT 215 H Alkaline Phosphatase 242 H Albumin 2.6 L Globulin 4.2 H Albumin/Globulin Ratio 0.6 L Procalcitonin 0.21 H 08/27/21 08/27/21 08/26/21 05:36 05:36 05:33 RBC 3.30 L Hgb 8.8 L Hct 29.1 L MCHC 30.2 L RDW 16.7 H MPV 11.0 H Neut % (Auto) 81.2 H Lymph % (Auto) 11.8 L Lymph # (Auto) 1.02 L Creatinine 0.5 L 0.5 L Glucose 143 H Calcium 8.3 L 8.2 L GGT 279 H 210 H Alkaline Phosphatase 259 H 264 H Albumin 2.8 L 2.6 L Globulin 4.1 H 3.8 H Albumin/Globulin Ratio 0.7 L 0.7 L Procalcitonin 08/26/21 05:33 RBC 3.25 L Hgb 8.8 L Hct 30.3 L MCHC 29.0 L RDW 16.6 H MPV Neut % (Auto) Lymph % (Auto) Lymph # (Auto) 1.13 L Creatinine Glucose Calcium GGT Alkaline Phosphatase Albumin Globulin Albumin/Globulin Ratio Procalcitonin Meds: Medications Acetaminophen (Acetaminophen 325 Mg Tablet) 650 mg PO Q6HP PRN; Protocol PRN Reason: Per Pain Protocol/Fever > 101 Last Admin: 08/28/21 16:02 Dose: 650 mg Documented by: Dextrose (Dextrose 50% 50 Ml Vial) 0 ml IV UD PRN PRN Reason: Hypoglycemia Diagnostic Test (Pha) (Accu-Chek 1 Each Strip) 1 each FS ACHS [facility] Last Admin: 08/28/21 11:53 Dose: 1 each Documented by: Glucose (Dextrose 31 Gm Oral.Susp) 15 gm PO PRN PRN PRN Reason: Hypoglycemia Heparin Sodium (Porcine) (Heparin 5,000 Unit/Ml Vial) 5,000 unit SQ Q12 [facility] Last Admin: 08/28/21 08:14 Dose: 5,000 unit Documented by: Hydromorphone HCl (Hydromorphone 1 Mg/Ml Syringe) 1 mg IV Q2HP PRN; Protocol PRN Reason: Per Pain Protocol Last Admin: 08/28/21 16:02 Dose: 1 mg Documented by: Acetaminophen (Ofirmev) 650 mg in 65 mls @ 130 mls/hr IV Q8 PRN; Protocol PRN Reason: pain Last Infusion: 08/20/21 18:40 Dose: Infused Documented by: Ceftriaxone Sodium 2 gm/ (Dextrose) 50 mls @ 100 mls/hr IV Q24H [facility]; Protocol Last Admin: 08/28/21 09:29 Dose: 100 mls/hr Documented by: Insulin Glargine (Insulin Glargine, Human 1 Unit/0.01 Ml) 40 unit SQ HS [facility] Last Admin: 08/27/21 20:32 Dose: 40 unit Documented by: Insulin Glargine (Insulin Glargine, Human 1 Unit/0.01 Ml) 5 unit SQ DAILY [facility] Last Admin: 08/28/21 08:14 Dose: 5 units Documented by: Insulin Human Lispro (Insulin Lispro 1 Unit/0.01 Ml Unit) 0 unit SQ [facility]; Protocol Last Admin: 08/28/21 11:52 Dose: 3 units Documented by: Lactulose (Lactulose 20 Gm/30 Ml Oral.Carmen) 10 gm PO DAILYP PRN PRN Reason: Constipation Methocarbamol (Methocarbamol 750 Mg Tablet) 750 mg PO Q6HP PRN PRN Reason: Muscle Spasm Last Admin: 08/27/21 18:45 Dose: 750 mg Documented by: Metronidazole (Metronidazole 500 Mg Tablet) 500 mg PO Q8 [facility]; Protocol Last Admin: 08/28/21 14:28 Dose: 500 mg Documented by: Ondansetron HCl (Ondansetron 4 Mg/2 Ml Vial) 4 mg IV Q4HP PRN; Protocol PRN Reason: Nausea And Vomiting Oxycodone HCl (Oxycodone Hcl 5 Mg Tablet) 10 mg PO Q4HP PRN; Protocol PRN Reason: Per Pain Protocol Last Admin: 08/28/21 14:28 Dose: 10 mg Documented by: Scopolamine (Scopolamine 1 Patch Patch) 1 patch TOPICAL PREOP PRN PRN Reason: Nausea And Vomiting Senna (Sennosides 1 Tablet) 2 tab PO BID [facility] Last Admin: 08/28/21 08:15 Dose: Not Given Documented by: Sodium Chloride (0.9 % Sodium Chloride 10 Ml Syringe) 10 ml IV Q8 [facility] Last Admin: 08/28/21 16:37 Dose: 10 ml Documented by: A/P Narrative A/P Narrative: Assessment: 51 year old male with a history of type 2 diabetes admitted for sepsis secondary to a large multiloculated left gluteal abscess. Patient has had multiple I&D's, surgical cultures grew Streptococcus agalactiae and Bacteroides fragilis. Blood cultures grew Bacteroides fragilis. #Resolved severe sepsis: 2/2 gluteal abscess. #Large multiloculated gluteal abscess s/p multiple I&D -cx with bacteroides/Strep #Bacteremia(Bacteroides fragilis): #DM2: poorly controlled, with hyperglycemia on admit. A1c 11.4 #Hyponatremia: resolved #Anemia, unspecified chronicity: #Right #1 and #2 toe wounds present on admission #Obese: Plan: -Wound care, abscess s/p I&D per surgeon -Ceftriaxone and Flagyl for now, could discharge on Amoxicillin and Flagyl. -Analgesics prn -Lantus HS and SSI-high. -Hold home Metformin and lisinopril -DVT prophylaxis: heparin -CODE STATUS: Full -Disposition: Likely [facility] when general surgery feels the patient is ready to discharge. Time Spent With Patient Time: Total time spent is greater than 50% in coordination of care (as documented) at patient's floor/unit and/or counseling patient: QUALITY VTE Deep Vein Thrombosis/Pulmonary Embolism Present on Admission: No
[2021-08-29] MEDS: oxyCODONE HCL 5 MG TABLET PO PRN ×5 (03:39→21:03)
[2021-08-29] MEDS: metroNIDAZOLE 500 MG TABLET PO SCH ×3 (05:19→21:02)
[2021-08-29] MEDS: METHOCARBAMOL 750 MG TABLET PO PRN ×3 (05:20→20:10)
[2021-08-29] MEDS: ACETAMINOPHEN 325 MG TABLET PO PRN ×3 (05:20→20:09)
[2021-08-29] MEDS: 0.9 % SODIUM CHLORIDE 10 ML SYRINGE IV SCH ×3 (06:10→21:05)
[2021-08-29 07:31] LABS: ALT/SGPT 9 U/L (<40); AST/SGOT 12 U/L (<40); Albumin 2.8 gm/dL (3.2-5.2); Albumin/Globulin Ratio 0.7 (1.0-2.3); Alkaline Phosphatase 247 U/L (39-117); Bilirubin,Direct < 0.2 mg/dL (0-0.3); Bilirubin,Total 0.4 mg/dL (0.1-1.0); Blood Urea Nitrogen 8 mg/dL (6-20); Calcium 8.3 mg/dL (8.6-10.4); Carbon Dioxide 25 mmol/L (22-30); Chloride 102 mmol/L (96-108); Globulin 3.9 gm/dL (2.2-3.7); Glomerular Filtration Rate 127; Glucose 99 mg/dL (70-105); Lactate Dehydrogenase 163 U/L (135-225); Phosphorous 3.9 mg/dL (2.5-4.5); Triglycerides 126 mg/dL (<150); Uric Acid 4.2 mg/dL (2.5-8.0)
[2021-08-29] MEDS: INSULIN LISPRO 1 UNIT/0.01 ML UNIT SQ SCH ×4 (07:35→21:02)
[2021-08-29] MEDS: SENNOSIDES 1 TABLET PO SCH ×2 (09:43→23:56)
[2021-08-29] MEDS: AMOXICILLIN 250 MG CAPSULE PO SCH ×3 (09:43→21:02)
[2021-08-29] MEDS: HEPARIN 5,000 UNIT/ML VIAL SQ SCH ×2 (09:43→21:02)
--- NOTE | 2021-08-29 10:25 | General Surgery Progress Note ---
SUBJECTIVE Subjective Patient information: Note initiated : 08/29/21 at 10:23 am Service Date, if different from initiated Date: [] Patient: Frankie Rhoades 51 y/o M admitted on 08/12/21 for skin. Chief Complaint: [] Principal diagnosis: Buttock and lower back abscesses Interval history: Patient is doing well. He has no complaints of pain except in his joints. He is afebrile. Drainage from his multiple Durga drains significantly decreased. No complaints today. Tolerating regular diet. Constitutional Vitals: Vital Signs Temp Pulse Resp BP Pulse Ox 97 F 83 17 96/55 98 08/29/21 06:48 08/29/21 06:48 08/29/21 06:48 08/29/21 06:48 08/29/21 06:48 Period Temp Pulse Resp BP Sys/Vivas Pulse Ox Last 24 Hr 97 F-98.2 F 72-90 15-18 96-111/55-68 95-99 Intake and Output 08/28/21 08/29/21 08/29/21 21:59 05:59 13:59 Intake Total 960 Output Total 800 1550 Balance -800 -590 Weight 214 lb 6 oz Intake & Output: Intake & Output 08/28/21 08/29/21 08/29/21 21:59 05:59 13:59 Intake Total 960 Output Total 800 1550 Balance -800 -590 Weight 214 lb 6 oz Intake: Oral 660 GI Tube Flush 300 Output: Void Amount 800 1550 Other: Meal Lunch Dinner Percent of Meal Consumed 100% 100% Feeding Ability Independent Urine Appearance Clear Clear Urine Color Bright Yellow Bright Yellow Urine Odor Normal General appearance: cooperative and no acute distress GI/Abdominal GI/Abdominal exam: Present normal bowel sounds and soft; Absent distended or tenderness A/P Narrative A/P Narrative: This is a pleasant 51-year-old gentleman who underwent multiple abscess drainages. Patient will be continued on present therapy. He is stable for transfer to [facility] when a bed is available Time Spent With Patient Time: Total time spent is greater than 50% in coordination of care (as documented) at patient's floor/unit and/or counseling patient:
--- NOTE | 2021-08-29 13:45 | Internal Med Progress Note ---
SUBJECTIVE Subjective Patient information: Note initiated : 08/29/21 at 1:44 pm Service Date, if different from initiated Date: [] Patient: Frankie Rhoades 51 y/o M admitted on 08/12/21 for skin. Chief Complaint: [] Principal diagnosis: Buttock and lower back abscesses Interval history: Interval history: Mr. Rhoades is a 51 year old male with a history of type 2 diabetes presented to the emergency department for left buttock pain and chills. The patient had recently presented to [facility] for the same complaints and was discharged from the emergency department with a prescription of Keflex for 10 days. The patient took the Keflex however his symptoms worsened. In the emergency department at [facility] the patient had a fever of 100.8, tachycardia and elevated respiratory rate. Routine blood work showed a leukocytosis with left shift. Lactic acid was elevated at 3.8. Patient had a CT pelvis with contrast that showed a large left gluteal multiloculated abscess measuring 15 cm. The patient received broad-spectrum antibiotics with vancomycin and Zosyn as well as IV fluids. Repeat lactic acid was 2.0. The patient's blood pressures were low in the emergency department however he says that he usually has low blood pressures at baseline. Hospital medicine was asked to admit the patient for further management. 08/13 Had an I&D of the abscess yesterday evening, multiple drains in place. Anticipate the patient will require another washout and possibly a wound VAC. 2/2 blood cultures growing gram negative bacillus, surgical cultures pending. Increased Lantus and sliding scale insulin, added prandial Humalog. Sepsis physiology has improved. 08/14 Blood cultures grew bacteroides fragilis, awaiting final surgical cultures. Discontinues Vancomycin, continued Zosyn. Glucose continues to be elevated, increased Lantus to 40 units HS, prandial Humalog to 15 units AC TID and continued high dose sliding scale insulin. Surgery planning for reexploration. 08/15 Patient seen examined, still has pain but managable Blood culutres are growing bacteroides and stre p agalactiae , pt remains on zosy Glucose level in 90's today, cut down on prandial humalog to 10 TID Await surgery evaluation with regards to plan for reexploration. 08/16 Patient seen examined, had low bp yesterday, elevated lactic acid, IV fluids given, IV albumin given Repeat CT done which shows nrew developing abscees on the [facility] buttoc Surgery planning to take patient to OR this AM Patient notes of significant pain, Will increase dose of dilaudid and oxycocond (d/c percoset as would limit the amount of apap given) keep shani apap now 08/17 Patient feeling better after I&D of right gluteal abscess yesterday. No overnight event or new complaints. 08/18 Feeling well. No overnight event or new complaints. Good appetite. Awaiting final cultures. Possible wound VAC per surgery. 08/19 No changes overnight. Final cultures completed. Await final surgical rec commendations. 08/20 Feeling okay. No new complaints. Wound cultures with strep and Bacteroides. 08/21 No changes overnight. No new complaints. Encouraged ambulation. Continue per surgery. 08/22 No new complaints or changes overnight. To need to encourage ambulation. Wound care per surgery. 08/23 Doing well. No new complaints overnight events. Likely discharge to senior care facility tomorrow. 08/24 Doing well. No new changes overnight. Going back to the OR for further washout. 08/25 Doing ok, reviewed case with surgery. Social work looking into option of possibly swing bed at [facility]. 08/26 Swing bed is not an option, most likely disposition from acute care will be [facility]. Discussed antibiotics with ID at [facility] in [place], ID agreed with Ceftriaxone and Flagyl for now and could discharge on oral Amoxicillin and oral Flagyl for about 10 days after last I&D. 08/27 Afebrile, continues to have significant saturation of wound dressings. Awaiting general surgery's final recommendations. Best discharge option appears to be [facility], SNF and Swing Bed not an options at this time. 08/28 Had a temperature of 99.1, procalcitonin .21. Looking into possible discharge to [facility] for complex wound cares. 08/29 Complains of back pain, CRP 3.7, afebrile, procalcitonin yesterday was significantly improved from prior value. Started Amoxicillin and discontinued Ceftriaxone, continued oral Metronidazole. Physical exam Head: Atraumatic, normal inspection. Eyes: normal appearance, no scleral icterus. Neck: full ROM Respiratory: no respiratory distress. Cardiovascular: normal rate and rhythm, S1, S2. GI/Abdominal: soft, nontender, no guarding. Extremities: multiple surgical incisions on bilateral buttocks, multiple Durga drains Neurological: CN II-XII intact, intact motor, intact sensation. Psychiatric: normal mood. Skin: warm, normal color Constitutional Vitals: Vital Signs Temp Pulse Resp BP Pulse Ox 97 F 89 16 87/57 98 08/29/21 11:58 08/29/21 11:58 08/29/21 11:58 08/29/21 11:58 08/29/21 11:58 Period Temp Pulse Resp BP Sys/Viavs Pulse Ox Last 24 Hr 97 F-98.2 F 72-90 15-18 87-102/55-68 95-99 Intake and Output 08/28/21 08/29/21 08/29/21 21:59 05:59 13:59 Intake Total 960 Output Total 800 1550 Balance -800 -590 Weight 97.239 kg Intake & Output: Intake & Output 08/28/21 08/29/21 08/29/21 21:59 05:59 13:59 Intake Total 960 Output Total 800 1550 Balance -800 -590 Weight 97.239 kg Intake: Oral 660 GI Tube Flush 300 Output: Void Amount 800 1550 Other: Meal Lunch Dinner Percent of Meal Consumed 100% 100% Feeding Ability Independent Urine Appearance Clear Clear Urine Color Bright Yellow Bright Yellow Urine Odor Normal OBJ DATA Labs CBC & Chem 7: 08/28/21 05:50 08/29/21 05:31 Labs: Abnormal Lab Results 08/29/21 08/29/21 08/28/21 05:31 05:31 05:50 RBC Hgb Hct MCHC RDW MPV Neut % (Auto) Lymph % (Auto) Lymph # (Auto) Creatinine 0.5 L Calcium 8.3 L GGT 214 H Alkaline Phosphatase 247 H C-Reactive Protein 3.70 H Albumin 2.8 L Globulin 3.9 H Albumin/Globulin Ratio 0.7 L Procalcitonin 0.21 H 08/28/21 08/28/21 08/27/21 05:50 05:50 05:36 RBC 3.18 L Hgb 8.7 L Hct 28.0 L MCHC RDW 16.7 H MPV 10.9 H Neut % (Auto) Lymph % (Auto) Lymph # (Auto) 1.23 L Creatinine 0.5 L 0.5 L Calcium 8.3 L 8.3 L GGT 215 H 279 H Alkaline Phosphatase 242 H 259 H C-Reactive Protein Albumin 2.6 L 2.8 L Globulin 4.2 H 4.1 H Albumin/Globulin Ratio 0.6 L 0.7 L Procalcitonin 08/27/21 05:36 RBC 3.30 L Hgb 8.8 L Hct 29.1 L MCHC 30.2 L RDW 16.7 H MPV 11.0 H Neut % (Auto) 81.2 H Lymph % (Auto) 11.8 L Lymph # (Auto) 1.02 L Creatinine Calcium GGT Alkaline Phosphatase C-Reactive Protein Albumin Globulin Albumin/Globulin Ratio Procalcitonin Meds: Medications Acetaminophen (Acetaminophen 325 Mg Tablet) 650 mg PO Q6HP PRN; Protocol PRN Reason: Per Pain Protocol/Fever > 101 Last Admin: 08/29/21 11:29 Dose: 650 mg Documented by: Amoxicillin (Amoxicillin 250 Mg Capsule) 500 mg PO TID [facility]; Protocol Stop: 09/04/21 08:59 Last Admin: 08/29/21 09:43 Dose: 500 mg Documented by: Dextrose (Dextrose 50% 50 Ml Vial) 0 ml IV UD PRN PRN Reason: Hypoglycemia Diagnostic Test (Pha) (Accu-Chek 1 Each Strip) 1 each FS [facility] Last Admin: 08/29/21 11:33 Dose: 1 each Documented by: Glucose (Dextrose 31 Gm Oral.Susp) 15 gm PO PRN PRN PRN Reason: Hypoglycemia Heparin Sodium (Porcine) (Heparin 5,000 Unit/Ml Vial) 5,000 unit SQ Q12 [facility] Last Admin: 08/29/21 09:43 Dose: 5,000 unit Documented by: Insulin Glargine (Insulin Glargine, Human 1 Unit/0.01 Ml) 40 unit SQ [facility] Last Admin: 08/28/21 22:27 Dose: 40 unit Documented by: Insulin Human Lispro (Insulin Lispro 1 Unit/0.01 Ml Unit) 0 unit SQ [facility]; Protocol Last Admin: 08/29/21 11:33 Dose: 3 units Documented by: Lactulose (Lactulose 20 Gm/30 Ml Oral.Carmen) 10 gm PO DAILYP PRN PRN Reason: Constipation Methocarbamol (Methocarbamol 750 Mg Tablet) 750 mg PO Q6HP PRN PRN Reason: Muscle Spasm Last Admin: 08/29/21 11:28 Dose: 750 mg Documented by: Metronidazole (Metronidazole 500 Mg Tablet) 500 mg PO Q8 [facility]; Protocol Stop: 09/04/21 07:59 Last Admin: 08/29/21 05:19 Dose: 500 mg Documented by: Ondansetron HCl (Ondansetron 4 Mg/2 Ml Vial) 4 mg IV Q4HP PRN; Protocol PRN Reason: Nausea And Vomiting Oxycodone HCl (Oxycodone Hcl 5 Mg Tablet) 10 mg PO Q4HP PRN; Protocol PRN Reason: Per Pain Protocol Last Admin: 08/29/21 11:32 Dose: 10 mg Documented by: Scopolamine (Scopolamine 1 Patch Patch) 1 patch TOPICAL PREOP PRN PRN Reason: Nausea And Vomiting Senna (Sennosides 1 Tablet) 2 tab PO BID [facility] Last Admin: 08/29/21 09:43 Dose: Not Given Documented by: Sodium Chloride (0.9 % Sodium Chloride 10 Ml Syringe) 10 ml IV Q8 [facility] Last Admin: 08/29/21 06:10 Dose: 10 ml Documented by: A/P Narrative A/P Narrative: Assessment: 51 year old male with a history of type 2 diabetes admitted for sepsis secondary to a large multiloculated left gluteal abscess. Patient has had multiple I&D's, surgical cultures grew Streptococcus agalactiae and Bact eroides fragilis. Blood cultures grew Bacteroides fragilis. #Resolved severe sepsis: 2/2 gluteal abscess. #Large multiloculated gluteal abscess s/p multiple I&D -cx with bacteroides/Strep #Bacteremia(Bacteroides fragilis): #DM2: poorly controlled on admission, currently much better controlled. Hemoglobin A1c was 11.4 #Hyponatremia: resolved #Anemia, unspecified chronicity: #Right #1 and #2 toe wounds present on admission #Obese: Plan: -Wound care, abscess s/p I&D per surgeon -Amoxicillin and Flagyl for 10 days after last I&D. -Analgesics prn -Lantus HS and SSI-high. -Hold home Metformin and lisinopril -DVT prophylaxis: heparin -CODE STATUS: Full -Disposition: Possible [facility] pending placement. Likely discharge on insulin regimen for DM for better glycemic control. Time Spent With Patient Time: Total time spent is greater than 50% in coordination of care (as documented) at patient's floor/unit and/or counseling patient: QUALITY VTE Deep Vein Thrombosis/Pulmonary Embolism Present on Admission: No
[2021-08-29] MEDS: INSULIN GLARGINE, HUMAN 1 UNIT/0.01 ML SQ SCH (21:02)
[2021-08-30] MEDS: oxyCODONE HCL 5 MG TABLET PO PRN ×6 (01:22→23:36)
[2021-08-30] MEDS: 0.9 % SODIUM CHLORIDE 10 ML SYRINGE IV SCH ×3 (05:35→21:11)
[2021-08-30] MEDS: metroNIDAZOLE 500 MG TABLET PO SCH ×3 (05:37→21:11)
[2021-08-30] MEDS: ACETAMINOPHEN 325 MG TABLET PO PRN ×2 (06:57→13:41)
[2021-08-30 07:18] LABS: Basophils # (Auto) 0.06 K/mcL (0.00-0.30); Basophils % (Auto) 1.1 % (0.0-2.0); Eosinophils # (Auto) 0.19 K/mcL (0.00-0.70); Eosinophils % (Auto) 3.5 % (0.0-7.0); Hematocrit 30.2 % (40.1-51.0); Hemoglobin 9.1 g/dL (13.7-17.5); Lymphocytes # (Auto) 1.21 K/mcL (1.50-4.80); Lymphocytes % (Auto) 22.5 % (15.5-49.0); Mean Cell Volume 89.1 fL (80.0-100.0); Mean Corpuscular HGB Conc 30.1 g/dL (31.0-36.0); Mean Platelet Volume 10.9 fL (7.4-10.4); Monocytes % (Auto) 7.4 % (1.0-12.0); Neutrophils % (Auto) 65.5 % (38.0-78.0); Platelet Count 176 K/mcL (140-440); RBC 3.39 M/mcL (4.63-6.08); WBC 5.4 K/mcL (4.5-11.0)
[2021-08-30 07:49] LABS: Albumin 2.7 gm/dL (3.2-5.2); Blood Urea Nitrogen 8 mg/dL (6-20); Calcium 8.3 mg/dL (8.6-10.4); Carbon Dioxide 24 mmol/L (22-30); Chloride 104 mmol/L (96-108); Glomerular Filtration Rate 127; Glucose 91 mg/dL (70-105); Phosphorous 3.5 mg/dL (2.5-4.5)
[2021-08-30] MEDS: AMOXICILLIN 250 MG CAPSULE PO SCH ×3 (08:37→21:09)
[2021-08-30] MEDS: SENNOSIDES 1 TABLET PO SCH ×2 (08:37→21:09)
[2021-08-30] MEDS: HEPARIN 5,000 UNIT/ML VIAL SQ SCH ×2 (08:38→21:09)
[2021-08-30] MEDS: INSULIN LISPRO 1 UNIT/0.01 ML UNIT SQ SCH ×4 (08:41→21:10)
--- NOTE | 2021-08-30 10:17 | General Surgery Progress Note ---
SUBJECTIVE Subjective Patient information: Note initiated : 08/30/21 at 10:14 am Service Date, if different from initiated Date: [] Patient: Frankie Rhoades 51 y/o M admitted on 08/12/21 for skin. Chief Complaint: [] Principal diagnosis: Buttock and lower back abscesses Interval history: Patient with no complaints overnight. Continues to tolerate regular diet, afebrile. Constitutional Vitals: Vital Signs Temp Pulse Resp BP Pulse Ox 97.1 F 46 L 20 93/63 97 08/30/21 07:41 08/30/21 07:41 08/30/21 07:41 08/30/21 07:41 08/30/21 07:41 Period Temp Pulse Resp BP Sys/Vivas Pulse Ox Last 24 Hr 97 F-97.9 F 46-89 16-20 87-105/56-65 96-98 Intake and Output 08/29/21 08/30/21 08/30/21 21:59 05:59 13:59 Intake Total 1840 200 Output Total 3700 970 Balance -1860 -770 Weight 216 lb 3 oz Intake & Output: Intake & Output 08/29/21 08/30/21 08/30/21 21:59 05:59 13:59 Intake Total 1840 200 Output Total 3700 970 Balance -1860 -770 Weight 216 lb 3 oz Intake: Oral 1840 200 Output: Void Amount 3700 970 Other: Meal Dinner Percent of Meal Consumed 90% Feeding Ability Independent Urine Appearance Clear Urine Color Bright Yellow Urine Odor Normal General appearance: cooperative and no acute distress GI/Abdominal GI/Abdominal exam: Present soft; Absent distended or tenderness A/P Narrative A/P Narrative: This is a pleasant 51-year-old gentleman who underwent multiple abscess drainages. Patient will be continued on present therapy. He is stable for transfer to [facility] when a bed is available Time Spent With Patient Time: Total time spent is greater than 50% in coordination of care (as documented) at patient's floor/unit and/or counseling patient:
--- NOTE | 2021-08-30 11:38 | Internal Med Progress Note ---
SUBJECTIVE Subjective Patient information: Note initiated : 08/30/21 at 11:35 am Service Date, if different from initiated Date: [] Patient: Frankie Rhoades 51 y/o M admitted on 08/12/21 for skin. Chief Complaint: [] Principal diagnosis: Buttock and lower back abscesses Interval history: Interval history: Mr. Rhoades is a 51 year old male with a history of type 2 diabetes presented to the emergency department for left buttock pain and chills. The patient had recently presented to [facility] for the same complaints and was discharged from the emergency department with a prescription of Keflex for 10 days. The patient took the Keflex however his symptoms worsened. In the emergency department at [facility] the patient had a fever of 100.8, tachycardia and elevated respiratory rate. Routine blood work showed a leukocytosis with left shift. Lactic acid was elevated at 3.8. Patient had a CT pelvis with contrast that showed a large left gluteal multiloculated abscess measuring 15 cm. The patient received broad-spectrum antibiotics with vancomycin and Zosyn as well as IV fluids. Repeat lactic acid was 2.0. The patient's blood pressures were low in the emergency department however he says that he usually has low blood pressures at baseline. Hospital medicine was asked to admit the patient for further management. 08/13 Had an I&D of the abscess yesterday evening, multiple drains in place. Anticipate the patient will require another washout and possibly a wound VAC. 2/2 blood cultures growing gram negative bacillus, surgical cultures pending. Increased Lantus and sliding scale insulin, added prandial Humalog. Sepsis physiology has improved. 08/14 Blood cultures grew bacteroides fragilis, awaiting final surgical cultures. Discontinues Vancomycin, continued Zosyn. Glucose continues to be elevated, increased Lantus to 40 units HS, prandial Humalog to 15 units AC TID and continued high dose sliding scale insulin. Surgery planning for reexploration. 08/15 Patient seen examined, still has pain but managable Blood culutres are growing bacteroides and stre p agalactiae , pt remains on zosy Glucose level in 90's today, cut down on prandial humalog to 10 TID Await surgery evaluation with regards to plan for reexploration. 08/16 Patient seen examined, had low bp yesterday, elevated lactic acid, IV fluids given, IV albumin given Repeat CT done which shows nrew developing abscees on the [facility] buttoc Surgery planning to take patient to OR this AM Patient notes of significant pain, Will increase dose of dilaudid and oxycocond (d/c percoset as would limit the amount of apap given) keep shani apap now 08/17 Patient feeling better after I&D of right gluteal abscess yesterday. No overnight event or new complaints. 08/18 Feeling well. No overnight event or new complaints. Good appetite. Awaiting final cultures. Possible wound VAC per surgery. 08/19 No changes overnight. Final cultures completed. Await final surgical rec commendations. 08/20 Feeling okay. No new complaints. Wound cultures with strep and Bacteroides. 08/21 No changes overnight. No new complaints. Encouraged ambulation. Continue per surgery. 08/22 No new complaints or changes overnight. To need to encourage ambulation. Wound care per surgery. 08/23 Doing well. No new complaints overnight events. [facility]. 08/24 Doing well. No new changes overnight. Going back to the OR for further washout. 08/25 Doing ok, reviewed case with surgery. Social work looking into option of possibly swing bed at [facility]. 08/26 Swing bed is not an option, most likely disposition from acute care will be [facility]. Discussed antibiotics with ID at [facility] in [place], ID agreed with Ceftriaxone and Flagyl for now and could discharge on oral Amoxicillin and oral Flagyl for about 10 days after last I&D. 08/27 Afebrile, continues to have significant saturation of wound dressings. Awaiting general surgery's final recommendations. Best discharge option appears to be [facility], SNF and Swing Bed not an options at this time. 08/28 Had a temperature of 99.1, procalcitonin .21. Looking into possible discharge to [facility] for complex wound cares. 08/29 Complains of back pain, CRP 3.7, afebrile, procalcitonin yesterday was significantly improved from prior value. Started Amoxicillin and discontinued Ceftriaxone, continued oral Metronidazole. 08/30 Awaiting placement, possible at [facility]. Added Dilaudid IV prn with dressing changes. Physical exam Head: Atraumatic, normal inspection. Eyes: normal appearance, no scleral icterus. Neck: full ROM Respiratory: no respiratory distress. Cardiovascular: normal rate and rhythm, S1, S2. GI/Abdominal: soft, nontender, no guarding. Extremities: multiple surgical incisions on bilateral buttocks, multiple Brussels drains Neurological: CN II-XII intact, intact motor, intact sensation. Psychiatric: normal mood. Skin: warm, normal color Constitutional Vitals: Vital Signs Temp Pulse Resp BP Pulse Ox 97.1 F 46 L 20 93/63 97 08/30/21 07:41 08/30/21 07:41 08/30/21 07:41 08/30/21 07:41 08/30/21 07:41 Period Temp Pulse Resp BP Sys/Vivas Pulse Ox Last 24 Hr 97 F-97.9 F 46-89 16-20 87-105/56-65 96-98 Intake and Output 08/29/21 08/30/21 08/30/21 21:59 05:59 13:59 Intake Total 1840 200 Output Total 3700 970 Balance -1860 -770 Weight 98.061 kg Intake & Output: Intake & Output 08/29/21 08/30/21 08/30/21 21:59 05:59 13:59 Intake Total 1840 200 Output Total 3700 970 Balance -1860 -770 Weight 98.061 kg Intake: Oral 1840 200 Output: Void Amount 3700 970 Other: Meal Dinner Percent of Meal Consumed 90% Feeding Ability Independent Urine Appearance Clear Urine Color Bright Yellow Urine Odor Normal OBJ DATA Labs CBC & Chem 7: 08/30/21 05:40 08/30/21 05:40 Labs: Abnormal Lab Results 08/30/21 08/30/21 08/29/21 05:40 05:40 05:31 RBC 3.39 L Hgb 9.1 L Hct 30.2 L MCHC 30.1 L RDW 17.0 H MPV 10.9 H Lymph # (Auto) 1.21 L Creatinine 0.5 L Calcium 8.3 L GGT Alkaline Phosphatase C-Reactive Protein 3.70 H Albumin 2.7 L Globulin Albumin/Globulin Ratio Procalcitonin 08/29/21 08/28/21 08/28/21 05:31 05:50 05:50 RBC Hgb Hct MCHC RDW MPV Lymph # (Auto) Creatinine 0.5 L 0.5 L Calcium 8.3 L 8.3 L GGT 214 H 215 H Alkaline Phosphatase 247 H 242 H C-Reactive Protein Albumin 2.8 L 2.6 L Globulin 3.9 H 4.2 H Albumin/Globulin Ratio 0.7 L 0.6 L Procalcitonin 0.21 H 08/28/21 05:50 RBC 3.18 L Hgb 8.7 L Hct 28.0 L MCHC RDW 16.7 H MPV 10.9 H Lymph # (Auto) 1.23 L Creatinine Calcium GGT Alkaline Phosphatase C-Reactive Protein Albumin Globulin Albumin/Globulin Ratio Procalcitonin Meds: Medications Acetaminophen (Acetaminophen 325 Mg Tablet) 650 mg PO Q6HP PRN; Protocol PRN Reason: Per Pain Protocol/Fever > 101 Last Admin: 08/30/21 06:57 Dose: 650 mg Documented by: Amoxicillin (Amoxicillin 250 Mg Capsule) 500 mg PO TID [facility]; Protocol Stop: 09/04/21 08:59 Last Admin: 08/30/21 08:37 Dose: 500 mg Documented by: Dextrose (Dextrose 50% 50 Ml Vial) 0 ml IV UD PRN PRN Reason: Hypoglycemia Diagnostic Test (Pha) (Accu-Chek 1 Each Strip) 1 each FS [facility] Last Admin: 08/30/21 08:40 Dose: 1 each Documented by: Glucose (Dextrose 31 Gm Oral.Susp) 15 gm PO PRN PRN PRN Reason: Hypoglycemia Heparin Sodium (Porcine) (Heparin 5,000 Unit/Ml Vial) 5,000 unit SQ Q12 [facility] Last Admin: 08/30/21 08:38 Dose: 5,000 unit Documented by: Hydromorphone HCl (Hydromorphone 0.5 Mg/0.5 Ml Syringe) 0.5 mg IV DAILYP PRN; Protocol PRN Reason: dressing changes Insulin Glargine (Insulin Glargine, Human 1 Unit/0.01 Ml) 40 unit SQ HS [facility] Last Admin: 08/29/21 21:02 Dose: 40 unit Documented by: Insulin Human Lispro (Insulin Lispro 1 Unit/0.01 Ml Unit) 0 unit SQ [facility]; Protocol Last Admin: 08/30/21 08:41 Dose: Not Given Documented by: Lactulose (Lactulose 20 Gm/30 Ml Oral.Carmen) 10 gm PO DAILYP PRN PRN Reason: Constipation Methocarbamol (Methocarbamol 750 Mg Tablet) 750 mg PO Q6HP PRN PRN Reason: Muscle Spasm Last Admin: 08/29/21 20:10 Dose: 750 mg Documented by: Metronidazole (Metronidazole 500 Mg Tablet) 500 mg PO Q8 [facility]; Protocol Stop: 09/04/21 07:59 Last Admin: 08/30/21 05:37 Dose: 500 mg Documented by: Ondansetron HCl (Ondansetron 4 Mg/2 Ml Vial) 4 mg IV Q4HP PRN; Protocol PRN Reason: Nausea And Vomiting Oxycodone HCl (Oxycodone Hcl 5 Mg Tablet) 10 mg PO Q4HP PRN; Protocol PRN Reason: Per Pain Protocol Last Admin: 08/30/21 10:06 Dose: 10 mg Documented by: Scopolamine (Scopolamine 1 Patch Patch) 1 patch TOPICAL PREOP PRN PRN Reason: Nausea And Vomiting Senna (Sennosides 1 Tablet) 2 tab PO BID [facility] Last Admin: 08/30/21 08:37 Dose: 2 tab Documented by: Sodium Chloride (0.9 % Sodium Chloride 10 Ml Syringe) 10 ml IV Q8 [facility] Last Admin: 08/30/21 05:35 Dose: 10 ml Documented by: A/P Narrative A/P Narrative: Assessment: 51 year old male with a history of type 2 diabetes admitted for sepsis secondary to a large multiloculated left gluteal abscess. Patient has had multiple I&D's, surgical cultures grew Streptococcus agalactiae and Bacteroides fragilis. Blood cultures grew Bacteroides fragilis. The patient underwent multiple I&Ds by general surgery, has multiple Durga drains. He was later transitioned to oral antibiotic therapy with amoxicillin and metronidazole. The patient will require complex wound care probably at an LTAC. He is being evaluated for [facility]. #Resolved severe sepsis: 2/2 gluteal abscess. #Large multiloculated gluteal abscess s/p multiple I&D -cx with bacteroides/Strep #Bacteremia(Bacteroides fragilis): #DM2: poorly controlled on admission, currently much better controlled. Hemoglobin A1c was 11.4 #Hyponatremia: resolved #Anemia, unspecified chronicity: #Right #1 and #2 toe wounds present on admission #Obese: Plan: -Wound care, abscess s/p I&D per surgeon -Amoxicillin and Flagyl for 10 days after last I&D. -Analgesics prn -Lantus HS and SSI-high. -Hold home Metformin and lisinopril -DVT prophylaxis: heparin -CODE STATUS: Full -Disposition: Possible [facility] pending placement. Likely discharge on insulin regimen for DM for better glycemic control. Time Spent With Patient Time: Total time spent is greater than 50% in coordination of care (as documented) at patient's floor/unit and/or counseling patient: QUALITY VTE Deep Vein Thrombosis/Pulmonary Embolism Present on Admission: No
--- NOTE | 2021-08-30 13:55 | Internal Med Progress Note ---
SUBJECTIVE Subjective Patient information: Note initiated : 08/30/21 at 1:53 pm Service Date, if different from initiated Date: [] Patient: Frankie Rhoades 51 y/o M admitted on 08/12/21 for skin. Chief Complaint: [] Principal diagnosis: Buttock and lower back abscesses Interval history: Interval history: Mr. Rhoades is a 51 year old male with a history of type 2 diabetes presented to the emergency department for left buttock pain and chills. The patient had recently presented to [facility] for the same complaints and was discharged from the emergency department with a prescription of Keflex for 10 days. The patient took the Keflex however his symptoms worsened. In the emergency department at [facility] the patient had a fever of 100.8, tachycardia and elevated respiratory rate. Routine blood work showed a leukocytosis with left shift. Lactic acid was elevated at 3.8. Patient had a CT pelvis with contrast that showed a large left gluteal multiloculated abscess measuring 15 cm. The patient received broad-spectrum antibiotics with vancomycin and Zosyn as well as IV fluids. Repeat lactic acid was 2.0. The patient's blood pressures were low in the emergency department however he says that he usually has low blood pressures at baseline. Hospital medicine was asked to admit the patient for further management. 08/13 Had an I&D of the abscess yesterday evening, multiple drains in place. Anticipate the patient will require another washout and possibly a wound VAC. 2/2 blood cultures growing gram negative bacillus, surgical cultures pending. Increased Lantus and sliding scale insulin, added prandial Humalog. Sepsis physiology has improved. 08/14 Blood cultures grew bacteroides fragilis, awaiting final surgical cultures. Discontinues Vancomycin, continued Zosyn. Glucose continues to be elevated, increased Lantus to 40 units HS, prandial Humalog to 15 units AC TID and continued high dose sliding scale insulin. Surgery planning for reexploration. 08/15 Patient seen examined, still has pain but managable Blood culutres are growing bacteroides and stre p agalactiae , pt remains on zosy Glucose level in 90's today, cut down on prandial humalog to 10 TID Await surgery evaluation with regards to plan for reexploration. 08/16 Patient seen examined, had low bp yesterday, elevated lactic acid, IV fluids given, IV albumin given Repeat CT done which shows nrew developing abscees on the [facility] buttoc Surgery planning to take patient to OR this AM Patient notes of significant pain, Will increase dose of dilaudid and oxycocond (d/c percoset as would limit the amount of apap given) keep shani apap now 08/17 Patient feeling better after I&D of right gluteal abscess yesterday. No overnight event or new complaints. 08/18 Feeling well. No overnight event or new complaints. Good appetite. Awaiting final cultures. Possible wound VAC per surgery. 08/19 No changes overnight. Final cultures completed. Await final surgical rec commendations. 08/20 Feeling okay. No new complaints. Wound cultures with strep and Bacteroides. 08/21 No changes overnight. No new complaints. Encouraged ambulation. Continue per surgery. 08/22 No new complaints or changes overnight. To need to encourage ambulation. Wound care per surgery. 08/23 Doing well. No new complaints overnight events. Likely discharge to nursing home facility tomorrow. 08/24 Doing well. No new changes overnight. Going back to the OR for further washout. 08/25 Doing ok, reviewed case with surgery. Social work looking into option of possibly swing bed at [facility]. 08/26 Swing bed is not an option, most likely disposition from acute care will be [facility]. Discussed antibiotics with ID at [facility] in [place], ID agreed with Ceftriaxone and Flagyl for now and could discharge on oral Amoxicillin and oral Flagyl for about 10 days after last I&D. 08/27 Afebrile, continues to have significant saturation of wound dressings. Awaiting general surgery's final recommendations. Best discharge option appears to be [facility], SNF and Swing Bed not an options at this time. 08/28 Had a temperature of 99.1, procalcitonin .21. Looking into possible discharge to [facility] for complex wound cares. 08/29 Complains of back pain, CRP 3.7, afebrile, procalcitonin yesterday was significantly improved from prior value. Started Amoxicillin and discontinued Ceftriaxone, continued oral Metronidazole. 08/30 Awaiting placement, possible at [facility]. Added Dilaudid IV prn with dressing changes. Review of Systems: denies headache/fever/chills/nausea/vomiting/chest or abdominal pain/cough/dyspnea/diarrhea. Otherwise see above. Constitutional Vitals: Vital Signs Temp Pulse Resp BP Pulse Ox 97.1 F 46 L 20 93/63 97 08/30/21 07:41 08/30/21 07:41 08/30/21 07:41 08/30/21 07:41 08/30/21 07:41 Period Temp Pulse Resp BP Sys/Vivas Pulse Ox Last 24 Hr 97 F-97.9 F 46-89 18-20 90-105/56-65 96-98 Intake and Output 08/29/21 08/30/21 08/30/21 21:59 05:59 13:59 Intake Total 1840 200 Output Total 3700 970 Balance -1860 -770 Weight 98.061 kg Intake & Output: Intake & Output 08/29/21 08/30/21 08/30/21 21:59 05:59 13:59 Intake Total 1840 200 Output Total 3700 970 Balance -1860 -770 Weight 98.061 kg Intake: Oral 1840 200 Output: Void Amount 3700 970 Other: Meal Dinner Percent of Meal Consumed 90% Feeding Ability Independent Urine Appearance Clear Urine Color Bright Yellow Urine Odor Normal Exam: General: Alert, Awake, No acute Distress, obese Eyes/N/T: EOMI, Head/Neck: neck supple, CV: RRR, No murmurs, Pulm: Clear b/l, no wheezing/rhonchi/rales Abd: soft, nontender, +BS x4 Ext: no clubbing/cyanosis/edema Neuro: Alert, no focal deficits, moves all extremities, Skin: warm/dry OBJ DATA Labs CBC & Chem 7: 08/30/21 05:40 08/30/21 05:40 Labs: Abnormal Lab Results 08/30/21 08/30/21 08/29/21 05:40 05:40 05:31 RBC 3.39 L Hgb 9.1 L Hct 30.2 L MCHC 30.1 L RDW 17.0 H MPV 10.9 H Lymph # (Auto) 1.21 L Creatinine 0.5 L Calcium 8.3 L GGT Alkaline Phosphatase C-Reactive Protein 3.70 H Albumin 2.7 L Globulin Albumin/Globulin Ratio Procalcitonin 08/29/21 08/28/21 08/28/21 05:31 05:50 05:50 RBC Hgb Hct MCHC RDW MPV Lymph # (Auto) Creatinine 0.5 L 0.5 L Calcium 8.3 L 8.3 L GGT 214 H 215 H Alkaline Phosphatase 247 H 242 H C-Reactive Protein Albumin 2.8 L 2.6 L Globulin 3.9 H 4.2 H Albumin/Globulin Ratio 0.7 L 0.6 L Procalcitonin 0.21 H 08/28/21 05:50 RBC 3.18 L Hgb 8.7 L Hct 28.0 L MCHC RDW 16.7 H MPV 10.9 H Lymph # (Auto) 1.23 L Creatinine Calcium GGT Alkaline Phosphatase C-Reactive Protein Albumin Globulin Albumin/Globulin Ratio Procalcitonin Meds: Medications Acetaminophen (Acetaminophen 325 Mg Tablet) 650 mg PO Q6HP PRN; Protocol PRN Reason: Per Pain Protocol/Fever > 101 Last Admin: 08/30/21 13:41 Dose: 650 mg Documented by: Amoxicillin (Amoxicillin 250 Mg Capsule) 500 mg PO TID [facility]; Protocol Stop: 09/04/21 08:59 Last Admin: 08/30/21 13:41 Dose: 500 mg Documented by: Dextrose (Dextrose 50% 50 Ml Vial) 0 ml IV UD PRN PRN Reason: Hypoglycemia Diagnostic Test (Pha) (Accu-Chek 1 Each Strip) 1 each FS [facility] Last Admin: 08/30/21 11:36 Dose: 1 each Documented by: Glucose (Dextrose 31 Gm Oral.Susp) 15 gm PO PRN PRN PRN Reason: Hypoglycemia Heparin Sodium (Porcine) (Heparin 5,000 Unit/Ml Vial) 5,000 unit SQ Q12 [facility] Last Admin: 08/30/21 08:38 Dose: 5,000 unit Documented by: Hydromorphone HCl (Hydromorphone 0.5 Mg/0.5 Ml Syringe) 0.5 mg IV DAILYP PRN; Protocol PRN Reason: dressing changes Insulin Glargine (Insulin Glargine, Human 1 Unit/0.01 Ml) 40 unit SQ [facility] Last Admin: 08/29/21 21:02 Dose: 40 unit Documented by: Insulin Human Lispro (Insulin Lispro 1 Unit/0.01 Ml Unit) 0 unit SQ [facility]; Protocol Last Admin: 08/30/21 11:37 Dose: Not Given Documented by: Lactulose (Lactulose 20 Gm/30 Ml Oral.Carmen) 10 gm PO DAILYP PRN PRN Reason: Constipation Methocarbamol (Methocarbamol 750 Mg Tablet) 750 mg PO Q6HP PRN PRN Reason: Muscle Spasm Last Admin: 08/29/21 20:10 Dose: 750 mg Documented by: Metronidazole (Metronidazole 500 Mg Tablet) 500 mg PO Q8 [facility]; Protocol Stop: 09/04/21 07:59 Last Admin: 08/30/21 13:41 Dose: 500 mg Documented by: Ondansetron HCl (Ondansetron 4 Mg/2 Ml Vial) 4 mg IV Q4HP PRN; Protocol PRN Reason: Nausea And Vomiting Oxycodone HCl (Oxycodone Hcl 5 Mg Tablet) 10 mg PO Q4HP PRN; Protocol PRN Reason: Per Pain Protocol Last Admin: 08/30/21 10:06 Dose: 10 mg Documented by: Scopolamine (Scopolamine 1 Patch Patch) 1 patch TOPICAL PREOP PRN PRN Reason: Nausea And Vomiting Senna (Sennosides 1 Tablet) 2 tab PO BID [facility] Last Admin: 08/30/21 08:37 Dose: 2 tab Documented by: Sodium Chloride (0.9 % Sodium Chloride 10 Ml Syringe) 10 ml IV Q8 [facility] Last Admin: 08/30/21 05:35 Dose: 10 ml Documented by: A/P Narrative A/P Narrative: A: #Severe Sepsis: 2/2 gluteal abscess. Resolved #Large multiloculated gluteal abscess s/p I&D Left side (08/12) & Right side (08/16) -cx with bacteroides/Strep #Bacteremia(Bacteroides fragilis): #DM2: poorly controlled, with hyperglycemia on admit. A1c 11.4 #Hyponatremia: resolved #Anemia, unspecified chronicity: #Right #1 and #2 toe wounds present on admission #Obese: Plan: -Wound care, abscess s/p I&D per surgeon -Amoxicillin and Flagyl for 10 days after last I&D. -Analgesics prn -Lantus 40 units at bedtime, SSI-high. -Hold home Metformin and lisinopril -Disposition: Possible [facility] pending placement. Likely discharge on insulin regimen for DM for better glycemic control. 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
--- NOTE | 2021-08-30 17:26 | Discharge Summary ---
Discharge Provider Provider Patient information: Note initiated : 08/30/21 at 5:24 pm Service Date, if different from initiated Date: [] Patient: Frankie Rhoades 51 y/o M admitted on 08/12/21 for skin. Chief Complaint: [] Date of admission: 08/12/21 19:00 Discharge date: 09/02/21 Primary care physician: Gunjan Martin Consults: 08/12/21 Consult to Physician [CONS] Stat Comment: Consulting Provider: Adrian Kelly Reason For Exam: Physician to Consult Consult to Physician [CONS] Stat Comment: Consulting Provider: Shey Erazo Reason For Exam: Physician to Consult 08/12/21 19:04 Consult to Physician [CONS] Stat Comment: Consulting Provider: Shey Erazo Reason For Exam: Physician to Consult 08/26/21 16:11 Consult to Physician [CONS] Routine Comment: Consulting Provider: [facility] Reason For Exam: Physician to Consult Discharge Meds Discharge Medications Home Medications Humalog U-100 Insulin See Rx Instructions .ROUTE .COMPLEX 08/14/21 [History Confirmed 08/17/21 Last Taken Unknown] lisinopril 2.5 mg tablet 0.25 mg PO DAILY 08/14/21 [History Confirmed 08/14/21 Last Taken Unknown] metformin 500 mg tablet 500 mg PO BID 08/14/21 [History Confirmed 08/14/21 Last Taken Unknown] blood sugar diagnostic #100 each 08/19/21 [Rx Last Taken Unknown] insulin glargine 100 unit/mL (3 mL) subcutaneous pen (Lantus Solostar U-100 Insulin) 40 unit (0.4 mL) SUB-Q QHS #15 ml 08/19/21 [Rx Last Taken Unknown] lancets #100 each 08/19/21 [Rx Last Taken Unknown] amoxicillin 250 mg capsule 500 mg PO TID #5 cap 09/02/21 [Rx Last Taken Unknown] metronidazole 500 mg tablet 500 mg PO Q8 #5 tab 09/02/21 [Rx Last Taken Unknown] COURSE Hospital Course Hospital course: Interval history: Mr. Rhoades is a 51 year old male with a history of type 2 diabetes presented to the emergency department for left buttock pain and chills. The patient had recently presented to [facility] for the same complaints and was discharged from the emergency department with a prescription of Keflex for 10 days. The patient took the Keflex however his symptoms worsened. In the emergency department at [facility] the patient had a fever of 100.8, tachycardia and elevated respiratory rate. Routine blood work showed a leukocytosis with left shift. Lactic acid was elevated at 3.8. Patient had a CT pelvis with contrast that showed a large left gluteal multiloculated abscess measuring 15 cm. The patient received broad-spectrum antibiotics with vancomycin and Zosyn as well as IV fluids. Repeat lactic acid was 2.0. The patient's blood pressures were low in the emergency department however he says that he usually has low blood pressures at baseline. Hospital medicine was asked to admit the patient for further management. 08/13 Had an I&D of the abscess yesterday evening, multiple drains in place. Anticipate the patient will require another washout and possibly a wound VAC. 2/ blood cultures growing gram negative bacillus, surgical cultures pending. Increased Lantus and sliding scale insulin, added prandial Humalog. Sepsis physiology has improved. 08/14 Blood cultures grew bacteroides fragilis, awaiting final surgical cultures. Discontinues Vancomycin, continued Zosyn. Glucose continues to be elevated, increased Lantus to 40 units HS, prandial Humalog to 15 units AC TID and continued high dose sliding scale insulin. Surgery planning for reexploration. 08/15 Patient seen examined, still has pain but managable Blood culutres are growing bacteroides and stre p agalactiae , pt remains on zosy Glucose level in 90's today, cut down on prandial humalog to 10 TID Await surgery evaluation with regards to plan for reexploration. 08/16 Patient seen examined, had low bp yesterday, elevated lactic acid, IV fluids given, IV albumin given Repeat CT done which shows nrew developing abscees on the ri buttoc Surgery planning to take patient to OR this AM Patient notes of significant pain, Will increase dose of dilaudid and oxycocond (d/c percoset as would limit the amount of apap given) keep shani apap now 08/17 Patient feeling better after I&D of right gluteal abscess yesterday. No overnight event or new complaints. 2/ Feeling well. No overnight event or new complaints. Good appetite. Awaiting final cultures. Possible wound VAC per surgery. 2/2 No changes overnight. Final cultures completed. Await final surgical rec commendations. 08/20 Feeling okay. No new complaints. Wound cultures with strep and Bacteroides. 08/21 No changes overnight. No new complaints. Encouraged ambulation. Continue per surgery. 08/22 No new complaints or changes overnight. To need to encourage ambulation. Wound care per surgery. 08/23 Doing well. No new complaints overnight events. Likely discharge to half-way facility tomorrow. 08/24 Doing well. No new changes overnight. Going back to the OR for further washout. 08/25 Doing ok, reviewed case with surgery. Social work looking into option of possibly swing bed at [facility]. 08/26 Swing bed is not an option, most likely disposition from acute care will be [facility]. Discussed antibiotics with ID at [facility] in [place], ID agreed with Ceftriaxone and Flagyl for now and could discharge on oral Amoxicillin and oral Flagyl for about 10 days after last I&D. 08/27 Afebrile, continues to have significant saturation of wound dressings. Awaiting general surgery's final recommendations. Best discharge option appears to be [facility], SNF and Swing Bed not an options at this time. 08/28 Had a temperature of 99.1, procalcitonin .21. Looking into possible discharge to [facility] for complex wound cares. 08/29 Complains of back pain, CRP 3.7, afebrile, procalcitonin yesterday was significantly improved from prior value. Started Amoxicillin and discontinued Ceftriaxone, continued oral Metronidazole. 08/30 Awaiting placement, possible at [facility]. Added Dilaudid IV prn with dressing changes. 08/31 No changes. Awaiting placement. 09/01 No overnight event or new complaints. Awaiting placement. 09/02 No changes. Awaiting placement. A: #Severe Sepsis: 2/ gluteal abscess. Resolved #Large multiloculated gluteal abscess s/p I&D Left side (08/12) & Right side (08/16) & again (08/24) -cx withbacteroides/Strep #Bacteremia(Bacteroides fragilis): #DM2: poorly controlled, with hyperglycemia on admit. A1c 11.4 #Hyponatremia: resolved #Anemia, unspecified chronicity: #Right #1 and #2 toe wounds present on admission #Obese: Plan: -Wound care, abscess s/p I&D per surgeon -Amoxicillin and Flagyl for 10 days after last I&D finish tomorrow -Lantus 40 units at bedtime Discharge diagnosis: Severe sepsis multiloculated gluteal abscess bacteremia Secondary discharge diagnosis: Diabetes hyponatremia anemia obesity Time Spent with Patient Time attestation: Total time spent providing and/or coordinating discharge services: Time spent: Greater than 30 minutes EXAM Constitutional Vitals: Temp Pulse Resp BP Pulse Ox 99.4 F H 96 H 16 104/60 97 08/30/21 15:49 08/30/21 15:49 08/30/21 15:49 08/30/21 15:49 08/30/21 15:49 Discharge Data Data Completed and Pending Labs on day of discharge: Labs from last 24 hours 08/30/21 08/30/21 05:40 05:40 WBC 5.4 RBC 3.39 L Hgb 9.1 L Hct 30.2 L MCV 89.1 MCH 26.8 MCHC 30.1 L RDW 17.0 H Plt Count 176 MPV 10.9 H Neut % (Auto) 65.5 Lymph % (Auto) 22.5 Rabun % (Auto) 7.4 Eos % (Auto) 3.5 Baso % (Auto) 1.1 Lymph # (Auto) 1.21 L Rabun # (Auto) 0.40 Eos # (Auto) 0.19 Baso # (Auto) 0.06 Absolute Neutrophils 3.52 Sodium 136 Potassium 3.9 Chloride 104 Carbon Dioxide 24 Anion Gap 8.0 BUN 8 Creatinine 0.5 L GFR Calculation 127 Glucose 91 Calcium 8.3 L Phosphorus 3.5 Albumin 2.7 L Discharge Plan Patient/Caregiver Discharge Instructions Activity: increase activity as tolerated Diet: Consistent Carbohydrate Activity Restrictions/Additional Instructions: Keep log of blood glucose and bring readings to PCP. Prescriptions: New (DME) blood sugar diagnostic Strip See Rx Instructions .ROUTE .MEDSUPPLY Qty: 100 0RF Rx Instructions: As directed (DME) lancets Misc See Rx Instructions .ROUTE .MEDSUPPLY Qty: 100 0RF Rx Instructions: As directed Lantus Solostar U-100 Insulin 100 unit/mL (3 mL) insulin pen 40 unit SUB-Q QHS Qty: 15 0RF metronidazole 500 mg Tablet 500 mg PO Q8 Qty: 5 0RF amoxicillin 250 mg Capsule 500 mg PO TID Qty: 5 0RF Continued metformin 500 mg Tablet 500 mg PO BID 0RF lisinopril 2.5 mg Tablet 0.25 mg PO DAILY 0RF Humalog U-100 Insulin See Rx Instructions .ROUTE .COMPLEX 0RF Protocol: Insulin Sliding Scale, Med Condition: HUMALOG/NOVALOG SC SLIDING Dose/Route: SCALE Condition: FSBS < 70 Dose/Route: Give 4 Oz juice, or 15gm oral Instruction: Glucose, or 25ml D50W IV if Dose/Route: unable to take PO. Recheck in Instruction: 15 min and repeat if FSBS < 70 Condition: FSBS 71-140 Dose/Route: NO COVERAGE Condition: FSBS 141-170 Dose/Route: 2 UNITS Condition: FSBS 171-200 Dose/Route: 4 UNITS Condition: FSBS 201-250 Dose/Route: 6 UNITS Condition: FSBS 251-300 Dose/Route: 8 UNITS Condition: FSBS 301-350 Dose/Route: 10 UNITS Condition: FSBS 351-400 Dose/Route: 12 UNITS Condition: FSBS > 400 Dose/Route: 14 UNITS; REPEAT Q2H X2 Instruction: CONTINUE FOLLOWING SLIDING Condition: SCALE; IF STILL > 400; CALL Dose/Route: PHYSICIAN Rx Instructions: per ssi protocol Discontinued insulin lispro 18 units subcut HS 0RF Follow Up Plan Follow up with: Gunjan Martin [Primary Care Provider] - Shey Erazo MD [Physician] - Patient Disposition: Home Health Service Prognosis: Fair Overall status at discharge: patient is progressing back to baseline Discharge Orders: Discharge Order (Routine); Ordered 09/02/21 Ordered By: Az Pond [facility] VTE Deep Vein Thrombosis/Pulmonary Embolism Present on Admission: No
[2021-08-30] MEDS: METHOCARBAMOL 750 MG TABLET PO PRN (19:15)
[2021-08-30] MEDS: INSULIN GLARGINE, HUMAN 1 UNIT/0.01 ML SQ SCH (21:09)
[2021-08-31] MEDS: oxyCODONE HCL 5 MG TABLET PO PRN ×5 (03:41→21:46)
[2021-08-31] MEDS: metroNIDAZOLE 500 MG TABLET PO SCH ×3 (05:29→21:39)
[2021-08-31] MEDS: METHOCARBAMOL 750 MG TABLET PO PRN (05:29)
[2021-08-31] MEDS: ACETAMINOPHEN 325 MG TABLET PO PRN ×3 (05:30→20:33)
[2021-08-31] MEDS: HEPARIN 5,000 UNIT/ML VIAL SQ SCH ×2 (08:06→21:39)
[2021-08-31] MEDS: AMOXICILLIN 250 MG CAPSULE PO SCH ×3 (08:06→21:39)
[2021-08-31] MEDS: 0.9 % SODIUM CHLORIDE 10 ML SYRINGE IV SCH ×3 (08:06→21:41)
[2021-08-31] MEDS: INSULIN LISPRO 1 UNIT/0.01 ML UNIT SQ SCH ×4 (08:07→21:47)
--- NOTE | 2021-08-31 08:08 | Internal Med Progress Note ---
SUBJECTIVE Subjective Patient information: Note initiated : 08/31/21 at 8:08 am Service Date, if different from initiated Date: [] Patient: Frankie Rhoades 51 y/o M admitted on 08/12/21 for skin. Chief Complaint: [] Principal diagnosis: Buttock and lower back abscesses Interval history: Interval history: Mr. Rhoades is a 51 year old male with a history of type 2 diabetes presented to the emergency department for left buttock pain and chills. The patient had recently presented to [facility] for the same complaints and was discharged from the emergency department with a prescription of Keflex for 10 days. The patient took the Keflex however his symptoms worsened. In the emergency department at [facility] the patient had a fever of 100.8, tachycardia and elevated respiratory rate. Routine blood work showed a leukocytosis with left shift. Lactic acid was elevated at 3.8. Patient had a CT pelvis with contrast that showed a large left gluteal multiloculated abscess measuring 15 cm. The patient received broad-spectrum antibiotics with vancomycin and Zosyn as well as IV fluids. Repeat lactic acid was 2.0. The patient's blood pressures were low in the emergency department however he says that he usually has low blood pressures at baseline. Hospital medicine was asked to admit the patient for further management. 08/13 Had an I&D of the abscess yesterday evening, multiple drains in place. Anticipate the patient will require another washout and possibly a wound VAC. 2/2 blood cultures growing gram negative bacillus, surgical cultures pending. Increased Lantus and sliding scale insulin, added prandial Humalog. Sepsis physiology has improved. 08/14 Blood cultures grew bacteroides fragilis, awaiting final surgical cultures. Discontinues Vancomycin, continued Zosyn. Glucose continues to be elevated, increased Lantus to 40 units HS, prandial Humalog to 15 units AC TID and continued high dose sliding scale insulin. Surgery planning for reexploration. 08/15 Patient seen examined, still has pain but managable Blood culutres are growing bacteroides and stre p agalactiae , pt remains on zosy Glucose level in 90's today, cut down on prandial humalog to 10 TID Await surgery evaluation with regards to plan for reexploration. 08/16 Patient seen examined, had low bp yesterday, elevated lactic acid, IV fluids given, IV albumin given Repeat CT done which shows nrew developing abscees on the [facility] buttoc Surgery planning to take patient to OR this AM Patient notes of significant pain, Will increase dose of dilaudid and oxycocond (d/c percoset as would limit the amount of apap given) keep shani apap now 08/17 Patient feeling better after I&D of right gluteal abscess yesterday. No overnight event or new complaints. 08/18 Feeling well. No overnight event or new complaints. Good appetite. Awaiting final cultures. Possible wound VAC per surgery. 08/19 No changes overnight. Final cultures completed. Await final surgical rec commendations. 08/20 Feeling okay. No new complaints. Wound cultures with strep and Bacteroides. 08/21 No changes overnight. No new complaints. Encouraged ambulation. Continue per surgery. 08/22 No new complaints or changes overnight. To need to encourage ambulation. Wound care per surgery. 08/23 Doing well. No new complaints overnight events. Likely discharge to [facility] facility tomorrow. 08/24 Doing well. No new changes overnight. Going back to the OR for further washout. 08/25 Doing ok, reviewed case with surgery. Social work looking into option of possibly swing bed at [facility]. 08/26 Swing bed is not an option, most likely disposition from acute care will be [facility]. Discussed antibiotics with ID at [facility] in [place], ID agreed with Ceftriaxone and Flagyl for now and could discharge on oral Amoxicillin and oral Flagyl for about 10 days after last I&D. 08/27 Afebrile, continues to have significant saturation of wound dressings. Awaiting general surgery's final recommendations. Best discharge option appears to be [facility], SNF and Swing Bed not an options at this time. 08/28 Had a temperature of 99.1, procalcitonin .21. Looking into possible discharge to [facility] for complex wound cares. 08/29 Complains of back pain, CRP 3.7, afebrile, procalcitonin yesterday was significantly improved from prior value. Started Amoxicillin and discontinued Ceftriaxone, continued oral Metronidazole. 08/30 Awaiting placement, possible at [facility]. Added Dilaudid IV prn with dressing changes. 08/31 No changes. Awaiting placement. Review of Systems: denies headache/fever/chills/nausea/vomiting/chest or abdominal pain/cough/dyspnea/diarrhea. Otherwise see above. Constitutional Vitals: Vital Signs Temp Pulse Resp BP Pulse Ox 99.8 F H 94 H 18 101/56 94 08/31/21 03:43 08/31/21 03:43 08/31/21 03:43 08/31/21 03:43 08/31/21 03:43 Period Temp Pulse Resp BP Sys/Vivas Pulse Ox Last 24 Hr 98.3 F-99.8 F 92-97 16-18 94-104/56-65 94-97 Intake and Output 08/30/21 08/31/21 08/31/21 21:59 05:59 13:59 Intake Total 1200 Output Total 1650 Balance -450 Weight 100.289 kg Intake & Output: Intake & Output 08/30/21 08/31/21 08/31/21 21:59 05:59 13:59 Intake Total 1200 Output Total 1650 Balance -450 Weight 100.289 kg Intake: Oral 1200 Output: Void Amount 1650 Other: Meal Lunch Percent of Meal Consumed 75% Feeding Ability Independent Urine Appearance Clear Clear Urine Color Bright Yellow Bright Yellow Stool Size Large Stool Color Brown Green Stool Consistency Soft Formed # Bowel Movements 1 Exam: General: Alert, Awake, No acute Distress, obese Eyes/N/T: EOMI, Head/Neck: neck supple, CV: RRR, No murmurs, Pulm: Clear b/l, no wheezing/rhonchi/rales Abd: soft, nontender, +BS x4 Ext: no clubbing/cyanosis/edema Neuro: Alert, no focal deficits, moves all extremities, Skin: warm/dry OBJ DATA Labs CBC & Chem 7: 08/30/21 05:40 08/30/21 05:40 Labs: Abnormal Lab Results 08/30/21 08/30/21 08/29/21 05:40 05:40 05:31 RBC 3.39 L Hgb 9.1 L Hct 30.2 L MCHC 30.1 L RDW 17.0 H MPV 10.9 H Lymph # (Auto) 1.21 L Creatinine 0.5 L Calcium 8.3 L GGT Alkaline Phosphatase C-Reactive Protein 3.70 H Albumin 2.7 L Globulin Albumin/Globulin Ratio Procalcitonin 08/29/21 08/28/2122 05:31 05:50 05:50 RBC Hgb Hct MCHC RDW MPV Lymph # (Auto) Creatinine 0.5 L 0.5 L Calcium 8.3 L 8.3 L GGT 214 H 215 H Alkaline Phosphatase 247 H 242 H C-Reactive Protein Albumin 2.8 L 2.6 L Globulin 3.9 H 4.2 H Albumin/Globulin Ratio 0.7 L 0.6 L Procalcitonin 0.21 H 08/28/21 05:50 RBC 3.18 L Hgb 8.7 L Hct 28.0 L MCHC RDW 16.7 H MPV 10.9 H Lymph # (Auto) 1.23 L Creatinine Calcium GGT Alkaline Phosphatase C-Reactive Protein Albumin Globulin Albumin/Globulin Ratio Procalcitonin Meds: Medications Acetaminophen (Acetaminophen 325 Mg Tablet) 650 mg PO Q6HP PRN; Protocol PRN Reason: Per Pain Protocol/Fever > 101 Last Admin: 08/31/21 05:30 Dose: 650 mg Documented by: Amoxicillin (Amoxicillin 250 Mg Capsule) 500 mg PO TID [facility]; Protocol Stop: 09/04/21 08:59 Last Admin: 08/31/21 08:06 Dose: 500 mg Documented by: Dextrose (Dextrose 50% 50 Ml Vial) 0 ml IV UD PRN PRN Reason: Hypoglycemia Diagnostic Test (Pha) (Accu-Chek 1 Each Strip) 1 each FS [facility] Last Admin: 08/31/21 08:06 Dose: 1 each Documented by: Glucose (Dextrose 31 Gm Oral.Susp) 15 gm PO PRN PRN PRN Reason: Hypoglycemia Heparin Sodium (Porcine) (Heparin 5,000 Unit/Ml Vial) 5,000 unit SQ Q12 [facility] Last Admin: 08/31/21 08:06 Dose: 5,000 unit Documented by: Hydromorphone HCl (Hydromorphone 0.5 Mg/0.5 Ml Syringe) 0.5 mg IV DAILYP PRN; P rotocol PRN Reason: dressing changes Insulin Glargine (Insulin Glargine, Human 1 Unit/0.01 Ml) 40 unit SQ HS [facility] Last Admin: 08/30/21 21:09 Dose: 40 unit Documented by: Insulin Human Lispro (Insulin Lispro 1 Unit/0.01 Ml Unit) 0 unit SQ [facility]; Protocol Last Admin: 08/31/21 08:07 Dose: Not Given Documented by: Lactulose (Lactulose 20 Gm/30 Ml Oral.Carmen) 10 gm PO DAILYP PRN PRN Reason: Constipation Methocarbamol (Methocarbamol 750 Mg Tablet) 750 mg PO Q6HP PRN PRN Reason: Muscle Spasm Last Admin: 08/31/21 05:29 Dose: 750 mg Documented by: Metronidazole (Metronidazole 500 Mg Tablet) 500 mg PO Q8 [facility]; Protocol Stop: 09/04/21 07:59 Last Admin: 08/31/21 05:29 Dose: 500 mg Documented by: Ondansetron HCl (Ondansetron 4 Mg/2 Ml Vial) 4 mg IV Q4HP PRN; Protocol PRN Reason: Nausea And Vomiting Oxycodone HCl (Oxycodone Hcl 5 Mg Tablet) 10 mg PO Q4HP PRN; Protocol PRN Reason: Per Pain Protocol Last Admin: 08/31/21 08:05 Dose: 10 mg Documented by: Scopolamine (Scopolamine 1 Patch Patch) 1 patch TOPICAL PREOP PRN PRN Reason: Nausea And Vomiting Senna (Sennosides 1 Tablet) 2 tab PO BID [facility] Last Admin: 08/30/21 21:09 Dose: 2 tab Documented by: Sodium Chloride (0.9 % Sodium Chloride 10 Ml Syringe) 10 ml IV Q8 [facility] Last Admin: 08/31/21 08:06 Dose: 10 ml Documented by: A/P Narrative A/P Narrative: A: #Severe Sepsis: 2/2 gluteal abscess. Resolved #Large multiloculated gluteal abscess s/p I&D Left side (08/12) & Right side (08/16) -cx with bacteroides/Strep #Bacteremia(Bacteroides fragilis): #DM2: poorly controlled, with hyperglycemia on admit. A1c 11.4 #Hyponatremia: resolved #Anemia, unspecified chronicity: #Right #1 and #2 toe wounds present on admission #Obese: Plan: -Wound care, abscess s/p I&D per surgeon -Amoxicillin and Flagyl for 10 days after last I&D. -Analgesics prn -Lantus 40 units at bedtime, SSI-high. -Hold home Metformin and lisinopril -Disposition: Possible [facility] pending placement. Likely discharge on insulin regimen for DM for better glycemic control. -DVT prophylaxis: heparin CODE STATUS: Scale Manager Spent With Patient Time: Total time spent is greater than 50% in coordination of care (as documented) at patient's floor/unit and/or counseling patient: QUALITY VTE Deep Vein Thrombosis/Pulmonary Embolism Present on Admission: No
[2021-08-31] MEDS: SENNOSIDES 1 TABLET PO SCH ×2 (08:10→21:43)
[2021-08-31] MEDS: HYDROmorphone 0.5 MG/0.5 ML SYRINGE IV PRN (15:15)
--- NOTE | 2021-08-31 17:10 | General Surgery Progress Note ---
SUBJECTIVE Subjective Patient information: Note initiated : 08/31/21 at 5:06 pm Service Date, if different from initiated Date: [] Patient: Frankie Rhoades 51 y/o M admitted on 08/12/21 for skin. Chief Complaint: [] Principal diagnosis: Buttock and lower back abscesses Interval history: Patient is stable and his wounds are gradually improving. Drainage is significantly improved. He remains afebrile. Constitutional Vitals: Vital Signs Temp Pulse Resp BP Pulse Ox 98.6 F 86 20 93/59 95 08/31/21 11:00 08/31/21 11:00 08/31/21 11:00 08/31/21 11:00 08/31/21 11:00 Period Temp Pulse Resp BP Sys/Vivas Pulse Ox Last 24 Hr 98.3 F-99.8 F 86-97 18-20 93-101/56-65 94-97 Intake and Output 08/31/21 08/31/21 08/31/21 05:59 13:59 21:59 Intake Total 1200 360 Output Total 1650 900 Balance -450 360 -900 Weight 221 lb 1.6 oz Patient Weight 09/01/21 05:59 Weight 221 lb 1.6 oz Intake & Output: Intake & Output 08/31/21 08/31/21 08/31/21 05:59 13:59 21:59 Intake Total 1200 360 Output Total 1650 900 Balance -450 360 -900 Weight 221 lb 1.6 oz Intake: Oral 1200 360 Output: Void Amount 1650 900 Other: Meal Breakfast Lunch Percent of Meal Consumed 100% 75% Feeding Ability Assist with Tray Set Up Urine Appearance Clear Clear Urine Color Bright Yellow Light Betty Neck Neck exam: Present full ROM Respiratory Respiratory exam: Present normal respiratory exam and CTAB Cardiovascular Cardiovascular exam: Present normal rate and rhythm, RRR, +S1 and +S2; Absent JVD GI/Abdominal GI/Abdominal exam: Present normal bowel sounds and soft; Absent distended Skin Additional comments: All of the culture and get drain sites are healing; purulent drainage is decreasing daily A/P Assessment and plan (1) Right lower quadrant abdominal abscess: Status: Acute (2) Left lower quadrant abdominal abscess: Status: Acute (3) Diabetes mellitus: Status: Acute (4) Perirectal abscess: Status: Acute (5) Abscess of left buttock: Status: Acute Narrative A/P Narrative: Continue on present therapy and wait for acceptance at [facility] Time Spent With Patient Time: Total time spent is greater than 50% in coordination of care (as documented) at patient's floor/unit and/or counseling patient:
[2021-08-31] MEDS: INSULIN GLARGINE, HUMAN 1 UNIT/0.01 ML SQ SCH (21:41)
[2021-09-01] MEDS: oxyCODONE HCL 5 MG TABLET PO PRN ×5 (02:03→21:06)
[2021-09-01] MEDS: 0.9 % SODIUM CHLORIDE 10 ML SYRINGE IV SCH ×3 (06:09→21:10)
[2021-09-01] MEDS: metroNIDAZOLE 500 MG TABLET PO SCH ×3 (06:09→21:06)
[2021-09-01] MEDS: INSULIN LISPRO 1 UNIT/0.01 ML UNIT SQ SCH ×4 (07:46→21:35)
[2021-09-01] MEDS: HEPARIN 5,000 UNIT/ML VIAL SQ SCH ×2 (08:19→21:07)
[2021-09-01] MEDS: AMOXICILLIN 250 MG CAPSULE PO SCH ×3 (08:19→21:06)
[2021-09-01] MEDS: SENNOSIDES 1 TABLET PO SCH ×2 (08:20→21:13)
--- NOTE | 2021-09-01 08:25 | Internal Med Progress Note ---
SUBJECTIVE Subjective Patient information: Note initiated : 09/01/21 at 8:23 am Service Date, if different from initiated Date: [] Patient: Frankie Rhoades 51 y/o M admitted on 08/12/21 for skin. Chief Complaint: [] Principal diagnosis: Buttock and lower back abscesses Interval history: Interval history: Mr. Rhoades is a 51 year old male with a history of type 2 diabetes presented to the emergency department for left buttock pain and chills. The patient had recently presented to [facility] for the same complaints and was discharged from the emergency department with a prescription of Keflex for 10 days. The patient took the Keflex however his symptoms worsened. In the emergency department at [facility] the patient had a fever of 100.8, tachycardia and elevated respiratory rate. Routine blood work showed a leukocytosis with left shift. Lactic acid was elevated at 3.8. Patient had a CT pelvis with contrast that showed a large left gluteal multiloculated abscess measuring 15 cm. The patient received broad-spectrum antibiotics with vancomycin and Zosyn as well as IV fluids. Repeat lactic acid was 2.0. The patient's blood pressures were low in the emergency department however he says that he usually has low blood pressures at baseline. Hospital medicine was asked to admit the patient for further management. 08/13 Had an I&D of the abscess yesterday evening, multiple drains in place. Anticipate the patient will require another washout and possibly a wound VAC. 2/2 blood cultures growing gram negative bacillus, surgical cultures pending. Increased Lantus and sliding scale insulin, added prandial Humalog. Sepsis physiology has improved. 08/14 Blood cultures grew bacteroides fragilis, awaiting final surgical cultures. Discontinues Vancomycin, continued Zosyn. Glucose continues to be elevated, increased Lantus to 40 units HS, prandial Humalog to 15 units AC TID and continued high dose sliding scale insulin. Surgery planning for reexploration. 08/15 Patient seen examined, still has pain but managable Blood culutres are growing bacteroides and stre p agalactiae , pt remains on zosy Glucose level in 90's today, cut down on prandial humalog to 10 TID Await surgery evaluation with regards to plan for reexploration. 08/16 Patient seen examined, had low bp yesterday, elevated lactic acid, IV fluids given, IV albumin given Repeat CT done which [facility] planning to take patient to OR this AM Patient notes of significant pain, Will increase dose of dilaudid and oxycocond (d/c percoset as would limit the amount of apap given) keep shani apap now 08/17 Patient feeling better after I&D of right gluteal abscess yesterday. No overnight event or new complaints. 08/18 Feeling well. No overnight event or new complaints. Good appetite. Awaiting final cultures. Possible wound VAC per surgery. 08/19 No changes overnight. Final cultures completed. Await final surgical rec commendations. 08/20 Feeling okay. No new complaints. Wound cultures with strep and Bacteroides. 08/21 No changes overnight. No new complaints. Encouraged ambulation. Continue per surgery. 08/22 No new complaints or changes overnight. To need to encourage ambulation. Wound care per surgery. 08/23 Doing well. No new complaints overnight events. Likely discharge to snf facility tomorrow. 08/24 Doing well. No new changes overnight. Going back to the OR for further washout. 08/25 Doing ok, reviewed case with surgery. Social work looking into option of possibly swing bed at [facility]. 08/26 Swing bed is not an option, most likely disposition from acute care will be [facility]. Discussed antibiotics with ID at [facility] in [place], ID agreed with Ceftriaxone and Flagyl for now and could discharge on oral Amoxicillin and oral Flagyl for about 10 days after last I&D. 08/27 Afebrile, continues to have significant saturation of wound dressings. Awaiting general surgery's final recommendations. Best discharge option appears to be [facility], SNF and Swing Bed not an options at this time. 08/28 Had a temperature of 99.1, procalcitonin .21. Looking into possible discharge to [facility] for complex wound cares. 08/29 Complains of back pain, CRP 3.7, afebrile, procalcitonin yesterday was significantly improved from prior value. Started Amoxicillin and discontinued Ceftriaxone, continued oral Metronidazole. 08/30 Awaiting placement, possible at [facility]. Added Dilaudid IV prn with dressing changes. 08/31 No changes. Awaiting placement. 09/01 No overnight event or new complaints. Awaiting placement. Review of Systems: denies headache/fever/chills/nausea/vomiting/chest or abdominal pain/cough/dyspnea/diarrhea. Otherwise see above. Constitutional Vitals: Vital Signs Temp Pulse Resp BP Pulse Ox 98.6 F 92 H 16 103/73 99 09/01/21 03:42 09/01/21 03:42 09/01/21 03:42 09/01/21 03:42 09/01/21 03:42 Period Temp Pulse Resp BP Sys/Vivas Pulse Ox Last 24 Hr 98.6 F-98.8 F 84-92 16-20 93-105/59-73 95-99 Intake and Output 08/31/21 09/01/21 09/01/21 21:59 05:59 13:59 Intake Total 480 840 Output Total 1400 900 400 Balance -920 -60 -400 Weight 99.427 kg Intake & Output: Intake & Output 08/31/21 09/01/21 09/01/21 21:59 05:59 13:59 Intake Total 480 840 Output Total 1400 900 400 Balance -920 -60 -400 Weight 99.427 kg Intake: Oral 480 840 Output: Void Amount 1400 900 400 Other: Meal Lunch Percent of Meal Consumed 100% Feeding Ability Assist with Tray Set Up Urine Appearance Clear Urine Color Dark Yellow Urine Odor Normal Exam: General: Alert, Awake, No acute Distress, obese Eyes/N/T: EOMI, Head/Neck: neck supple, CV: RRR, No murmurs, Pulm: Clear b/l, no wheezing/rhonchi/rales Abd: soft, nontender, +BS x4 Ext: no clubbing/cyanosis/edema Neuro: Alert, no focal deficits, moves all extremities, Skin: warm/dry OBJ DATA Labs CBC & Chem 7: 08/30/21 05:40 08/30/21 05:40 Labs: Abnormal Lab Results 08/30/21 08/30/21 08/29/21 05:40 05:40 05:31 RBC 3.39 L Hgb 9.1 L Hct 30.2 L MCHC 30.1 L RDW 17.0 H MPV 10.9 H Lymph # (Auto) 1.21 L Creatinine 0.5 L Calcium 8.3 L C-Reactive Protein 3.70 H Albumin 2.7 L Meds: Medications Acetaminophen (Acetaminophen 325 Mg Tablet) 650 mg PO Q6HP PRN; Protocol PRN Reason: Per Pain Protocol/Fever > 101 Last Admin: 08/31/21 20:33 Dose: 650 mg Documented by: Amoxicillin (Amoxicillin 250 Mg Capsule) 500 mg PO TID [facility]; Protocol Stop: 09/04/21 08:59 Last Admin: 09/01/21 08:19 Dose: 500 mg Documented by: Dextrose (Dextrose 50% 50 Ml Vial) 0 ml IV UD PRN PRN Reason: Hypoglycemia Diagnostic Test (Pha) (Accu-Chek 1 Each Strip) 1 each FS [facility] Last Admin: 09/01/21 07:46 Dose: 1 each Documented by: Glucose (Dextrose 31 Gm Oral.Susp) 15 gm PO PRN PRN PRN Reason: Hypoglycemia Heparin Sodium (Porcine) (Heparin 5,000 Unit/Ml Vial) 5,000 unit SQ Q12 [facility] Last Admin: 09/01/21 08:19 Dose: 5,000 unit Documented by: Hydromorphone HCl (Hydromorphone 0.5 Mg/0.5 Ml Syringe) 0.5 mg IV DAILYP PRN; Protocol PRN Reason: dressing changes Last Admin: 08/31/21 15:15 Dose: 0.5 mg Documented by: Insulin Glargine (Insulin Glargine, Human 1 Unit/0.01 Ml) 40 unit SQ [facility] Last Admin: 08/31/21 21:41 Dose: 40 unit Documented by: Insulin Human Lispro (Insulin Lispro 1 Unit/0.01 Ml Unit) 0 unit SQ [facility]; Protocol Last Admin: 09/01/21 07:46 Dose: 9 units Documented by: Lactulose (Lactulose 20 Gm/30 Ml Oral.Carmen) 10 gm PO DAILYP PRN PRN Reason: Constipation Methocarbamol (Methocarbamol 750 Mg Tablet) 750 mg PO Q6HP PRN PRN Reason: Muscle Spasm Last Admin: 08/31/21 05:29 Dose: 750 mg Documented by: Metronidazole (Metronidazole 500 Mg Tablet) 500 mg PO Q8 [facility]; Protocol Stop: 09/04/21 07:59 Last Admin: 09/01/21 06:09 Dose: 500 mg Documented by: Ondansetron HCl (Ondansetron 4 Mg/2 Ml Vial) 4 mg IV Q4HP PRN; Protocol PRN Reason: Nausea And Vomiting Oxycodone HCl (Oxycodone Hcl 5 Mg Tablet) 10 mg PO Q4HP PRN; Protocol PRN Reason: Per Pain Protocol Last Admin: 09/01/21 06:15 Dose: 10 mg Documented by: Scopolamine (Scopolamine 1 Patch Patch) 1 patch TOPICAL PREOP PRN PRN Reason: Nausea And Vomiting Senna (Sennosides 1 Tablet) 2 tab PO BID [facility] Last Admin: 09/01/21 08:20 Dose: Not Given Documented by: Sodium Chloride (0.9 % Sodium Chloride 10 Ml Syringe) 10 ml IV Q8 [facility] Last Admin: 09/01/21 06:09 Dose: 10 ml Documented by: A/P Narrative A/P Narrative: A: #Severe Sepsis: 2/2 gluteal abscess. Resolved #Large multiloculated gluteal abscess s/p I&D Left side (08/12) & Right side (08/16) & again (08/24) -cx withbacteroides/Strep #Bacteremia(Bacteroides fragilis): #DM2: poorly controlled, with hyperglycemia on admit. A1c 11.4 #Hyponatremia: resolved #Anemia, unspecified chronicity: #Right #1 and #2 toe wounds present on admission #Obese: Plan: -Wound care, abscess s/p I&D per surgeon -Amoxicillin and Flagyl for 10 days after last I&D. -Analgesics prn -Lantus 40 units at bedtime, SSI-high. -Hold home Metformin and lisinopril -Disposition: Possible [facility] pending placement. Likely discharge on insulin regimen for DM for better glycemic control. 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
[2021-09-01] MEDS: HYDROmorphone 0.5 MG/0.5 ML SYRINGE IV PRN (14:07)
[2021-09-01] MEDS: ACETAMINOPHEN 325 MG TABLET PO PRN ×2 (15:04→20:34)
--- NOTE | 2021-09-01 16:12 | General Surgery Progress Note ---
SUBJECTIVE Subjective Patient information: Note initiated : 09/01/21 at 4:07 pm Service Date, if different from initiated Date: [] Patient: Frankie Rhoades 51 y/o M admitted on 08/12/21 for skin. Chief Complaint: [] Principal diagnosis: Buttock and lower back abscesses Interval history: Patient continues to do well. The amount of drainage is decreased today.&. Remains purulent his discomfort is much less. We have not made any progress in getting him placed in a long-term care facility or rehab facility. Patient is otherwise doing fine. His blood sugars are essentially controlled. Constitutional Vitals: Vital Signs Temp Pulse Resp BP Pulse Ox 100.0 F H 92 H 20 98/64 97 09/01/21 12:00 09/01/21 12:00 09/01/21 12:00 09/01/21 12:00 09/01/21 12:00 Period Temp Pulse Resp BP Sys/Vivas Pulse Ox Last 24 Hr 98.6 F-100.0 F 84-95 16-20 93-103/59-73 95-99 Intake and Output 09/01/21 09/01/21 09/01/21 05:59 13:59 21:59 Intake Total 840 1280 Output Total 900 1450 Balance -60 -170 Intake & Output: Intake & Output 09/01/21 09/01/21 09/01/21 05:59 13:59 21:59 Intake Total 840 1280 Output Total 900 1450 Balance -60 -170 Intake: Oral 840 480 GI Tube Flush 800 Output: Void Amount 900 1450 Other: Meal Breakfast Percent of Meal Consumed 100% Feeding Ability Assist with Tray Set Up Urine Appearance Clear Urine Color Straw Stool Size Moderate Large Stool Color Brown Brown Stool Consistency Soft Soft Formed Formed # Bowel Movements 1 1 ENT ENT exam: Present mucous membranes moist, normal exam and normal external ear exam Neck Neck exam: Present full ROM; Absent tenderness Respiratory Respiratory exam: Present normal respiratory exam and CTAB Cardiovascular Cardiovascular exam: Present normal rate and rhythm, RRR, +S1 and +S2; Absent JVD GI/Abdominal GI/Abdominal exam: Present normal bowel sounds; Absent soft or tenderness (Except around drains in right lower quadrant of abdomen) Extremities Exam Extremities exam: Present normal inspection and neurovascular intact; Absent pedal edema Back Exam Additional comments: Moderate tenderness in lower lumbar region; purulent drainage from lumbar incisions is decreased and much thinner than previously Neurological Exam Neurological exam: Present alert and oriented X3; Absent abnormal gait or motor sensory deficit Psychiatric Psychiatric exam: Present normal affect and normal mood A/P Assessment and plan (1) Right lower quadrant abdominal abscess: Status: Acute (2) Left lower quadrant abdominal abscess: Status: Acute (3) Diabetes mellitus: Status: Acute (4) Perirectal abscess: Status: Acute (5) Abscess of left buttock: Status: Acute Narrative A/P Narrative: Continue present therapy Time Spent With Patient Time: Total time spent is greater than 50% in coordination of care (as documented) at patient's floor/unit and/or counseling patient:
[2021-09-01] MEDS: METHOCARBAMOL 750 MG TABLET PO PRN (19:20)
[2021-09-01] MEDS: INSULIN GLARGINE, HUMAN 1 UNIT/0.01 ML SQ SCH (21:09)
[2021-09-02] MEDS: oxyCODONE HCL 5 MG TABLET PO PRN ×4 (05:51→19:32)
[2021-09-02] MEDS: metroNIDAZOLE 500 MG TABLET PO SCH ×3 (05:55→21:29)
[2021-09-02] MEDS: 0.9 % SODIUM CHLORIDE 10 ML SYRINGE IV SCH ×3 (06:51→21:34)
[2021-09-02] MEDS: INSULIN LISPRO 1 UNIT/0.01 ML UNIT SQ SCH ×4 (07:40→22:45)
[2021-09-02] MEDS: AMOXICILLIN 250 MG CAPSULE PO SCH ×3 (08:34→21:29)
[2021-09-02] MEDS: SENNOSIDES 1 TABLET PO SCH ×2 (08:35→21:34)
[2021-09-02] MEDS: HEPARIN 5,000 UNIT/ML VIAL SQ SCH ×2 (08:35→21:30)
--- NOTE | 2021-09-02 08:36 | Internal Med Progress Note ---
SUBJECTIVE Subjective Patient information: Note initiated : 09/02/21 at 8:35 am Service Date, if different from initiated Date: [] Patient: Frankie Rhoades 51 y/o M admitted on 08/12/21 for skin. Chief Complaint: [] Principal diagnosis: Buttock and lower back abscesses Interval history: Interval history: Mr. Rhoades is a 51 year old male with a history of type 2 diabetes presented to the emergency department for left buttock pain and chills. The patient had recently presented to [facility] for the same complaints and was discharged from the emergency department with a prescription of Keflex for 10 days. The patient took the Keflex however his symptoms worsened. In the emergency department at [facility] the patient had a fever of 100.8, tachycardia and elevated respiratory rate. Routine blood work showed a leukocytosis with left shift. Lactic acid was elevated at 3.8. Patient had a CT pelvis with contrast that showed a large left gluteal multiloculated abscess measuring 15 cm. The patient received broad-spectrum antibiotics with vancomycin and Zosyn as well as IV fluids. Repeat lactic acid was 2.0. The patient's blood pressures were low in the emergency department however he says that he usually has low blood pressures at baseline. Hospital medicine was asked to admit the patient for further management. 08/13 Had an I&D of the abscess yesterday evening, multiple drains in place. Anticipate the patient will require another washout and possibly a wound VAC. 2/2 blood cultures growing gram negative bacillus, surgical cultures pending. Increased Lantus and sliding scale insulin, added prandial Humalog. Sepsis physiology has improved. 08/14 Blood cultures grew bacteroides fragilis, awaiting final surgical cultures. Discontinues Vancomycin, continued Zosyn. Glucose continues to be elevated, increased Lantus to 40 units HS, prandial Humalog to 15 units AC TID and continued high dose sliding scale insulin. Surgery planning for reexploration. 08/15 Patient seen examined, still has pain but managable Blood culutres are growing bacteroides and stre p agalactiae , pt remains on zosy Glucose level in 90's today, cut down on prandial humalog to 10 TID Await surgery evaluation with regards to plan for reexploration. 08/16 Patient seen examined, had low bp yesterday, elevated lactic acid, IV fluids given, IV albumin given Repeat CT done which shows nrew developing abscees on the [facility] buttoc Surgery planning to take patient to OR this AM Patient notes of significant pain, Will increase dose of dilaudid and oxycocond (d/c percoset as would limit the amount of apap given) keep shani apap now 08/17 Patient feeling better after I&D of right gluteal abscess yesterday. No overnight event or new complaints. 08/18 Feeling well. No overnight event or new complaints. Good appetite. Awaiting final cultures. Possible wound VAC per surgery. 08/19 No changes overnight. Final cultures completed. Await final surgical rec commendations. 08/20 Feeling okay. No new complaints. Wound cultures with strep and Bacteroides. 08/21 No changes overnight. No new complaints. Encouraged ambulation. Continue per surgery. 08/22 No new complaints or changes overnight. To need to encourage ambulation. Wound care per surgery. 08/23 Doing well. No new complaints overnight events. Likely discharge to assisted facility tomorrow. 08/24 Doing well. No new changes overnight. Going back to the OR for further washout. 08/25 Doing ok, reviewed case with surgery. Social work looking into option of possibly swing bed at [facility]. 08/26 Swing bed is not an option, most likely disposition from acute care will be [facility]. Discussed antibiotics with ID at [facility] in [place], ID agreed with Ceftriaxone and Flagyl for now and could discharge on oral Amoxicillin and oral Flagyl for about 10 days after last I&D. 08/27 Afebrile, continues to have significant saturation of wound dressings. Awaiting general surgery's final recommendations. Best discharge option appears to be [facility], SNF and Swing Bed not an options at this time. 08/28 Had a temperature of 99.1, procalcitonin .21. Looking into possible discharge to [facility] for complex wound cares. 08/29 Complains of back pain, CRP 3.7, afebrile, procalcitonin yesterday was significantly improved from prior value. Started Amoxicillin and discontinued Ceftriaxone, continued oral Metronidazole. 08/30 Awaiting placement, possible at [facility]. Added Dilaudid IV prn with dressing changes. 08/31 No changes. Awaiting placement. 09/01 No overnight event or new complaints. Awaiting placement. 09/02 No changes. Awaiting placement. Review of Systems: denies headache/fever/chills/nausea/vomiting/chest or abdominal pain/cough/dyspnea/diarrhea. Otherwise see above. Constitutional Vitals: Vital Signs Temp Pulse Resp BP Pulse Ox 97.4 F 98 H 20 100/69 99 09/02/21 08:00 09/02/21 08:00 09/02/21 08:00 09/02/21 08:00 09/02/21 08:00 Period Temp Pulse Resp BP Sys/Vivas Pulse Ox Last 24 Hr 97.4 F-100.0 F 83-98 14-20 95-105/59-70 97-99 Intake and Output 09/01/21 09/02/21 09/02/21 21:59 05:59 13:59 Intake Total 520 940 Output Total 1025 Balance 520 -85 Weight 96.751 kg Intake & Output: Intake & Output 09/01/21 09/02/21 09/02/21 21:59 05:59 13:59 Intake Total 520 940 Output Total 1025 Balance 520 -85 Weight 96.751 kg Intake: Oral 520 940 Output: Void Amount 1025 Other: Meal Lunch Percent of Meal Consumed 100% Feeding Ability Independent Urine Appearance Clear Urine Color Bright Yellow Stool Size Copious Large Stool Color Brown Brown Green Blood Tinged Stool Consistency Soft Soft Loose # Voids 1 # Bowel Movements 1 1 Exam: General: Alert, Awake, No acute Distress, Eyes/N/T: EOMI, Head/Neck: neck supple, CV: RRR, No murmurs, Pulm: Clear b/l, no wheezing/rhonchi/rales Abd: soft, nontender, +BS x4 Ext: no clubbing/cyanosis/edema Neuro: Alert, no focal deficits, moves all extremities, Skin: warm/dry OBJ DATA Labs CBC & Chem 7: 08/30/21 05:40 08/30/21 05:40 Meds: Medications Acetaminophen (Acetaminophen 325 Mg Tablet) 650 mg PO Q6HP PRN; Protocol PRN Reason: Per Pain Protocol/Fever > 101 Last Admin: 09/02/21 00:00 Dose: 650 mg Documented by: Amoxicillin (Amoxicillin 250 Mg Capsule) 500 mg PO TID [facility]; Protocol Stop: 09/04/21 08:59 Last Admin: 09/02/21 08:34 Dose: 500 mg Documented by: Dextrose (Dextrose 50% 50 Ml Vial) 0 ml IV UD PRN PRN Reason: Hypoglycemia Diagnostic Test (Pha) (Accu-Chek 1 Each Strip) 1 each FS [facility] Last Admin: 09/02/21 07:40 Dose: 1 each Documented by: Glucose (Dextrose 31 Gm Oral.Susp) 15 gm PO PRN PRN PRN Reason: Hypoglycemia Heparin Sodium (Porcine) (Heparin 5,000 Unit/Ml Vial) 5,000 unit SQ Q12 [facility] Last Admin: 09/02/21 08:35 Dose: 5,000 unit Documented by: Hydromorphone HCl (Hydromorphone 0.5 Mg/0.5 Ml Syringe) 0.5 mg IV DAILYP PRN; P rotocol PRN Reason: dressing changes Last Admin: 09/01/21 14:07 Dose: 0.5 mg Documented by: Insulin Glargine (Insulin Glargine, Human 1 Unit/0.01 Ml) 40 unit SQ [facility] Last Admin: 09/01/21 21:09 Dose: 40 unit Documented by: Insulin Human Lispro (Insulin Lispro 1 Unit/0.01 Ml Unit) 0 unit SQ [facility]; Protocol Last Admin: 09/02/21 07:40 Dose: Not Given Documented by: Lactulose (Lactulose 20 Gm/30 Ml Oral.Carmen) 10 gm PO DAILYP PRN PRN Reason: Constipation Methocarbamol (Methocarbamol 750 Mg Tablet) 750 mg PO Q6HP PRN PRN Reason: Muscle Spasm Last Admin: 09/01/21 19:20 Dose: 750 mg Documented by: Metronidazole (Metronidazole 500 Mg Tablet) 500 mg PO Q8 [facility]; Protocol Stop: 09/04/21 07:59 Last Admin: 09/02/21 05:55 Dose: 500 mg Documented by: Ondansetron HCl (Ondansetron 4 Mg/2 Ml Vial) 4 mg IV Q4HP PRN; Protocol PRN Reason: Nausea And Vomiting Oxycodone HCl (Oxycodone Hcl 5 Mg Tablet) 10 mg PO Q4HP PRN; Protocol PRN Reason: Per Pain Protocol Last Admin: 09/02/21 05:51 Dose: 10 mg Documented by: Senna (Sennosides 1 Tablet) 2 tab PO BID [facility] Last Admin: 09/02/21 08:35 Dose: 2 tab Documented by: Sodium Chloride (0.9 % Sodium Chloride 10 Ml Syringe) 10 ml IV Q8 [facility] Last Admin: 09/02/21 06:51 Dose: Not Given Documented by: A/P Narrative A/P Narrative: A: #Severe Sepsis: 2/2 gluteal abscess. Resolved #Large multiloculated gluteal abscess s/p I&D Left side (08/12) & Right side (08/16) & again (08/24) -cx withbacteroides/Strep #Bacteremia(Bacteroides fragilis): #DM2: poorly controlled, with hyperglycemia on admit. A1c 11.4 #Hyponatremia: resolved #Anemia, unspecified chronicity: #Right #1 and #2 toe wounds present on admission #Obese: Plan: -Wound care, abscess s/p I&D per surgeon -Amoxicillin and Flagyl for 10 days after last I&D, finish on 09/03 -Analgesics prn -Lantus 40 units at bedtime, SSI-high. -Hold home Metformin, and lisinopril for low BP -Disposition: Possible [facility] pending placement. Likely discharge on insulin regimen for DM for better glycemic control. 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
[2021-09-02] MEDS: INSULIN GLARGINE, HUMAN 1 UNIT/0.01 ML SQ SCH (21:32)
[2021-09-02] MEDS: HYDROmorphone 0.5 MG/0.5 ML SYRINGE IV PRN (22:38)
[2021-09-02] MEDS: ACETAMINOPHEN 325 MG TABLET PO PRN ×2 (22:38)
[2021-09-03] MEDS: oxyCODONE HCL 5 MG TABLET PO PRN ×3 (00:23→10:45)
[2021-09-03] MEDS: metroNIDAZOLE 500 MG TABLET PO SCH (05:06)
[2021-09-03] MEDS: 0.9 % SODIUM CHLORIDE 10 ML SYRINGE IV SCH (05:07)
[2021-09-03] MEDS: INSULIN LISPRO 1 UNIT/0.01 ML UNIT SQ SCH (08:16)
[2021-09-03] MEDS: SENNOSIDES 1 TABLET PO SCH (08:26)
[2021-09-03] MEDS: AMOXICILLIN 250 MG CAPSULE PO SCH (08:27)
[2021-09-03] MEDS: HEPARIN 5,000 UNIT/ML VIAL SQ SCH (08:27)
[2021-09-03] MEDS: HYDROmorphone 0.5 MG/0.5 ML SYRINGE IV PRN (08:27)
--- NOTE | 2021-09-25 12:56 | Operative Note ---
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 PROCEDURE: Drainage of multiple abscesses of lower back and right lateral flank and right buttock. SURGEON: Shey Erazo MD DESCRIPTION OF PROCEDURE: Initially, patient was placed under general anesthesia. He was placed in the left lateral decubitus position. The areas of the abscesses had been previously delineated by CT scan. A counterincision was made in the lower right buttock. Using finger dissection, the loculations in the subcutaneous tissue were fractionated extending up into the lower lumbar area. This extended to the level of about L2-L3. The area seemed to be the most superior level of dissection. A counterincision was made at this point. Extending from this point, the dissection was extended into the right flank and down into the right buttock. This area of dissection was 55 cm long and about 20 cm wide. All of the dissection was carried out in the subcutaneous fat and superficial fascia. Curettage was carried out to remove the necrotic debris. From that point, another counterincision was made and extended further from the lower lumbar region down into the right buttock. This also was about 20-25 cm wide and extended 40 cm. This extended into the right buttock. Next, a counterincision was made at the iliac spine and further dissection laterally into the right buttock was carried out and this measured about 15 cm wide x 22 cm. Full dissection of the subcutaneous fat and superficial fascia was carried out. The inflammatory reaction did not seem to extend into the gluteus muscle. After all of the areas were debrided with curettes to remove as much of the necrotic subcutaneous fat as possible, they were all copiously irrigated using a pressure bus van driver and [place] drains were placed in each area connecting them, so that there would be copious drainage. Eight [place] drains were placed to accomplish this. The patient tolerated the procedure well. Blood loss was about 100-150 mL. It could not be fully quantitative because of irrigation. The patient tolerated the procedure well. The drains were covered with large ABD gauze and surgical briefs were placed to hold the ABD gauze in place. The patient was turned to the supine position, awakened, extubated, and transferred to the postanesthetic care unit in satisfactory condition. LCS:denise Job ID: [id number] Doc ID: [id number] Shey Erazo M.D.
--- NOTE | 2021-09-25 13:04 | Operative Note ---
DATE OF OPERATION: 08/16/2021 DATE OF PROCEDURE: 08/16/2021 PREOPERATIVE DIAGNOSIS: Right flank, buttock and right lower quadrant abscess, progressive. POSTOPERATIVE DIAGNOSIS: Right flank, buttock and right lower quadrant abscess extending 53 cm. PROCEDURE: Incision, drainage, and debridement of extensive abscess of right buttock, flank and right lower quadrant abdominal wall, measuring 53 cm long and 7 cm to 10 cm wide at different points. SURGEON: Shey Erazo M.D. INDICATIONS FOR PROCEDURE: The patient is having a repeat drainage and debridement of progressive infection of his buttocks and flank. He was evaluated by CT and it showed new developments in the subcutaneous fat, compatible with repeat infection. DESCRIPTION OF PROCEDURE: The patient was taken to the operating suite where general anesthesia was induced. He was turned to the left lateral decubitus position. The drains that were previously placed were removed and the areas that were previously marked had counterincision made inferior to the area of presumed infection. The incision was extended down to the abscess pocket and using finger fractionation and large Zuleyma clamps, the abscess cavities and tracts were opened. The tracts extended from the lateral aspect of the right buttock around the right flank and anterior along the right lower quadrant abdominal wall. Three counterincisions were made along this tract to make sure that all pockets were adequately addressed. Once the tracts were made, finger fractionation was carried out. The superficial fascia of the muscle was involved, but was not necrotic. It was curetted to remove all of the infectious debris and then copiously irrigated. There was no major blood loss because of the infectious necrosis of the tissue. Once the tracts were opened and adequately debrided, [place] drains were replaced, so that the tracts would be left open. This encompassed a tract that was continuous and measured 53 cm at the best estimate. The largest width of the tract was about 7 cm. The patient tolerated the procedure well. The old drains were irrigated that were not exchanged. The areas were covered with large ABD gauze and tape. Surgical briefs were placed to hold them in position. He was turned to the supine position, extubated, and transferred to the postanesthetic care unit in satisfactory condition. LCS:tc Job ID: [id number] Doc ID: [id number] Shey Erazo M.D.
--- NOTE | 2021-09-25 14:15 | Operative Note ---
DATE OF OPERATION: 08/12/2021 DATE OF PROCEDURE: 08/12/2021 PREOPERATIVE DIAGNOSIS: Major loculated abscesses of left buttock, left perianal space, and lower lumbar area. POSTOPERATIVE DIAGNOSIS: Loculated abscesses of left buttock, perianal space, and lumbosacral area. PROCEDURE: Incision, drainage and debridement of multiple abscesses of left buttock, perianal space, and left lower lumbar area measuring 20 x 22 cm and 25 x 18 cm. SURGEON: Shey Erazo M.D. FINDINGS: Extensive deep subcutaneous and deep gluteal delma loculated abscesses extending from the perianal space to the left buttock and into the lower lumbosacral area. DESCRIPTION OF PROCEDURE: Under general anesthesia, the patient was placed in right lateral decubitus position. Timeout procedure was carried out as per protocol. The open draining area in the left perirectal space was finger dissected until the abscess cavity was entered. Cultures were taken. Finger fractionation was carried out initially, extending laterally into the subcutaneous tissue of the left buttock. Once I was there, I entered multiple loculated pockets of pus, which were dissected with a large Zuleyma clamp. I used the CT images to try to make sure that the pockets in the depth of the gluteus delma was adequately drained. Because the patient was a severe diabetic, it was elected not to do a full, wide excision and sacrifice tissue that would be needed to close the buttock abscess pocket proper. Once finger fractionation was carried out, copious irrigation was carried out. Next, a large curette was placed and the subcutaneous tissue was curetted to remove as much infected, necrotic debris as possible. The area was fully curetted until no further pus was seen. I then turned attention to the area that tracked more superiorly into the lower lumbosacral area. Similar dissection was carried out and curette of the necrotic, infected tissue was carried out. This included primarily subcutaneous fat and superficial muscle fascia. Next, a 1-inch [place] drain was placed through each tract and was sutured to itself. The tract into the gluteus delma measured 22 cm long and 20 cm wide and the tract into the lower lumbar region measured 25 cm long and 18 cm wide. Cultures were sent. The patient tolerated the procedure well. ABD gauze were placed and surgical briefs were placed to hold the gauze intact. The patient was turned to the supine position, awakened, and transferred to the postanesthetic care unit in stable, satisfactory condition. LCS:tc Job ID: [id number] Doc ID: [id number] Shey Erazo M.D.
== END 2021-09-03 14:12 | disposition home health service (06) | DRG 854 ==
LOC: ED 09:21 → SUR 16:35 → ICU 19:00 → MEDSUR 08-21 15:36
PROVIDERS: ADMIT Internal Medicine; ATTEND Internal Medicine

== ENCOUNTER 2024-02-28 02:03 | Inpatient (IN) ==
[2024-02-28] MEDS ORDERED: IOPAMIDOL 100 ML BOTTLE IV ONE (02:04)
[2024-02-28] MEDS: 0.9 % SODIUM CHLORIDE 1,000 ML IV ONE ×3 (02:32→18:53)
[2024-02-28] MEDS: cefTRIAXone 2 GM in DEXTROSE 5% IN WATER 50 ML IV ONE (02:57)
[2024-02-28 03:07] LABS: Basophils # (Auto) 0.01 K/mcL (0.00-0.30); Basophils % (Auto) 0.1 % (0.0-2.0); Eosinophils # (Auto) 0.06 K/mcL (0.00-0.70); Eosinophils % (Auto) 0.6 % (0.0-7.0); Hematocrit 30.8 % (40.1-51.0); Lymphocytes # (Auto) 0.81 K/mcL (1.50-4.80); Lymphocytes % (Auto) 8.6 % (15.5-49.0); Mean Cell Volume 88.3 fL (80.0-100.0); Mean Corpuscular HGB Conc 32.5 g/dL (31.0-36.0); Mean Platelet Volume 10.8 fL (8.8-12.5); Monocytes # (Auto) 0.61 K/mcL (0.10-0.90); Monocytes % (Auto) 6.5 % (1.0-12.0); Neutrophils % (Auto) 83.8 % (38.0-78.0); Platelet Count 253 K/mcL (140-440); RBC 3.49 M/mcL (4.63-6.08); Red Cell Distribution Width 12.6 % (11.5-14.5); WBC 9.4 K/mcL (4.5-11.0)
[2024-02-28] MEDS: VANCOMYCIN 2,000 MG in 0.9 % SODIUM CHLORIDE 500 ML IV ONE (03:30)
[2024-02-28 03:43] LABS: ALT/SGPT 27 U/L (<40); AST/SGOT 36 U/L (<40); Albumin 2.7 gm/dL (3.2-5.2); Albumin/Globulin Ratio 0.5 (1.0-2.3); Alkaline Phosphatase 303 U/L (39-117); Bilirubin,Total 0.8 mg/dL (0.1-1.0); Blood Urea Nitrogen 18 mg/dL (6-20); Calcium 8.7 mg/dL (8.6-10.4); Carbon Dioxide 23 mmol/L (22-30); Chloride 87 mmol/L (96-108); Globulin 5.7 gm/dL (2.2-3.7); Glomerular Filtration Rate 86; Glucose 478 mg/dL (70-105); Potassium 3.7 mmol/L (3.3-5.1); Sodium 122 mmol/L (133-145)
[2024-02-28] MEDS: DIPH,PERTUSS(ACELL),TET VAC/PF 0.5 ML SYRINGE IM ONE (03:54)
[2024-02-28] MEDS: morphine 4 MG/ML VIAL IV ONE ×2 (03:57→09:24)
[2024-02-28 04:13] LABS: INR 1.1 (0.9-1.1); Prothrombin Time 14.4 sec (11.9-14.5)
[2024-02-28] MEDS: INSULIN REGULAR, HUMAN 1 UNIT/0.01 ML UNIT IV ONE (04:19)
[2024-02-28 09:23] LABS: POC Calcium, Ionized 1.13 (1.16-1.32); POC Creatinine 0.6 (0.6-1.2); POC Potassium 3.7 (3.3-5.1)
[2024-02-28] MEDS: PIPERACILLIN SODIUM/TAZOBACTAM 4.5 GM in DEXTROSE 5% IN WATER 50 ML IV ONE (09:24)
[2024-02-28] MEDS: morphine 2 MG/ML VIAL IV ONE (09:28)
[2024-02-28] MEDS: INSULIN REGULAR, HUMAN 1 UNIT/0.01 ML UNIT SQ ONE (10:13)
[2024-02-28 12:00] LABS: POC Calcium, Ionized 1.11 (1.16-1.32); POC Creatinine 0.6 (0.6-1.2); POC Potassium 3.8 (3.3-5.1)
[2024-02-28] MEDS: 0.9 % SODIUM CHLORIDE 1,000 ML IV SCH (14:53)
[2024-02-28] MEDS: PIPERACILLIN SODIUM/TAZOBACTAM 4.5 GM in DEXTROSE 5% IN WATER 100 ML IV SCH (14:53)
[2024-02-28] MEDS: PIPERACILLIN SODIUM/TAZOBACTAM 4.5 GM in DEXTROSE 5% IN WATER 50 ML IV SCH (15:02)
[2024-02-28] MEDS ORDERED: morphine 4 MG/ML VIAL IV PRN (15:03)
[2024-02-28] MEDS: VANCOMYCIN PER PHARMACY IV ONE (15:28)
[2024-02-28] MEDS ORDERED: POLYETHYLENE GLYCOL 3350 17 GM PACKET PO PRN (17:58)
[2024-02-28] MEDS ORDERED: ACETAMINOPHEN 325 MG TABLET PO PRN (17:58)
[2024-02-28] MEDS ORDERED: POTASSIUM CHLORIDE 20 MEQ TABLET PO PRN ×2 (17:58)
[2024-02-28] MEDS ORDERED: POTASSIUM CHLORIDE 40 MEQ in DEXTROSE 5% IN WATER 500 ML IV PRN (17:58)
[2024-02-28] MEDS ORDERED: DEXTROSE 31 GM ORAL.SUSP PO PRN (17:58)
[2024-02-28] MEDS ORDERED: SENNOSIDES 1 TABLET PO PRN (17:58)
[2024-02-28] MEDS ORDERED: ONDANSETRON 4 MG/2 ML VIAL IV PRN (17:58)
[2024-02-28] MEDS ORDERED: VANCOMYCIN PER PHARMACY IV SCH (17:58)
[2024-02-28] MEDS ORDERED: DEXTROSE 50% 50 ML VIAL IV PRN (17:58)
[2024-02-28] MEDS ORDERED: IPRATROPIUM/ALBUTEROL 3 ML AMPUL.NEB NEB PRN (17:58)
[2024-02-28] MEDS ORDERED: MAGNESIUM SULFATE 2 GM/50 ML BAG IV PRN (17:58)
[2024-02-28] MEDS: VANCOMYCIN 1,750 MG in 0.9 % SODIUM CHLORIDE 500 ML IV SCH (18:51)
[2024-02-28] MEDS: HYDROcodone/APAP 5/325MG TABLET PO PRN (18:51)
[2024-02-28] MEDS: 0.9 % SODIUM CHLORIDE 10 ML SYRINGE IV SCH (18:53)
[2024-02-28 19:32] LABS: Hemoglobin A1C 13.4 % Hgb (4.0-6.0)
[2024-02-28] MEDS: PIPERACILLIN SODIUM/TAZOBACTAM 3.375 GM in DEXTROSE 5% IN WATER 100 ML IV SCH ×2 (19:32→20:58)
[2024-02-28] MEDS: INSULIN LISPRO 1 UNIT/0.01 ML UNIT SQ SCH (19:33)
[2024-02-28] MEDS: DOCUSATE SODIUM 100 MG CAPSULE PO SCH (20:58)
[2024-02-28] MEDS: HEPARIN 5,000 UNIT/ML VIAL SQ SCH (20:58)
[2024-02-28] MEDS: INSULIN GLARGINE, HUMAN 1 UNIT/0.01 ML SQ SCH (21:55)
[2024-02-28] MEDS: INSULIN GLARGINE, HUMAN 1 UNIT/0.01 ML SQ ONE (21:56)
[2024-02-29 06:46] LABS: Basophils # (Auto) 0.01 K/mcL (0.00-0.30); Basophils % (Auto) 0.1 % (0.0-2.0); Eosinophils # (Auto) 0.14 K/mcL (0.00-0.70); Eosinophils % (Auto) 1.8 % (0.0-7.0); Hematocrit 31.2 % (40.1-51.0); Hemoglobin 10.1 g/dL (13.7-17.5); Lymphocytes % (Auto) 13.1 % (15.5-49.0); Mean Cell Volume 90.7 fL (80.0-100.0); Mean Corpuscular HGB Conc 32.4 g/dL (31.0-36.0); Mean Platelet Volume 10.9 fL (8.8-12.5); Monocytes # (Auto) 0.48 K/mcL (0.10-0.90); Monocytes % (Auto) 6.3 % (1.0-12.0); Neutrophils % (Auto) 78.3 % (38.0-78.0); Platelet Count 211 K/mcL (140-440); RBC 3.44 M/mcL (4.63-6.08); WBC 7.6 K/mcL (4.5-11.0)
[2024-02-29 06:57] LABS: ALT/SGPT 18 U/L (<40); AST/SGOT 36 U/L (<40); Albumin 1.9 gm/dL (3.2-5.2); Albumin/Globulin Ratio 0.4 (1.0-2.3); Alkaline Phosphatase 178 U/L (39-117); Bilirubin,Direct < 0.2 mg/dL (0-0.3); Bilirubin,Total 0.4 mg/dL (0.1-1.0); Blood Urea Nitrogen 8 mg/dL (6-20); Carbon Dioxide 21 mmol/L (22-30); Chloride 101 mmol/L (96-108); Globulin 4.5 gm/dL (2.2-3.7); Glomerular Filtration Rate 108; Glucose 289 mg/dL (70-105); Lactate Dehydrogenase 264 U/L (135-225); Phosphorous 2.5 mg/dL (2.5-4.5); Sodium 130 mmol/L (133-145); Triglycerides 186 mg/dL (<150); Uric Acid 1.7 mg/dL (2.5-8.0)
[2024-02-29] MEDS ORDERED: VANCOMYCIN 1,750 MG in 0.9 % SODIUM CHLORIDE 500 ML IV SCH (07:00)
[2024-02-29] MEDS ORDERED: INSULIN REGULAR, HUMAN 1 UNIT/0.01 ML UNIT SQ SCH (07:30)
[2024-02-29] MEDS: morphine 4 MG/ML VIAL IV PRN (10:53)
[2024-02-29] MEDS ORDERED: ONDANSETRON 4 MG/2 ML VIAL ONE (11:23)
[2024-02-29] MEDS ORDERED: LIDOCAINE 2% PF 5 ML VIAL ONE (11:23)
[2024-02-29] MEDS ORDERED: DEXAMETHASONE 10 MG/ML VIAL ONE (11:23)
[2024-02-29] MEDS ORDERED: KETAMINE 50 MG/ML Syringe IV ONE (11:23)
[2024-02-29] MEDS ORDERED: PROPOFOL 200 MG/20 ML VIAL IV ONE (11:23)
[2024-02-29] MEDS ORDERED: fentaNYL 100 MCG/2 ML VIAL ONE (12:09)
[2024-02-29] MEDS ORDERED: IPRATROPIUM/ALBUTEROL 3 ML AMPUL.NEB NEB PRN (12:19)
[2024-02-29] MEDS ORDERED: ONDANSETRON 4 MG/2 ML VIAL IV PRN (12:19)
[2024-02-29] MEDS ORDERED: MEPERIDINE 25 MG/ML VIAL IV PRN (12:19)
[2024-02-29] MEDS ORDERED: LACTATED RINGERS 250 ML IV PRN (12:19)
[2024-02-29] MEDS ORDERED: NALOXONE HCL 0.4 MG/ML VIAL IV PRN (12:19)
[2024-02-29] MEDS ORDERED: diphenhydrAMINE 50 MG/ML VIAL IV PRN (12:19)
[2024-02-29] MEDS: VANCOMYCIN 1 GM VIAL TOPICAL SCH (12:41)
[2024-02-29] MEDS: ACETAMINOPHEN 1,000 MG/100 ML BAG IV ONE (13:07)
[2024-02-29] MEDS: fentaNYL 100 MCG/2 ML VIAL IV PRN (13:21)
[2024-02-29] MEDS: METHOCARBAMOL 1,000 MG/10 ML VIAL IV PRN (13:21)
[2024-02-29] MEDS: LACTATED RINGERS 1,000 ML IV SCH (14:59)
[2024-02-29] MEDS: INSULIN GLARGINE, HUMAN 1 UNIT/0.01 ML SQ SCH (21:37)
[2024-03-01 06:51] LABS: ALT/SGPT 13 U/L (<40); AST/SGOT 18 U/L (<40); Albumin/Globulin Ratio 0.5 (1.0-2.3); Alkaline Phosphatase 139 U/L (39-117); Bilirubin,Direct < 0.2 mg/dL (0-0.3); Bilirubin,Total 0.3 mg/dL (0.1-1.0); Blood Urea Nitrogen 10 mg/dL (6-20); Calcium 7.8 mg/dL (8.6-10.4); Carbon Dioxide 21 mmol/L (22-30); Chloride 101 mmol/L (96-108); Glomerular Filtration Rate 116; Glucose 228 mg/dL (70-105); Lactate Dehydrogenase 103 U/L (135-225); Phosphorous 2.2 mg/dL (2.5-4.5); Potassium 3.8 mmol/L (3.3-5.1); Sodium 131 mmol/L (133-145); Triglycerides 98 mg/dL (<150)
[2024-03-01] MEDS ORDERED: VANCOMYCIN PER PHARMACY IV SCH (08:15)
[2024-03-01] MEDS: INSULIN GLARGINE, HUMAN 1 UNIT/0.01 ML SQ SCH (08:32)
[2024-03-01] MEDS: SODIUM CHLORIDE 1 GM TABLET PO SCH (08:33)
[2024-03-01] MEDS: VANCOMYCIN 1,750 MG in 0.9 % SODIUM CHLORIDE 500 ML IV SCH (09:23)
[2024-03-02 06:38] LABS: ALT/SGPT 10 U/L (<40); AST/SGOT 25 U/L (<40); Albumin/Globulin Ratio 0.5 (1.0-2.3); Alkaline Phosphatase 176 U/L (39-117); Bilirubin,Direct < 0.2 mg/dL (0-0.3); Bilirubin,Total 0.2 mg/dL (0.1-1.0); Blood Urea Nitrogen 9 mg/dL (6-20); Calcium 7.8 mg/dL (8.6-10.4); Carbon Dioxide 22 mmol/L (22-30); Chloride 106 mmol/L (96-108); Globulin 3.9 gm/dL (2.2-3.7); Glomerular Filtration Rate 116; Glucose 237 mg/dL (70-105); Lactate Dehydrogenase 109 U/L (135-225); Phosphorous 2.9 mg/dL (2.5-4.5); Potassium 3.6 mmol/L (3.3-5.1); Sodium 137 mmol/L (133-145); Triglycerides 147 mg/dL (<150); Uric Acid 1.6 mg/dL (2.5-8.0)
[2024-03-02] MEDS: INSULIN GLARGINE, HUMAN 1 UNIT/0.01 ML SQ SCH (08:23)
[2024-03-02] MEDS: INSULIN GLARGINE, HUMAN 1 UNIT/0.01 ML SQ ONE ×2 (08:26→08:37)
[2024-03-02] MEDS: INSULIN LISPRO 1 UNIT/0.01 ML UNIT SQ SCH (12:00)
[2024-03-03 06:25] LABS: ALT/SGPT 10 U/L (<40); AST/SGOT 25 U/L (<40); Albumin 2.1 gm/dL (3.2-5.2); Albumin/Globulin Ratio 0.5 (1.0-2.3); Alkaline Phosphatase 153 U/L (39-117); Bilirubin,Direct < 0.2 mg/dL (0-0.3); Bilirubin,Total 0.2 mg/dL (0.1-1.0); Blood Urea Nitrogen 7 mg/dL (6-20); Calcium 8.2 mg/dL (8.6-10.4); Carbon Dioxide 25 mmol/L (22-30); Chloride 105 mmol/L (96-108); Globulin 3.9 gm/dL (2.2-3.7); Glomerular Filtration Rate 116; Glucose 192 mg/dL (70-105); Lactate Dehydrogenase 107 U/L (135-225); Phosphorous 3.2 mg/dL (2.5-4.5); Potassium 3.5 mmol/L (3.3-5.1); Sodium 138 mmol/L (133-145); Triglycerides 144 mg/dL (<150); Uric Acid 1.3 mg/dL (2.5-8.0)
[2024-03-03 08:02] LABS: Estimated Average Glucose(eAG) 329 mg/dL; Hemoglobin A1C 13.1 % Hgb (4.0-6.0)
[2024-03-03] MEDS: VANCOMYCIN 1,500 MG in 0.9 % SODIUM CHLORIDE 500 ML IV SCH (10:27)
[2024-03-04 05:53] LABS: Basophils # (Auto) 0.02 K/mcL (0.00-0.30); Basophils % (Auto) 0.4 % (0.0-2.0); Eosinophils # (Auto) 0.15 K/mcL (0.00-0.70); Eosinophils % (Auto) 3.1 % (0.0-7.0); Hematocrit 29.7 % (40.1-51.0); Hemoglobin 9.1 g/dL (13.7-17.5); Lymphocytes # (Auto) 1.06 K/mcL (1.50-4.80); Lymphocytes % (Auto) 22.2 % (15.5-49.0); Mean Cell Volume 93.4 fL (80.0-100.0); Mean Corpuscular HGB Conc 30.6 g/dL (31.0-36.0); Mean Platelet Volume 9.8 fL (8.8-12.5); Monocytes # (Auto) 0.26 K/mcL (0.10-0.90); Monocytes % (Auto) 5.4 % (1.0-12.0); Neutrophils % (Auto) 68.5 % (38.0-78.0); Platelet Count 181 K/mcL (140-440); RBC 3.18 M/mcL (4.63-6.08); Red Cell Distribution Width 13.2 % (11.5-14.5); WBC 4.8 K/mcL (4.5-11.0)
[2024-03-04 06:06] LABS: ALT/SGPT 12 U/L (<40); AST/SGOT 33 U/L (<40); Albumin 2.2 gm/dL (3.2-5.2); Albumin/Globulin Ratio 0.5 (1.0-2.3); Alkaline Phosphatase 156 U/L (39-117); Bilirubin,Direct < 0.2 mg/dL (0-0.3); Bilirubin,Total 0.2 mg/dL (0.1-1.0); Blood Urea Nitrogen 6 mg/dL (6-20); C-Reactive Protein 5.54 mg/dL (0.03-0.80); Calcium 9.1 mg/dL (8.6-10.4); Carbon Dioxide 25 mmol/L (22-30); Chloride 107 mmol/L (96-108); Globulin 4.3 gm/dL (2.2-3.7); Glomerular Filtration Rate 125; Glucose 115 mg/dL (70-105); Lactate Dehydrogenase 122 U/L (135-225); Potassium 3.8 mmol/L (3.3-5.1); Sodium 140 mmol/L (133-145); Triglycerides 157 mg/dL (<150); Uric Acid 1.5 mg/dL (2.5-8.0)
[2024-03-07] MEDS: ENOXAPARIN 40 MG/0.4 ML SYRINGE SQ SCH (08:24)
[2024-03-08] MEDS ORDERED: 0.9 % SODIUM CHLORIDE 10 ML SYRINGE IV PRN (11:58)
[2024-03-08] MEDS ORDERED: 0.9 % SODIUM CHLORIDE 10 ML SYRINGE IV SCH (21:00)
== END 2024-03-08 15:15 | DRG 239 ==
LOC: ED 02:03 → MEDSUR 17:41
PROVIDERS: ADMIT Internal Medicine; ATTEND Internal Medicine

== ENCOUNTER 2024-04-11 15:57 | Inpatient (IN) ==
[2024-04-11] MEDS ORDERED: IOPAMIDOL 100 ML BOTTLE IV ONE (15:58)
[2024-04-11 17:33] LABS: Prothrombin Time 13.9 sec (11.9-14.5)
[2024-04-11 17:34] LABS: Basophils # (Auto) 0.02 K/mcL (0.00-0.30); Basophils % (Auto) 0.2 % (0.0-2.0); Eosinophils # (Auto) 0.17 K/mcL (0.00-0.70); Eosinophils % (Auto) 1.9 % (0.0-7.0); Hematocrit 32.1 % (40.1-51.0); Hemoglobin 10.2 g/dL (13.7-17.5); Lymphocytes # (Auto) 1.44 K/mcL (1.50-4.80); Mean Cell Volume 88.2 fL (80.0-100.0); Mean Corpuscular HGB Conc 31.8 g/dL (31.0-36.0); Mean Platelet Volume 10.1 fL (8.8-12.5); Monocytes # (Auto) 0.53 K/mcL (0.10-0.90); Monocytes % (Auto) 5.9 % (1.0-12.0); Neutrophils % (Auto) 75.8 % (38.0-78.0); Platelet Count 243 K/mcL (140-440); RBC 3.64 M/mcL (4.63-6.08); Red Cell Distribution Width 13.4 % (11.5-14.5)
[2024-04-11 18:02] LABS: ALT/SGPT 19 U/L (<40); AST/SGOT 24 U/L (<40); Albumin 3.7 gm/dL (3.2-5.2); Albumin/Globulin Ratio 0.8 (1.0-2.3); Alkaline Phosphatase 244 U/L (39-117); Bilirubin,Total 0.6 mg/dL (0.1-1.0); Blood Urea Nitrogen 18 mg/dL (6-20); Calcium 9.4 mg/dL (8.6-10.4); Carbon Dioxide 23 mmol/L (22-30); Chloride 99 mmol/L (96-108); Globulin 4.9 gm/dL (2.2-3.7); Glomerular Filtration Rate 98; Glucose 211 mg/dL (70-105); Potassium 4.5 mmol/L (3.3-5.1); Sodium 135 mmol/L (133-145)
[2024-04-11] MEDS: morphine 4 MG/ML VIAL IV ONE ×3 (19:01→23:23)
[2024-04-11] MEDS: PIPERACILLIN SODIUM/TAZOBACTAM 4.5 GM in DEXTROSE 5% IN WATER 50 ML IV ONE (20:29)
[2024-04-11] MEDS: CLINDAMYCIN IN 0.9 % SOD CHLOR 900 MG/50 ML BAG IV ONE (20:29)
[2024-04-11] MEDS: VANCOMYCIN 1,500 MG in 0.9 % SODIUM CHLORIDE 500 ML IV ONE (20:53)
[2024-04-11] MEDS ORDERED: ONDANSETRON 4 MG/2 ML VIAL IV PRN (21:47)
[2024-04-11] MEDS ORDERED: ACETAMINOPHEN 325 MG TABLET PO PRN (21:51)
[2024-04-11] MEDS ORDERED: POLYETHYLENE GLYCOL 3350 17 GM PACKET PO PRN (21:51)
[2024-04-11] MEDS ORDERED: DEXTROSE 31 GM ORAL.SUSP PO PRN (21:51)
[2024-04-11] MEDS ORDERED: SENNOSIDES 1 TABLET PO PRN (21:51)
[2024-04-11] MEDS ORDERED: DEXTROSE 50% 50 ML VIAL IV PRN (21:51)
[2024-04-11 22:35] LABS: C-Reactive Protein 7.56 mg/dL (0.03-0.80)
[2024-04-11] MEDS: MEROPENEM 1 GM in 0.9 % SODIUM CHLORIDE 50 ML IV SCH (23:23)
[2024-04-11] MEDS: LACTATED RINGERS 1,000 ML IV SCH (23:23)
[2024-04-11] MEDS: 0.9 % SODIUM CHLORIDE 10 ML SYRINGE IV SCH (23:24)
[2024-04-11] MEDS: VANCOMYCIN PER PHARMACY IV ONE (23:24)
[2024-04-11] MEDS: INSULIN GLARGINE, HUMAN 1 UNIT/0.01 ML SQ SCH (23:32)
[2024-04-11] MEDS: HYDROcodone/APAP 5/325MG TABLET PO PRN (23:33)
[2024-04-12] MEDS: morphine 4 MG/ML VIAL IV PRN (04:50)
[2024-04-12] MEDS: CLINDAMYCIN IN 0.9 % SOD CHLOR 900 MG/50 ML BAG IV SCH (04:51)
[2024-04-12] MEDS ORDERED: VANCOMYCIN PER PHARMACY IV SCH (07:00)
[2024-04-12] MEDS: INSULIN LISPRO 1 UNIT/0.01 ML UNIT SQ SCH (07:02)
[2024-04-12 07:06] LABS: Basophils # (Auto) 0.03 K/mcL (0.00-0.30); Basophils % (Auto) 0.5 % (0.0-2.0); Eosinophils # (Auto) 0.21 K/mcL (0.00-0.70); Eosinophils % (Auto) 3.4 % (0.0-7.0); Hematocrit 28.3 % (40.1-51.0); Lymphocytes # (Auto) 1.69 K/mcL (1.50-4.80); Lymphocytes % (Auto) 27.7 % (15.5-49.0); Mean Cell Volume 89.8 fL (80.0-100.0); Mean Corpuscular HGB Conc 31.8 g/dL (31.0-36.0); Mean Platelet Volume 10.2 fL (8.8-12.5); Monocytes # (Auto) 0.55 K/mcL (0.10-0.90); Neutrophils % (Auto) 59.1 % (38.0-78.0); Platelet Count 213 K/mcL (140-440); RBC 3.15 M/mcL (4.63-6.08); Red Cell Distribution Width 13.4 % (11.5-14.5); WBC 6.1 K/mcL (4.5-11.0)
[2024-04-12 07:26] LABS: ALT/SGPT 17 U/L (<40); AST/SGOT 20 U/L (<40); Albumin 3.2 gm/dL (3.2-5.2); Albumin/Globulin Ratio 0.8 (1.0-2.3); Alkaline Phosphatase 185 U/L (39-117); Bilirubin,Direct < 0.2 mg/dL (0-0.3); Bilirubin,Total 0.6 mg/dL (0.1-1.0); Blood Urea Nitrogen 14 mg/dL (6-20); Carbon Dioxide 24 mmol/L (22-30); Chloride 103 mmol/L (96-108); Globulin 4.2 gm/dL (2.2-3.7); Glomerular Filtration Rate 108; Glucose 165 mg/dL (70-105); Lactate Dehydrogenase 108 U/L (135-225); Potassium 3.9 mmol/L (3.3-5.1); Sodium 136 mmol/L (133-145); Triglycerides 132 mg/dL (<150)
[2024-04-12] MEDS: VANCOMYCIN 1,500 MG in 0.9 % SODIUM CHLORIDE 500 ML IV SCH (09:14)
[2024-04-12] MEDS ORDERED: GLYCOPYRROLATE 0.2 MG/ML VIAL IV ONE (11:59)
[2024-04-12] MEDS ORDERED: DEXAMETHASONE 10 MG/ML VIAL ONE (11:59)
[2024-04-12] MEDS ORDERED: KETOROLAC 30 MG/ML VIAL ONE (11:59)
[2024-04-12] MEDS ORDERED: LIDOCAINE 2% PF 5 ML VIAL ONE (11:59)
[2024-04-12] MEDS ORDERED: ONDANSETRON 4 MG/2 ML VIAL ONE (11:59)
[2024-04-12] MEDS ORDERED: METOCLOPRAMIDE 10 MG/2 ML VIAL ONE (11:59)
[2024-04-12] MEDS ORDERED: MIDAZOLAM 2 MG/2 ML VIAL ONE (12:05)
[2024-04-12] MEDS ORDERED: PROPOFOL 200 MG/20 ML VIAL IV ONE (12:05)
[2024-04-12] MEDS ORDERED: SUCCINYLCHOLINE 200 MG/10 ML VIAL IV ONE (12:05)
[2024-04-12] MEDS ORDERED: KETAMINE 50 MG/ML Syringe IV ONE (12:05)
[2024-04-12] MEDS ORDERED: HYDROmorphone 0.5 MG/0.5 ML SYRINGE ONE (12:41)
[2024-04-12] MEDS: VANCOMYCIN 1 GM VIAL TOPICAL SCH (12:52)
[2024-04-12] MEDS ORDERED: NALOXONE HCL 0.4 MG/ML VIAL IV PRN (13:15)
[2024-04-12] MEDS ORDERED: IPRATROPIUM/ALBUTEROL 3 ML AMPUL.NEB NEB PRN (13:15)
[2024-04-12] MEDS ORDERED: LACTATED RINGERS 250 ML IV PRN (13:15)
[2024-04-12] MEDS: LACTATED RINGERS 1,000 ML IV SCH (13:27)
[2024-04-12] MEDS: fentaNYL 100 MCG/2 ML VIAL IV PRN (13:55)
[2024-04-12] MEDS ORDERED: 0.9 % SODIUM CHLORIDE 10 ML SYRINGE IV SCH (14:00)
[2024-04-13 06:56] LABS: Basophils # (Auto) 0 K/mcL (0.00-0.30); Basophils % (Auto) 0 % (0.0-2.0); Eosinophils # (Auto) 0 K/mcL (0.00-0.70); Eosinophils % (Auto) 0 % (0.0-7.0); Hematocrit 26.2 % (40.1-51.0); Hemoglobin 8.4 g/dL (13.7-17.5); Lymphocytes # (Auto) 1.16 K/mcL (1.50-4.80); Lymphocytes % (Auto) 13.3 % (15.5-49.0); Mean Cell Volume 88.2 fL (80.0-100.0); Mean Corpuscular HGB Conc 32.1 g/dL (31.0-36.0); Mean Platelet Volume 10.5 fL (8.8-12.5); Monocytes % (Auto) 5.7 % (1.0-12.0); Neutrophils % (Auto) 80.9 % (38.0-78.0); Platelet Count 210 K/mcL (140-440); RBC 2.97 M/mcL (4.63-6.08); Red Cell Distribution Width 13.3 % (11.5-14.5); WBC 8.8 K/mcL (4.5-11.0)
[2024-04-13 07:16] LABS: ALT/SGPT 16 U/L (<40); AST/SGOT 22 U/L (<40); Albumin 3.1 gm/dL (3.2-5.2); Albumin/Globulin Ratio 0.8 (1.0-2.3); Alkaline Phosphatase 163 U/L (39-117); Bilirubin,Direct < 0.2 mg/dL (0-0.3); Bilirubin,Total 0.4 mg/dL (0.1-1.0); Blood Urea Nitrogen 15 mg/dL (6-20); Calcium 8.7 mg/dL (8.6-10.4); Carbon Dioxide 22 mmol/L (22-30); Chloride 104 mmol/L (96-108); Globulin 3.8 gm/dL (2.2-3.7); Glomerular Filtration Rate 115; Glucose 287 mg/dL (70-105); Lactate Dehydrogenase 121 U/L (135-225); Phosphorous 3.3 mg/dL (2.5-4.5); Potassium 4.3 mmol/L (3.3-5.1); Sodium 136 mmol/L (133-145); Triglycerides 84 mg/dL (<150); Uric Acid 5.1 mg/dL (2.5-8.0)
[2024-04-13] MEDS: INSULIN LISPRO 1 UNIT/0.01 ML UNIT SQ SCH (07:29)
[2024-04-13] MEDS: HEPARIN 5,000 UNIT/ML VIAL SQ SCH (08:25)
[2024-04-13] MEDS: VANCOMYCIN 2,000 MG in 0.9 % SODIUM CHLORIDE 500 ML IV SCH (11:59)
[2024-04-13] MEDS: CYCLOBENZAPRINE 10 MG TABLET PO SCH (14:27)
[2024-04-13] MEDS: GABAPENTIN 100 MG CAPSULE PO SCH (14:27)
[2024-04-13] MEDS: HYDROcodone/APAP 5/325MG TABLET PO PRN (20:56)
[2024-04-13] MEDS: INSULIN GLARGINE, HUMAN 1 UNIT/0.01 ML SQ SCH (20:59)
[2024-04-14 06:44] LABS: Basophils # (Auto) 0.01 K/mcL (0.00-0.30); Basophils % (Auto) 0.2 % (0.0-2.0); Eosinophils # (Auto) 0.07 K/mcL (0.00-0.70); Eosinophils % (Auto) 1.6 % (0.0-7.0); Hematocrit 25.2 % (40.1-51.0); Hemoglobin 7.9 g/dL (13.7-17.5); Lymphocytes # (Auto) 1.25 K/mcL (1.50-4.80); Lymphocytes % (Auto) 28.3 % (15.5-49.0); Mean Corpuscular HGB Conc 31.3 g/dL (31.0-36.0); Mean Platelet Volume 10.5 fL (8.8-12.5); Monocytes # (Auto) 0.36 K/mcL (0.10-0.90); Monocytes % (Auto) 8.1 % (1.0-12.0); Neutrophils % (Auto) 61.6 % (38.0-78.0); Platelet Count 172 K/mcL (140-440); Red Cell Distribution Width 13.5 % (11.5-14.5); WBC 4.4 K/mcL (4.5-11.0)
[2024-04-14 07:33] LABS: ALT/SGPT 12 U/L (<40); AST/SGOT 18 U/L (<40); Albumin/Globulin Ratio 0.8 (1.0-2.3); Alkaline Phosphatase 169 U/L (39-117); Bilirubin,Direct < 0.2 mg/dL (0-0.3); Bilirubin,Total 0.2 mg/dL (0.1-1.0); Blood Urea Nitrogen 15 mg/dL (6-20); Calcium 8.9 mg/dL (8.6-10.4); Carbon Dioxide 22 mmol/L (22-30); Chloride 107 mmol/L (96-108); Globulin 3.7 gm/dL (2.2-3.7); Glomerular Filtration Rate 115; Glucose 205 mg/dL (70-105); Lactate Dehydrogenase 104 U/L (135-225); Phosphorous 3.3 mg/dL (2.5-4.5); Sodium 140 mmol/L (133-145); Triglycerides 146 mg/dL (<150); Uric Acid 4.5 mg/dL (2.5-8.0)
[2024-04-14] MEDS: INSULIN LISPRO 1 UNIT/0.01 ML UNIT SQ SCH (11:33)
[2024-04-14] MEDS: INSULIN GLARGINE, HUMAN 1 UNIT/0.01 ML SQ SCH (20:45)
[2024-04-15 06:18] LABS: Basophils # (Auto) 0.02 K/mcL (0.00-0.30); Basophils % (Auto) 0.5 % (0.0-2.0); Eosinophils # (Auto) 0.13 K/mcL (0.00-0.70); Eosinophils % (Auto) 3.1 % (0.0-7.0); Hematocrit 27.3 % (40.1-51.0); Hemoglobin 8.6 g/dL (13.7-17.5); Lymphocytes # (Auto) 1.32 K/mcL (1.50-4.80); Lymphocytes % (Auto) 31.8 % (15.5-49.0); Mean Cell Volume 88.6 fL (80.0-100.0); Mean Corpuscular HGB Conc 31.5 g/dL (31.0-36.0); Mean Platelet Volume 9.9 fL (8.8-12.5); Monocytes # (Auto) 0.31 K/mcL (0.10-0.90); Monocytes % (Auto) 7.5 % (1.0-12.0); Neutrophils % (Auto) 56.6 % (38.0-78.0); Platelet Count 209 K/mcL (140-440); RBC 3.08 M/mcL (4.63-6.08); Red Cell Distribution Width 13.4 % (11.5-14.5); WBC 4.2 K/mcL (4.5-11.0)
[2024-04-15 06:25] LABS: ALT/SGPT 14 U/L (<40); AST/SGOT 24 U/L (<40); Albumin 3.1 gm/dL (3.2-5.2); Albumin/Globulin Ratio 0.8 (1.0-2.3); Alkaline Phosphatase 176 U/L (39-117); Bilirubin,Direct < 0.2 mg/dL (0-0.3); Bilirubin,Total 0.2 mg/dL (0.1-1.0); Blood Urea Nitrogen 11 mg/dL (6-20); Calcium 9.3 mg/dL (8.6-10.4); Carbon Dioxide 25 mmol/L (22-30); Chloride 107 mmol/L (96-108); Globulin 3.9 gm/dL (2.2-3.7); Glomerular Filtration Rate 115; Glucose 115 mg/dL (70-105); Lactate Dehydrogenase 112 U/L (135-225); Phosphorous 3.8 mg/dL (2.5-4.5); Potassium 4.1 mmol/L (3.3-5.1); Sodium 141 mmol/L (133-145); Triglycerides 154 mg/dL (<150); Uric Acid 5.4 mg/dL (2.5-8.0)
[2024-04-15] MEDS: HYDROcodone/APAP 5/325MG TABLET PO ONE (08:07)
[2024-04-16 06:47] LABS: Basophils # (Auto) 0.02 K/mcL (0.00-0.30); Basophils % (Auto) 0.5 % (0.0-2.0); Eosinophils % (Auto) 4.6 % (0.0-7.0); Hematocrit 28.5 % (40.1-51.0); Lymphocytes # (Auto) 1.58 K/mcL (1.50-4.80); Lymphocytes % (Auto) 36.5 % (15.5-49.0); Mean Cell Volume 88.2 fL (80.0-100.0); Mean Corpuscular HGB Conc 31.6 g/dL (31.0-36.0); Mean Platelet Volume 9.8 fL (8.8-12.5); Monocytes # (Auto) 0.28 K/mcL (0.10-0.90); Monocytes % (Auto) 6.5 % (1.0-12.0); Neutrophils % (Auto) 51.7 % (38.0-78.0); Platelet Count 225 K/mcL (140-440); RBC 3.23 M/mcL (4.63-6.08); Red Cell Distribution Width 13.4 % (11.5-14.5); WBC 4.3 K/mcL (4.5-11.0)
[2024-04-16 07:06] LABS: ALT/SGPT 16 U/L (<40); AST/SGOT 24 U/L (<40); Albumin 3.2 gm/dL (3.2-5.2); Albumin/Globulin Ratio 0.8 (1.0-2.3); Alkaline Phosphatase 194 U/L (39-117); Bilirubin,Direct < 0.2 mg/dL (0-0.3); Bilirubin,Total 0.3 mg/dL (0.1-1.0); Blood Urea Nitrogen 13 mg/dL (6-20); Calcium 9.2 mg/dL (8.6-10.4); Carbon Dioxide 25 mmol/L (22-30); Chloride 106 mmol/L (96-108); Globulin 4.1 gm/dL (2.2-3.7); Glomerular Filtration Rate 115; Glucose 131 mg/dL (70-105); Lactate Dehydrogenase 108 U/L (135-225); Phosphorous 3.3 mg/dL (2.5-4.5); Potassium 4.1 mmol/L (3.3-5.1); Sodium 139 mmol/L (133-145); Triglycerides 160 mg/dL (<150); Uric Acid 6.5 mg/dL (2.5-8.0)
== END 2024-04-17 15:12 | DRG 264 ==
LOC: ED 15:57 → MEDSUR 22:34
PROVIDERS: ADMIT Student in an Organized Health Care Education/Training Program; ATTEND Internal Medicine